=== PATIENT | female | born 1955 | race Caucasian/White ===

== ENCOUNTER 2020-01-27 15:33 | Inpatient (IN) | payer OTHER, SELFPAY ==
[2020-01-27 15:37] VITALS: BP 128/67; PULSE 95; RESP 22; TEMP 37.8; O2SAT 97
--- NOTE | 2020-01-27 15:54 | DI.RAD.S_ITS ---
PROCEDURE: XR FEMUR LT MIN 2V INDICATIONS: fall, femur pain. pain from knee to hip TECHNIQUE: 2 views of the femur were acquired. COMPARISON: [facility], CR, XR KNEE LT 3V, 01/27/2020, 15:49. [facility], CR, XR HIP W PEL IF DONE LT 2V, 01/27/2020, 15:49. FINDINGS: Bones: There is a moderately displaced, impacted, comminuted fracture of the left femoral neck. No distal femur fractures are seen. No hip dislocation is seen. No definite fracture of the pelvic ring can be seen. Age-appropriate bony degenerative changes are seen. Soft tissues: No suspicious soft tissue calcifications or masses. IMPRESSION: Impacted, angulated femoral neck fracture. If it would be helpful for clinical management decision making, please consider a dedicated hip CT for further evaluation. Dictated by: Zeke Johnson M.D. on 01/27/2020 at 15:36 Approved by: Zeke Johnson M.D. on 01/27/2020 at 15:37
--- NOTE | 2020-01-27 15:54 | DI.RAD.S_ITS ---
PROCEDURE: XR HIP W PEL IF DONE LT 2V INDICATIONS: fall, femur pain. pain from knee to hip TECHNIQUE: AP pelvis with lateral view(s) of the left hip(s). COMPARISON: [facility], CR, XR FEMUR LT MIN 2V, 01/27/2020, 15:49. [facility], CR, XR KNEE LT 3V, 01/27/2020, 15:49. FINDINGS: Bones: There is an impacted, moderately angulated, comminuted fracture of the left femoral neck. No hip dislocation can be seen. Evaluation of the bony pelvis reveals no fracture of the pelvic rings. Age-appropriate bony degenerative changes are seen. Soft tissues: The visualized bowel gas pattern is normal. No suspicious soft tissue calcifications. IMPRESSION: Left femoral neck fracture, with moderate angulation, impaction, and comminution. Dictated by: Zeke Johnson M.D. on 01/27/2020 at 15:37 Approved by: Zeke Johnson M.D. on 01/27/2020 at 15:38
--- NOTE | 2020-01-27 15:54 | DI.RAD.S_ITS ---
PROCEDURE: XR KNEE LT 3V INDICATIONS: fall, femur pain. pain from knee to hip TECHNIQUE: 3 views of the knee were acquired. COMPARISON: [facility], CR, XR FEMUR LT MIN 2V, 01/27/2020, 15:49. [facility], CR, XR HIP W PEL IF DONE LT 2V, 01/27/2020, 15:49. FINDINGS: Bones: This study is limited by nonstandard positioning. The patient is unable to straighten her leg for the examination. There is a potential medial tibial plateau fracture. No additional focal bony abnormality is seen. Age-appropriate bony degenerative changes are seen. Age-appropriate osteopenia is seen. Soft tissues: No joint effusion. No suspicious soft tissue calcifications. IMPRESSION: Potential medial tibial plateau fracture, which may simply be artifactual on this limited study. Please correlate with focal tenderness. If clinically appropriate, a dedicated knee CT could be considered for further evaluation. Dictated by: Zeke Johnson M.D. on 01/27/2020 at 15:34 Approved by: Zeke Johnson M.D. on 01/27/2020 at 15:35
--- NOTE | 2020-01-27 16:29 | ED_ITS ---
HPI - Extremity Injury (Lower) General Chief Complaint: Extremity Injury, Lower Stated Complaint: Fell, Hurt Left Leg Time Seen by Provider: 01/27/20 15:55 Source: patient Mode of arrival: Ambulatory Limitations: no limitations History of Present Illness HPI Narrative: Patient is a 64-year-old female who presents with a left femur pain. She fell going up the stairs yesterday she felt like her leg gave out on her and she fell onto it. She has been hobbling around not really being able to weight bear. No other injury. She denies any knee pain. Related Data Allergies Allergy/AdvReac Type Severity Reaction Status Date / Time No Known Drug Allergies Allergy Verified 01/27/20 15:40 Review of Systems Review of Systems Narrative: GENERAL: Denies chills,fever HEENT: Denies throat pain RESPIRATORY: Denies dyspnea, cough, wheezing CARDIOVASCULAR: Denies chest pain, palpitations GASTROINTESTINAL: Denies nausea, vomiting MUSCULOSKELETAL: See HPI SKIN: No rash, no laceration, no pruritus NEUROLOGIC: Denies weakness, dizziness, headache, numbness 8 point review of systems is negative except for those stated above and HPI Patient History Medical History Patient denies medical problems (Acute) Social History Smoking Status: Never smoker Smoking Status: Never smoker Exam Initial Vital Signs Initial Vital Signs: Vital Signs Temperature 100.0 F H 01/27/20 15:37 Pulse Rate 95 H 01/27/20 15:37 Respiratory Rate 22 01/27/20 15:37 Blood Pressure 128/67 01/27/20 15:37 Pulse Oximetry 97 01/27/20 15:37 GENERAL: Well-appearing female appears younger than stated age and in no acute distress. HEENT: Head atraumatic,EOMI, pupils reactive, face symmetric, moist mucous membranes CARDIOVASCULAR: Regular rate and rhythm without murmurs, rubs or gallops. RESPIRATORY: Breath sounds equal bilaterally, no wheezes rales or rhonchi. ABDOMEN: Soft, nontender. Normoactive bowel sounds all 4 quadrants. No guarding or rebound. EXTREMITIES: Normal range of motion, no clubbing or edema. Neurovascularly intact. Tender left hip distal pedal pulse intact. Knee is nontender and stable no swelling. NEUROLOGICAL: Alert and oriented x4.Normal gait and speech. SKIN: Warm, dry, no laceration, no petechiae, no rashes or lesions. Course Orders Ordered: ED Orders 01/27/20 15:54 XR femur LT min 2V Stat XR hip w pel if done LT 2V Stat XR knee LT 3V Stat 01/27/20 17:24 CT LE LT wo con Stat 01/27/20 17:31 Basic Metabolic Panel Stat 01/27/20 17:58 Complete Blood Count AUTO DIFF Stat 01/27/20 18:15 COVID19 -ED/INPAT/OR/L&D Stat Sodium Chloride (Normal Saline 0.9%) 1,000 mls @ 125 mls/hr IV CONT IVETTE Morphine Sulfate (Morphine) 2 mg IV Q4HR PRN PRN Reason: pain Discontinued Medications Lorazepam (Ativan) 0.5 mg IV NOW ONE Stop: 01/27/20 16:43 Last Admin: 01/27/20 17:27 Dose: 0.5 mg Documented by: NOE Morphine Sulfate (Morphine) 4 mg IV NOW ONE Stop: 01/27/20 17:40 Last Admin: 01/27/20 17:48 Dose: 4 mg Documented by: NOE Ondansetron HCl (Zofran) 4 mg IV NOW ONE Stop: 01/27/20 17:40 Last Admin: 01/27/20 17:47 Dose: 4 mg Documented by: NOE Consultations Consultation #1: Dr. Barrera reviewed Xrays, admit to him, get CT of knee. Time: 16:50 Vital Signs Vital signs: Vital Signs - 8 hr 01/27/20 15:37 01/27/20 18:15 Temperature 100.0 F H Pulse Rate 95 H 72 Respiratory Rate 22 16 Blood Pressure 128/67 154/76 H Pulse Oximetry 97 97 MDM - Extremity Injury (Lower) Lab Data Attestation: I reviewed the patient's lab results. Result diagrams: 01/27/20 17:58 01/27/20 17:31 Labs: Lab Results 01/27/20 01/27/20 01/27/20 Range/Units 17:31 17:58 18:15 WBC 7.3 (4.5-11.0) X10^3/uL RBC 4.14 (4.0-5.2) X10^6/uL Hgb 13.5 (12.0-16.0) g/dL Hct 37.8 (36-46) % MCV 91.2 (80-100) fL MCH 32.5 (26-34) PG MCHC 35.7 (30-36) % RDW 12.2 (11.6-14.8) % Plt Count 143 L (150-400) X10^3/uL Neut % (Auto) 80.5 H (50-75) % Lymph % (Auto) 11.7 L (25-40) % [place] % (Auto) 7.3 (3-14) % Eos % (Auto) 0.2 L (2-4) % Baso % (Auto) 0.3 (0-2) % Neut # (Auto) 5800 (8574-2007) /uL Lymph # (Auto) 800 L (8700-1657) /uL [place] # (Auto) 500 (0-900) /uL Eos # (Auto) 0 (0-450) /uL Baso # (Auto) 0 (0-100) /uL Sodium 135 L (137-145) mmol/L Potassium 3.9 (3.4-5.1) mmol/L Chloride 96 L (98-107) mmol/L Carbon Dioxide 30 (22-32) mmol/L BUN 15 (7-17) mg/dL Creatinine 0.58 (0.52-1.04) mg/dL Estimated GFR > 60.0 (>60) mL/min BUN/Creatinine Ratio 25.9 H (6-22) Glucose 89 (80-110) mg/dL Calcium 9.8 (8.4-10.2) mg/dL COVID-19 PCR Negative (Negative) Imaging Data Extremity x-ray #1: Radiologist's Impression: PROCEDURE: XR FEMUR LT MIN 2V INDICATIONS: fall, femur pain. pain from knee to hip TECHNIQUE: 2 views of the femur were acquired. COMPARISON: [facility], CR, XR KNEE LT 3V, 01/27/2020, 15:49. [facility], CR, XR HIP W PEL IF DONE LT 2V, 01/27/2020, 15:49. FINDINGS: Bones: There is a moderately displaced, impacted, comminuted fracture of the left femoral neck. No distal femur fractures are seen. No hip dislocation is seen. No definite fracture of the pelvic ring can be seen. Age-appropriate bony degenerative changes are seen. Soft tissues: No suspicious soft tissue calcifications or masses. IMPRESSION: Impacted, angulated femoral neck fracture. If it would be helpful for clinical management decision making, please consider a dedicated hip CT for further evaluation. Dictated by: Zeke Johnson M.D. on 01/27/2020 at 15:36 Approved by: Zeke Johnson M.D. on 01/27/2020 at 15:37 Extremity x-ray #2: Radiologist's Impression: PROCEDURE: XR HIP W PEL IF DONE LT 2V INDICATIONS: fall, femur pain. pain from knee to hip TECHNIQUE: AP pelvis with lateral view(s) of the left hip(s). COMPARISON: [facility], CR, XR FEMUR LT MIN 2V, 01/27/2020, 15:49. [facility], CR, XR KNEE LT 3V, 01/27/2020, 15:49. FINDINGS: Bones: There is an impacted, moderately angulated, comminuted fracture of the left femoral neck. No hip dislocation can be seen. Evaluation of the bony pelvis reveals no fracture of the pelvic rings. Age-appropriate bony degenerative changes are seen. Soft tissues: The visualized bowel gas pattern is normal. No suspicious soft tissue calcifications. IMPRESSION: Left femoral neck fracture, with moderate angulation, impaction, and comminution. Dictated by: Zeke Johnson M.D. on 01/27/2020 at 15:37 Approved by: Zeke Johnson M.D. on 01/27/2020 at 15:38 Extremity x-ray #3: Radiologist's Impression: PROCEDURE: XR KNEE LT 3V INDICATIONS: fall, femur pain. pain from knee to hip TECHNIQUE: 3 views of the knee were acquired. COMPARISON: [facility], CR, XR FEMUR LT MIN 2V, 01/27/2020, 15:49. [facility], CR, XR HIP W PEL IF DONE LT 2V, 01/27/2020, 15:49. FINDINGS: Bones: This study is limited by nonstandard positioning. The patient is unable to straighten her leg for the examination. There is a potential medial tibial plateau fracture. No additional focal bony abnormality is seen. Age-appropriate bony degenerative changes are seen. Age-appropriate osteopenia is seen. Soft tissues: No joint effusion. No suspicious soft tissue calcifications. IMPRESSION: Potential medial tibial plateau fracture, which may simply be artifactual on this limited study. Please correlate with focal tenderness. If clinically appropriate, a dedicated knee CT could be considered for further evaluation. Dictated by: Zeke Johnson M.D. on 01/27/2020 at 15:34 Approved by: Zeke Johnson M.D. on 01/27/2020 at 15:35 PROCEDURE: CT LE LT W CON INDICATIONS: questionable tibial plateau fracture TECHNIQUE: Noncontrast 1-1.5 mm axial sections acquired from the mid-patella to the proximal tibia, with coronal and sagittal reformats. COMPARISON: [facility], CR, XR KNEE LT 3V, 01/27/2020, 15:49. [facility], CR, XR FEMUR LT MIN 2V, 01/27/2020, 15:49. FINDINGS: Image quality: Excellent. Bones: No fracture found. Soft tissues: No joint effusion seen. IMPRESSION: No trauma identified no effusion present.. Dictated by: Reza Velasquez M.D. on 01/27/2020 at 18:29 MDM Narrative Medical decision making narrative: Patient is found have a femoral neck fracture. She is quite anxious about everything. She is here with support friend who just graduated from pool technician school, all of her questions have been answered to the best of my ability. Patient's pain is controlled and admitted to Dr. Barrera Discharge Plan Departure Patient Disposition: Admitted As Inpatient Clinical Impression: Closed fracture of left hip Qualifiers: Encounter type: initial encounter Qualified Code(s): S72.002A - Fracture of unspecified part of neck of left femur, initial encounter for closed fracture Discharge Date/Time: 01/27/20 18:57 Admit Date/Time: 01/27/20 18:39 Admit Provider: Beny Barrera
--- NOTE | 2020-01-27 17:24 | DI.CT.S_ITS ---
PROCEDURE: CT LE LT W CON INDICATIONS: questionable tibial plateau fracture TECHNIQUE: Noncontrast 1-1.5 mm axial sections acquired from the mid-patella to the proximal tibia, with coronal and sagittal reformats. COMPARISON: [facility], CR, XR KNEE LT 3V, 01/27/2020, 15:49. [facility], CR, XR FEMUR LT MIN 2V, 01/27/2020, 15:49. FINDINGS: Image quality: Excellent. Bones: No fracture found. Soft tissues: No joint effusion seen. IMPRESSION: No trauma identified no effusion present.. Dictated by: Reza Velasquez M.D. on 01/27/2020 at 18:29 Approved by: Reza Velasquez M.D. on 01/27/2020 at 18:31
[2020-01-27] MEDS: LORazepam 2 MG/ML INJ 0.5 MG IV (17:27)
[2020-01-27] MEDS: ONDANSETRON 4 MG/2 ML INJ IV (17:47)
[2020-01-27] MEDS: MORPHINE 4 MG/ML INJ IV (17:48)
[2020-01-27 18:00] LABS: BUN Creatinine Ratio 25.9 (6-22); Blood Urea Nitrogen 15 mg/dL (7-17); Calcium 9.8 mg/dL (8.4-10.2); Carbon Dioxide 30 mmol/L (22-32); Chloride 96 mmol/L (98-107); Estimated Glomerular Filt Rate > 60.0 mL/min (>60); Glucose 89 mg/dL (80-110); HEMOLYSIS < 15 (0-50); Potassium 3.9 mmol/L (3.4-5.1); Sodium 135 mmol/L (137-145)
[2020-01-27 18:08] LABS: Add Manual Diff / Slide Review NO; Basophils Absolute Auto 0 /uL (0-100); Basophils Percent Auto 0.3 % (0-2); Eosinophils Absolute Auto 0 /uL (0-450); Eosinophils Percent Auto 0.2 % (2-4); Hematocrit 37.8 % (36-46); Hemoglobin 13.5 g/dL (12.0-16.0); Lymphocytes Absolute Auto 800 /uL (1100-4500); Lymphocytes Percent Auto 11.7 % (25-40); Mean Corpuscular HGB Conc 35.7 % (30-36); Mean Corpuscular Hemoglobin 32.5 PG (26-34); Mean Corpuscular Volume 91.2 fL (80-100); Monocytes Absolute Auto 500 /uL (0-900); Monocytes Percent Auto 7.3 % (3-14); Neutrophils Absolute Auto 5800 /uL (1500-7000); Neutrophils Percent Auto 80.5 % (50-75); Platelet Count 143 X10^3/uL (150-400); Red Blood Cell Count 4.14 X10^6/uL (4.0-5.2); Red Cell Distribution Width 12.2 % (11.6-14.8); White Blood Cell Count 7.3 X10^3/uL (4.5-11.0)
[2020-01-27 18:15] VITALS: BP 154/76; PULSE 72; RESP 16; O2SAT 97
[2020-01-27 18:38] LABS: COVID19 -Nasal RAPID Negative (Negative)
[2020-01-27 19:10] VITALS: BP 136/78; PULSE 68; RESP 18; TEMP 37.5; O2SAT 100
--- NOTE | 2020-01-27 19:23 | PC.NURSE ---
TRANSFERED TO BED WITH SLIDE BOARD,MIN PAIN WITHOUT MOVEMENT,IV FLUIDS INFUSING . GENERAL DIET ORDERED
[2020-01-27 19:48] VITALS: BMI 17.6
[2020-01-27] MEDS: SODIUM CHLORIDE 0.9% 1,000 ML 125 ML IV (20:09)
[2020-01-27] MEDS: MORPHINE 2 MG/ML INJ IV (20:45)
--- NOTE | 2020-01-27 20:46 | PC.NURSE ---
I offered to help patient to get into a hospital gown when she first got up to her room and again about an hour later. She refused to change into a gown at this time. Wants to remain in her clothes.Told her she would need to change into a gown for surgery.
[2020-01-28] VITALS (22 sets, daily range): BP systolic 93–143; BP diastolic 65–81; PULSE 44–83; RESP 10–18; TEMP 35.8–37; O2SAT 92–100
--- NOTE | 2020-01-28 | PATH_ITS ---
[facility] Accession Number: [id number] . 01 Material submitted: . hip - LEFT FEMORAL HEAD AND NECK . 01 Clinical history: . FELL, HURT LEFT LEG . 01 Diagnosis: Left Femoral Head and Neck, Resection: Focal changes consistent with recent fracture site. Mild degenerative changes and osteopenia. Negative for malignancy. MRV 02/05/2020 1226 Local . 01 Electronically signed: . Haven Galo MD, Pathologist NPI- [id number] . 01 Gross description: . Received in formalin, labeled left femoral head and neck, and consists of a 4.5 x 4.5 x 4.5 cm femoral head with attached neck measuring 2.5 x 2.5 x2.5 cm. The resection margin is irregular and ragged. The articular surface is grey and smooth with a 2.0 x 1.5 cm area of eburnation. Sectioning reveals grey trabeculated cut surfaces. Also received are four additional fragments of grey bone and soft tissue measuring 4.0 x 3.5 x 1.5 cm in aggregate. . CASSETTE SUMMARY: A1: Hand Heel Seat Fitter sections are submitted, following decalcification. A2: Additional bone and soft tissue (following decalcification). decalcification). ([id number]) [id number] . /MRV 02/01/2020 1010 Local . 01 Pathologist provided ICD-10: M84.9 . 01 CPT . 216369, [id number], [id number] Performed at: 01 [facility] [address] [place] [address] [address], [place], [place] [id number] MD Leonel Corcoran MD Phone: [phone]
--- NOTE | 2020-01-28 | DI.RAD.S_ITS ---
PROCEDURE: XR PELVIS 1-2V INDICATIONS: INTER OP TECHNIQUE: Intra-operative view of the pelvis and hip acquired. COMPARISON: None. FINDINGS: Bones: Intraoperative devices prior to placement of arthroplasty prostheses are in expected positions. No fractures or suspicious bony lesions. Soft tissues: Overlying surgical retractors are present, along with other intraoperative changes. IMPRESSION: Intraoperative images shows left total hip arthroplasty in progress with anatomic left hip alignment. Dictated by: Catrachito Matthew M.D. on 01/28/2020 at 15:13 Approved by: Catrachito Matthew M.D. on 01/28/2020 at 15:14
--- NOTE | 2020-01-28 | DI.RAD.S_ITS ---
PROCEDURE: XR HIP W PEL IF DONE LT 2V INDICATIONS: LEFT TOTAL HIP FX REPAIR TECHNIQUE: AP pelvis with lateral view(s) of the left hip(s). COMPARISON: [facility], , XR HIP W PEL IF DONE LT 2V, 01/27/2020, 15:49. FINDINGS: Bones: No fracture. Expected postoperative alignment of left hip arthroplasty. The hardware appears intact. Overlying soft tissue changes. Mild right hip joint degeneration. Lower lumbar spondylitic changes. IMPRESSION: Expected postoperative appearance Dictated by: Syed Owen M.D. on 01/28/2020 at 15:21 Approved by: Syed Owen M.D. on 01/28/2020 at 15:22
[2020-01-28] MEDS: MORPHINE 2 MG/ML INJ IV ×3 (02:07→11:10)
[2020-01-28] MEDS: SODIUM CHLORIDE 0.9% 1,000 ML 125 ML IV (03:52)
--- NOTE | 2020-01-28 06:19 | PC.NURSE ---
Summary- Patient reported 5/10 pain in her left hip at 2:00. Was given IV morphine with mild relief. Patient remained asleep for the rest of the night.
--- NOTE | 2020-01-28 07:46 | PC.NURSE ---
Day shift: Pt having anxiety and emotional about her current situation. Informed Pt that Dr Arnold was coming to talk with her about the procedure. Pt encouraged to ask as many questions as needed. CMS intact. PPP. Denies ay cest pain or nausea. Pt did state I'm a little claustrophobic. Call light in reach and bed alarm is on.
[2020-01-28] MEDS: diazePAM 5 MG TABLET PO (10:04)
--- NOTE | 2020-01-28 10:19 | PC.NURSE ---
Day shift: Called Dr Barrera about Pt's anxiety and took a phone order for 5mg PO Valium Q4 hrs PRN for anxiety. Gave Pt this med and she is currently asleep (1020). Will continue to monitor.
--- NOTE | 2020-01-28 10:29 | PC.NURSE ---
Day shift: After bladder scan of approx 450mls this AM at approx 0600, Pt voided 600mls of urine in bedpan at approx 0830.
--- NOTE | 2020-01-28 10:57 | PM.HP.1 ---
History of Present Illness History of Present Illness Date Patient Seen: 01/28/20 Time Patient Seen: 08:01 Chief complaint: Fell, Hurt Left Leg Narrative: She fell yesterday and noted the acute onset of left hip pain. She was going up the steps at the time. She does a lot of outdoor walking and likes to hike but is not a runner. She notes that she is physically active and does suggest moderate amount of weight-bearing exercises. She does not do a lot of yoga. She has no prior history of fractures injuries or surgeries. She has a son that lives locally and her is on [facility]. She has a lot of steps at home. Patient History Medical History Patient denies medical problems (Acute) Family & Social History Social History: household members spouse Prior Living Arrangements House Safety & Behavioral: Feels Safe in Current Yes Environment Been Physically Hurt or No Threatened By a Person Suicidal Ideation Description None Suicide Plan Description No Plan Tobacco & Substance use: Smoking Status Never smoker alcohol intake current alcohol intake frequency holiday/special occasion Meds Home Medications and Allergies Allergies Allergy/AdvReac Type Severity Reaction Status Date / Time No Known Drug Allergies Allergy Verified 01/27/20 15:40 Review of Systems Review of Systems Narrative: Negative denies lightheadedness chest pain recent abdominal pain or any respiratory symptoms. Exam Vital Signs (past 8 hours): - 01/28/20 04:00 01/28/20 08:08 Temperature 98.2 F 98.6 F Pulse Rate 64 78 Respiratory Rate 18 16 Blood Pressure 136/76 134/79 Pulse Oximetry 99 96 Oxygen Delivery Method Room Air Oxygen Flow Rate 0 Narrative Exam Narrative: She is alert and oriented she is pleasant and conversant HEENT is benign lungs are clear, cor regular rate and rhythm, abdomen soft and benign, pain with any attempted range of motion of the left hip, moderate left hip for shortening, neurologically intact distally, minimal pain with gentle range of motion in the knee Objective Labs Result Diagrams: 01/27/20 17:58 01/27/20 17:31 Labs: Laboratory Results - last 24 hr 01/27/20 01/27/20 01/27/20 17:31 17:58 18:15 WBC 7.3 RBC 4.14 Hgb 13.5 Hct 37.8 MCV 91.2 MCH 32.5 MCHC 35.7 RDW 12.2 Plt Count 143 L Neut % (Auto) 80.5 H Lymph % (Auto) 11.7 L [place] % (Auto) 7.3 Eos % (Auto) 0.2 L Baso % (Auto) 0.3 Neut # (Auto) 5800 Lymph # (Auto) 800 L [place] # (Auto) 500 Eos # (Auto) 0 Baso # (Auto) 0 Sodium 135 L Potassium 3.9 Chloride 96 L Carbon Dioxide 30 BUN 15 Creatinine 0.58 Estimated GFR > 60.0 BUN/Creatinine Ratio 25.9 H Glucose 89 Calcium 9.8 COVID-19 PCR Negative X-rays show a displaced left femoral neck fracture. Assessment & Plan Assessment & Plan narrative: Displaced left femoral neck fracture. We discussed options in great detail today. She is young in her early 60s. It is a significantly displaced fracture I think she is best managed with a left total hip arthroplasty. Procedure alternatives risks benefits and complications were discussed in detail. We discussed the need for postoperative hip precautions and slight increased risk for hip instability after a fracture. She would prefer to heal with 1 operation was not interested in open reduction internal fixation and because of her young age and anticipated longevity think she is better managed with a left total hip hip arthroplasty instead of a hemiarthroplasty. Options risks benefits and complications discussed in detail and she consents to proceed. Quality VTE Deep Vein Thrombosis/Pulmonary Embolism Present on Admission: No
--- NOTE | 2020-01-28 11:07 | PM.OP.1 ---
Operative Date/Time/Diagnoses Date of procedure: 01/28/20 Time of procedure: 16:07 Pre-op diagnosis: Left femoral neck fracture Post-op diagnosis: same Procedure & Clinicians Procedure: Left total hip arthroplasty Same procedure as scheduled: Yes Indications: She fell and sustained a displaced left femoral neck fracture. She is young and was felt to be best managed with a left total hip arthroplasty and the patient has requested total hip replacement. The risks, benefits and alternatives to surgery were discussed with the patient prior to proceeding. Risks discussed included, but were not limited to, failure to relieve pain, leg length discrepancy, dislocation, stiffness, infection, nerve damage, deep venous thrombosis, pulmonary embolism, stroke, coma, heart attack, permanent paralysis and , as well as the potential need for eventual revision of the prosthetic. Surgeon: Deena Arnold Souvenir Assembler: Caleb Wyatt Anesthesia Type: General and Spinal Operative Notes Findings: Displaced left femoral neck fracture, adequate stability and bone, very small femoral head 43 mm, tear of the abductors with some retraction, significant trochanteric bursitis Closure Type: primary Specimen(s): none sent Prosthetic devices, grafts, tissues, transplants, or devices: Arnold [employer]hew R3 46 mm, size 3 standard offset anthology, 28+ 0 Oxinium head, one 15 mm screw Applied: drain(s) Estimated Blood Loss (mL): 250 Blood products transfused: none Procedure in detail: The patient was seen in the pre-operative area, where the patient identified the left hip as the operative site and this was marked with my initials. The patient received pre-operative antibiotics and was taken to the operating room and placed on the operative table in the right lateral decubitus position after satisfactory anesthesia. A part time flexible clerk out was performed. The left leg was prepared from the ankle to the iliac crest with ChloroPrep in the usual fashion and draped through sterile drapes. The hip was approached through an approximately 20 cm incision centered over the greater trochanter and curving gently posteriorly as it went proximally. This was carried sharply to the fascia manoj, which was divided and retracted with a self retaining retractor. The trochanteric bursa was excised with care being taken to avoid the sciatic nerve, which was identified and protected throughout the case. There was obvious significant trochanteric bursitis. And there was a tear in the anterior aspect of the hip abductor insertion. The short external rotators were incised and the capsulomuscular flap was raised and tagged for later repair. The femoral neck was brought up. An osteotomy was performed above the lesser trochanter. The head piece was removed with a corkscrew. The head was sized it was very small it was a 43 mm. Retractors were placed around the femur. The canal was opened with a box cutting osteotome, followed by a T handled reamer and a lateralizing reamer. The chili pepper broach was then used, followed by sequential broaching until there was good stability of the broach in the femur. Retractors were placed to expose the acetabulum. The labrum and central soft tissues were removed. Reaming was performed initially going up in 2 mm increments, then 1 mm increments until good bite was obtained with an odd sized reamer. The cup 1 mm larger than the last reamer was then inserted using the appropriate anteversion guides. It was very small and I was meticulous about dissecting around the cup and ordered adequately seat the acetabulum. It was further fixed with a single screw. A trial neutral liner was placed. The broach was placed in the canal. A trial head and neck were then placed and the hip relocated and checked for leg length and stability. An intraoperative film confirmed the component position and no evidence of fracture. The patient was stable in the position of sleep, of squatting, and could be put through a range of motion with 45 degrees internal rotation without dislocation. At 90 degrees flexion, internal rotation to 70? was possible before dislocation. This was felt to be satisfactory and the appropriate components were opened, and the trials were removed. The acetabular liner was impacted into position. The final stem was then impacted into the prepared femoral canal. A brief Betadine soak was performed while trialing with head options. The hip was meticulously irrigated with normal saline. Finally the femoral head was impacted onto the stem. The acetabulum was cleared of all material and the hip relocated one final time. There was a tear in the abductors. These were carefully mobilized and held with an Allis scan a clamp. It was then fixed to the bone after slightly freshening the bone and repaired with a suture anchor which was woven through the hip abductors which were repaired both to bone and side to side. The capsulomuscular flap was then repaired to the greater trochanter though an awl hole using the tag sutures. The short external rotators were repaired with a nonabsorbable suture. A deep drain was placed and brought out anteriorly. The fascia manoj was closed with Vicryl. The subcutaneous layer was closed with barbed sutures and SteriStrips. An Aquacel Ag dressing was applied and the patient was taken to recovery having tolerated the procedure well. Complications: none Post-operative Condition: stable Disposition: Acute Care Plan for aftercare: The patient will be maintained on a standard total hip replacement protocol with weight bearing as tolerated and posterior hip precautions. She should avoid hip abductor strengthening for at least a month postoperatively. The patient will receive Aspirin and sequential compression devices for DVT prophylaxis. The patient will be discharged home when safe for the home environment.
--- NOTE | 2020-01-28 11:13 | CM.DANOTE ---
Addendum entered by Sujey Lynn R.N. 01/28/20 12:04: October at [facility] stated that she can accept, if patient needs skilled rehab, but will need P.T. notes for insurance authorization. Original Note: DCP: Case received, EMR reviewed and met with patient. Introduced self and role. Was able to obtain some information from patient regarding her baseline activity status prior to hospitalization. DCP assessment completed with information currently available. Patient is a 64 year old female who admitted yesterday afternoon to the care of the hospitalist/orthopedic team. PCP: None Payer: confirmed: [employer]. Patient came to the hospital via private vehicle after sustaining a ground level fall. Patient had been going up the stairs, and tripped and fell. She then was having trouble bearing weight on her left leg. Patient was brought to the hospital and diagnosed with displaced communuted fracture of femoral neck. She is going to be having surgery today. Met briefly with patient this morning. She was sitting up in bed, quiet, flat effect. Confirmed that patient is independent at baseline. She stated that she has no primary care provider. Let her know that list can be provided for her with providers in the area when she gets closer to discharge. She resides here in [place] with her spouse, Tigre. Surgery is planned for today. P: DCP to follow closely. Will see how she does after surgery, and will be working with P.T. when appropriate. Asked Claudia at [facility] to review, since she resides here in [facility] in case she needs snf. October indicated that it can take 1-2 days for [employer] authorization, which has not been a problem in the past. Sujey Lynn RN/Dry Goods Clerk
--- NOTE | 2020-01-28 11:28 | PC.NURSE ---
Day shift: Pt taken to surgery at approx 1135.
--- NOTE | 2020-01-28 11:40 | PC.NURSE ---
Day shift: ELECTROPHYSIOLOGY TECHNICIANCOY Mitchell was told by this typewriter tester that Pt had 5mg PO Valium at approx 1000 today. The anesthesia MD informed by COY Mitchell. Pt off unit at approx 1140 for surgery pre-op.
[2020-01-28] MEDS: LACTATED RINGERS 1,000 ML 42 ML IV ×2 (11:45→14:17)
[2020-01-28] MEDS: CEFAZOLIN 2 GM/100 ML FROZ.PIGGY IV ×2 (12:03→20:45)
--- NOTE | 2020-01-28 12:28 | SUR.OPER ---
Right Lateral on padded OR bed. Gel axillary roll. Arms secured on padded armboard with pillow supporting top arm. Padded hip positioner braces x4 - anterior and posterior chest and pelvis. Additional gel pad used anterior pelvis. Gel pad under bottom leg from knee to foot and secured with tape over sheet.
[2020-01-28] MEDS: VANCOMYCIN 1,000 MG/200 ML PIGGYBACK 200 MG IV (12:56)
[2020-01-28] MEDS: BUPIVACAINE LIPOSOME 266 MG/20 ML VIAL INJ (13:02)
[2020-01-28] MEDS: BUPIVACAINE 0.25% W/ EPI 30 ML VIAL 60 ML INJ (13:02)
[2020-01-28] MEDS: EPINEPHrine 1 MG/ML SUBCUT (13:04)
[2020-01-28] MEDS: TRANEXAMIC ACID 1,000 MG VIAL 2000 MG INJ (13:04)
[2020-01-28] MEDS: SODIUM CHLORIDE IRRIG SOLUTION 250 ML, POVIDONE-IODINE SPONGE STICKS 1 APPLIC IRR (13:06)
--- NOTE | 2020-01-28 13:27 | PC.NURSE ---
Day shift: Pt remains off of AC unit at this time.
--- NOTE | 2020-01-28 14:01 | PC.NURSE ---
Day shift: Pt not on AC unit at this time.
[2020-01-28] MEDS: LACTATED RINGERS 1,000 ML 125 ML IV (16:25)
[2020-01-28] MEDS: ACETAMINOPHEN 325 MG TABLET 650 MG PO ×2 (16:26→21:07)
[2020-01-28] MEDS: ASPIRIN EC 81 MG TABLET PO (21:07)
[2020-01-28] MEDS: DOCUSATE 100 MG CAPSULE PO (21:07)
[2020-01-28] MEDS: OXYCODONE IR 5 MG TABLET PO (21:07)
[2020-01-28] MEDS: IBUPROFEN 400 MG TABLET PO (21:08)
--- NOTE | 2020-01-28 23:45 | PC.NURSE ---
Evening Shift Note- Patient arrived back from PACU via bed. Patient drousy but easly aroused. No complaints of pain at time of arrival. Patient allowed to sleep.
[2020-01-29] MEDS: IBUPROFEN 400 MG TABLET PO ×6 (00:15→21:14)
[2020-01-29] MEDS: OXYCODONE IR 5 MG TABLET PO ×5 (00:20→21:17)
[2020-01-29] MEDS: LACTATED RINGERS 1,000 ML 125 ML IV (00:52)
[2020-01-29] MEDS: CEFAZOLIN 2 GM/100 ML FROZ.PIGGY IV (04:33)
[2020-01-29 05:00] VITALS: BP 103/53; PULSE 51; RESP 16; TEMP 36.7; O2SAT 93
[2020-01-29 05:49] LABS: Hematocrit 32.1 % (36-46); Hemoglobin 11.9 g/dL (12.0-16.0)
--- NOTE | 2020-01-29 08:28 | PM.PN.1 ---
Subjective Subjective Date Patient Seen: 01/29/20 Time Patient Seen: 08:28 Interval history: She notes she is doing well this morning. She has minimal pain. She has not had any nausea. Exam Vital Signs (past 8 hours): - 01/29/20 05:00 Temperature 98.1 F Pulse Rate 51 L Respiratory Rate 16 Blood Pressure 103/53 L Pulse Oximetry 93 Oxygen Delivery Method Room Air Oxygen Flow Rate 0 Narrative Exam Narrative: She is resting comfortably in bed she can do an active straight leg raise on the left her calfs are soft bilaterally, her dressing is dry she is neurologically intact distally. Objective Labs Result Diagrams: 01/29/20 05:11 01/27/20 17:31 Labs: Laboratory Results - last 24 hr 01/29/20 05:11 Hgb 11.9 L Hct 32.1 L Assessment & Plan Assessment & Plan narrative: Doing well status post total hip arthroplasty. Plan mobilize out of bed with physical therapy work and a discontinue her drain told her she can be discharged to home in the afternoon if she clears physical therapy. Quality VTE Deep Vein Thrombosis/Pulmonary Embolism Present on Admission: No
[2020-01-29] MEDS: DOCUSATE 100 MG CAPSULE PO ×2 (08:35→21:13)
[2020-01-29] MEDS: ACETAMINOPHEN 325 MG TABLET 650 MG PO ×3 (08:35→21:06)
[2020-01-29] MEDS: ASPIRIN EC 81 MG TABLET PO ×2 (08:35→21:12)
--- NOTE | 2020-01-29 10:41 | PC.NURSE ---
Addendum entered by Cleo Mendoza R.N. 01/29/20 13:50: Patient just given her ibuprofen and 5mg of oxycodone for complaints of pain 09/28. She is sitting up in her chair and talking to her now. Addendum entered by Cleo Mendoza R.N. 01/29/20 12:00: Patient tolerated her hemovac drain coming out. There was no drainage in vac. She is sitting up in chair now. Addendum entered by Cleo Mendoza R.N. 01/29/20 11:47: Patients blood pressure 86/50s. She is asymptomatic and states that her blood pressure always run low. Denies any feeling of passing out or dizziness. Will continue to monitor mental status. Original Note: Patient given oxycodone this morning by rylie CESPEDES. Mentation is A&Ox3, patient is a bit groggy but did well with physical therapy, just moving slowly. Dressing with aquacel is cdi. Patient has been using the bedpan this morning and voiding. She is up in the chair now.
[2020-01-29 11:40] VITALS: BP 82/50; PULSE 72; RESP 15; TEMP 37; O2SAT 99
--- NOTE | 2020-01-29 12:00 | PT.IIE ---
Current Diagnoses Fracture of unspecified part of neck of left femur, initial encounter for closed fracture (01/27/20) Surgery Performed Operation Date: 01/28/20 17:15 Actual Procedures p Total Hip Arthroplasty with hip abductor repair(Left) - Deena Arnold MD Medical History (Last Reviewed 01/28/20 @ 11:00 by Deena Arnold MD) Patient denies medical problems (Acute) Physical Therapy Inpatient Evaluation/Re-Eval M1 PT/OT-IP Prior Functional Status Start: 01/29/20 08:24 Freq: NEEDED Status: Active Protocol: Document 01/29/20 11:31 HH (Rec: 01/29/20 12:00 [id number]) Medical Review Prior Functional Status Medical History Reviewed Yes Diet/Fluid Consistency Regular Communication no deficits noted. able to make needs known Mobility and Gait very active and independent. walked 15 miles a day and like to do hiking occasionally. Pt is not a runner Activities of Daily Living and IADL's independent without AD. able to drive. Social History Household Members spouse Living Arrangements House Number of Floors (Floors) Two Floors Number of Stairs To Enter/Railing? pt lives on [facility] with family room downstairs. 3 MARIXA with B rails (uses R rail usually) pt has a split driveways so upper drive connects to [facility]. Home Environment Standard Height Toilet,Walk in Shower Home Equipment Four Wheel Walker Employment Status Unknown Additional Social History Comment Pt lives with on [address] in [place]. Son and dtr in law live closeby. Spouse is out currently for business trip. She stated her friend agreed to stay with her for days if needed and son and dtr in law will also assist as needed. M2 PT-IP Current Condition Start: 01/29/20 08:24 Freq: NEEDED Status: Active Protocol: Document 01/29/20 11:31 HH (Rec: 01/29/20 12:00 [id number]) Physical Therapy Current Condition Current Condition Evaluation Date 01/29/20 Treatment Diagnosis L KAMILA ( posterior approach) s/ p GLF, difficulty in walking Onset Date 01/28/20 Precautions Posterior Hip Precautions No Hip Flexion > 90 degrees,No Hip Internal Rotation,No Hip Adduction Weight Bearing Status Weight Bearing Status Weight Bear as Tolerated M3 PT-IP Subjective Start: 01/29/20 08:24 Freq: NEEDED Status: Active Protocol: Document 01/29/20 11:31 (Rec: 01/29/20 12:00 [email or web address]) Subjective Physical Therapy Visit Type Type Initial Evaluation Visit Start Time 09:40 Visit Stop Time 10:40 Total Visit Minutes 60 Notes Per nursing staff, pt has been very drowsy and slow in response and not sure if this is d/t medication. Number of BRANCH SPECIALIST Visits 0 Physical Therapy Visit Comments Patient Comments I am very nervous and anxious about getting up because of my new hip. I am not sure if i could do this. Patient Goals To regain her mobility and strength in order to go home. Therapy Pain Assessment Pain When Pain Assessed During Mobility Pain Present Pain Present Pain Reported Location Left Leg Scale Used did not assess numeric scale Description Aching,Acute Pain Behaviors Facial Grimacing Pain Management Techniques Modification of Treatment,Re- positioning,Timing of Activity with Medications M4 PT-IP Mobility and Gait Start: 01/29/20 08:24 Freq: NEEDED Status: Active Protocol: Document 01/29/20 11:31 (Rec: 01/29/20 12:00 [id number]) PT-Bed Mobility Assessment Supine to Sit Supine to Sit Minimal Assistance Scooting Scooting to Edge of Bed Contact Guard Assistance PT-Transfer Assessment Sit to and From Stand Sit to and from Stand Minimal Assistance,1 Person Assistance,Use of Upper Extremities Equipment Transfer Assistive Device Gait Belt,Front Wheeled Walker Orthotic/Prosthetic Devices or Brace: No Transfers Transfer Destination Bed,Chair Transfer Technique Stand Step Pivot Transfer Ability Level of Assist Minimal Assistance,Use of Upper Extremities Comments Mobility Comments Pt was in bed upon PT arrival. Appears to be drowsy and slow response to questions but able to provide detailed social hx and PLOF. Pt stated she is very nervous about her rehab and mobility since she has never had sugery or any fractures. Reviewed post op precautions with pt and provided encouragement regarding POC, prognosis. Pt agreed to mobilize with PT but requested to have nursing assistance to use bed arenas and dressing change. This PT left and returned after 10 mins. Pt initally completed supine to semi long sit but she needed verbal cues to use RLE to scoot underneath L ankle to pivot herself towards L side of the bed. She completed slowly with minimal pain. She then scooted towards EOB with SBA. BP at 110/76. She was able to stand up by pushing off mostly through BUEs and RLE with stagger stance. She practiced lateral weight shift after and needed constant encouragement for amb. Pt then started ambulating with FWW and min A during stance phase on LLE since she demonstrated slight knee valgus and unsteadiness. Pt mostly WB through UEs and RLE. She started with step to pattern slowly but completed approx 40 ft. She then took small steps for turns and progressed to semi step over gait with reports feeling better She then walked back to her room slowly and slowly transferred herself to chair with use of stagger stance and B armrests. Pt rested comfortably in chair with BP 98/56 but no symptoms noted. Went over DMEs list, role of PT, and post op POC . Call light placed within reach. Gait Assessment Gait Gait Assistance Required: Minimum Assistance Distance (Feet) 80 Able to Maintain Weight Bearing Status Yes During Gait Assistive Devices Assistive Device Front Wheeled Walker Orthotic/Prosthetic Devices or Brace: No Gait Deviations General Gait Pattern Antalgic,Decreased Stride Length,Decreased Feet Clearance,Narrow Based Gait, Step-to Gait Factors Limiting Gait Function Factors Limiting Gait Function Decreased Activity Tolerance, Decreased Strength,Limited Range of Motion,Pain,Poor Balance,Poor Safety Awareness Comments Gait Comments see mobility comments. Stair Climbing Assessment Comments Stair Climbing Comments unable to assess PT-Balance Assessment Sitting Balance and Reactions Static Sitting Balance Ability Normal Dynamic Sitting Balance Ability Normal Standing Balance and Reactions Static Standing Balance Ability Good Dynamic Standing Balance Ability Fair Device Used FWW M5 PT-IP Objective Assessments Start: 01/29/20 08:24 Freq: NEEDED Status: Active Protocol: Document 01/29/20 11:31 (Rec: 01/29/20 12:00 [email or web address]) Orientation Orientation/Cognition Level of Alertness Lethargic Orientation Name,Age,Birthday,Month,Date, Year,Day of Week,Place, Situation Language Function Ability No Deficits Noted Safety Awareness Decreased Safety Awareness Memory Description No Deficits Noted Comments Appears to be drowsy and slow response to questions but able to provide detailed social hx and PLOF. Pt stated she is very nervous about her rehab and mobility since she has never had sugery or any fractures. Gross Range of Motion Upper Extremity ROM Assessment Within Functional Limits Lower Extremity ROM Assessment Left Impaired Strength Upper Extremity Strength Assessment Within Functional Limits Lower Extremity Strength Assessment Left Impaired Hip 3-/5 Knee 4/5 Ankle 5/5 Coordination Assessment Gross Coordination Gross Coordination WNL Sensation Assessment Sensation Gross Sensation WNL M6 PT-IP Treatment Start: 01/29/20 08:24 Freq: NEEDED Status: Active Protocol: Document 01/29/20 11:31 (Rec: 01/29/20 12:00 [email or web address]) Physical Therapy Treatment Exercises Exercises Ankle Pumps,Gluteal Sets Education Education Provided Precautions,Weight Bearing Status,Post-Op Packet,Safety Other Treatments Other Treatment Performed explained role of PT, POC, prognosis, recovery rate, use of DMEs . M7 PT-IP Assessment and Plan Start: 01/29/20 08:24 Freq: NEEDED Status: Active Protocol: Document 01/29/20 11:31 (Rec: 01/29/20 12:00 [email or web address]) PT Summary Assessment and Plan Potential Rehabilitation Potential Good Status of Condition at Evaluation Evolving Summary Impairments Pain,ROM,Strength,Balance, Cognition,Bed Mobility, Transfers,Gait,Activity Tolerance Assessment Summary Pt is a 64 yo female admitted to ER s/p GLF. Pt underwent L KAMILA (post approach) POD1. Pt's PLOF is unremarkable to walks 15 miles a day and very independent and active. Upon assessment, pt was appears to be drowsy and slow response to questions but able to provide detailed social hx and PLOF. Pt stated she is very nervous about her rehab and mobility since she has never had sugery or any fractures. Pt needed constant encouragement during session and she did okay. Pt amb with mostly WB through UEs and RLE and her BP dropped from 110/76 to 98/56. Pt does not have any DMEs except 4WW. Recommended pt to contact son and dtr in law to acquire FWW, raise toilet seat, shower chair/ BSC for home use. Pt will also benefit from outpatient PT to improve her mobiltiy and strength. Goals Bed Mobility Goal Standby Assistance Transfer Goal Standby Assistance,Front Wheeled Walker Gait Goal Standby Assistance,Front Wheel Walker Gait Distance 200 Other Goals 3 MARIXA with R/L rail Days to Meet Goals 3 Frequency of Treatment Frequency Of Treatment Twice a Day Treatment Plan Physical Therapy Treatment Plan Bed Mobility Training,Transfer Training,Gait Training, Therapeutic Exercise,Balance Retraining,Post Op Education, Discharge Planning,Hot or Cold Pack,Neuromuscular Re-ed Other Recommendations and Next Treatment review precautions Focus Pt will need CG training for stair climbing, transfer and precautions. mobility as dave stair climbing if possible Recommendations To Nursing Amount of Assist Needed 1 Person Assist Discharge Recommendations PT Discharge Recommendations Home with Assistance, Outpatient PT Equipment Needed for Home Before FWW, raised toilet seat, Discharge shower chair, BSC Transportation Needs at Discharge Private Vehicle
--- NOTE | 2020-01-29 14:44 | PT.IPTN ---
Current Diagnoses Fracture of unspecified part of neck of left femur, initial encounter for closed fracture (01/27/20) Surgery Performed Operation Date: 01/28/20 17:15 Actual Procedures p Total Hip Arthroplasty with hip abductor repair(Left) - Deena Arnold MD Physical Therapy Treatment Note M2 PT-IP Current Condition Start: 01/29/20 08:24 Freq: NEEDED Status: Active Protocol: Document 01/29/20 11:31 HH (Rec: 01/29/20 12:00 [id number]) Physical Therapy Current Condition Current Condition Evaluation Date 01/29/20 Treatment Diagnosis L KAMILA ( posterior approach) s/ p GLF, difficulty in walking Onset Date 01/28/20 Precautions Posterior Hip Precautions No Hip Flexion > 90 degrees,No Hip Internal Rotation,No Hip Adduction Weight Bearing Status Weight Bearing Status Weight Bear as Tolerated M3 PT-IP Subjective Start: 01/29/20 08:24 Freq: NEEDED Status: Active Protocol: Document 01/29/20 14:34 (Rec: 01/29/20 14:44 [id number]) Subjective Physical Therapy Visit Type Type Treatment Note Visit Start Time 13:43 Visit Stop Time 14:02 Total Visit Minutes 19 Number of SENIOR JAVA ENGINEER Visits 0 Physical Therapy Visit Comments Patient Comments Im still nervous moving around. My friend is going to meet up with [employer] to get DMEs for me later this afternoon. Therapy Pain Assessment Pain When Pain Assessed During Mobility Pain Present Pain Present Pain Reported M4 PT-IP Mobility and Gait Start: 01/29/20 08:24 Freq: NEEDED Status: Active Protocol: Document 01/29/20 14:34 (Rec: 01/29/20 14:44 [id number]) PT-Transfer Assessment Sit to and From Stand Sit to and from Stand Contact Guard Assistance,Use of Upper Extremities Equipment Transfer Assistive Device Gait Belt,Front Wheeled Walker Orthotic/Prosthetic Devices or Brace: No Transfers Transfer Destination Bed,Chair Transfer Technique Stand Step Pivot Transfer Ability Level of Assist Contact Guard Assistance,Use of Upper Extremities Comments Mobility Comments Pt was in chair upon PT arrival. BP at 104/57 with hip soreness noted. Pt was able to stand up slowly with FWW and stagger stance. Pt took approx 30 secs to practice weight shifting and full body extension. She then requested to use bathroom. She walked to bathroom and able to stand step pivot transfer to bathroom with FWW. She elis/ doff shorts witohut support and safely descend with FWW. After she completed pericare, Pt cont to mobilize with this PT to hallway. Pt demonstrated improved step to pattern and more WB through LLE. Pt stated she feels more comfortable now but still very nervous. Pt completed 70ft x 2 with CGA and FWW. She was able to return to room and stand step pivot transfer to chair with safe descend and no cueing. Call light plcaed within reach . BP at 103/60. Gait Assessment Gait Gait Assistance Required: Contact Guard Assist Distance (Feet) 140 Able to Maintain Weight Bearing Status Yes During Gait Assistive Devices Assistive Device Front Wheeled Walker Orthotic/Prosthetic Devices or Brace: No Gait Deviations General Gait Pattern Antalgic,Decreased Stride Length,Decreased Feet Clearance,Narrow Based Gait, Step-to Gait Factors Limiting Gait Function Factors Limiting Gait Function Decreased Activity Tolerance, Decreased Strength,Limited Range of Motion,Pain,Poor Balance,Poor Safety Awareness Comments Gait Comments see mobility comments. Stair Climbing Assessment Comments Stair Climbing Comments unable to assess PT-Balance Assessment Sitting Balance and Reactions Static Sitting Balance Ability Normal Dynamic Sitting Balance Ability Normal Standing Balance and Reactions Static Standing Balance Ability Good Dynamic Standing Balance Ability Fair Device Used FWW M5 PT-IP Objective Assessments Start: 01/29/20 08:24 Freq: NEEDED Status: Active Protocol: Document 01/29/20 11:31 (Rec: 01/29/20 12:00 [email or web address]) Orientation Orientation/Cognition Level of Alertness Lethargic Orientation Name,Age,Birthday,Month,Date, Year,Day of Week,Place, Situation Language Function Ability No Deficits Noted Safety Awareness Decreased Safety Awareness Memory Description No Deficits Noted Comments Appears to be drowsy and slow response to questions but able to provide detailed social hx and PLOF. Pt stated she is very nervous about her rehab and mobility since she has never had sugery or any fractures. Gross Range of Motion Upper Extremity ROM Assessment Within Functional Limits Lower Extremity ROM Assessment Left Impaired Strength Upper Extremity Strength Assessment Within Functional Limits Lower Extremity Strength Assessment Left Impaired Hip 3-/5 Knee 4/5 Ankle 5/5 Coordination Assessment Gross Coordination Gross Coordination WNL Sensation Assessment Sensation Gross Sensation WNL M6 PT-IP Treatment Start: 01/29/20 08:24 Freq: NEEDED Status: Active Protocol: Document 01/29/20 11:31 HH (Rec: 01/29/20 12:00 [email or web address]) Physical Therapy Treatment Exercises Exercises Ankle Pumps,Gluteal Sets Education Education Provided Precautions,Weight Bearing Status,Post-Op Packet,Safety Other Treatments Other Treatment Performed explained role of PT, POC, prognosis, recovery rate, use of DMEs . M7 PT-IP Assessment and Plan Start: 01/29/20 08:24 Freq: NEEDED Status: Active Protocol: Document 01/29/20 14:34 HH (Rec: 01/29/20 14:44 [id number]) PT Summary Assessment and Plan Potential Rehabilitation Potential Good Status of Condition at Evaluation Stable Summary Impairments Pain,ROM,Strength,Balance, Cognition,Bed Mobility, Transfers,Gait,Activity Tolerance Progress Towards Goals Slow Progress due to Pain,Slow Progress due to Activity Tolerance,Slow Progress - Other Assessment Summary Pt performed better this pm with increased ambulation distance and less assistance needed for transfer but unable to complete stair climbing yet. Pt's friend is going to acquire DMEs for her and rec her to have her son and dtr in law for CG training tomorrow morning. Expect pt to complete them and ready for d/c to home with their help and outpatient PT. Goals Bed Mobility Goal Standby Assistance Transfer Goal Standby Assistance,Front Wheeled Walker Gait Goal Standby Assistance,Front Wheel Walker Gait Distance 200 Other Goals 3 MARIXA with R/L rail Days to Meet Goals 3 Frequency of Treatment Frequency Of Treatment Twice a Day Treatment Plan Physical Therapy Treatment Plan Bed Mobility Training,Transfer Training,Gait Training, Therapeutic Exercise,Balance Retraining,Post Op Education, Discharge Planning,Hot or Cold Pack,Neuromuscular Re-ed Other Recommendations and Next Treatment review precautions Focus Pt will need CG training for stair climbing, transfer and precautions. mobility as dave stair climbing if possible Recommendations To Nursing Amount of Assist Needed 1 Person Assist Discharge Recommendations PT Discharge Recommendations Home with Assistance, Outpatient PT Equipment Needed for Home Before FWW, raised toilet seat, Discharge shower chair, BSC Transportation Needs at Discharge Private Vehicle
--- NOTE | 2020-01-29 14:49 | CM.DPC ---
DCP Cont: Per Ortho MD, pt tolerated procedure well and to work more with PT prior to d/c possibly tomorrow if stable. Per PT, pt able to ambulate, although slowly, in the halls and plan is for pt's neighbor to stay with pt at d/c while is out of town and son/DIL to assist as needed as they live nearby. PT recommending safe d/c home with assist and outpt PT. Per pt, neighbor securing DME recommended from [employer] today or tomorrow. PT worked with pt again this afternoon and pt still nervous about ambulating but not needing SNF at d/c. SW met bedside with pt briefly after PT session and pt confirms that her preference is home with family/friend assist. SW updated [facility] that insurance auth not currently needed for SNF at d/c as plan is home with assist. Plan: SW to follow for plan of home with assist and outpt PT and any further identified discharge planning needs. Jil Rodriguez MSW
[2020-01-29 15:33] VITALS: BP 98/48; PULSE 64; RESP 16; TEMP 37.4; O2SAT 99
[2020-01-29 19:31] VITALS: BP 100/61; PULSE 70; RESP 16; TEMP 36.8; O2SAT 98
[2020-01-29] MEDS: diazePAM 5 MG TABLET PO (19:41)
[2020-01-29 23:00] VITALS: BP 91/53; PULSE 53; RESP 16; TEMP 36.3; O2SAT 97
[2020-01-30] MEDS: IBUPROFEN 400 MG TABLET PO ×4 (00:43→13:05)
[2020-01-30] MEDS: OXYCODONE IR 5 MG TABLET PO ×3 (02:22→13:05)
[2020-01-30 06:00] VITALS: BP 108/61; PULSE 62; RESP 16; TEMP 36.3; O2SAT 99
[2020-01-30] MEDS: ASPIRIN EC 81 MG TABLET PO (08:35)
[2020-01-30] MEDS: DOCUSATE 100 MG CAPSULE PO (08:35)
[2020-01-30] MEDS: ACETAMINOPHEN 325 MG TABLET 650 MG PO (08:35)
[2020-01-30] MEDS: SODIUM CHLORIDE 0.9% FLUSH 10 ML IV (08:36)
[2020-01-30 08:45] VITALS: BP 98/52; PULSE 72; RESP 16; TEMP 36.7; O2SAT 99
--- NOTE | 2020-01-30 10:53 | PM.DS.1 ---
History of Present Illness History of Present Illness Chief complaint: Fell, Hurt Left Leg Narrative: She fell yesterday and noted the acute onset of left hip pain. She was going up the steps at the time. She does a lot of outdoor walking and likes to hike but is not a runner. She notes that she is physically active and does suggest moderate amount of weight-bearing exercises. She does not do a lot of yoga. She has no prior history of fractures injuries or surgeries. She has a son that lives locally and her is on [facility]. She has a lot of steps at home. Discharge Providers Provider Date of admission: 01/27/20 18:39 Discharge Date: 01/30/20 Consults: 01/28/20 15:41 Consult to Discharge Planning Routine Comment: Consult to Physical Therapy Evaluate & Treat Comment: no hip abductor strengthening Physician Instructions: post op KAMILA protocol Consult to Respiratory Therapy Evaluate & Treat Comment: Physician Instructions: Evaluate and treat Discharge provider: Deena Arnold MD Summary Hospital Course Discharge Diagnosis: Left femoral neck fracture after ground level fall, probable osteoporosis, left hip abductor tear Hospital Course: Patient is taken the operating room she underwent a left total hip arthroplasty. Intraoperative findings included a left hip abductor repair in her left hip abductors were repaired with suture anchor. She tolerated the procedure without difficulty. She was mobilized with physical therapy and got out of bed with nursing. She did not have any major medical problems and was able to ambulate with a walker at the time of discharge. Status at Discharge Cognitive/behavioral status at discharge: oriented Time Spent with Patient Time spent: Less than 30 minutes Exam Vital Signs (past 8 hours): - 01/30/20 06:00 01/30/20 08:45 Temperature 97.3 F L 98.0 F Pulse Rate 62 72 Respiratory Rate 16 16 Blood Pressure 108/61 98/52 L Pulse Oximetry 99 99 Oxygen Delivery Method Room Air Oxygen Flow Rate 0 Narrative Exam Narrative: She is alert she is oriented she is resting comfortably in bed, she has minimal pain with gentle range of motion in the left hip leg lengths look equal, her dressings dry and intact she is able to fire toe flexors and extensors. Objective Labs Result Diagrams: 01/29/20 05:11 01/27/20 17:31 Discharge Assessment & Plan Assessment and Plan Assessment: Doing well status post left total hip arthroplasty plan is to discharge her to home and have her do outpatient physical therapy. She will follow up with me in 10 days. Discharge Plan Discharge Plan Patient Disposition: Home Discharge comment: Discharge to home when safe and cleared by physical therapy. Discharge orders & Medications Prescriptions: New acetaminophen 325 mg Tablet 650 mg PO TID Qty: 60 RF: 0 aspirin 81 mg Tablet,Delayed Release (Dr/Ec) 81 mg PO BID Qty: 60 RF: 0 ibuprofen 400 mg Tablet 400 mg PO Q4HR Qty: 60 RF: 0 oxycodone 5 mg Tablet 5 mg PO Q3HR PRN (Reason: Pain, Moderate (4-6)) Qty: 30 RF: 0 Follow up/Referrals: Deena Arnold MD [Physician] - Diet/Activity/Treatments Diet: Diet as Tolerated Activity: Ambulate multiple times a day. Avoid falls and high hip flexion. Cold/Heat Therapy: Use ice on her hip multiple times a day. Other treatments: Follow up with me in 10-14 days. Skin/Wound/Dressing Care Report to your healthcare provider any signs of infection, such as:: chills, fever, night sweats, increased pain, unusual drainage and unusual redness Dressing: Keep dressing on okay to shower. Visit Report/Discharge Packet Instructions: DI for Hip Replacement, DI for Prescription Opioid Use Stand Alone Forms: Surgery Discharge Quality VTE Deep Vein Thrombosis/Pulmonary Embolism Present on Admission: No
--- NOTE | 2020-01-30 11:15 | PC.NURSE ---
Patient will be discharging home today. Her dressing to her l.hip is cdi with an aquacel intact. She is getting up with physical therapy and is a 1 person assist with the walker. Given 1 oxycodone earlier this am for pain and helpful. Will work with PT and then discharge to home.
--- NOTE | 2020-01-30 12:13 | CM.DPC ---
Addendum entered by Brianna Cazares LPN 01/30/20 13:04: Met with pt and her son and DIL now in followup: Pt confirms their is no plan for a neighbor today. Her DIL will be staying with her and they are trying make all arrangements before pt leaves today. They wondered about a couple days of HH before pt goes to outpt PT (she plans this at [facility]) an OUTPT PT clinic that pt's has used and pt says she put a call into them yesterday and they will squeeze me in. Explained that Dr. Arnold's noted indicated OUTPT PT would be planned and that she will see pt in clinic in 10-12 days. Pt's son is now calling the office for this appointment. Pt does not have a PCP and her son wondered about this. Pt is clearly ambivalent and tells him I don't need that before I get out of here. She is uncertain that she needs a PCP she says but does know to call the clinics she is interested in and see if they accept her insurance. Pt will leave for home as soon as [facility] Gall[facility] has completed all d/c paperwork. Original Note: DCP: continued: case discussed in Team Rounds and a d/c to home now noted by Dr. Adry Arnold. EMR reviewed. Pt will work with pt again and then d/c to home as per prior plan with neighbor to stay until returns and son and DIL checking in prn. OUTPT is planned as well as followup at [facility] clinic.
--- NOTE | 2020-01-30 12:38 | PT.IPTN ---
Current Diagnoses Fracture of unspecified part of neck of left femur, initial encounter for closed fracture (01/27/20) Surgery Performed Operation Date: 01/28/20 17:15 Actual Procedures p Total Hip Arthroplasty with hip abductor repair(Left) - Deena Arnold MD Physical Therapy Treatment Note M2 PT-IP Current Condition Start: 01/29/20 08:24 Freq: NEEDED Status: Active Protocol: Document 01/29/20 11:31 HH (Rec: 01/29/20 12:00 [id number]) Physical Therapy Current Condition Current Condition Evaluation Date 01/29/20 Treatment Diagnosis L KAMILA ( posterior approach) s/ p GLF, difficulty in walking Onset Date 01/28/20 Precautions Posterior Hip Precautions No Hip Flexion > 90 degrees,No Hip Internal Rotation,No Hip Adduction Weight Bearing Status Weight Bearing Status Weight Bear as Tolerated M3 PT-IP Subjective Start: 01/29/20 08:24 Freq: NEEDED Status: Active Protocol: Document 01/30/20 11:40 KS (Rec: 01/30/20 13:53 KS [id number]) Subjective Physical Therapy Visit Type Type Treatment Note Visit Start Time 11:40 Visit Stop Time 12:38 Total Visit Minutes 58 Number of AS400 OPERATOR Visits 1 Physical Therapy Visit Comments Patient Comments Pt agreeable to work w/ therapy. Pts DIL present for caregiver training. Patient Goals To regain her mobility and strength in order to go home. Therapy Pain Assessment Pain When Pain Assessed During Mobility Pain Present Pain Present Pain Reported Location Left Leg Intensity 4 Scale Used Numeric (0 - 10) Description Aching,Tender Pain Management Techniques Distraction,Re-positioning M4 PT-IP Mobility and Gait Start: 01/29/20 08:24 Freq: NEEDED Status: Active Protocol: Document 01/30/20 11:40 KS (Rec: 01/30/20 13:53 KS [id number]) PT-Bed Mobility Assessment Supine to Sit Supine to Sit Standby Assistance Sit to Supine Sit to Supine Standby Assistance Scooting Scooting to Edge of Bed Standby Assistance PT-Transfer Assessment Sit to and From Stand Sit to and from Stand Contact Guard Assistance,Use of Upper Extremities Equipment Transfer Assistive Device Gait Belt,Front Wheeled Walker Orthotic/Prosthetic Devices or Brace: No Transfers Transfer Destination Bed,Toilet Transfer Technique pt ambulated w/ FWW Transfer Ability Level of Assist Contact Guard Assistance,Use of Upper Extremities Comments Mobility Comments Pt was in bed upon arrival from therapy w/ DIL present for caregiver training. Reviewed precautions and LE exercises and discussed therapy prior to mobilization. Pt SBA for sup<>sit, scooting to EOB. Demonstrated to pts DIL gait belt application. Pt then sit<>stand CGA w/ FWW. Pt ambulated to bathroom and stand<>sit on toilet CGA w/ grab bar for slow descent. Pts DIL reports they have raised toilet seat w/ arm rests at home. Pt sit<>stand form toilet, ambulated to sink for handwashing CGA. Pt then ambulated ~160 ft to stairs w/ FWW and SBA to CGA. Pt required cues for heel toe walking, equal step length, and L quad activation while ambulating. Pt then completed 3 x2 steps w/ R rail and L CALENDER OPERATOR . Pts CADY was able to provide CGA and CALENDER OPERATOR during stairs. Pt was slightly fearful on first set of stairs, but improved on second set w/ min cues for sequencing. Pt and pts DIL state they feel safe to perform steps at home. Pt ambulated back to room w/ FWW and SBA provided by DIL. Pt ambulated slowly w/ antalgic gait, decreased stride and foot clearance. Pts gait improved w/ verbal and visual cues. Pt returned to roomand got into bed SBA. Pt positioned in bed comfortably. Gait Assessment Gait Gait Assistance Required: Standby Assistance,Contact Guard Assist,1 Person Assist Distance (Feet) 320 Able to Maintain Weight Bearing Status Yes During Gait Assistive Devices Assistive Device Front Wheeled Walker Orthotic/Prosthetic Devices or Brace: No Gait Deviations General Gait Pattern Antalgic,Decreased Stride Length,Decreased Feet Clearance,Narrow Based Gait, Step-to Gait Factors Limiting Gait Function Factors Limiting Gait Function Decreased Activity Tolerance, Decreased Strength,Limited Range of Motion,Pain,Poor Balance,Poor Safety Awareness Comments Gait Comments see mobility comments. Stair Climbing Assessment Evaluation Level of Assist On Stairs Contact Guard Assistance,1 Person Assistance Devices Stair Climbing Assistive Devices Right Railing Technique/Endurance Stair Climbing Direction Ascend and Descend Stair Climbing Technique Step to Step Number of Steps Climbed 3 Stair Climbing Set # Repetitions (reps) 2 Comments Stair Climbing Comments Pt ascended/descended 3 steps x2 w/ R rail L CALENDER OPERATOR and CGA and cues for sequencing provided by pts DIL. PT-Balance Assessment Sitting Balance and Reactions Static Sitting Balance Ability Normal Dynamic Sitting Balance Ability Normal Standing Balance and Reactions Static Standing Balance Ability Good Dynamic Standing Balance Ability Fair Device Used FWW M5 PT-IP Objective Assessments Start: 01/29/20 08:24 Freq: NEEDED Status: Active Protocol: Document 01/29/20 11:31 HH (Rec: 01/29/20 12:00 HH [id number]) Orientation Orientation/Cognition Level of Alertness Lethargic Orientation Name,Age,Birthday,Month,Date, Year,Day of Week,Place, Situation Language Function Ability No Deficits Noted Safety Awareness Decreased Safety Awareness Memory Description No Deficits Noted Comments Appears to be drowsy and slow response to questions but able to provide detailed social hx and PLOF. Pt stated she is very nervous about her rehab and mobility since she has never had sugery or any fractures. Gross Range of Motion Upper Extremity ROM Assessment Within Functional Limits Lower Extremity ROM Assessment Left Impaired Strength Upper Extremity Strength Assessment Within Functional Limits Lower Extremity Strength Assessment Left Impaired Hip 3-/5 Knee 4/5 Ankle 5/5 Coordination Assessment Gross Coordination Gross Coordination WNL Sensation Assessment Sensation Gross Sensation WNL M6 PT-IP Treatment Start: 01/29/20 08:24 Freq: NEEDED Status: Active Protocol: Document 01/30/20 11:40 KS (Rec: 01/30/20 13:53 KS [id number]) Physical Therapy Treatment Exercises Exercises Ankle Pumps,Gluteal Sets,Quad Sets,Heel Slides Education Education Provided Precautions,Weight Bearing Status,Post-Op Packet,Safety Other Treatments Other Treatment Performed Reviewed LE exercises, discussed HHPT, outpatient rehab, POC, conducted caregiver training. M7 PT-IP Assessment and Plan Start: 01/29/20 08:24 Freq: NEEDED Status: Active Protocol: Document 01/30/20 11:40 KS (Rec: 01/30/20 13:53 KS [id number]) PT Summary Assessment and Plan Potential Rehabilitation Potential Good Status of Condition at Evaluation Stable Summary Impairments Pain,ROM,Strength,Balance, Cognition,Bed Mobility, Transfers,Gait,Activity Tolerance Assessment Summary Pt tolerated ~320 ft ambulation and 6 total steps today. Pt SBA for bed mobility , SBA to CGA for transfers and ambulation, CGA CALENDER OPERATOR for stairs. Completed caregiver training w/ pts DIL who was able to provide appropriate assist and cues throughout treatment. Pt required frequent encouragement, but overall had good activity tolerance and demonstrated good use of FWW. Pts DIL has appropriate DME at home for pts use and will stay w/ pt overnight as needed. Pt and DIL stated they feel safe to return home. Pt will benefit from HHPT to improve functional mobility, strength and gait. Goals Bed Mobility Goal Standby Assistance Transfer Goal Standby Assistance,Front Wheeled Walker Gait Goal Standby Assistance,Front Wheel Walker Gait Distance 200 Other Goals 3 MARIXA with R/L rail Days to Meet Goals 3 Frequency of Treatment Frequency Of Treatment Twice a Day Treatment Plan Physical Therapy Treatment Plan Bed Mobility Training,Transfer Training,Gait Training, Therapeutic Exercise,Balance Retraining,Post Op Education, Discharge Planning,Hot or Cold Pack,Neuromuscular Re-ed Recommendations To Nursing Amount of Assist Needed 1 Person Assist Discharge Recommendations PT Discharge Recommendations Home with Assistance,Home Health,Outpatient PT Equipment Needed for Home Before FWW, raised toilet seat, Discharge shower chair, BSC Transportation Needs at Discharge Private Vehicle
== END 2020-01-30 13:53 | disposition home or self-care (01) | DRG 470 ==
LOC: ED 18:39 → AC 18:40
PROVIDERS: Admitting Provider Orthopaedic Surgery; Emergency Provider Emergency Medicine; Referring Provider Emergency Medicine; Visit Provider Orthopaedic Surgery
PROC: 0SRB0JZ Replacement of Left Hip Joint with Synthetic Substitute, Open Approach (ICD-10-PCS; CPT 27130; principal; 2020-01-28 17:15)
DX: S72.002A Fracture of unspecified part of neck of left femur, initial encounter for closed fracture (principal); S76.212A Strain of adductor muscle, fascia and tendon of left thigh, initial encounter; W10.9XXA Fall (on) (from) unspecified stairs and steps, initial encounter
CPT/HCPCS: 36415; 72170; 73502; 73552; 73562; 73700; 80048; 85014; 85018; 85025; 87635; 96374; 96375; 97110; 97116; 97161; 97530; 99284; C1776; C9290; J0171; J0690; J1100; J2060; J2250; J2270; J2274; J2405; J2704; J3010

== ENCOUNTER 2020-07-15 15:00 | Observation (INO) | payer OTHER, SELFPAY ==
[2020-07-15] VITALS (29 sets, daily range): BP systolic 131–181; BP diastolic 61–96; PULSE 62–87; RESP 8–22; TEMP 36.4–37.1; O2SAT 94–100; BMI 17.4
--- NOTE | 2020-07-15 | DI.RAD.S_ITS ---
PROCEDURE: XR HIP LT 1V INDICATIONS: closed reduction of left hip TECHNIQUE: 1 intraoperative view of the hip were acquired. COMPARISON: [facility], CR, XR HIP LT 1V, 07/15/2020, 16:23. [facility], CR, XR HIP W PEL IF DONE LT 2V, 07/15/2020, 15:23. FINDINGS: Interval reduction of the left hip total arthroplasty. No acute fracture identified. IMPRESSION: Interval reduction of the left hip total arthroplasty. Dictated by: Asaf Morelos M.D. on 07/15/2020 at 20:37 Approved by: Asaf Morelos M.D. on 07/15/2020 at 20:38
--- NOTE | 2020-07-15 15:06 | DI.RAD.S_ITS ---
PROCEDURE: XR HIP W PEL IF DONE LT 2V INDICATIONS: possible discloated left hip TECHNIQUE: 1 views of the pelvis and left hip were acquired. COMPARISON: [facility], , XR HIP W PEL IF DONE LT 2V, 01/28/2020, 14:33. FINDINGS: Bones: Dislocated total left hip arthroplasty. No fractures identified. No hardware loosening seen. No suspicious bony lesions. The visualized pelvic ring appears intact. Soft tissues: No suspicious soft tissue calcifications or masses. IMPRESSION: Dislocated total left hip arthroplasty Dictated by: Bossman Berg M.D. on 07/15/2020 at 15:39 Approved by: Bossman Berg M.D. on 07/15/2020 at 15:40
[2020-07-15] MEDS: MORPHINE 2 MG/ML INJ IV (15:15)
--- NOTE | 2020-07-15 15:53 | ED_ITS ---
HPI - Extremity Injury (Lower) General Chief Complaint: Extremity Injury, Lower Stated Complaint: Hip Dislocation Time Seen by Provider: 07/15/20 15:11 Source: patient Mode of arrival: EMS Limitations: no limitations History of Present Illness HPI Narrative: Patient is a 65-year-old female who presents with left hip dislocation. She actually femoral neck fracture January 2020 he then was repaired with a total hip arthroplasty. Patient is quite active and put her left foot up on a bench to tie her shoe when she felt her hip pop out. She denies numbness or tingling. She last ate breakfast before noon this morning. complaint: hip injury Related Data Previous Rx's Medication Instructions Recorded acetaminophen 650 mg PO TID #60 tab 01/30/20 aspirin 81 mg PO BID #60 tab 01/30/20 ibuprofen 400 mg PO Q4HR #60 tab 01/30/20 oxycodone-acetaminophen [Percocet] 1 tab PO Q8H PRN #14 tab 07/15/20 Allergies Allergy/AdvReac Type Severity Reaction Status Date / Time No Known Drug Allergies Allergy Verified 07/15/20 15:03 Review of Systems Review of Systems Narrative: GENERAL: Denies chills, fatigue, malaise, fever, sweats, travel HEENT: Denies sinus pain, ear pain, sore throat, difficulty swallowing, neck pain RESPIRATORY: Denies dyspnea, cough, wheezing, hemoptysis, sputum. CARDIOVASCULAR: Denies chest pain, palpitations, orthopnea, edema GASTROINTESTINAL: Denies nausea, vomiting, abdominal pain, diarrhea, constipation, melena. : Denies dysuria, frequency, incontinence, hematuria, urinary retention, flank pain. MUSCULOSKELETAL: See HPI SKIN: No rash, no erythema, no pruritus NEUROLOGIC: Denies weakness, dizziness, headache, numbness, change in speech, confusion PSYCHIATRIC: No concerning psychosocial issues. 12 point review of systems is negative except for those stated above and HPI Patient History Medical History (Updated 07/15/20 @ 18:01 by Agustina Melendez MD) Patient denies medical problems Social History household members: spouse Smoking Status: Never smoker alcohol intake: current Smoking Status: Never smoker alcohol intake frequency: holidays/special occasions only Substance Use Type: does not use Exam Initial Vital Signs Initial Vital Signs: Vital Signs Temperature 98.0 F 02/24/21 14:57 Pulse Rate 80 07/15/20 14:57 Respiratory Rate 14 07/15/20 14:57 Blood Pressure 181/84 H 07/15/20 14:57 Pulse Oximetry 100 07/15/20 14:57 GENERAL: Well-appearing, well-nourished and in no acute distress. CARDIOVASCULAR: peripheral pulses in tact, cap refill <2 sec RESPIRATORY: No respiratory distress, speaks in full sentences without difficulty EXTREMITIES: Normal range of motion, no clubbing or edema. Neurovascularly intact Left hip shortened rotated pedal pulse present NEUROLOGICAL: Cranial nerves II through XII grossly intact. Normal gait and speech. SKIN: Warm, dry, no petechiae, no rashes or lesions. Procedures Orthopedic Joint Reduction Joint #1: Time Out Performed: Yes Side: left Joint Reduction Location: hip Analgesia: procedural sedation Technique used: traction/counter-traction and direct manipulation Post-reduction neuro exam: no change Post-reduction vascular: no change Post Reduction X-Ray Results: not reduced Procedural Sedation Consent signed: Yes Time out performed: Yes Indication: fracture/dislocation reduction ASA Class: I Time of Last PO Intake: 10:00 Preparation: cardiac catheterization technician applied, pulse oximeter, capnometry used and supplemental O2 applied Midazolam: IV Midazolam dose (mg): 2 IV Propofol dose (mg): 90 ED Sedation Level: Moderate (Concious) Patient Tolerated Procedure: Well Complications: none Course Orders Ordered: ED Orders 07/15/20 15:06 XR pelvis 1-2V Stat 07/15/20 16:15 COVID19 Stat 07/15/20 16:24 XR hip LT 1V Stat Discontinued Medications Fentanyl (Fentanyl 100 Mcg/2 Ml Inj) 0 mcg IV Q5M PRN PRN Reason: Pain, Moderate (4-6) Hydromorphone HCl (Hydromorphone 0.5 Mg Inj) 0.5 mg IV NOW ONE Stop: 07/15/20 16:46 Last Admin: 07/15/20 16:49 Dose: 0.5 mg Documented by: HANNAH Lactated Ringer's (Lactated Ringers) 1,000 mls @ 42 mls/hr IV CONT IVETTE Last Infusion: 07/15/20 20:06 Dose: 0 mls/hr Documented by: Admin: 07/15/20 18:30 Dose: 42 mls/hr Documented by: CARINA Metoclopramide HCl (Metoclopramide 10 Mg/2 Ml Inj) 5 mg IV NOW PRN PRN Reason: Nausea And Vomiting Midazolam HCl (Midazolam 2 Mg/2 Ml Vial) 2 mg IV NOW ONE Stop: 07/15/20 16:07 Last Admin: 07/15/20 16:07 Dose: 2 mg Documented by: HANNAH Morphine Sulfate (Morphine 2 Mg/Ml Inj) 2 mg IV NOW ONE Stop: 07/15/20 15:12 Last Admin: 07/15/20 15:15 Dose: 2 mg Documented by: JUJU Ondansetron HCl (Ondansetron 4 Mg/2 Ml Inj) 4 mg IV NOW PRN PRN Reason: Nausea And Vomiting Oxycodone HCl (Oxycodone Ir 5 Mg Tablet) 5 mg PO Q3HR PRN PRN Reason: Pain, Moderate (4-6) Oxycodone/Acetaminophen (Oxycodone/Acetaminophen 5/325 Tablet) 1 tab PO PACUNOW PRN PRN Reason: Mild or Moderate Pain Last Admin: 07/15/20 19:59 Dose: 1 tab Documented by: CARINA Propofol (Propofol 200 Mg/20 Ml Vial) 45 mg 1 mg/kg (45 mg) IV NOW ONE Stop: 07/15/20 15:54 Last Admin: 07/15/20 16:04 Dose: 45 mg Documented by: HANNAH Propofol (Propofol 200 Mg/20 Ml Vial) 45 mg 1 mg/kg (45 mg) IV NOW ONE Stop: 07/15/20 16:11 Last Admin: 07/15/20 16:10 Dose: 45 mg Documented by: HANNAH Vital Signs Vital signs: Vital Signs - 8 hr 07/15/20 14:57 07/15/20 16:04 07/15/20 16:05 Temperature 98.0 F Pulse Rate 80 76 68 Respiratory Rate 14 13 16 Blood Pressure 181/84 H 132/71 Pulse Oximetry 100 100 100 07/15/20 16:10 07/15/20 16:15 07/15/20 16:16 Temperature Pulse Rate 68 62 63 Respiratory Rate 21 13 11 L Blood Pressure 136/71 145/72 H Pulse Oximetry 94 100 100 07/15/20 16:20 07/15/20 16:25 07/15/20 16:30 Temperature Pulse Rate 73 74 72 Respiratory Rate 14 13 14 Blood Pressure 138/76 151/88 H 145/81 H Pulse Oximetry 100 100 100 07/15/20 16:35 07/15/20 16:40 07/15/20 16:45 Temperature Pulse Rate 75 74 72 Respiratory Rate 12 Blood Pressure 147/83 H 146/83 H 145/84 H Pulse Oximetry 98 97 07/15/20 16:50 07/15/20 16:55 07/15/20 17:00 Temperature Pulse Rate 76 74 78 Respiratory Rate 13 22 12 Blood Pressure 154/80 H 147/89 H 145/84 H Pulse Oximetry 99 99 99 07/15/20 17:05 07/15/20 17:15 07/15/20 17:16 Temperature Pulse Rate 81 87 87 Respiratory Rate 14 20 Blood Pressure 147/87 H Pulse Oximetry 99 99 99 07/15/20 17:30 07/15/20 17:34 07/15/20 17:45 Temperature Pulse Rate 70 74 85 Respiratory Rate 12 21 Blood Pressure 137/66 173/72 H Pulse Oximetry 98 97 07/15/20 18:00 Temperature Pulse Rate 82 Respiratory Rate 20 Blood Pressure 147/65 H Pulse Oximetry 98 MDM - Extremity Injury (Lower) Lab Data Labs: Lab Results 07/15/20 Range/Units 16:15 SARS-CoV-2 (PCR) Negative (Negative) MDM Narrative Medical decision making narrative: Initially 45 mg of propofol did not quite sedate patient, 45 mg into a Versed additional were given. Patient was adequately sedated for attempt at hip dislocation. Unfortunately attempt was unsuccessful 0-Duarte notfired of persistent hip dislocation Discharge Plan Departure Patient Disposition: Admitted as Observation Clinical Impression: Dislocation of left hip Admit Date/Time: 07/15/20 18:13 Admit Provider: Agustina Melendez
[2020-07-15] MEDS: propofoL 200 MG/20 ML VIAL 45 MG IV ×2 (16:04→16:10)
[2020-07-15] MEDS: MIDAZOLAM 2 MG/2 ML VIAL IV (16:07)
--- NOTE | 2020-07-15 16:17 | PC.NURSE ---
Unable to reduce L hip. consulting ortho. RT at bedside. Pt breathing well, maintaining VS WNL
--- NOTE | 2020-07-15 16:24 | DI.RAD.S_ITS ---
PROCEDURE: XR HIP LT 1V INDICATIONS: dislocated hip TECHNIQUE: 2 view(s) of the hip acquired. COMPARISON: [facility], CR, XR HIP W PEL IF DONE LT 2V, 07/15/2020, 15:23. FINDINGS: Bones: Patient is status post left hip arthroplasty. There is persistent dislocation of the femoral component. Soft tissues: Overlying postoperative changes are noted. No suspicious soft tissue densities. IMPRESSION: Persistent left hip dislocation. Dictated by: Michelle Parker M.D. on 07/15/2020 at 16:34 Approved by: Michelle Parker M.D. on 07/15/2020 at 16:35
[2020-07-15 16:46] LABS: COVID19 -Nasal RAPID Negative (Negative)
[2020-07-15] MEDS: HYDROMORPHONE 0.5 MG INJ IV (16:49)
--- NOTE | 2020-07-15 17:36 | PC.NURSE ---
Pt's shoes, pants, jacket, shirt, and bra were placed in a belongings bag. Pt's watch placed in her shoe.
--- NOTE | 2020-07-15 17:57 | PM.HP.1 ---
History of Present Illness History of Present Illness Date Patient Seen: 07/15/20 Time Patient Seen: 17:57 Date of Onset of Symptoms: 07/15/20 Chief complaint: Hip Dislocation Narrative: Jaydon is a 65-year-old female that is status post left total hip arthroplasty for left femoral neck fracture on February 09, [address] Arnold. She was in her usual state of health until this afternoon when she bent her leg up to tie her shoe and dislocated her left hip. She was brought to the hospital by EMS. Usually lives at home with her , but he is out of town. She does have a son that is around and lives in [place] and has been a to and from the hospital today. denies any fevers chills nausea or vomiting. She had a unsuccessful reduction attempt in the emergency room by ER staff. Denies numbness or tingling Patient History Medical History (Updated 07/15/20 @ 18:01 by Agustina Melendez MD) Patient denies medical problems Family & Social History Social History: household members spouse Safety & Behavioral: Feels Safe in Current Yes Environment Been Physically Hurt or No Threatened By a Person Tobacco & Substance use: Smoking Status Never smoker alcohol intake current alcohol intake frequency holiday/special occasion Substance Use Type does not use Meds Home Medications and Allergies Home Medications Medication Instructions Recorded Confirmed Type acetaminophen 650 mg PO TID #60 tab 01/30/20 Rx aspirin 81 mg PO BID #60 tab 01/30/20 Rx ibuprofen 400 mg PO Q4HR #60 tab 01/30/20 Rx oxycodone 5 mg PO Q3HR PRN #30 tab 01/30/20 Rx Allergies Allergy/AdvReac Type Severity Reaction Status Date / Time No Known Drug Allergies Allergy Verified 07/15/20 15:03 Review of Systems Review of Systems ROS: Yes All systems reviewed with the patient and are negative except as otherwise documented Exam Vital Signs (past 8 hours): - 07/15/20 14:57 07/15/20 16:04 07/15/20 16:05 Temperature 98.0 F Pulse Rate 80 76 68 Respiratory Rate 14 13 16 Blood Pressure 181/84 H 132/71 Pulse Oximetry 100 100 100 07/15/20 16:10 07/15/20 16:15 07/15/20 16:16 Temperature Pulse Rate 68 62 63 Respiratory Rate 21 13 11 L Blood Pressure 136/71 145/72 H Pulse Oximetry 94 100 100 07/15/20 16:20 07/15/20 16:25 07/15/20 16:30 Temperature Pulse Rate 73 74 72 Respiratory Rate 14 13 14 Blood Pressure 138/76 151/88 H 145/81 H Pulse Oximetry 100 100 100 07/15/20 16:35 07/15/20 16:40 07/15/20 16:45 Temperature Pulse Rate 75 74 72 Respiratory Rate 12 Blood Pressure 147/83 H 146/83 H 145/84 H Pulse Oximetry 98 97 07/15/20 16:50 07/15/20 16:55 07/15/20 17:00 Temperature Pulse Rate 76 74 78 Respiratory Rate 13 22 12 Blood Pressure 154/80 H 147/89 H 145/84 H Pulse Oximetry 99 99 99 07/15/20 17:05 07/15/20 17:15 07/15/20 17:16 Temperature Pulse Rate 81 87 87 Respiratory Rate 14 20 Blood Pressure 147/87 H Pulse Oximetry 99 99 99 07/15/20 17:30 Temperature Pulse Rate 70 Respiratory Rate Blood Pressure Pulse Oximetry Oxygen Delivery Method Room Air Narrative Exam Narrative: alert oriented female no acute distress lying on the stretcher in the emergency room. HEENT exam normocephalic atraumatic respiratory lungs clear to auscultation bilaterally CV regular rate and rhythm bilateral upper extremities moving spontaneously no tenderness to palpation. Full range of motion left lower extremity shows shortened internally rotated extremity. Tenderness around the hip. No erythema no swelling. Demonstrates 5/5 dorsiflexion plantar flexion. Sensation grossly intact to light touch superficial peroneal, deep peroneal, sural, saphenous nerve distributions. Calf is soft. Objective Imaging X-ray AP pelvis and lateral left hip: My impression: AP pelvis and left lateral hip demonstrate posterior dislocation of a total hip prosthesis. No evidence of fracture. Labs Labs: Laboratory Results - last 24 hr 07/15/20 16:15 SARS-CoV-2 (PCR) Negative Assessment & Plan Assessment and plan (1) Dislocation of left hip: Status: Acute (2) Failure of left total hip arthroplasty with dislocation of hip: Status: Acute Assessment & Plan narrative: patient is a 65-year-old female with a first-time posterior dislocation of a left total hip arthroplasty. Arthroplasty date was 02/09/2020 for a left femoral neck fracture. Patient had excessive flexion today when she was trying to tie her shoe and sustained the posterior dislocation. She failed a closed reduction attempt in the ER has been indicated for formal closed reduction under general anesthetic in the operating room. The risks and benefits of the procedure have been discussed with the patient even opportunity to ask questions. The risks of surgery include but are not limited to infection, malunion, nonunion, persistence of pain, damage to nerves and blood vessels, posttraumatic arthritis, DVT, PE, cardiopulmonary complications and . The patient expressed a thorough understanding of the risks and benefits of surgery and has elected to proceed. Consent was signed. COVID-19 COVID-19 status: Negative Result date/Date tested (Pos, Neg/Pending): 07/15/20 Time Spent With Patient Time with patient: less than 15 minutes Quality VTE Deep Vein Thrombosis/Pulmonary Embolism Present on Admission: No
--- NOTE | 2020-07-15 18:12 | PC.NURSE ---
Son updated on pt's surgical status. Giovanni [phone]
[2020-07-15] MEDS: LACTATED RINGERS 1,000 ML 42 ML IV (18:30)
--- NOTE | 2020-07-15 18:48 | SUR.OPER ---
Supine on padded [place] table with bilateral legs secured in padded positioning boots and suspended in positioning spars, operative leg in traction per surgeon. Head on one pillow. Arm on non-operative side secured on padded armboard <90 degrees abduction. Arm on operative side padded and resting across chest then secured with tape over sheet. Padded perineal post in place per surgeon.
--- NOTE | 2020-07-15 19:38 | SUR.OPER ---
Supine on padded OR bed, head on pillow, both arms along the body, left leg under control of surgeon, legs uncrossed, circulating nurse and technology sales specialist holding the patient on opposite sides of the OR bed.
--- NOTE | 2020-07-15 19:58 | PM.OP.1 ---
Operative Date/Time/Diagnoses Date of procedure: 07/15/20 Time of procedure: 19:59 Pre-op diagnosis: Dislocation left total hip prosthesis Post-op diagnosis: same Procedure & Clinicians Procedure: closed reduction total hip prosthesis requiring general anesthetic CPT code 12065 Same procedure as scheduled: Yes Indications: the patient is a 65-year-old female with a posterior dislocation of a left total hip arthroplasty. This happened earlier today when she bent forward to tie her shoe. Her hip arthroplasty was done by Dr. Arnold on February 09, 2020 after a left femoral neck fracture. This is her 1st dislocation. She denies any fall or loss of consciousness. She was evaluated in the emergency room. An attempted closed reduction was performed was unsuccessful. She was indicated for formal closed reduction was general anesthetic in the operating room. COVID test was negative. The risks and benefits of the procedure have been discussed with the patient even opportunity to ask questions. The risks of surgery include but are not limited to Fracture, necessity for additional procedures, persistence of pain, damage to nerves and blood vessels, complications of general anesthesia, cardiopulmonary complications and . The patient expressed a thorough understanding of the risks and benefits of surgery and has elected to proceed. Consent was signed. Surgeon: Agustina Melendez Click Yes if Unassisted: Yes Anesthesia Type: General Operative Notes Findings: closed posterior hip dislocation left total hip arthroplasty Closure Type: not applicable Specimen(s): none sent Estimated Blood Loss (mL): 0 Blood products transfused: none Tourniquet time (min): 0 Procedure in detail: patient was seen in the preoperative area this site of surgery was marked informed consent was confirmed. The patient was brought back to the operating room by the anesthesia team general anesthetic was administered. The patient was positioned from the bed to the [place] table for traction. Padded peroneal post was placed. Padded wraps around the lower extremities were placed. patient was placed in the traction boots. C-arm was brought in. Time-out procedure was performed. paralytic was administered. Using traction internal and external rotation in adduction and flexion reduction attempts were completed. significant traction was required to regain length and this was pulling the patient excessively on the table. a small spot of blood was noted on the peroneal post, peroneal examination was performed and there is very superficial skin and tear was not actively bleeding. therefore the decision was made to move back onto a radiolucent table head traditional Allis maneuver flexion abduction internal external rotation was completed with countertraction on the pelvis was successful after 2nd administration of paralytic. C-arm confirmed concentric reduction of the total hip prosthesis leg alignment and length was symmetric. The leg was placed into a knee immobilizer. Patient was woken from anesthesia and taken to recovery room in good condition. Complications: none Post-operative Condition: stable Disposition: PACU Plan for aftercare: weightbear as tolerated wear knee immobilizer at all times except for hygiene and then when not using the immobilizer exercise posterior hip precautions. Posterior hip precautions. Follow up with her at total hip surgeon 1-2 weeks
[2020-07-15] MEDS: OXYCODONE/ACETAMINOPHEN 5/325 TABLET 1 TAB PO (19:59)
--- NOTE | 2020-07-15 20:32 | SUR.PHASEI ---
Stable PACU stay, medicated with percocet.
--- NOTE | 2020-07-15 20:59 | SUR.PHASEII ---
Giovanni called, pt ready upon arrival to Phase 2 , but had to wait for ride to arrive. Pt with no c/o nausea, pain tolerable. Assisted pt to dress, L Leg brace intact. Pt left unit in stable condition, escorted from unit to private car.
--- NOTE | 2020-07-15 21:02 | SUR.PHASEII ---
addendum: instructed pt to look up posterior hip precautions from previous surgery, pt stated she had them still at home.
--- NOTE | 2021-03-04 08:38 | ED.LOWEXIN ---
HPI - Extremity Injury (Lower) General Chief Complaint: Extremity Injury, Lower Stated Complaint: Hip Dislocation Time Seen by Provider: 07/15/20 15:11 Source: patient Mode of arrival: EMS Limitations: no limitations Related Data Previous Rx's Medication Instructions Recorded acetaminophen 325 mg tablet 650 mg PO TID #60 tab 01/30/20 aspirin 81 mg tablet,delayed 81 mg PO BID #60 tab 01/30/20 release ibuprofen 400 mg tablet 400 mg PO Q4HR #60 tab 01/30/20 oxycodone-acetaminophen 5 mg-325 1 tab PO Q8H PRN #14 tab 07/15/20 mg tablet (Percocet) Allergies Allergy/AdvReac Type Severity Reaction Status Date / Time No Known Drug Allergies Allergy Verified 07/15/20 15:03 Patient History Medical History (Updated 07/15/20 @ 18:01 by Agustina Melendez MD) Patient denies medical problems Social History household members: spouse Smoking Status: Never smoker alcohol intake: current Smoking Status: Never smoker alcohol intake frequency: holidays/special occasions only Substance Use Type: does not use Exam Initial Vital Signs Initial Vital Signs: Vital Signs Temperature 98.0 F 07/15/20 14:57 Pulse Rate 80 07/15/20 14:57 Respiratory Rate 14 07/15/20 14:57 Blood Pressure 181/84 H 07/15/20 14:57 Pulse Oximetry 100 07/15/20 14:57 Course Orders Ordered: Discontinued Medications Fentanyl (Fentanyl 100 Mcg/2 Ml Inj) 0 mcg IV Q5M PRN PRN Reason: Pain, Moderate (4-6) Hydromorphone HCl (Hydromorphone 0.5 Mg Inj) 0.5 mg IV NOW ONE Stop: 07/15/20 16:46 Last Admin: 07/15/20 16:49 Dose: 0.5 mg Documented by: HANNAH Lactated Ringer's (Lactated Ringers) 1,000 mls @ 42 mls/hr IV CONT IVETTE Last Infusion: 07/15/20 20:06 Dose: 0 mls/hr Documented by: ALPHONSOAMANDRES Admin: 07/15/20 18:30 Dose: 42 mls/hr Documented by: CARINA Metoclopramide HCl (Metoclopramide 10 Mg/2 Ml Inj) 5 mg IV NOW PRN PRN Reason: Nausea And Vomiting Midazolam HCl (Midazolam 2 Mg/2 Ml Vial) 2 mg IV NOW ONE Stop: 07/15/20 16:07 Last Admin: 07/15/20 16:07 Dose: 2 mg Documented by: HANNAH Morphine Sulfate (Morphine 2 Mg/Ml Inj) 2 mg IV NOW ONE Stop: 07/15/20 15:12 Last Admin: 07/15/20 15:15 Dose: 2 mg Documented by: JUJU Ondansetron HCl (Ondansetron 4 Mg/2 Ml Inj) 4 mg IV NOW PRN PRN Reason: Nausea And Vomiting Oxycodone HCl (Oxycodone Ir 5 Mg Tablet) 5 mg PO Q3HR PRN PRN Reason: Pain, Moderate (4-6) Oxycodone/Acetaminophen (Oxycodone/Acetaminophen 5/325 Tablet) 1 tab PO PACUNOW PRN PRN Reason: Mild or Moderate Pain Last Admin: 07/15/20 19:59 Dose: 1 tab Documented by: CARINA Propofol (Propofol 200 Mg/20 Ml Vial) 45 mg 1 mg/kg (45 mg) IV NOW ONE Stop: 07/15/20 15:54 Last Admin: 07/15/20 16:04 Dose: 45 mg Documented by: HANNAH Propofol (Propofol 200 Mg/20 Ml Vial) 45 mg 1 mg/kg (45 mg) IV NOW ONE Stop: 07/15/20 16:11 Last Admin: 07/15/20 16:10 Dose: 45 mg Documented by: HANNAH MDM - Extremity Injury (Lower) Lab Data Labs: Lab Results 07/15/20 Range/Units 16:15 SARS-CoV-2 (PCR) Negative (Negative) Discharge Plan Departure Patient Disposition: Admitted as Observation Clinical Impression: Dislocation of left hip Admit Date/Time: 07/15/20 18:13 Admit Provider: Agustina Melendez
== END 2020-07-15 20:40 | disposition home or self-care (01) ==
LOC: ED 17:47 → AC 18:13
PROVIDERS: Admitting Provider Orthopaedic Surgery Foot and Ankle Surgery; Emergency Provider Emergency Medicine; Referring Provider Emergency Medicine; Visit Provider Orthopaedic Surgery Foot and Ankle Surgery
PROC: (CPT 27266; principal; 2020-07-15 17:30)
DX: T84.021A Dislocation of internal left hip prosthesis, initial encounter (principal); Z20.822 Contact with and (suspected) exposure to COVID-19
CPT/HCPCS: 27266; 27265; 72170; 73501; 76000; 87635; 96374; 96375; 99152; 99284; 99291; C9803; G0378; J1170; J2250; J2270; J2704; J3010

== ENCOUNTER 2021-08-01 08:10 | Emergency (ER) | payer OTHER, SELFPAY ==
[2021-08-01] VITALS (28 sets, daily range): BP systolic 100–195; BP diastolic 61–89; PULSE 64–87; RESP 8–57; TEMP 36.3; O2SAT 88–100; BMI 17.4
--- NOTE | 2021-08-01 | DI.RAD.S_ITS ---
PROCEDURE: XR HIP W PEL IF DONE LT 2V INDICATIONS: RE LOCATION TECHNIQUE: AP pelvis with lateral view(s) of the left hip(s). COMPARISON: [facility], CR, XR HIP W PEL IF DONE LT 2V, 07/15/2020, 15:23. [facility], CR, XR HIP W PEL IF DONE LT 2V, 01/28/2020, 14:33. FINDINGS: Bones: Relocation of the left hip arthroplasty. No hardware fracture is identified. No osseous fracture. There is expected alignment. No periprosthetic lucency surrounding the femoral stem on the lateral projection. Pelvic ring appears intact. No suspicious bony lesions. Soft tissues: The visualized bowel gas pattern is normal. No suspicious soft tissue calcifications. IMPRESSION: Relocation of the left hip arthroplasty. No fracture seen. Dictated by: Asaf Morelos M.D. on 08/01/2021 at 9:07 Approved by: Asaf Morelos M.D. on 08/01/2021 at 9:08
--- NOTE | 2021-08-01 08:16 | DI.RAD.S_ITS ---
PROCEDURE: XR PELVIS 1-2V INDICATIONS: left hip dislocation TECHNIQUE: 1 view(s) of the pelvis acquired. COMPARISON: [facility] [place], CR, XR PELVIS WITH LATERAL HIP LEFT, 07/29/2020, 15:59. FINDINGS: Bones: Posterior and superior dislocation of the left hip arthroplasty in relation to the acetabular cup. This appears similar to 07/15/2020. No suspicious bony lesions. Soft tissues: Visualized bowel gas pattern is normal. No suspicious soft tissue calcifications. IMPRESSION: Left hip arthroplasty posterior dislocation. Dictated by: Asaf Morelos M.D. on 08/01/2021 at 7:37 Approved by: Asaf Morelos M.D. on 08/01/2021 at 7:39
[2021-08-01 08:41] LABS: INR 1.4 (0.9-1.3); Prothrombin Time 15.6 SECONDS (10.1-12.7)
[2021-08-01 08:43] LABS: Add Manual Diff / Slide Review NO; Basophils Absolute Auto 0 /uL (0-100); Basophils Percent Auto 0.4 % (0-2); Eosinophils Absolute Auto 200 /uL (0-450); Eosinophils Percent Auto 3.4 % (2-4); Hematocrit 37.4 % (36-46); Hemoglobin 12.3 g/dL (12.0-16.0); Lymphocytes Absolute Auto 1200 /uL (1100-4500); Lymphocytes Percent Auto 27.3 % (25-40); Mean Corpuscular HGB Conc 32.9 % (30-36); Mean Corpuscular Hemoglobin 32.7 PG (26-34); Mean Corpuscular Volume 99.4 fL (80-100); Monocytes Absolute Auto 300 /uL (0-900); Monocytes Percent Auto 5.5 % (3-14); Neutrophils Absolute Auto 2900 /uL (1500-7000); Neutrophils Percent Auto 63.4 % (50-75); Platelet Count 187 X10^3/uL (150-400); Red Blood Cell Count 3.76 X10^6/uL (4.0-5.2); Red Cell Distribution Width 13.4 % (11.6-14.8); White Blood Cell Count 4.6 X10^3/uL (4.5-11.0)
[2021-08-01 08:45] LABS: BUN Creatinine Ratio 12.5 (6-22); Blood Urea Nitrogen 7 mg/dL (7-17); Calcium 8.8 mg/dL (8.4-10.2); Carbon Dioxide 27 mmol/L (22-32); Chloride 101 mmol/L (98-107); Estimated Glomerular Filt Rate > 60.0 mL/min (>60); Glucose 121 mg/dL (80-110); HEMOLYSIS 38 (0-50); Potassium 3.2 mmol/L (3.4-5.1); Sodium 137 mmol/L (137-145)
--- NOTE | 2021-08-01 09:06 | ED_ITS ---
HPI - Extremity Problem General Chief complaint: Extremity Problem,Nontraumatic Stated complaint: hip dislocation Time Seen by Provider: 08/01/21 08:12 Source: EMS Mode of arrival: EMS History of Present Illness HPI Narrative: The patient underwent left KAMILA January [address] Deena Arnold. She suffered a dislocation of June 2020. She required OR intervention to reduce the hip at that time. She arrives today with a dislocation of the hip once again. She was in her shower at 6:30 a.m. this morning, she stepped on the side of the shower to dry herself, her left hip came out. She went to the floor. She has no head, neck, or torso injury. She has no upper extremity discomfort. She has no back pain or right leg pain. She has pain in the left hip. She was administered Fentanyl from EMS prior to arrival here. Her pain was reasonably controlled upon arrival. She has not had breakfast. She has no chronic ENT, or cardiovascular problems. She currently has no cough or dyspnea. Related Data Previous Rx's Medication Instructions Recorded acetaminophen 325 mg tablet 650 mg PO TID #60 tab 01/30/20 aspirin 81 mg tablet,delayed 81 mg PO BID #60 tab 01/30/20 release ibuprofen 400 mg tablet 400 mg PO Q4HR #60 tab 01/30/20 oxycodone-acetaminophen 5 mg-325 1 tab PO Q8H PRN #14 tab 07/15/20 mg tablet (Percocet) tramadol 50 mg tablet 50 mg PO Q6H PRN #14 tab 08/01/21 Allergies Allergy/AdvReac Type Severity Reaction Status Date / Time No Known Drug Allergies Allergy Verified 07/15/20 15:03 Review of Systems Constitutional Constitutional: Denies chills, Denies fever(s), Denies headache(s) and Denies weakness Comments: No recent illness ENT Ears, Nose, Mouth, and Throat: Denies vertigo, Denies dizziness, Denies he adache(s) and Denies sore throat Cardiovascular Cardiovascular: Denies chest pain, Denies rapid heart rate, Denies irregular heart rhythm and Denies dyspnea Respiratory Respiratory: Denies chest congestion, Denies cough and Denies dyspnea Gastrointestinal Gastrointestinal: Denies abdominal pain and Denies nausea Musculoskeletal Musculoskeletal: Reports as per HPI Integumentary/Breasts Skin/Breast: Denies lesions and Denies rash Neurologic Neurologic: Denies confusion, Denies vertigo, Denies dizziness, Denies headache(s) and Denies weakness Psychiatric Psychiatric: Denies confusion Hematologic/Lymphatic On Anticoagulants: No Patient History Medical History (Updated 08/01/21 @ 09:57 by Ramon Rock MD) Closed left hip fracture 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 Patient denies medical problems Social History household members: spouse Smoking Status: Never smoker alcohol intake: current Smoking Status: Never smoker alcohol intake frequency: holidays/special occasions only Substance Use Type: does not use Exam Initial Vital Signs Initial Vital Signs: Vital Signs Temperature 97.4 F L 08/01/21 08:11 Pulse Rate 87 08/01/21 08:11 Respiratory Rate 22 08/01/21 08:11 Blood Pressure 138/84 08/01/21 08:11 Pulse Oximetry 100 08/01/21 08:11 Const General: cooperative, comfortable, well developed and well groomed [facility] Head: normocephalic and atraumatic Mouth: oral mucosae normal Teeth and gingiva: dentition normal Throat: posterior oropharynx normal, tonsils normal and uvula midline Eyes General: appearance normal, both eyes and all related structures Neck Neck: full ROM, trachea midline and supple Resp Auscultation: clear to auscultation bilaterally Cardio Rate: regular rate Rhythm: regular rhythm Heart Sounds: S1 normal, S2 normal, no click, no gallops and no murmurs GI Inspection: normal to inspection Palpation: soft and No tender Back/Spine/Pelvis Back: normal to inspection Skin General: no rashes or lesions noted Neuro General: patient alert, patient awake, patient oriented x3 and no focal motor deficits Extrem Other: palpable posterior dislocation of the left hip. The leg is shortened and externally rotated. The left versus pedis pulses normal. Psych Mental Status: mental status grossly normal Procedures Orthopedic Joint Reduction Joint #1: Time of procedure: 09:25 Time Out Performed: Yes Side: left Joint Reduction Location: hip Analgesia: procedural sedation Technique used: other ( Flexion, external rotation and traction utilized for successful reduction, left hip) Post-reduction neuro exam: intact Post-reduction vascular: intact Post Reduction X-Ray Obtained: Yes Post Reduction X-Ray Results: reduced Splint Applied: Yes ( Left knee immobilizer applied.) Patient Tolerated Procedure: Well Orthopedic Splinting/Casting Injury #1: Side: left Lower Extremity Injury Location: knee Lower Extremity Immobilizer: knee immobilizer ( for care status post hip reduction) Post splinting neuro exam: intact Post splinting vascular exam: intact Placed by: Nursing Procedural Sedation Time of procedure: 09:24 Consent signed: Yes Time out performed: Yes Indication: fracture/dislocation reduction ASA Class: I Mallampati Airway Classification: Class I Preparation: bath design sales consultant applied, pulse oximeter, capnometry used, supplemental O2 applied and IV secured IV Propofol dose (mg): 70 ED Sedation Level: Moderate (Concious) Patient Tolerated Procedure: Well Complications: none Course Course Course Narrative: The patient underwent successful left hip reduction, recovery from sedation was uneventful. Knee immobilizer was applied prior to discharge. She is advised to keep the immobilizer in place while moving about. She should follow up with her orthopedic surgeon in the next few days. She is up and ambulatory with the knee immobilizer in place prior to discharge from the ER. Orders Ordered: Discontinued Medications Sodium Chloride (Normal Saline 0.9%) 1,000 mls @ 250 mls/hr IV CONT IVETTE Last Infusion: 08/01/21 10:30 Dose: 1,000 mls/hr Documented by: Admin: 08/01/21 09:08 Dose: 250 mls/hr Documented by: DANDRE Lorazepam (Lorazepam 2 Mg/Ml Inj) 0.5 mg IV NOW ONE Stop: 08/01/21 08:33 Last Admin: 08/01/21 09:19 Dose: 0.5 mg Documented by: DANDRE Propofol (Propofol 200 Mg/20 Ml Vial) 100 mg IV NOW ONE Stop: 08/01/21 09:08 Last Admin: 08/01/21 09:09 Dose: 70 mg Documented by: DANDRE Vital Signs Vital signs: Vital Signs - 8 hr 08/01/21 10:40 08/01/21 10:45 08/01/21 10:50 Pulse Rate 68 84 81 Respiratory Rate 12 12 14 Blood Pressure 140/77 143/82 H 172/87 H Pulse Oximetry 95 100 100 08/01/21 10:55 08/01/21 11:00 08/01/21 11:05 Pulse Rate 71 68 68 Respiratory Rate 12 14 14 Blood Pressure 148/75 H 136/74 147/84 H Pulse Oximetry 99 99 98 08/01/21 11:10 Pulse Rate 69 Respiratory Rate 12 Blood Pressure 145/86 H Pulse Oximetry 98 MDM - Extremity (Nontraumatic) Lab Data Result diagrams: 08/01/21 08:32 08/01/21 08:32 Labs: Lab Results 08/01/21 08/01/21 08/01/21 Range/Units 08:32 08:32 08:32 WBC 4.6 (4.5-11.0) X10^3/uL RBC 3.76 L (4.0-5.2) X10^6/uL Hgb 12.3 (12.0-16.0) g/dL Hct 37.4 (36-46) % MCV 99.4 (80-100) fL MCH 32.7 (26-34) PG MCHC 32.9 (30-36) % RDW 13.4 (11.6-14.8) % Plt Count 187 (150-400) X10^3/uL Neut % (Auto) 63.4 (50-75) % Lymph % (Auto) 27.3 (25-40) % [place] % (Auto) 5.5 (3-14) % Eos % (Auto) 3.4 (2-4) % Baso % (Auto) 0.4 (0-2) % Neut # (Auto) 2900 (9430-1309) /uL Lymph # (Auto) 1200 (5855-7242) /uL [place] # (Auto) 300 (0-900) /uL Eos # (Auto) 200 (0-450) /uL Baso # (Auto) 0 (0-100) /uL PT 15.6 H (10.1-12.7) SECONDS INR 1.4 H (0.9-1.3) Sodium 137 (137-145) mmol/L Potassium 3.2 L (3.4-5.1) mmol/L Chloride 101 (98-107) mmol/L Carbon Dioxide 27 (22-32) mmol/L BUN 7 (7-17) mg/dL Creatinine 0.56 (0.52-1.04) mg/dL Estimated GFR > 60.0 (>60) mL/min BUN/Creatinine Ratio 12.5 (6-22) Glucose 121 H (80-110) mg/dL Calcium 8.8 (8.4-10.2) mg/dL Imaging Data Left hip/pelvis x-ray:: Radiologist's Impression: Posterior location of the left hip Post reduction left hip x-ray:: Radiologist's Impression: Left hip reduction was confirmed. No fracture seen. Discharge Plan Departure Patient Disposition: Home Clinical Impression: Dislocation of left hip Instructions: DI for Hip Dislocation -- Adult Activity Restrictions/Additional Instructions: Advil every 6 hours as needed for pain. Tramadol every 6 hours as needed for added pain control. Keep the knee immobilizer in place when up and about. Arrange follow-up with Dr. Arnold/ortho over the next several days. Return here as necessary. Prescriptions: New tramadol 50 mg tablet 50 mg PO Q6H PRN (Reason: pain) Qty: 14 0RF No Action acetaminophen 325 mg Tablet 650 mg PO TID Qty: 60 0RF aspirin 81 mg Tablet,Delayed Release (Dr/Ec) 81 mg PO BID Qty: 60 0RF ibuprofen 400 mg Tablet 400 mg PO Q4HR Qty: 60 0RF oxycodone-acetaminophen [Percocet] 5-325 mg tablet 1 tab PO Q8H PRN (Reason: pain) Qty: 14 0RF Referrals: Deena Arnold MD [Physician] -
[2021-08-01] MEDS: SODIUM CHLORIDE 0.9% 1,000 ML 250 ML IV (09:08)
[2021-08-01] MEDS: propofoL 200 MG/20 ML VIAL 100 MG IV (09:09)
[2021-08-01] MEDS: LORazepam 2 MG/ML INJ 0.5 MG IV (09:19)
== END 2021-08-01 11:32 | disposition home or self-care (01) ==
PROVIDERS: Emergency Provider Emergency Medicine
DX: M24.452 Recurrent dislocation, left hip (principal); Z96.642 Presence of left artificial hip joint
CPT/HCPCS: 27265; 72170; 73502; 80048; 85025; 85610; 93041; 96361; 96374; 99152; 99284; 99285; J2060; J2704

== ENCOUNTER 2024-02-14 12:49 | Emergency (ER) | payer MEDICARE, OTHER, SELFPAY ==
[2024-02-14 13:15] VITALS: BP 153/86; PULSE 78; RESP 12; TEMP 36.4; O2SAT 97; BMI 18.6
--- NOTE | 2024-02-14 13:24 | ED.LOWEXIN ---
HPI - Extremity Injury (Lower) <Beth Quezada PA-C - Last Filed: 02/14/24 19:26> General Chief Complaint: Extremity Injury, Lower Stated Complaint: fall, leg px, no blood thinners Time Seen by Provider: 02/14/24 13:24 Mode of arrival: Wheelchair History of Present Illness HPI Narrative: 68-year-old female presents this afternoon for right hip pain. She states on Monday at home she was getting out of bed to walk to her bathroom when she bumped into the edge of her bed where a bag was hanging she lost her balance and fell forward ?landing on my stomach?. She was able to get up on her own, she has been walking since then, she is denying any disruption during sleep, her pain is localized in the groin region and right hip and buttock. She states also there is ?a wound pointing to her right groin. She is denying any fever, nausea, vomiting, she did not strike her head, she denied any precipitating events leading up to the fall. Her history is significant for a left ORIF hip last treated for a dislocation in July,. No treatment tried, she is denying any numbness, tingling, loss of sensation, weakness, low back pain or any other complaints. She states she was very active prior to her left hip repair walking [facility] regularly, now she just uses the treadmill at home. She denies prolonged sitting, she can not recall when her last tetanus was, stating, it has been many years.She denies any alcohol usage or regular medication, no [id number] medications currently. Last oral intake was yesterday afternoon in the form of a protein shake. All other systems reviewed and are negative. Related Data Previous Rx's Medication Instructions Recorded amoxicillin 875 mg-potassium 1 tab PO BID 5 days #10 tabs 02/14/24 clavulanate 125 mg tablet oxycodone-acetaminophen 2.5 mg-325 1 tab PO Q8H PRN pain #10 tabs 02/14/24 mg tablet (Percocet) Allergies Allergy/AdvReac Type Severity Reaction Status Date / Time No Known Drug Allergies Allergy Verified 02/15/24 09:50 Review of Systems <Beth Quezada PA-C - Last Filed: 02/14/24 19:26> Review of Systems Narrative: All other systems reviewed and are negative. 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 Patient denies medical problems Social History marital status: household members: spouse lives independently: Yes occupational status: employed Smoking Status: Never smoker alcohol intake: former substance use type: does not use Smoking Status: Never smoker alcohol intake frequency: holidays/special occasions only Substance Use Type: does not use Exam <Beth Quezada PA-C - Last Filed: 02/14/24 19:26> Initial Vital Signs Initial Vital Signs: Vital Signs Temperature 97.6 F 02/14/24 13:15 Pulse Rate 78 02/14/24 13:15 Respiratory Rate 12 02/14/24 13:15 Blood Pressure 153/86 H 02/14/24 13:15 Pulse Oximetry 97 02/14/24 13:15 Oxygen Delivery Method Room Air 02/14/24 13:15 Vital signs reviewed and are normal except for elevated systolic reading today. Const General: cooperative, comfortable, well groomed, No acute distress, No diaphoretic, No ill appearing, No intoxicated appearing and No lethargic Nutritional Appearance: thin and underweight Other: Ambulatory, full weightbear, no distress, smiling and pleasantly conversing, nontoxic appearance. Eyes Sclera: sclerae normal Pupils: PERRL Neck Lymphatic: No lymphadenopathy Resp Auscultation: clear to auscultation bilaterally, no rales, no rhonchi and no wheezes Cardio Rate: regular rate Heart Sounds: S1 normal, S2 normal and no murmurs GI Inspection: normal to inspection, no abdominal wall ecchymosis, no edema, non-distended and other (Small contusion right lower mid abdomen at the waist line) Back/Spine/Pelvis Cervical Spine: normal cervical lordosis Thoracic/Lumbar Spine: thoracic and lumbar spine normal to inspection Sacrum: no ecchymosis, erythema (4-5 cm in diameter warm not hot), no swelling, tenderness and other (Decubitus 3 x 4 cm superficial, dry, tender) Coccyx: no swelling Skin Wounds: wounds noted Other: Right inguinal superior thigh large deep foul smelling purulent wound measuring approximately 7 cm x 2 cm with a depth of 1-2 cm, no active bleeding. No surrounding redness. Sacrum reveals superficial decubitus measuring 1 x 2 cm dry central wound no visible depth, surrounding redness measures about 3-4 cm. Warm not hot to the touch. Neuro Other: Lower extremities, distal neurovascular is grossly intact. Extremities are warm, not hot, not cool, normal capillary refill. Extrem Other: No shortening or external rotation of the right leg, there is a round raised soft spongy lesion on the lateral superior thigh measuring 3 x 4 cm raised approximately 1.5 cm, nontender, she states this is a chronic cyst, all my life, there is faint purple discoloration noted. Lesion is nontender. She is tender in the trochanteric region lateral hip. No guarding or swelling or other discoloration. No other breaks in the skin. <Neela Ambrose MD - Last Filed: 02/19/24 07:11> Initial Vital Signs Initial Vital Signs: Vital Signs Temperature 97.6 F 02/14/24 13:15 Pulse Rate 78 02/14/24 13:15 Respiratory Rate 12 02/14/24 13:15 Blood Pressure 153/86 H 02/14/24 13:15 Pulse Oximetry 97 02/14/24 13:15 Oxygen Delivery Method Room Air 02/14/24 13:15 Procedures <Beth Quezada PA-C - Last Filed: 02/14/24 19:26> [facility] [place] Procedure Name of Procedure: Wound debridement: Full thickness large wound debridement in the right inguinal region involving subcutaneous fat. Patient was premedicated with Dilaudid IV 0.5 mg in divided doses. She was monitored throughout with pulse oximetry and awake overnight monitor. She was copiously irrigated using a mixture of Betadine, hydrogen peroxide and normal saline. Some of the nonviable subcutaneous tissue was removed with iris scissors, wound edges are much sharper now and clean. There still is some devitalized tissue that I opted to not cut in case of underlying vasculature not well visualized. Approximately 500 mL of this mixture were utilized. There was no bleeding during the procedure and it was well tolerated. Wound depth is approximately 2 cm at its greatest, measuring again 7 cm at its longest diameter and 2-3 cm wide. It was packed with 4 x 4 pledget soaked in Betadine. Additional 4x4s padding utilized and then covered with an ABD pad 5 x 9 and paper tape. Patient tolerated the procedure well. She was subsequently log rolled to evaluate her sacral wound that was covered with Allevyn Gentle Border. It remains dry and intact. Course <Beth Quezada PA-C - Last Filed: 02/14/24 19:26> Course Course Narrative: Resting comfortably following radiographs, she has been given 1 L of normal saline. Reports pain is moderate pointing to her right lateral thigh trochanteric region. Her tetanus was updated with Adacel intramuscularly. Awaiting urine sample. Consulted Dr. Ambrose, ED Attending who evaluated this patient at the bedside. CT Abd/Pelvis with contrast & carry-down to right thigh wound. General surgery consultation following this study. Vancomycin IV per Pharmacy protocol, Ceftriaxone IV 1gm. Following consultation with General surgery, Dr. Mosley, wound debridement was performed using a mixture of Betadine, hydrogen peroxide and saline. Please refer to the procedure note below. Orders Ordered: Discontinued Medications Amoxicillin/Clavulanate Potassium (Amoxicillin/Clav 875/125 Mg) 1 tab PO NOW ONE Stop: 02/14/24 17:45 Last Admin: 02/14/24 18:17 Dose: 1 tab Documented By: AARON Diphtheria/Tetanus/Acell Pertussis (Tet,Diph,Pertuss(Acell),Vac/Pf 0.5 Ml Syringe) 0.5 ml IM .ONCE ONE Stop: 02/14/24 14:38 Last Admin: 02/14/24 14:50 Dose: 0.5 ml Documented By: AARON Hydromorphone HCl (Hydromorphone 0.5 Mg Inj) 0.5 mg IV NOW ONE Stop: 02/14/24 17:52 Last Admin: 02/14/24 18:17 Dose: 0.5 mg Documented By: AARON Sodium Chloride (Normal Saline 0.9%) 1,000 mls @ 1,000 mls/hr IV BOLUS ONE Stop: 02/14/24 15:41 Last Infusion: 02/14/24 16:26 Dose: Infused Documented By: Admin: 02/14/24 14:50 Dose: 1,000 mls/hr Documented By: AARON Ceftriaxone Sodium 1,000 mg/ (Sodium Chloride) 100 mls @ 200 mls/hr IV NOW ONE Stop: 02/14/24 15:18 Last Infusion: 02/14/24 17:22 Dose: Infused Documented By: Admin: 02/14/24 16:42 Dose: 200 mls/hr Documented By: AARON Vancomycin HCl (Vancomycin) 750 mg in 150 mls @ 150 mls/hr IV NOW ONE Stop: 02/14/24 16:29 Last Infusion: 02/14/24 16:41 Dose: Infused Documented By: Admin: 02/14/24 15:37 Dose: 150 mls/hr Documented By: AARON Oxycodone/Acetaminophen (Oxycodone/Apap 5/325 Prepack) 1 bottle MISC DIRECTED ONE Stop: 02/14/24 19:08 Last Admin: 02/14/24 19:30 Dose: 1 bottle Documented By: AARON Vancomycin HCl (Vancomycin Per Pharmacy) 1 request MISC NOW PRN PRN Reason: Deep, chronic wound, inguinal Vital Signs Vital signs: Vital Signs - 8 hr 02/14/24 13:15 Temperature 97.6 F Pulse Rate 78 Respiratory Rate 12 Blood Pressure 153/86 H Pulse Oximetry 97 Oxygen Delivery Method Room Air <Neela Ambrose MD - Last Filed: 02/19/24 07:11> Orders Ordered: Discontinued Medications Amoxicillin/Clavulanate Potassium (Amoxicillin/Clav 875/125 Mg) 1 tab PO NOW ONE Stop: 02/14/24 17:45 Last Admin: 02/14/24 18:17 Dose: 1 tab Documented By: AARON Diphtheria/Tetanus/Acell Pertussis (Tet,Diph,Pertuss(Acell),Vac/Pf 0.5 Ml Syringe) 0.5 ml IM .ONCE ONE Stop: 02/14/24 14:38 Last Admin: 02/14/24 14:50 Dose: 0.5 ml Documented By: AARON Hydromorphone HCl (Hydromorphone 0.5 Mg Inj) 0.5 mg IV NOW ONE Stop: 02/14/24 17:52 Last Admin: 02/14/24 18:17 Dose: 0.5 mg Documented By: AARON Sodium Chloride (Normal Saline 0.9%) 1,000 mls @ 1,000 mls/hr IV BOLUS ONE Stop: 02/14/24 15:41 Last Infusion: 02/14/24 16:26 Dose: Infused Documented By: Admin: 02/14/24 14:50 Dose: 1,000 mls/hr Documented By: AARON Ceftriaxone Sodium 1,000 mg/ (Sodium Chloride) 100 mls @ 200 mls/hr IV NOW ONE Stop: 02/14/24 15:18 Last Infusion: 02/14/24 17:22 Dose: Infused Documented By: Admin: 02/14/24 16:42 Dose: 200 mls/hr Documented By: AARON Vancomycin HCl (Vancomycin) 750 mg in 150 mls @ 150 mls/hr IV NOW ONE Stop: 02/14/24 16:29 Last Infusion: 02/14/24 16:41 Dose: Infused Documented By: Admin: 02/14/24 15:37 Dose: 150 mls/hr Documented By: AARON Oxycodone/Acetaminophen (Oxycodone/Apap 5/325 Prepack) 1 bottle MISC DIRECTED ONE Stop: 02/14/24 19:08 Last Admin: 02/14/24 19:30 Dose: 1 bottle Documented By: AARON Vancomycin HCl (Vancomycin Per Pharmacy) 1 request MISC NOW PRN PRN Reason: Deep, chronic wound, inguinal Vital Signs Vital signs: Vital Signs - 8 hr 02/14/24 13:15 Temperature 97.6 F Pulse Rate 78 Respiratory Rate 12 Blood Pressure 153/86 H Pulse Oximetry 97 Oxygen Delivery Method Room Air MDM - Extremity Injury (Lower) <Beth Quezada PA-C - Last Filed: 02/14/24 19:26> Medical Records Medical records narrative: No recent medical records, last visit was July of 2021, history significant for left ORIF with a subsequent dislocation location. Lab Data Lab results narrative: CBC white blood cell count 38539 with a left shift pattern, normal platelets no anemia. Chemistry shows normal renal function, sodium low at 130, glucose 106, AST 40 ALT 20 alk phos 138. Lactate is normal at 1.5 and procalcitonin is normal at 0.045, wound cultures/gram stains are pending of the sacrum and right thigh/inguinal-region. Magnesium and phosphorus are both normal. Urinalysis showed 1+ blood, ketones and mucus culture was not indicated. 02/14/24 14:04 02/14/24 14:04 Labs: Lab Results 02/14/24 02/14/24 02/14/24 Range/Units 14:04 14:29 17:50 WBC 14.0 H (4.5-11.0) X10^3/uL RBC 4.37 (4.0-5.2) X10^6/uL Hgb 13.5 (12.0-16.0) g/dL Hct 39.3 (36-46) % MCV 89.9 (80-100) fL MCH 30.9 (26-34) PG MCHC 34.4 (30-36) % RDW 13.6 (11.6-14.8) % Plt Count 448 H (150-400) X10^3/uL Neut % (Auto) 83.5 H (50-75) % Lymph % (Auto) 9.7 L (25-40) % [place] % (Auto) 6.0 (3-14) % Eos % (Auto) 0.1 L (2-4) % Baso % (Auto) 0.7 (0-2) % Neut # (Auto) 54141 H (0673-5313) /uL Lymph # (Auto) 1300 (0840-8607) /uL [place] # (Auto) 800 (0-900) /uL Eos # (Auto) 0 (0-450) /uL Baso # (Auto) 100 (0-100) /uL Sodium 130 L (137-145) mmol/L Potassium 3.6 (3.4-5.1) mmol/L Chloride 91 L (98-107) mmol/L Carbon Dioxide 27 (22-32) mmol/L BUN 13 (7-17) mg/dL Creatinine 0.43 L (0.52-1.04) mg/dL Estimated GFR > 60 (>60) mL/min BUN/Creatinine Ratio 30.2 H (6-22) Glucose 106 (80-110) mg/dL Lactate 1.5 (0.7-2.1) mmol/L Calcium 9.1 (8.4-10.2) mg/dL Phosphorus 2.9 (2.8-4.1) mg/dL Magnesium 1.9 (1.6-2.3) mg/dL Total Bilirubin 1.0 (0.2-1.3) mg/dL AST 40 H (14-36) IU/L ALT 20 (<35) IU/L Alkaline Phosphatase 138 H (38-126) U/L Total Protein 7.5 (6.3-8.2) g/dL Albumin 4.0 (3.5-5.0) g/dL Globulin 3.5 (1.7-4.1) g/dL Albumin/Globulin Ratio 1.1 (1.0-2.8) Procalcitonin 0.045 (<0.5) ng/mL Urine Color Yellow Urine Appearance Clear Urine pH 5.0 (4.5-8.0) Ur Specific [place] 1.010 (1.000-1.035) Urine Protein Negative (Negative) Urine Glucose (UA) Negative (Negative) g/dL Urine Ketones 3+ H (NEGATIVE) Urine Occult Blood 1+ H (Negative) Urine Nitrate Negative (Negative) Urine Bilirubin Negative (NEGATIVE) Urine Urobilinogen 0.2 (0.2) E.U./dL Ur Leukocyte Esterase Negative (NEGATIVE) Urine RBC 0-1/hpf (0-5/HPF) Urine WBC None seen (0-5/HPF) Ur Squamous Epith Cells 0-1 /hpf (0-5/HPF) Urine Bacteria Occasional (0-1) (None) Urine Mucus 1+ H (Negative) Ur Culture Indicated? Cult not indicated Vol Urine Centrifuged 10ml (spun) U Opiates 300ng/mL cut Negative (Negative) Ur Oxycodone Screen Positive H (Negative) Urine Methadone Screen Negative (Negative) Ur Barbiturates Screen Negative (Negative) U Tricyclic Antidepress Negative (Negative) Ur Phencyclidine Scrn Negative (Negative) Ur Amphetamines Screen Negative (Negative) U Methamphetamines Scrn Negative (Negative) Ur MDMA Scrn (Ecstasy) Negative (Negative) U Benzodiazepines Scrn Negative (Negative) Urine Cocaine Screen Negative (Negative) U Marijuana (THC) Screen Negative (Negative) Urine Specific [place] (Normal) Ur Creatinine (Normal) 02/14/24 Range/Units 17:50 WBC (4.5-11.0) X10^3/uL RBC (4.0-5.2) X10^6/uL Hgb (12.0-16.0) g/dL Hct (36-46) % MCV (80-100) fL MCH (26-34) PG MCHC (30-36) % RDW (11.6-14.8) % Plt Count (150-400) X10^3/uL Neut % (Auto) (50-75) % Lymph % (Auto) (25-40) % [place] % (Auto) (3-14) % Eos % (Auto) (2-4) % Baso % (Auto) (0-2) % Neut # (Auto) (7982-2184) /uL Lymph # (Auto) (4798-4837) /uL [place] # (Auto) (0-900) /uL Eos # (Auto) (0-450) /uL Baso # (Auto) (0-100) /uL Sodium (137-145) mmol/L Potassium (3.4-5.1) mmol/L Chloride (98-107) mmol/L Carbon Dioxide (22-32) mmol/L BUN (7-17) mg/dL Creatinine (0.52-1.04) mg/dL Estimated GFR (>60) mL/min BUN/Creatinine Ratio (6-22) Glucose (80-110) mg/dL Lactate (0.7-2.1) mmol/L Calcium (8.4-10.2) mg/dL Phosphorus (2.8-4.1) mg/dL Magnesium (1.6-2.3) mg/dL Total Bilirubin (0.2-1.3) mg/dL AST (14-36) IU/L ALT (<35) IU/L Alkaline Phosphatase (38-126) U/L Total Protein (6.3-8.2) g/dL Albumin (3.5-5.0) g/dL Globulin (1.7-4.1) g/dL Albumin/Globulin Ratio (1.0-2.8) Procalcitonin (<0.5) ng/mL Urine Color Urine Appearance Urine pH Normal (4.5-8.0) Ur Specific [place] (1.000-1.035) Urine Protein (Negative) Urine Glucose (UA) (Negative) g/dL Urine Ketones (NEGATIVE) Urine Occult Blood (Negative) Urine Nitrate (Negative) Urine Bilirubin (NEGATIVE) Urine Urobilinogen (0.2) E.U./dL Ur Leukocyte Esterase (NEGATIVE) Urine RBC (0-5/HPF) Urine WBC (0-5/HPF) Ur Squamous Epith Cells (0-5/HPF) Urine Bacteria (None) Urine Mucus (Negative) Ur Culture Indicated? Vol Urine Centrifuged U Opiates 300ng/mL cut (Negative) Ur Oxycodone Screen (Negative) Urine Methadone Screen (Negative) Ur Barbiturates Screen (Negative) U Tricyclic Antidepress (Negative) Ur Phencyclidine Scrn (Negative) Ur Amphetamines Screen (Negative) U Methamphetamines Scrn (Negative) Ur MDMA Scrn (Ecstasy) (Negative) U Benzodiazepines Scrn (Negative) Urine Cocaine Screen (Negative) U Marijuana (THC) Screen (Negative) Urine Specific [place] Normal (Normal) Ur Creatinine Normal (Normal) Imaging Data Extremity x-ray #1: My Impression: Right hip and pelvis: Deferred to radiologist results below. Radiologist's Impression: PROCEDURE: XR HIP W PEL IF DONE RT 2V INDICATIONS: Fall 5 days ago, gaping R inguinal wound, sacrum decubitus TECHNIQUE: AP pelvis with lateral view(s) of the right hip(s). COMPARISON: [facility], CR, XR PELVIS WITH LATERAL HIP LEFT, 08/26/2021, 15:08. [facility], CR, XR HIP W PEL IF DONE LT 2V, 08/01/2021, 9:24. [facility], CR, XR HIP W PEL IF DONE LT 2V, 07/15/2020, 15:23. FINDINGS: Bones: No fractures or dislocations. Left hip arthroplasty in place. No evidence of hardware complication. Mild right hip joint degeneration. Pelvic ring appears intact. No suspicious bony lesions. Soft tissues: The visualized bowel gas pattern is normal. No suspicious soft tissue calcifications. IMPRESSION: No acute osseous abnormalities. Left hip arthroplasty without evidence of complication. Dictated by: Yunier Medley M.D. on 02/14/2024 at 15:00 Approved by: Yunier Medley M.D. on 02/14/2024 at 15:01 Sacrum/coccyx x-ray: My Impression: Deferred to radiologist results below. Radiologist's Impression: PROCEDURE: XR SACRUM COCCYX MIN 2V INDICATIONS: Fall 5 days ago, gaping R inguinal wound, sacrum decubitus TECHNIQUE: 3 views of the sacrum and coccyx acquired. COMPARISON: None. FINDINGS: Bones: No fractures or dislocations. No suspicious bony lesions. Partially visualized left hip arthroplasty. Soft tissues: Visualized bowel gas pattern is normal. No suspicious soft tissue densities. IMPRESSION: No acute osseous abnormalities. Dictated by: Yunier Medley M.D. on 02/14/2024 at 15:01 Approved by: Yunier Medley M.D. on 02/14/2024 at 15:02 CT scan - abdomen/pelvis: My Impression: CT scan abdomen and pelvis with contrast and carried down to the right thigh wound. Deferred to radiologist's interpretation. Radiologist's Impression: PROCEDURE: CT ABDOMEN PELVIS W CON INDICATIONS: right inguinal/thigh deep wound TECHNIQUE: After the administration of intravenous contrast, axial sections acquired from the lung bases to the pubic symphysis. Coronal and sagittal reformats were performed. For radiation dose reduction, the following was used: automated exposure control, adjustment of mA and/or kV according to patient size. COMPARISON: None. FINDINGS: Image quality: Diagnostic. Lower Chest: No significant findings. ABDOMEN: Liver: No solid mass. Abnormal low density within the anterior left hepatic lobe, unclear if this represents focal dilated bile ducts. Lesion is not excluded. Gallbladder: Distended. No calcified stones. Biliary ducts: Common bile duct is dilated measuring up to 9 millimeters. Pancreas: No ductal dilation. Spleen: Size is within normal limits. Punctate splenic calcifications are noted. Adrenal Glands: No adrenal nodules. Kidneys and Ureters: No hydronephrosis. No solid mass. No complex renal cystic lesion which requires follow up. Stomach and Bowel: Normal colonic caliber, without significant wall thickening. Moderate stool burden. Peritoneum: No abnormal intraperitoneal fluid. No free air. Ventral Wall: No significant ventral hernia. Abdominal Nodes: No retroperitoneal or mesenteric adenopathy by size criteria. Vessels: Aorta and inferior vena cava are normal in size. Atherosclerotic vascular calcifications. PELVIS: Pelvic Organs: Unremarkable. Bladder: No bladder wall thickening, accounting for underdistention. Pelvic Nodes: No enlarged lymph nodes. Miscellaneous: Wound in the right groin with skin defect measuring approximately 2.3 centimeters in transverse dimension. There is stranding in irregular heterogeneous fluid and gas collection within the subcutaneous fat which is difficult to measure given irregular appearance, approximately 3.1 x 1.9 centimeters. No inguinal hernias are seen. Cystic structure within the right flank measuring up to 4.3 centimeter Bones: No aggressive osseous abnormality. Left hip arthroplasty. Diffusely decreased osseous mineralization. Degenerative changes of the spine. IMPRESSION: 1. Skin defect within the right groin with associated irregular fluid/gas collection within the subcutaneous fat. Exact measurements are difficult given irregular appearance, approximately 3.1 x 1.9 centimeters. This does not appear to extend to the bone. No findings concerning for osteomyelitis. 2. Irregular hypodensity within the anterior left hepatic lobe, may represent focal dilated bile ducts. Lesion is not excluded. Recommend attention on follow-up or consider MRI liver protocol for further evaluation. 3. Gallbladder is distended. No calcified gallstones. Common bile duct is dilated to 1 centimeter. Dictated by: Yunier Medley M.D. on 02/14/2024 at 16:34 Approved by: Yunier Medley M.D. on 02/14/2024 at 16:44 [facility] Narrative Medical decision making narrative: CT scan showed a wound involved within the subcutaneous fat with some stranding fluid and gas, no bony involvement or suspicious findings for osteomyelitis no mention of any muscle involvement. I contacted Dr. Mosley in general surgery who agrees to see her as an outpatient tomorrow morning at the general surgery clinic. Advised to start Augmentin p.o., and debride the wound here with a mixture of Betadine and hydrogen peroxide, irrigation and pack with Betadine impregnated gauze or packing and padded dressing. Patient tolerated the procedure well. She is discharged in improved stable condition. Red flag warning signs reviewed in detail with she and her if she develops a fever, worsening pain, weakness, the dressing becomes saturated or she has any other worrisome symptoms to please return to the emergency department or call 911. <Neela Ambrose MD - Last Filed: 02/19/24 07:11> Lab Data Labs: Lab Results 02/14/24 02/14/24 02/14/24 Range/Units 14:04 14:29 17:50 WBC 14.0 H (4.5-11.0) X10^3/uL RBC 4.37 (4.0-5.2) X10^6/uL Hgb 13.5 (12.0-16.0) g/dL Hct 39.3 (36-46) % MCV 89.9 (80-100) fL MCH 30.9 (26-34) PG MCHC 34.4 (30-36) % RDW 13.6 (11.6-14.8) % Plt Count 448 H (150-400) X10^3/uL Neut % (Auto) 83.5 H (50-75) % Lymph % (Auto) 9.7 L (25-40) % [place] % (Auto) 6.0 (3-14) % Eos % (Auto) 0.1 L (2-4) % Baso % (Auto) 0.7 (0-2) % Neut # (Auto) 42079 H (8804-3248) /uL Lymph # (Auto) 1300 (7701-5729) /uL [place] # (Auto) 800 (0-900) /uL Eos # (Auto) 0 (0-450) /uL Baso # (Auto) 100 (0-100) /uL Sodium 130 L (137-145) mmol/L Potassium 3.6 (3.4-5.1) mmol/L Chloride 91 L (98-107) mmol/L Carbon Dioxide 27 (22-32) mmol/L BUN 13 (7-17) mg/dL Creatinine 0.43 L (0.52-1.04) mg/dL Estimated GFR > 60 (>60) mL/min BUN/Creatinine Ratio 30.2 H (6-22) Glucose 106 (80-110) mg/dL Lactate 1.5 (0.7-2.1) mmol/L Calcium 9.1 (8.4-10.2) mg/dL Phosphorus 2.9 (2.8-4.1) mg/dL Magnesium 1.9 (1.6-2.3) mg/dL Total Bilirubin 1.0 (0.2-1.3) mg/dL AST 40 H (14-36) IU/L ALT 20 (<35) IU/L Alkaline Phosphatase 138 H (38-126) U/L Total Protein 7.5 (6.3-8.2) g/dL Albumin 4.0 (3.5-5.0) g/dL Globulin 3.5 (1.7-4.1) g/dL Albumin/Globulin Ratio 1.1 (1.0-2.8) Procalcitonin 0.045 (<0.5) ng/mL Urine Color Yellow Urine Appearance Clear Urine pH 5.0 (4.5-8.0) Ur Specific [place] 1.010 (1.000-1.035) Urine Protein Negative (Negative) Urine Glucose (UA) Negative (Negative) g/dL Urine Ketones 3+ H (NEGATIVE) Urine Occult Blood 1+ H (Negative) Urine Nitrate Negative (Negative) Urine Bilirubin Negative (NEGATIVE) Urine Urobilinogen 0.2 (0.2) E.U./dL Ur Leukocyte Esterase Negative (NEGATIVE) Urine RBC 0-1/hpf (0-5/HPF) Urine WBC None seen (0-5/HPF) Ur Squamous Epith Cells 0-1 /hpf (0-5/HPF) Urine Bacteria Occasional (0-1) (None) Urine Mucus 1+ H (Negative) Ur Culture Indicated? Cult not indicated Vol Urine Centrifuged 10ml (spun) U Opiates 300ng/mL cut Negative (Negative) Ur Oxycodone Screen Positive H (Negative) Urine Methadone Screen Negative (Negative) Ur Barbiturates Screen Negative (Negative) U Tricyclic Antidepress Negative (Negative) Ur Phencyclidine Scrn Negative (Negative) Ur Amphetamines Screen Negative (Negative) U Methamphetamines Scrn Negative (Negative) Ur MDMA Scrn (Ecstasy) Negative (Negative) U Benzodiazepines Scrn Negative (Negative) Urine Cocaine Screen Negative (Negative) U Marijuana (THC) Screen Negative (Negative) Urine Specific [place] (Normal) Ur Creatinine (Normal) 02/14/24 Range/Units 17:50 WBC (4.5-11.0) X10^3/uL RBC (4.0-5.2) X10^6/uL Hgb (12.0-16.0) g/dL Hct (36-46) % MCV (80-100) fL MCH (26-34) PG MCHC (30-36) % RDW (11.6-14.8) % Plt Count (150-400) X10^3/uL Neut % (Auto) (50-75) % Lymph % (Auto) (25-40) % [place] % (Auto) (3-14) % Eos % (Auto) (2-4) % Baso % (Auto) (0-2) % Neut # (Auto) (4583-6291) /uL Lymph # (Auto) (2067-8450) /uL [place] # (Auto) (0-900) /uL Eos # (Auto) (0-450) /uL Baso # (Auto) (0-100) /uL Sodium (137-145) mmol/L Potassium (3.4-5.1) mmol/L Chloride (98-107) mmol/L Carbon Dioxide (22-32) mmol/L BUN (7-17) mg/dL Creatinine (0.52-1.04) mg/dL Estimated GFR (>60) mL/min BUN/Creatinine Ratio (6-22) Glucose (80-110) mg/dL Lactate (0.7-2.1) mmol/L Calcium (8.4-10.2) mg/dL Phosphorus (2.8-4.1) mg/dL Magnesium (1.6-2.3) mg/dL Total Bilirubin (0.2-1.3) mg/dL AST (14-36) IU/L ALT (<35) IU/L Alkaline Phosphatase (38-126) U/L Total Protein (6.3-8.2) g/dL Albumin (3.5-5.0) g/dL Globulin (1.7-4.1) g/dL Albumin/Globulin Ratio (1.0-2.8) Procalcitonin (<0.5) ng/mL Urine Color Urine Appearance Urine pH Normal (4.5-8.0) Ur Specific [place] (1.000-1.035) Urine Protein (Negative) Urine Glucose (UA) (Negative) g/dL Urine Ketones (NEGATIVE) Urine Occult Blood (Negative) Urine Nitrate (Negative) Urine Bilirubin (NEGATIVE) Urine Urobilinogen (0.2) E.U./dL Ur Leukocyte Esterase (NEGATIVE) Urine RBC (0-5/HPF) Urine WBC (0-5/HPF) Ur Squamous Epith Cells (0-5/HPF) Urine Bacteria (None) Urine Mucus (Negative) Ur Culture Indicated? Vol Urine Centrifuged U Opiates 300ng/mL cut (Negative) Ur Oxycodone Screen (Negative) Urine Methadone Screen (Negative) Ur Barbiturates Screen (Negative) U Tricyclic Antidepress (Negative) Ur Phencyclidine Scrn (Negative) Ur Amphetamines Screen (Negative) U Methamphetamines Scrn (Negative) Ur MDMA Scrn (Ecstasy) (Negative) U Benzodiazepines Scrn (Negative) Urine Cocaine Screen (Negative) U Marijuana (THC) Screen (Negative) Urine Specific [place] Normal (Normal) Ur Creatinine Normal (Normal) Discharge Plan Departure Patient Disposition: Home Clinical Impression: Hyponatremia, Decubitus ulcer of back, stage 2 Open wound of inguinal region Qualifiers: Encounter type: initial encounter Qualified Code(s): S31.109A - Unspecified open wound of abdominal wall, unspecified quadrant without penetration into peritoneal cavity, initial encounter Fall Qualifiers: Encounter type: initial encounter Qualified Code(s): W19.XXXA - Unspecified fall, initial encounter Instructions: DI for Wound Infection Activity Restrictions/Additional Instructions: Please report to the general surgery clinic tomorrow morning at 8:30 a.m. at opening. They are located at [address] [place] [address], [id number] Melany titus who advised they will see you in general surgery clinic. If you have any events or issues overnight please return to the emergency department this would include a fever, increased pain, lightheadedness, generally feeling unwell, again do not hesitate to return. I have prescribed an oral medication called Augmentin, your 1st dose was given tacho, you can get this prescription tomorrow as it may change based on what the general surgeon advises. Prescriptions: New amoxicillin-pot clavulanate 875-125 mg tablet 1 tab PO BID 5 Days Qty: 10 0RF oxycodone-acetaminophen [Percocet] 2.5-325 mg tablet 1 tab PO Q8H PRN (Reason: pain) Qty: 10 0RF Referrals: Miscellaneous,Doctor, [Primary Care Provider] - Stand Alone Forms: Patient Portal/API ED Sign-out <Neela Ambrose MD - Last Filed: 02/19/24 07:11> [facility] I was immediately available in the department for consultation throughout this patient's visit. Neela Ambrose MD
--- NOTE | 2024-02-14 13:47 | DI.RAD.S_ITS ---
PROCEDURE: XR HIP W PEL IF DONE RT 2V INDICATIONS: Fall 5 days ago, gaping R inguinal wound, sacrum decubitus TECHNIQUE: AP pelvis with lateral view(s) of the right hip(s). COMPARISON: [facility], CR, XR PELVIS WITH LATERAL HIP LEFT, 08/26/2021, 15:08. [facility], CR, XR HIP W PEL IF DONE LT 2V, 08/01/2021, 9:24. [facility], CR, XR HIP W PEL IF DONE LT 2V, 07/15/2020, 15:23. FINDINGS: Bones: No fractures or dislocations. Left hip arthroplasty in place. No evidence of hardware complication. Mild right hip joint degeneration. Pelvic ring appears intact. No suspicious bony lesions. Soft tissues: The visualized bowel gas pattern is normal. No suspicious soft tissue calcifications. IMPRESSION: No acute osseous abnormalities. Left hip arthroplasty without evidence of complication. Dictated by: Yunier Medley M.D. on 02/14/2024 at 15:00 Approved by: Yunier Medley M.D. on 02/14/2024 at 15:01
--- NOTE | 2024-02-14 13:48 | DI.RAD.S_ITS ---
PROCEDURE: XR SACRUM COCCYX MIN 2V INDICATIONS: Fall 5 days ago, gaping R inguinal wound, sacrum decubitus TECHNIQUE: 3 views of the sacrum and coccyx acquired. COMPARISON: None. FINDINGS: Bones: No fractures or dislocations. No suspicious bony lesions. Partially visualized left hip arthroplasty. Soft tissues: Visualized bowel gas pattern is normal. No suspicious soft tissue densities. IMPRESSION: No acute osseous abnormalities. Dictated by: Yunier Medley M.D. on 02/14/2024 at 15:01 Approved by: Yunier Medley M.D. on 02/14/2024 at 15:02
[2024-02-14 14:16] LABS: Add Manual Diff / Slide Review NO; Basophils Absolute Auto 100 /uL (0-100); Basophils Percent Auto 0.7 % (0-2); Eosinophils Absolute Auto 0 /uL (0-450); Eosinophils Percent Auto 0.1 % (2-4); Hematocrit 39.3 % (36-46); Hemoglobin 13.5 g/dL (12.0-16.0); Lymphocytes Absolute Auto 1300 /uL (1100-4500); Lymphocytes Percent Auto 9.7 % (25-40); Mean Corpuscular HGB Conc 34.4 % (30-36); Mean Corpuscular Hemoglobin 30.9 PG (26-34); Mean Corpuscular Volume 89.9 fL (80-100); Monocytes Absolute Auto 800 /uL (0-900); Neutrophils Absolute Auto 11700 /uL (1500-7000); Neutrophils Percent Auto 83.5 % (50-75); Platelet Count 448 X10^3/uL (150-400); Red Blood Cell Count 4.37 X10^6/uL (4.0-5.2); Red Cell Distribution Width 13.6 % (11.6-14.8)
[2024-02-14 14:28] LABS: Alanine Aminotransferase 20 IU/L (<35); Albumin Globulin Ratio 1.1 (1.0-2.8); Alkaline Phosphatase 138 U/L (38-126); Aspartate Aminotransferase 40 IU/L (14-36); BUN Creatinine Ratio 30.2 (6-22); Blood Urea Nitrogen 13 mg/dL (7-17); Calcium 9.1 mg/dL (8.4-10.2); Carbon Dioxide 27 mmol/L (22-32); Chloride 91 mmol/L (98-107); Estimated Glomerular Filt Rate > 60 mL/min (>60); Globulin 3.5 g/dL (1.7-4.1); Glucose 106 mg/dL (80-110); HEMOLYSIS 20 (0-50); Potassium 3.6 mmol/L (3.4-5.1); Sodium 130 mmol/L (137-145); Total Protein 7.5 g/dL (6.3-8.2)
[2024-02-14 14:45] LABS: Procalcitonin 0.045 ng/mL (<0.5)
[2024-02-14 14:48] LABS: Lactate (Lactic Acid) 1.5 mmol/L (0.7-2.1)
[2024-02-14] MEDS: TET,DIPH,PERTUSS(ACELL),VAC/PF 0.5 ML SYRINGE IM (14:50)
[2024-02-14] MEDS: SODIUM CHLORIDE 0.9% 1,000 ML 1000 ML IV (14:50)
--- NOTE | 2024-02-14 15:17 | DI.CT.S_ITS ---
PROCEDURE: CT ABDOMEN PELVIS W CON INDICATIONS: right inguinal/thigh deep wound TECHNIQUE: After the administration of intravenous contrast, axial sections acquired from the lung bases to the pubic symphysis. Coronal and sagittal reformats were performed. For radiation dose reduction, the following was used: automated exposure control, adjustment of mA and/or kV according to patient size. COMPARISON: None. FINDINGS: Image quality: Diagnostic. Lower Chest: No significant findings. ABDOMEN: Liver: No solid mass. Abnormal low density within the anterior left hepatic lobe, unclear if this represents focal dilated bile ducts. Lesion is not excluded. Gallbladder: Distended. No calcified stones. Biliary ducts: Common bile duct is dilated measuring up to 9 millimeters. Pancreas: No ductal dilation. Spleen: Size is within normal limits. Punctate splenic calcifications are noted. Adrenal Glands: No adrenal nodules. Kidneys and Ureters: No hydronephrosis. No solid mass. No complex renal cystic lesion which requires follow up. Stomach and Bowel: Normal colonic caliber, without significant wall thickening. Moderate stool burden. Peritoneum: No abnormal intraperitoneal fluid. No free air. Ventral Wall: No significant ventral hernia. Abdominal Nodes: No retroperitoneal or mesenteric adenopathy by size criteria. Vessels: Aorta and inferior vena cava are normal in size. Atherosclerotic vascular calcifications. PELVIS: Pelvic Organs: Unremarkable. Bladder: No bladder wall thickening, accounting for underdistention. Pelvic Nodes: No enlarged lymph nodes. Miscellaneous: Wound in the right groin with skin defect measuring approximately 2.3 centimeters in transverse dimension. There is stranding in irregular heterogeneous fluid and gas collection within the subcutaneous fat which is difficult to measure given irregular appearance, approximately 3.1 x 1.9 centimeters. No inguinal hernias are seen. Cystic structure within the right flank measuring up to 4.3 centimeter Bones: No aggressive osseous abnormality. Left hip arthroplasty. Diffusely decreased osseous mineralization. Degenerative changes of the spine. IMPRESSION: 1. Skin defect within the right groin with associated irregular fluid/gas collection within the subcutaneous fat. Exact measurements are difficult given irregular appearance, approximately 3.1 x 1.9 centimeters. This does not appear to extend to the bone. No findings concerning for osteomyelitis. 2. Irregular hypodensity within the anterior left hepatic lobe, may represent focal dilated bile ducts. Lesion is not excluded. Recommend attention on follow-up or consider MRI liver protocol for further evaluation. 3. Gallbladder is distended. No calcified gallstones. Common bile duct is dilated to 1 centimeter. Dictated by: Yunier Medley M.D. on 02/14/2024 at 16:34 Approved by: Yunier Medley M.D. on 02/14/2024 at 16:44
[2024-02-14 15:33] LABS: Magnesium 1.9 mg/dL (1.6-2.3); Phosphorous 2.9 mg/dL (2.8-4.1)
[2024-02-14] MEDS: VANCOMYCIN 750 MG/150 ML PIGGYBACK 150 MG IV (15:37)
[2024-02-14 15:46] VITALS: BP 170/63; PULSE 84; RESP 14; O2SAT 100
[2024-02-14] MEDS: cefTRIAXone 1,000 MG in SODIUM CHLORIDE 0.9% 100 ML 200 MG IV (16:42)
[2024-02-14 18:07] LABS: Appearance Urine UA CLEAR; Bilirubin Urine UA NEGATIVE (NEGATIVE); Color Urine UA YELLOW; Glucose Urine UA NEGATIVE (Negative); Ketones Urine UA 3+ (NEGATIVE); Leukocyte Esterase Urine UA NEGATIVE (NEGATIVE); Nitrite Urine UA NEGATIVE (Negative); Occult Blood Urine UA 1+ (Negative); Protein Urine UA NEGATIVE (Negative); Urobilinogen Urine UA 0.2 E.U./dL (0.2)
[2024-02-14 18:11] LABS: Ur Creatinine Normal (Normal)
[2024-02-14 18:13] LABS: Ur Specific Gravity Normal (Normal); Urine Amphetamines Negative (Negative); Urine Barbiturates Negative (Negative); Urine Benzodiazepines Negative (Negative); Urine Cocaine Negative (Negative); Urine MDMA Negative (Negative); Urine Methadone Negative (Negative); Urine Methamphetamines Negative (Negative); Urine Opiates Negative (Negative); Urine Oxycodone Positive (Negative); Urine Phencyclidine Negative (Negative); Urine THC Negative (Negative); Urine Tricyclic Antidepressant Negative (Negative); Urine pH Normal (Normal)
[2024-02-14 18:16] LABS: Bacteria Urine Occasional (0-1); Culture Indicated Urine Cult Not Indicated; RBC Urine 0-1/HPF (0-5/HPF); Squamous Epithelial Cell Urine 0-1 /HPF (0-5/HPF); Urine Volume 10mL (spun); WBC Urine None Seen (0-5/HPF)
[2024-02-14] MEDS: AMOXICILLIN/CLAV 875/125 MG 1 TAB PO (18:17)
[2024-02-14] MEDS: HYDROMORPHONE 0.5 MG INJ IV (18:17)
[2024-02-14 18:23] VITALS: BP 132/76; PULSE 71; RESP 16; O2SAT 97
[2024-02-14 19:09] LABS: Mucus Urine 1+ (Negative)
[2024-02-14] MEDS: OXYCODONE/APAP 5/325 PREPACK 1 BOTTLE MISC (19:30)
--- NOTE | 2024-02-14 19:37 | PC.NURSE ---
wound care and packing done by MALA, MALA Diego
== END 2024-02-14 19:40 | disposition home or self-care (01) ==
PROVIDERS: Emergency Provider Physician Assistant Medical
DX: S31.103A Unspecified open wound of abdominal wall, right lower quadrant without penetration into peritoneal cavity, initial encounter (principal); E87.1 Hypo-osmolality and hyponatremia; L89.152 Pressure ulcer of sacral region, stage 2; W18.30XA Fall on same level, unspecified, initial encounter
CPT/HCPCS: 36415; 72220; 73502; 74177; 80053; 80305; 81003; 81015; 83605; 83735; 84100; 84145; 85025; 87040; 87070; 87075; 87077; 87147; 87205; 99284; 90715; J0696; J1170

== ENCOUNTER 2024-02-15 09:37 | Inpatient (IN) | payer OTHER, MEDICARE, SELFPAY ==
[2024-02-15] VITALS (22 sets, daily range): BP systolic 109–145; BP diastolic 62–88; PULSE 51–82; RESP 10–19; TEMP 36.1–36.9; O2SAT 96–100; BMI 18.8
--- NOTE | 2024-02-15 | PATH_ITS ---
[facility] Accession Number: [id number] No. of containers..01 Tissue . 01 Material submitted: . colon - RIGHT COLON . 01 Diagnosis: RIGHT COLON, RIGHT HEMICOLECTOMY: Segment of colon with transmural ulcer/perforation, consistent with operative impression of incarcerated hernia. Appendix with benign mesothelial inclusion. Segment of terminal ileum with no diagnostic abnormality. Nine benign pericolonic lymph nodes. Negative for granulomas, dysplasia or malignancy. MRV 02/21/2024 1559 Local . 01 Electronically signed: . Rafy Elkins MD, PhD, Pathologist NPI- [id number] . 01 Gross description: . Received in formalin with two patient identifiers and right colon, is an ileocecectomy (ileum: 3.2 cm in length by 2.6 cm in diameter; cecum: 5.2 cm in length by 4.1 cm in diameter; appendix: 5.6 cm in length by 0.4 cm in diameter) with grey to hemorrhagic serosa. A full thickness defect with visible mucosa is identified in the distal portion of the cecum (1.9 x 0.8 cm). The adjacent serosa is roughened and hemorrhagic. A small amount of adipose is attached, and no additional lesions are identified. . The ileal margin is inked blue, the cecal margin is inked black, the mesenteric margin is inked green, and the full thickness defect is inked orange. The mucosa is grey and velvety with normal appearing folds and no distinct lesions identified. The orell[place] average 0.3 cm thick with no diverticula identified. . The appendix has a small firm, well-circumcised nodule on the serosa of the distal tip, 0.3 x 0.1 x 0.1 cm. It is inked green. The remaining serosa is unremarkable. The lumen is pinpoint and patent, and the orellana average 0.3 cm thick with no perforations or lesions identified. The serosal nodule has a cystic duct surface filled with clear serous fluid. . Palpation reveals 10 grey lymph node candidates ranging from 0.1 to 0.5 cm in greatest dimension. Cardiovascular Tech sections are submitted as follows: . A1: Rep margins en face. A2: Area of defect. A3: Ileocecal valve. A4: Normal sections. A5: Appendix to include entire bisected distal tip with serosal nodule and cross sections. A6: Five intact lymph node candidates. A7: Five intact lymph node candidates. ([id number]) /MRV 02/18/2024 1704 Local . 01 Pathologist provided ICD-10: K40.30, K63.3 . 01 CPT . [id number] Performed at: [address] [facility] [address], [place], [place] [id number] MD Leonel Corcoran MD Phone: [phone]
--- NOTE | 2024-02-15 09:46 | ED_ITS ---
HPI - Skin/Abscess/Foreign Bdy General Chief complaint: Wound/Laceration Stated complaint: Infection sent over from Dr. Hodges Time Seen by Provider: 02/15/24 09:40 History of Present Illness HPI narrative: Patient 68-year-old female presenting today with ongoing right groin wound. She was seen and evaluated here yesterday she had blood work and a CT surgery was consulted and then followed up in surgery office today. Dr. Hodges called and spoke with me concern for fistula and sent her back to the ED. She reports that 6 days ago she tripped and fell landing on her stomach. She has pain in her groin and buttock. She does have significant open draining wound in the right groin. Foul smelling. She had wound cultures and blood work done yesterday. She was given Rocephin vancomycin sent home on Augmentin. She reports she is still in quite a bit of pain but mostly in her leg. She is ambulatory and weight-bearing. She has not had fevers. 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 Patient denies medical problems Social History marital status: household members: spouse lives independently: Yes occupational status: employed Smoking Status: Never smoker alcohol intake: former substance use type: does not use Smoking Status: Never smoker alcohol intake frequency: holidays/special occasions only Substance Use Type: does not use Exam Initial Vital Signs Initial Vital Signs: Vital Signs Temperature 98.2 F 02/15/24 09:40 Pulse Rate 82 02/15/24 09:40 Respiratory Rate 14 02/15/24 09:40 Blood Pressure 130/75 02/15/24 09:40 Pulse Oximetry 97 02/15/24 09:40 Oxygen Delivery Method Room Air 02/15/24 09:40 GENERAL: Alert thin 68-year-old female and in no acute distress. HEENT: Head atraumatic,EOMI, pupils reactive, face symmetric, moist mucous membranes CARDIOVASCULAR: Regular rate and rhythm without murmurs, rubs or gallops. RESPIRATORY: Breath sounds equal bilaterally, no wheezes rales or rhonchi. ABDOMEN: Soft, nontender. Normoactive bowel sounds all 4 quadrants. No guarding or rebound. EXTREMITIES: Normal range of motion, no clubbing or edema. Neurovascularly intact NEUROLOGICAL: Alert and oriented x4.Normal gait and speech. SKIN: Right groin 4 cm x 2 cm draining foul smelling yellow brown material. No surrounding erythema, left buttock skin breakdown as well Course Orders Ordered: ED Orders 02/15/24 09:57 CT abdomen pelvis w con Stat 02/15/24 10:07 CBC Auto Diff [Complete Blood Count AUTO DIFF] Stat CMP [Comprehensive Metabolic Panel] Stat CRP [C-Reactive Protein Quant] Stat Lactate (Lactic Acid) Stat Procalcitonin Stat Troponin & CK Cardiac Panel Stat 02/15/24 10:54 Blood Culture Stat Acetaminophen (Acetaminophen 325 Mg Tablet) 650 mg PO Q6H PRN PRN Reason: Fever/Mild Pain (1-3) Celecoxib (Celecoxib 200 Mg Capsule) 200 mg PO BID IVETTE Hydroxyzine HCl (Hydroxyzine 50 Mg/Ml Inj) 25 mg IM NOW PRN PRN Reason: Pain, Mild (1-3) Dextrose/Sodium Chloride (Dextrose 5%-0.9% Ns) 1,000 mls @ 100 mls/hr IV CONT IVETTE Piperacillin Sod/Tazobactam (Sod 3.375 gm/ Sodium Chloride) 100 mls @ 25 mls/hr IV Q8H IVETTE Naloxone HCl (Naloxone 0.4 Mg/Ml Vial) 0.2 mg IV Q2MIN PRN PRN Reason: Opiate Reversal Naloxone HCl (Naloxone 0.4 Mg/Ml Vial) 0.2 mg IV Q2MIN PRN PRN Reason: Opiate Reversal Oxycodone HCl (Oxycodone Ir 5 Mg Tablet) 5 mg PO PACUNOW PRN PRN Reason: Mild or moderate pain Oxycodone HCl (Oxycodone Ir 5 Mg Tablet) 5 mg PO Q4HR PRN PRN Reason: Pain, Moderate (4-6) Discontinued Medications Bupivacaine HCl (Bupivacaine 0.25% (Pf) Vial) 30 ml INJ NOW ONE Stop: 02/15/24 15:28 Last Admin: 02/15/24 15:27 Dose: 30 ml Documented By: NICOL Bupivacaine Liposome (Bupivacaine Liposome 266 Mg/20 Ml Vial) 266 mg INJ NOW ONE Stop: 02/15/24 15:28 Last Admin: 02/15/24 15:28 Dose: 266 mg Documented By: NICOL Hydromorphone HCl (Hydromorphone 1 Mg Inj) 0 mg IV Q5MIN PRN PRN Reason: Pain, Mild (1-3) Hydromorphone HCl (Hydromorphone 1 Mg Inj) 0 mg IV Q5MIN PRN PRN Reason: Pain, Moderate (4-6) Piperacillin Sod/Tazobactam (Sod 4.5 gm/ Sodium Chloride) 100 mls @ 200 mls/hr IV NOW ONE Stop: 02/15/24 09:58 Last Infusion: 02/15/24 11:16 Dose: Infused Documented By: Admin: 02/15/24 10:36 Dose: 200 mls/hr Documented By: MANDI Metronidazole (Flagyl) 500 mg in 100 mls @ 100 mls/hr IV NOW ONE Stop: 02/15/24 10:56 Last Infusion: 02/15/24 12:54 Dose: Infused Documented By: Admin: 02/15/24 11:51 Dose: 100 mls/hr Documented By: MANDI Sodium Chloride (Normal Saline 0.9%) 1,000 mls @ 1,000 mls/hr IV BOLUS ONE Stop: 02/15/24 11:42 Last Infusion: 02/15/24 13:17 Dose: Infused Documented By: Admin: 02/15/24 11:00 Dose: 1,000 mls/hr Documented By: MANDI Lactated Ringer's (Lactated Ringers) 1,000 mls @ 42 mls/hr IV CONT IVETTE Last Admin: 02/15/24 16:08 Dose: 42 mls/hr Documented By: Infusion: 02/15/24 16:08 Dose: Infused Documented By: Admin: 02/15/24 13:38 Dose: 42 mls/hr Documented By: INDIA Acetaminophen (Ofirmev) 1,000 mg in 100 mls @ 400 mls/hr IV NOW ONE Stop: 02/15/24 15:40 Last Admin: 02/15/24 15:21 Dose: 400 mls/hr Documented By: TIFFANIE Meperidine HCl (Meperidine 50 Mg/Ml Inj) 12.5 mg IV PACUNOW PRN PRN Reason: Mild pain or shivering Metoclopramide HCl (Metoclopramide 10 Mg/2 Ml Inj) 10 mg IV NOW PRN PRN Reason: Nausea And Vomiting Morphine Sulfate (Morphine 2 Mg/Ml Inj) 2 mg IV NOW ONE Stop: 02/15/24 09:58 Last Admin: 02/15/24 10:32 Dose: 2 mg Documented By: MANDI Morphine Sulfate (Morphine 2 Mg/Ml Inj) 2 mg IV NOW ONE Stop: 02/15/24 11:35 Last Admin: 02/15/24 11:38 Dose: 2 mg Documented By: MANDI Ondansetron HCl (Ondansetron 4 Mg/2 Ml Inj) 4 mg IV NOW PRN PRN Reason: Nausea And Vomiting Vital Signs Vital signs: Vital Signs - 8 hr 02/15/24 11:40 02/15/24 12:19 02/15/24 12:30 Pulse Rate 75 68 Respiratory Rate 19 Blood Pressure 134/62 Pulse Oximetry 98 98 MDM - Skin/Abscess/Foreign Bdy Lab Data 02/15/24 10:07 02/15/24 10:07 Labs: Lab Results 02/15/24 Range/Units 10:07 WBC 10.3 (4.5-11.0) X10^3/uL RBC 4.45 (4.0-5.2) X10^6/uL Hgb 13.7 (12.0-16.0) g/dL Hct 40.1 (36-46) % MCV 90.2 (80-100) fL MCH 30.8 (26-34) PG MCHC 34.1 (30-36) % RDW 13.6 (11.6-14.8) % Plt Count 380 (150-400) X10^3/uL Neut % (Auto) 80.9 H (50-75) % Lymph % (Auto) 10.4 L (25-40) % [place] % (Auto) 7.8 (3-14) % Eos % (Auto) 0.5 L (2-4) % Baso % (Auto) 0.4 (0-2) % Neut # (Auto) 8400 H (2807-5161) /uL Lymph # (Auto) 1100 (0024-4720) /uL [place] # (Auto) 800 (0-900) /uL Eos # (Auto) 0 (0-450) /uL Baso # (Auto) 0 (0-100) /uL Sodium 133 L (137-145) mmol/L Potassium 3.7 (3.4-5.1) mmol/L Chloride 94 L (98-107) mmol/L Carbon Dioxide 24 (22-32) mmol/L BUN 10 (7-17) mg/dL Creatinine 0.38 L (0.52-1.04) mg/dL Estimated GFR > 60 (>60) mL/min BUN/Creatinine Ratio 26.3 H (6-22) Glucose 97 (80-110) mg/dL Lactate 1.2 (0.7-2.1) mmol/L Calcium 9.0 (8.4-10.2) mg/dL Total Bilirubin 1.0 (0.2-1.3) mg/dL AST 43 H (14-36) IU/L ALT 19 (<35) IU/L Alkaline Phosphatase 134 H (38-126) U/L Total Creatine Kinase 64 (30-135) U/L Troponin I < 0.012 (0.01-0.034) ng/mL C-Reactive Protein 2.3 H (<1.0) mg/dL Total Protein 7.4 (6.3-8.2) g/dL Albumin 4.2 (3.5-5.0) g/dL Globulin 3.2 (1.7-4.1) g/dL Albumin/Globulin Ratio 1.3 (1.0-2.8) Procalcitonin 0.049 (<0.5) ng/mL Imaging Data CT scan - abdomen/pelvis: Radiologist's Impression: PROCEDURE: CT ABDOMEN PELVIS W CON INDICATIONS: possible fistula rlq TECHNIQUE: After the administration of intravenous contrast, axial sections acquired from the lung bases to the pubic symphysis. Coronal and sagittal reformats were performed. For radiation dose reduction, the following was used: automated exposure control, adjustment of mA and/or kV according to patient size. COMPARISON: [facility], CT, CT ABDOMEN PELVIS W CON, 02/14/2024, 15:30. FINDINGS: Image quality: Diagnostic. Lower Chest: No significant findings. ABDOMEN: Liver: No solid mass. Prominent focal fatty infiltration adjacent to the anterior border of the fissure for the falciform ligament. This was previously present. Gallbladder: No radiopaque gallstones or wall thickening. Gallbladder caliber is prominent, without inflammation. This was previously present. Biliary ducts: No biliary dilation. Pancreas: No ductal dilation. Spleen: Size is within normal limits. Adrenal Glands: No adrenal nodules. Kidneys and Ureters: No hydronephrosis. No solid mass. No complex renal cystic lesion which requires follow up. Stomach and Bowel: Normal colonic caliber, without significant wall thickening. Oral contrast has transit through the entirety of the small bowel but not through the colon. Peritoneum: No abnormal intraperitoneal fluid. No free air. Ventral Wall: No significant ventral hernia. Abdominal Nodes: No retroperitoneal or mesenteric adenopathy by size criteria. Vessels: Aorta and inferior vena cava are normal in size. PELVIS: Pelvic Organs: Unremarkable. Bladder: No bladder wall thickening, accounting for underdistention. Pelvic Nodes: No enlarged lymph nodes. Miscellaneous: No inguinal hernias are seen. A right lateral buttock region ovoid subcutaneous presumed fluid collection is present, measuring up to 3.4 cm AP and 2.4 cm transverse, seen on series 2, image 50. Note is again made of prominent inflammatory change and fluid and gas within the soft tissues of the right groin, where a probable inguinal hernia containing: Appears to have perforated and yielded a fistulous communication to the skin surface. Bones: No aggressive osseous abnormality. IMPRESSION: 1. Prominent inflammatory change again noted at the right groin area somewhat better visualized than by prior CT scanning 1 day ago. This appears to contain colonic bowel, and an associated fistulous communication to the skin surface. This process is is centered in close proximity to the right common femoral artery bifurcation and both the proximal superficial and deep femoral arteries appear free of aneurysm or thrombosis. As noted above oral contrast has transit through the entirety of the small bowel but only has begun to enter the colon. Additional delayed CT scanning may be warranted in approximately 1 hour which may provide additional anatomic detail of fistulous communication. 2. Likely unrelated ovoid sharply demarcated uninflamed subcutaneous fluid collection at the lateral right gluteus musculature discussed above. Uncertain etiology and clinical significance, which should be evaluated clinically and possibly by ultrasound. Dictated by: Reza Velasquez M.D. on 02/15/2024 at 12:13 Approved by: Reza Velasquez M.D. on 02/15/2024 at 12:22 [facility] Narrative Medical decision making narrative: BRADLEY CC: Sent by surgery office for right groin wound Complicating co-morbidities: Under weight Medical records reviewed: Surgery note yesterday ED visits Differential considered: Fistula sepsis Exam documented above, pertinent findings include: Gross foul-smelling wound in right groin appears to be draining stool, she also has skin breakdown on her left buttock Lab Test results independently reviewed as above. Pertinent findings: WBC does show improvement today was previously 14 today is 10.3, continues to have left shift 3 CMP shows stable electrolytes and renal function Lactate 1.2, elevated CRP 2.3 Imaging studies independently reviewed: Concern for colonic fistula Consultations: Dr. Hodges updated on patient's symptoms CT results state that patient will need to go to the operating room Dr. Rhodes updated on need for admission with surgery consultation and he agrees Treatments: Zosyn Flagyl Dilaudid Re-evaluations: Pain is better Discussion: Patient presenting today with ongoing right groin wound. She says she fell about a week ago and wound has gotten progressively worse since then. She has foul smelling drainage concerning for colon Fistula. CT confirms fistula Blood work does actually show improvement from yesterday. She has been given antibiotics blood cultures have been drawn Patient went from ER to operating room Discharge Plan Departure Patient Disposition: Admitted As Inpatient Clinical Impression: Colonic fistula Admit Date/Time: 02/15/24 12:51 Admit Provider: Jayy Rhodes
--- NOTE | 2024-02-15 09:57 | DI.CT.S_ITS ---
PROCEDURE: CT ABDOMEN PELVIS W CON INDICATIONS: possible fistula rlq TECHNIQUE: After the administration of intravenous contrast, axial sections acquired from the lung bases to the pubic symphysis. Coronal and sagittal reformats were performed. For radiation dose reduction, the following was used: automated exposure control, adjustment of mA and/or kV according to patient size. COMPARISON: [facility], CT, CT ABDOMEN PELVIS W CON, 02/14/2024, 15:30. FINDINGS: Image quality: Diagnostic. Lower Chest: No significant findings. ABDOMEN: Liver: No solid mass. Prominent focal fatty infiltration adjacent to the anterior border of the fissure for the falciform ligament. This was previously present. Gallbladder: No radiopaque gallstones or wall thickening. Gallbladder caliber is prominent, without inflammation. This was previously present. Biliary ducts: No biliary dilation. Pancreas: No ductal dilation. Spleen: Size is within normal limits. Adrenal Glands: No adrenal nodules. Kidneys and Ureters: No hydronephrosis. No solid mass. No complex renal cystic lesion which requires follow up. Stomach and Bowel: Normal colonic caliber, without significant wall thickening. Oral contrast has transit through the entirety of the small bowel but not through the colon. Peritoneum: No abnormal intraperitoneal fluid. No free air. Ventral Wall: No significant ventral hernia. Abdominal Nodes: No retroperitoneal or mesenteric adenopathy by size criteria. Vessels: Aorta and inferior vena cava are normal in size. PELVIS: Pelvic Organs: Unremarkable. Bladder: No bladder wall thickening, accounting for underdistention. Pelvic Nodes: No enlarged lymph nodes. Miscellaneous: No inguinal hernias are seen. A right lateral buttock region ovoid subcutaneous presumed fluid collection is present, measuring up to 3.4 cm AP and 2.4 cm transverse, seen on series 2, image 50. Note is again made of prominent inflammatory change and fluid and gas within the soft tissues of the right groin, where a probable inguinal hernia containing: Appears to have perforated and yielded a fistulous communication to the skin surface. Bones: No aggressive osseous abnormality. IMPRESSION: 1. Prominent inflammatory change again noted at the right groin area somewhat better visualized than by prior CT scanning 1 day ago. This appears to contain colonic bowel, and an associated fistulous communication to the skin surface. This process is is centered in close proximity to the right common femoral artery bifurcation and both the proximal superficial and deep femoral arteries appear free of aneurysm or thrombosis. As noted above oral contrast has transit through the entirety of the small bowel but only has begun to enter the colon. Additional delayed CT scanning may be warranted in approximately 1 hour which may provide additional anatomic detail of fistulous communication. 2. Likely unrelated ovoid sharply demarcated uninflamed subcutaneous fluid collection at the lateral right gluteus musculature discussed above. Uncertain etiology and clinical significance, which should be evaluated clinically and possibly by ultrasound. Dictated by: Reza Velasquez M.D. on 02/15/2024 at 12:13 Approved by: Reza Velasquez M.D. on 02/15/2024 at 12:22
[2024-02-15 10:17] LABS: Add Manual Diff / Slide Review NO; Basophils Absolute Auto 0 /uL (0-100); Basophils Percent Auto 0.4 % (0-2); Eosinophils Absolute Auto 0 /uL (0-450); Eosinophils Percent Auto 0.5 % (2-4); Hematocrit 40.1 % (36-46); Hemoglobin 13.7 g/dL (12.0-16.0); Lymphocytes Absolute Auto 1100 /uL (1100-4500); Lymphocytes Percent Auto 10.4 % (25-40); Mean Corpuscular HGB Conc 34.1 % (30-36); Mean Corpuscular Hemoglobin 30.8 PG (26-34); Mean Corpuscular Volume 90.2 fL (80-100); Monocytes Absolute Auto 800 /uL (0-900); Monocytes Percent Auto 7.8 % (3-14); Neutrophils Absolute Auto 8400 /uL (1500-7000); Neutrophils Percent Auto 80.9 % (50-75); Platelet Count 380 X10^3/uL (150-400); Red Blood Cell Count 4.45 X10^6/uL (4.0-5.2); Red Cell Distribution Width 13.6 % (11.6-14.8); White Blood Cell Count 10.3 X10^3/uL (4.5-11.0)
[2024-02-15 10:32] LABS: Lactate (Lactic Acid) 1.2 mmol/L (0.7-2.1)
[2024-02-15] MEDS: MORPHINE 2 MG/ML INJ IV ×2 (10:32→11:38)
[2024-02-15] MEDS: PIPERACILLIN/TAZO 4.5 GM in SODIUM CHLORIDE 0.9% 100 ML IV (10:36)
[2024-02-15 10:37] LABS: Alanine Aminotransferase 19 IU/L (<35); Albumin 4.2 g/dL (3.5-5.0); Albumin Globulin Ratio 1.3 (1.0-2.8); Alkaline Phosphatase 134 U/L (38-126); Aspartate Aminotransferase 43 IU/L (14-36); BUN Creatinine Ratio 26.3 (6-22); Blood Urea Nitrogen 10 mg/dL (7-17); C-Reactive Protein Quant 2.3 mg/dL (<1.0); Carbon Dioxide 24 mmol/L (22-32); Chloride 94 mmol/L (98-107); Creatine Kinase 64 U/L (30-135); Estimated Glomerular Filt Rate > 60 mL/min (>60); Globulin 3.2 g/dL (1.7-4.1); Glucose 97 mg/dL (80-110); HEMOLYSIS 43 (0-50); Potassium 3.7 mmol/L (3.4-5.1); Sodium 133 mmol/L (137-145); Total Protein 7.4 g/dL (6.3-8.2)
[2024-02-15 10:45] LABS: Troponin I < 0.012 ng/mL (0.01-0.034)
[2024-02-15 10:50] LABS: Procalcitonin 0.049 ng/mL (<0.5)
[2024-02-15] MEDS: SODIUM CHLORIDE 0.9% 1,000 ML 1000 ML IV (11:00)
[2024-02-15] MEDS: metroNIDAZOLE 500 MG/100 ML PIGGYBACK 100 MG IV (11:51)
--- NOTE | 2024-02-15 13:04 | PM.HP.1 ---
History of Present Illness History of Present Illness Date Patient Seen: 02/15/24 Chief complaint: Infection sent over from Dr. Hodges Narrative: From ED provider: Patient 68-year-old female presenting today with ongoing right groin wound. She was seen and evaluated here yesterday she had blood work and a CT surgery was consulted and then followed up in surgery office today. Dr. Hodges called and spoke with me concern for fistula and sent her back to the ED. She reports that 6 days ago she tripped and fell landing on her stomach. She has pain in her groin and buttock. She does have significant open draining wound in the right groin. Foul smelling. She had wound cultures and blood work done yesterday. She was given Rocephin vancomycin sent home on Augmentin. She reports she is still in quite a bit of pain but mostly in her leg. She is ambulatory and weight-bearing. She has not had fevers. Additional information: The patient is groggy postop. She underwent surgery where a incarcerated cecum was discovered and she underwent an ileocecectomy and repair of a right inguinal hernia for a strangulated right groin hernia. She can provide no history as she was still somewhat sedated. 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 He notes that on the phone she would mentioned feeling ill for about 3 days. A sacral decubitus also discovered which is stage II. He does not know anything about this. She was extremely underweight, he notes that this has been the case for her chronically. 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 Patient denies medical problems Social History marital status: household members: spouse lives independently: Yes occupational status: employed Smoking Status: Never smoker alcohol intake: former substance use type: does not use Meds Home Medications and Allergies Home Medications Medication Instructions Recorded Confirmed Type amoxicillin 875 mg-potassium 1 tab PO BID 5 days #10 tabs 02/14/24 02/15/24 Rx clavulanate 125 mg tablet oxycodone-acetaminophen 2.5 mg-325 1 tab PO Q8H PRN pain #10 tabs 02/14/24 02/15/24 Rx mg tablet (Percocet) Allergies Allergy/AdvReac Type Severity Reaction Status Date / Time No Known Drug Allergies Allergy Verified 02/15/24 09:50 Review of Systems Review of Systems Narrative: She was still sedated, review of systems other the otherwise unobtainable. Exam Vital Signs (past 8 hours): - 02/15/24 09:40 02/15/24 11:40 Temperature 98.2 F Pulse Rate 82 Respiratory Rate 14 19 Blood Pressure 130/75 134/62 Pulse Oximetry 97 Oxygen Delivery Method Room Air Oxygen Delivery Method Room Air Narrative Exam Narrative: Somnolent, NAD, looking around occasionally but not able to participate in questions. Extremely cachectic. Normocephalic skull, EOMI, anicteric sclera, symmetric pupils. Oropharynx unremarkable, no droop. Neck supple, midline trachea, no adenopathy. Lungs clear, normal rate and effort. Heart regular, no murmur gallop or rub. Abdomen is soft, non distended and non tender. Dressing in place. Extremities are free of edema. Skin is free of rash or lesions. Joints are not swollen or deformed. Objective Imaging CT scan - abdomen: Radiologist's impression: 1. Prominent inflammatory change again noted at the right groin area somewhat better visualized than by prior CT scanning 1 day ago. This appears to contain colonic bowel, and an associated fistulous communication to the skin surface. This process is is centered in close proximity to the right common femoral artery bifurcation and both the proximal superficial and deep femoral arteries appear free of aneurysm or thrombosis. As noted above oral contrast has transit through the entirety of the small bowel but only has begun to enter the colon. Additional delayed CT scanning may be warranted in approximately 1 hour which may provide additional anatomic detail of fistulous communication. 2. Likely unrelated ovoid sharply demarcated uninflamed subcutaneous fluid collection at the lateral right gluteus musculature discussed above. Uncertain etiology and clinical significance, which should be evaluated clinically and possibly by ultrasound. Labs 02/15/24 10:07 02/15/24 10:07 Labs: Laboratory Results - last 24 hr 02/15/24 10:07 WBC 10.3 RBC 4.45 Hgb 13.7 Hct 40.1 MCV 90.2 MCH 30.8 MCHC 34.1 RDW 13.6 Plt Count 380 Neut % (Auto) 80.9 H Lymph % (Auto) 10.4 L [place] % (Auto) 7.8 Eos % (Auto) 0.5 L Baso % (Auto) 0.4 Neut # (Auto) 8400 H Lymph # (Auto) 1100 [place] # (Auto) 800 Eos # (Auto) 0 Baso # (Auto) 0 Sodium 133 L Potassium 3.7 Chloride 94 L Carbon Dioxide 24 BUN 10 Creatinine 0.38 L Estimated GFR > 60 BUN/Creatinine Ratio 26.3 H Glucose 97 Lactate 1.2 Calcium 9.0 Total Bilirubin 1.0 AST 43 H ALT 19 Alkaline Phosphatase 134 H Total Creatine Kinase 64 Troponin I < 0.012 C-Reactive Protein 2.3 H Total Protein 7.4 Albumin 4.2 Globulin 3.2 Albumin/Globulin Ratio 1.3 Procalcitonin 0.049 Assessment & Plan Assessment & Plan narrative: 1. Enterocutaneous fistula, present on admission and active. 2. Underweight with BMI of 18.9, present on admission and active. PLAN: -broad-spectrum antibiotics and blood cultures. -general surgery consult for surgery today. -wound care consult in AM -Dw surgery in AM FORD: 02/17 The patient is inpatient status, anticipate 2 midnights of hospital care will be necessary. is proxy decision maker. Time-Based Coding :: 35 min spent with patient and on the chart (including review of chart, obtaining history, exam, reviewing outside data, placing orders, documenting exam and treatment plan, and counseling patient) on 02/14. Quality MIPS - Admit I confirm the patient?s Advance Care Plan is present, Code status is documented, Surrogate decision maker is in patient?s record [If Yes, STOP here]: Yes MIPS - Meds 'Current medications' to include all prescriptions, [id number] products, herbals, cannabis/cannabidiol products, and vitamin/mineral/dietary (nutritional) supplements. I have utilized all available resources to obtain, update, or review the patient?s current medications. [If Yes, STOP here]: Yes
--- NOTE | 2024-02-15 13:13 | PC.NURSE ---
Open wound to right groin with abd pad covering. Fecal like matter coming from wound. Foul smell noted. Pt remains afebrile. Pt endorses pain to area. Pt states she has not had a BM in several days. Pt states this is abnormal for her. Pt able to ambulate. Respirations regular and unlabored. Pt denies any recent abd surgeries. Pt states she tries to remain healthy. Pt and family upset that they are back in ER today; pt states surgeon told her she needs to come back today. Pt states imaging, labwork, and consultation were performed yesterday.
[2024-02-15] MEDS: LACTATED RINGERS 1,000 ML 42 ML IV ×2 (13:38→16:08)
--- NOTE | 2024-02-15 15:18 | SUR.OPER ---
Supine on padded OR bed, head on pillow, arms secured on padded arm boards at <90 degrees abduction, gel pads under arms, legs uncrossed, safety belt at thigh, tape over blanket over lower legs.
[2024-02-15] MEDS: ACETAMINOPHEN IV 1,000 MG/100 ML VIAL 400 MG IV (15:21)
[2024-02-15] MEDS: BUPIVACAINE 0.25% (PF) VIAL 30 ML INJ (15:27)
[2024-02-15] MEDS: BUPIVACAINE LIPOSOME 266 MG/20 ML VIAL INJ (15:28)
--- NOTE | 2024-02-15 16:04 | SUR.OPER ---
Placed large Allexyn over stage two pressure injury to sacrum.
--- NOTE | 2024-02-15 16:48 | PM.OP.1 ---
Operative Date/Time/Diagnoses Date of procedure: 02/15/24 Time of procedure: 16:49 Pre-op diagnosis: Colocutaneous fistula Post-op diagnosis: other (Strangulated right groin hernia) Procedure & Clinicians Procedure: Exploratory laparotomy Ileocecectomy Repair right inguinal hernia Incision and drainage of right groin wound Same procedure as scheduled: Yes Indications: 68-year-old woman who presents with a right groin wound draining stool. CT suggestive of colocutaneous fistula. Surgeon: Wilmer oHdges Customer Business Manager: Dionte Vizcarra Anesthesia Type: General Operative Notes Findings: Necrotic perforated cecum within the right inguinal canal. Minimal intra-abdominal contamination Specimen(s): other (Right colon) Estimated Blood Loss (mL): 50 Procedure in detail: Patient was brought to the operating room placed supine on the table. Bilateral lower extremity compression devices were applied. General anesthesia was induced and she was intubated with an endotracheal tube. She was then prepped and draped in sterile fashion after a Wadsworth catheter was sterilely placed. Time-out was performed. We began with a midline laparotomy. The abdomen was entered. There was minimal intra-abdominal contamination. We identified the cecum strangulated within a right groin hernia. The cecum was manually reduced which revealed a necrotic perforated cecum draining through of the right inguinal canal. We performed a ileocecectomy. A window within the mesentery of the terminal ileum in the right colon was made. The bowel was divided with the ERICKSON 75 mm blue load. Mesentery was divided using the LigaSure. We formed a [id number] functional and end anastomosis. A crotch stitch with silk was placed an enterotomy and a colotomy were made in the limbs of bowel were joined with a 3rd staple load of the ERICKSON stapler. We inspected the anastomosis and found it to be hemostatic and widely patent. The common opening was then closed with PDS suture in a running fashion. The suture line was then imbricated with silk suture. The mesenteric defect was closed with Vicryl. We then returned the bowel to the abdomen which was copiously lavaged until clear. Hemostasis was checked. We closed the right groin hernia using PDS suture from within the abdomen. The fascia was then closed in running manner using PDS suture followed by gabriel. A total of 20 mL of Exparel and 30 mL of 0.25% bupivacaine were used for local anesthetic. We then performed a incision and drainage on the right groin wound. The wound was opened and we debrided the necrotic tissue down the level of the muscle. The dimensions of the wound measured 5 by 5 by 2 cm in depth. We used the pulse lavage with 3 L of saline until it returned clear. The wound was then packed with Kerlix. The sponge and instrument count at the end of the operation was correct. Patient was extubated and transferred to recovery in stable condition. Complications: none Post-operative Condition: stable Disposition: Acute Care
[2024-02-15] MEDS: OXYCODONE IR 5 MG TABLET PO ×2 (19:19→21:39)
--- NOTE | 2024-02-15 19:37 | PC.NURSE ---
Patients ml incision cdi with aquacel, she has a wound from an incarcerated hernia to r.groin. Area is packed with kurlex, abd atop and mesh panties. 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 Oxycodone given to patient and she is resting. Patient will be on a clear liquid diet, and does have iv pain medication if needed.
[2024-02-15] MEDS: PIPERACILLIN/TAZO 3.375 GM in SODIUM CHLORIDE 0.9% 100 ML IV (19:42)
[2024-02-15] MEDS: DEXTROSE 5%-0.9% NS 1,000 ML 100 ML IV (19:43)
[2024-02-15] MEDS: ACETAMINOPHEN 325 MG TABLET 650 MG PO (21:38)
[2024-02-15] MEDS: CELECOXIB 200 MG CAPSULE PO (21:39)
[2024-02-16] MEDS: OXYCODONE IR 5 MG TABLET PO ×4 (01:42→16:03)
[2024-02-16] MEDS: PIPERACILLIN/TAZO 3.375 GM in SODIUM CHLORIDE 0.9% 100 ML IV ×3 (02:56→18:16)
[2024-02-16] MEDS: HYDROMORPHONE 0.5 MG INJ IV ×3 (03:01→14:12)
[2024-02-16] MEDS: DEXTROSE 5%-0.9% NS 1,000 ML 100 ML IV (05:14)
[2024-02-16 06:13] LABS: Add Manual Diff / Slide Review NO; Basophils Absolute Auto 0 /uL (0-100); Basophils Percent Auto 0.1 % (0-2); Eosinophils Absolute Auto 0 /uL (0-450); Hematocrit 36.1 % (36-46); Hemoglobin 12.4 g/dL (12.0-16.0); Lymphocytes Absolute Auto 1100 /uL (1100-4500); Lymphocytes Percent Auto 5.4 % (25-40); Mean Corpuscular HGB Conc 34.3 % (30-36); Mean Corpuscular Hemoglobin 30.7 PG (26-34); Mean Corpuscular Volume 89.7 fL (80-100); Monocytes Absolute Auto 800 /uL (0-900); Neutrophils Absolute Auto 19000 /uL (1500-7000); Neutrophils Percent Auto 90.5 % (50-75); Platelet Count 359 X10^3/uL (150-400); Red Blood Cell Count 4.02 X10^6/uL (4.0-5.2); Red Cell Distribution Width 13.8 % (11.6-14.8)
[2024-02-16 06:14] LABS: BUN Creatinine Ratio 15.2 (6-22); Blood Urea Nitrogen 5 mg/dL (7-17); Calcium 7.8 mg/dL (8.4-10.2); Carbon Dioxide 25 mmol/L (22-32); Chloride 97 mmol/L (98-107); Estimated Glomerular Filt Rate > 60 mL/min (>60); Glucose 227 mg/dL (80-110); HEMOLYSIS < 15 (0-50); Potassium 3.1 mmol/L (3.4-5.1); Sodium 129 mmol/L (137-145)
[2024-02-16 07:00] VITALS: BP 98/58; PULSE 66; RESP 10; TEMP 36.7; O2SAT 97
--- NOTE | 2024-02-16 07:38 | P.PN_ITS ---
Subjective Subjective Date Patient Seen: 02/16/24 Interval history: Patient 68-year-old female presenting today with ongoing right groin wound. She was seen and evaluated here yesterday she had blood work and a CT surgery was consulted and then followed up in surgery office today. Dr. Hodges called and spoke with me concern for fistula and sent her back to the ED. She reports that 6 days ago she tripped and fell landing on her stomach. She has pain in her groin and buttock. She does have significant open draining wound in the right groin. Foul smelling. She had wound cultures and blood work done yesterday. She was given Rocephin vancomycin sent home on Augmentin. She reports she is still in quite a bit of pain but mostly in her leg. She is ambulatory and weight-bearing. She has not had fevers. The patient is groggy postop. She underwent surgery where a incarcerated cecum was discovered and she underwent an ileocecectomy and repair of a right inguinal hernia for a strangulated right groin hernia. She can provide no history as she was still somewhat sedated. Her is with her, he just returned from a 30 day [employer] work drip. He notes that on the phone she would mentioned feeling ill for about 3 days. A sacral decubitus also discovered which is stage II. He does not know anything about this. She was extremely underweight, he notes that this has been the case for her chronically. Interval history: The patient is seen postoperative day 1. She is alert and appropriate. She has no complaints, denying shortness of breath or chest pain. Exam Vital Signs (past 8 hours): Oxygen Delivery Method Room Air Oxygen Flow Rate 0 Narrative Exam Narrative: Alert, appropriate. Extremely cachectic. Normocephalic skull, EOMI, anicteric sclera, symmetric pupils. Oropharynx unremarkable, no droop. Neck supple, midline trachea, no adenopathy. Lungs clear, normal rate and effort. Heart regular, no murmur gallop or rub. Abdomen is soft, non distended and non tender. Dressing in place. Extremities are free of edema. Skin is free of rash or lesions. Joints are not swollen or deformed. Objective Labs 02/16/24 04:50 02/16/24 04:50 Labs: Laboratory Results - last 24 hr 02/15/24 02/16/24 10:07 04:50 WBC 10.3 21.0 H D RBC 4.45 4.02 Hgb 13.7 12.4 Hct 40.1 36.1 MCV 90.2 89.7 MCH 30.8 30.7 MCHC 34.1 34.3 RDW 13.6 13.8 Plt Count 380 359 Neut % (Auto) 80.9 H 90.5 H Lymph % (Auto) 10.4 L 5.4 L [place] % (Auto) 7.8 4.0 Eos % (Auto) 0.5 L 0.0 L Baso % (Auto) 0.4 0.1 Neut # (Auto) 8400 H 66974 H Lymph # (Auto) 1100 1100 [place] # (Auto) 800 800 Eos # (Auto) 0 0 Baso # (Auto) 0 0 Sodium 133 L 129 L Potassium 3.7 3.1 L Chloride 94 L 97 L Carbon Dioxide 24 25 BUN 10 5 L Creatinine 0.38 L 0.33 L Estimated GFR > 60 > 60 BUN/Creatinine Ratio 26.3 H 15.2 Glucose 97 227 H D Lactate 1.2 Calcium 9.0 7.8 L Total Bilirubin 1.0 AST 43 H ALT 19 Alkaline Phosphatase 134 H Total Creatine Kinase 64 Troponin I < 0.012 C-Reactive Protein 2.3 H Total Protein 7.4 Albumin 4.2 Globulin 3.2 Albumin/Globulin Ratio 1.3 Procalcitonin 0.049 [facility] Medical History Closed left hip fracture 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 Enterocutaneous fistula, present on admission and active, status post exploratory laparotomy, ileocecectomy, right inguinal hernia repair and incision and drainage of right groin wound 02/15/2024. 2. Underweight with BMI of 18.9, present on admission and active. PLAN: -broad-spectrum antibiotics and blood cultures. -general surgery to follow -wound care consult FORD: 02/17 The patient is inpatient status, anticipate 2 midnights of hospital care will be necessary. is proxy decision maker. Time-Based Coding :: [TOTAL MINUTES] spent with patient and on the chart (including review of chart, obtaining history, exam, reviewing outside data, placing orders, documenting exam and treatment plan, and counseling patient) on [DATE]. Quality VTE Deep Vein Thrombosis/Pulmonary Embolism Present on Admission: No IH PROFEE Charge codes Subsequent inpatient/observation care: 95403
[2024-02-16] MEDS: CELECOXIB 200 MG CAPSULE PO ×2 (08:25→20:32)
--- NOTE | 2024-02-16 09:11 | P.PN_ITS ---
Subjective Subjective Date Patient Seen: 02/16/24 Time Patient Seen: 09:11 Interval history: Incisional pain fairly well controlled Tolerant of clear liquid diet positive flatus Exam Vital Signs (past 8 hours): Oxygen Delivery Method Room Air Oxygen Flow Rate 0 Narrative Exam Narrative: General adult woman alert oriented no acute distress Abdomen soft appropriately tender to palpation. Objective Labs 02/16/24 04:50 02/16/24 04:50 Labs: Laboratory Results - last 24 hr 02/15/24 02/16/24 10:07 04:50 WBC 10.3 21.0 H D RBC 4.45 4.02 Hgb 13.7 12.4 Hct 40.1 36.1 MCV 90.2 89.7 MCH 30.8 30.7 MCHC 34.1 34.3 RDW 13.6 13.8 Plt Count 380 359 Neut % (Auto) 80.9 H 90.5 H Lymph % (Auto) 10.4 L 5.4 L [place] % (Auto) 7.8 4.0 Eos % (Auto) 0.5 L 0.0 L Baso % (Auto) 0.4 0.1 Neut # (Auto) 8400 H 27133 H Lymph # (Auto) 1100 1100 [place] # (Auto) 800 800 Eos # (Auto) 0 0 Baso # (Auto) 0 0 Sodium 133 L 129 L Potassium 3.7 3.1 L Chloride 94 L 97 L Carbon Dioxide 24 25 BUN 10 5 L Creatinine 0.38 L 0.33 L Estimated GFR > 60 > 60 BUN/Creatinine Ratio 26.3 H 15.2 Glucose 97 227 H D Lactate 1.2 Calcium 9.0 7.8 L Total Bilirubin 1.0 AST 43 H ALT 19 Alkaline Phosphatase 134 H Total Creatine Kinase 64 Troponin I < 0.012 C-Reactive Protein 2.3 H Total Protein 7.4 Albumin 4.2 Globulin 3.2 Albumin/Globulin Ratio 1.3 Procalcitonin 0.049 PFSH Medical History Closed left hip fracture 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 Patient denies medical problems Social History marital status: household members: spouse lives independently: Yes occupational status: employed Smoking Status: Never smoker alcohol intake: former substance use type: does not use Assessment & Plan Post-op Postoperative Procedures: Procedures Operation Date: 02/15/24 14:00 Actual Procedure Side Surgeon p Ileocecectomy with repair of right inguinal hernia Wilmer Hodges MD s Incision and Drainage Groin wound Right Wilmer Hodges MD Postoperative status narrative: 68-year-old woman postoperative day 1 status post ileocecectomy for a strangulated and perforated cecum within a right inguinal hernia draining feculent material through the right thigh. -advance diet to full liquid -DC IV fluid -remove Wadsworth catheter -nutrition consult for severe protein calorie malnutrition -continue Zosyn -wound care wet-to-dry dressing daily to right thigh. Wound care consult for management of chronic wound, anticipate transition to wound VAC with outpatient follow up -SCDs and Lovenox Quality VTE Deep Vein Thrombosis/Pulmonary Embolism Present on Admission: No
[2024-02-16 09:19] LABS: Magnesium 1.5 mg/dL (1.6-2.3)
[2024-02-16] MEDS: POTASSIUM CHLORIDE IN WATER 10 MEQ/100 ML PIGGYBACK 100 MEQ IV ×4 (10:44→14:08)
--- NOTE | 2024-02-16 10:58 | DIET.CONS ---
Dietary Consultation Note Admission Date: 02/15/2024 12:51 Assessment: 68 y F post-op day 1 of ileocecectomy with repair of right inguinal hernia and incision and drainage of groin wound. Nutrition screened for low BMI and per surgery note stating pt has severe protein calorie malnutrition. Attempted to meet with pt at bedside this morning. Pt would like me to come back another time. EMR reviewed. No recent weight hx. BMI underweight for age. Per H&P, notes she has been chronically underweight. Noted stage II sacral decubitus. Ht: 154.94 cm Wt: 45.359 kg BMI: 18.8 UBW: from 2020-43.091 kg Last BM: 02/13/24 (02/15/24 12:56) MNA: 11 Jet Score: 16 Diet: 02/16/24 Lunch Full Liquid Diet Diet Modifications: protien supplement with each meal Nutrition Percent Meal Consumed 0% 02/16/24 09:52 Labs: RBC 4.02 X10^6/uL (4.0-5.2) 02/16/24 04:50 Hgb 12.4 g/dL (12.0-16.0) 02/16/24 04:50 Hct 36.1 % (36-46) 02/16/24 04:50 Creatinine 0.33 mg/dL (0.52-1.04) L 02/16/24 04:50 Lactate 1.2 mmol/L (0.7-2.1) 02/15/24 10:07 Nutrition Diagnosis: Increased nutrient needs (protein-energy) r/t healing aeb stage II wound, post-op day 1, BMI underweight Interventions: 1. Coordinated protein supplementation TID EER: [id number] (35-40 kcals/kg per BMI) 60-70 g protein (1.25-1.5 g/kg per wound) Monitoring/Evaluations: f/u for full assessment, ONS tolerance Electronically Signed by: Mila Hills 02/16/24 10:58 Clinical Dietitian [address] [id number]
[2024-02-16] MEDS: MAGNESIUM SULFATE 2 GM/50 ML PIGGYBACK IV (11:50)
--- NOTE | 2024-02-16 13:23 | P.PN_ITS ---
Subjective Subjective Date Patient Seen: 02/16/24 Time Patient Seen: 08:33 Exam Vital Signs (past 8 hours): - 02/16/24 07:00 Temperature 98.0 F Pulse Rate 66 Respiratory Rate 10 L Blood Pressure 98/58 L Pulse Oximetry 97 Oxygen Flow Rate 0 Oxygen Delivery Method Room Air Oxygen Flow Rate 0 Objective Labs 02/16/24 04:50 02/16/24 04:50 Labs: Laboratory Results - last 24 hr 02/16/24 04:50 WBC 21.0 H D RBC 4.02 Hgb 12.4 Hct 36.1 MCV 89.7 MCH 30.7 MCHC 34.3 RDW 13.8 Plt Count 359 Neut % (Auto) 90.5 H Lymph % (Auto) 5.4 L [place] % (Auto) 4.0 Eos % (Auto) 0.0 L Baso % (Auto) 0.1 Neut # (Auto) 80804 H Lymph # (Auto) 1100 [place] # (Auto) 800 Eos # (Auto) 0 Baso # (Auto) 0 Sodium 129 L Potassium 3.1 L Chloride 97 L Carbon Dioxide 25 BUN 5 L Creatinine 0.33 L Estimated GFR > 60 BUN/Creatinine Ratio 15.2 Glucose 227 H D Calcium 7.8 L Magnesium 1.5 L PFSH Medical History Closed left hip fracture 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 Quality VTE Deep Vein Thrombosis/Pulmonary Embolism Present on Admission: No
--- NOTE | 2024-02-16 14:28 | PC.NURSE ---
Performed wet to dry wound care on pt's R groin. One long plain packing strip applied inside of wound with 2x2 gauze at entrance of wound and ABD pad on top of wound for reinforcementPt dave wound care well as well as turning in bed to perform bed bath, hygiene care and change of linens. Coccyx wound was examined and changed, as well as photos of both wounds sent to litigation services manager. Allyvon dressing applied
--- NOTE | 2024-02-16 14:40 | PC.WOUNDPHOT ---
Right Groin post I&D Coccyx
--- NOTE | 2024-02-16 14:46 | CM.DANOTE ---
DCP Assessment Note Patient is a 68 y/o f admitted with right groin wound, post op day 1. Per H + P, patient also underweight with a stage II sacral decub. Attempted to see patient at bedside, receiving wound care and requested CM return. Reviewed chart, discussed in rounds. Patient resides at home with her spouse, who just returned from a month long work trip. Patient has hx of falls, one most recently that precipitated this event. Given hx of falls and sacral wounds, pt/ot eval would be appropriate to determine snf vs. home with hhc. Patient will also need wound care after d/c. Plan: D/C home with HHC/Out Pt Wound Care and wound vac vs SNF pending eval and progress. Will need f/u on plan after these assessments completed. JEOVANNY Ramírez Discharge Planning/Care Management CM Discharge Assessment Start: 02/16/24 14:44 Freq: Status: Active Protocol: Document 02/16/24 14:44 KG (Rec: 02/16/24 14:46 KG [id number]) Discharge Planning Assessment Assigned Package Car Driver Alyse Maya DPOA/Assigned Designee Name Samara Interiano Advance Directives? No History Provided By Patient,Medical Record Prior Living Arrangements House Household Members spouse Willing to Return to Facility? No Independent with ADL's Yes Is patient alert and oriented? Yes Caregiver for Another No Patient/Family Preference Home with Home Health Comment Wound care consult for possible wound vac, might need hhc to help manage wound vac at home vs. snf, given recent decline Barriers to Discharge No Comment Depending on how she does after surgery, she may need more assist, custodial may be needed. Discharge Plan Home Community Services Home Health Nurse,Wound Care Transportation Arrangement If patient goes to custodial, facility. If home, then spouse. Referrals Initiated [facility] Additional Comment Having Claudia at [facility] review in case she needs skilled. Patient resides in [place]. If patient plan is SNF: Has PASSR been No completed?
[2024-02-16] MEDS: OXYCODONE IR 10 MG TABLET PO ×2 (17:21→20:52)
[2024-02-16] MEDS: ENOXAPARIN 40 MG/0.4 ML SYRINGE SUBCUT (17:22)
[2024-02-16 19:00] VITALS: BP 123/72; PULSE 65; RESP 17; TEMP 36.7; O2SAT 97
[2024-02-17] MEDS: OXYCODONE IR 10 MG TABLET PO ×6 (00:37→23:03)
[2024-02-17] MEDS: PIPERACILLIN/TAZO 3.375 GM in SODIUM CHLORIDE 0.9% 100 ML IV ×3 (02:59→18:50)
[2024-02-17 06:25] LABS: Add Manual Diff / Slide Review NO; Basophils Absolute Auto 100 /uL (0-100); Basophils Percent Auto 0.4 % (0-2); Eosinophils Absolute Auto 0 /uL (0-450); Eosinophils Percent Auto 0.2 % (2-4); Hemoglobin 9.8 g/dL (12.0-16.0); Lymphocytes Absolute Auto 1100 /uL (1100-4500); Lymphocytes Percent Auto 5.3 % (25-40); Mean Corpuscular HGB Conc 35.1 % (30-36); Mean Corpuscular Hemoglobin 31.2 PG (26-34); Mean Corpuscular Volume 88.9 fL (80-100); Monocytes Absolute Auto 800 /uL (0-900); Monocytes Percent Auto 3.9 % (3-14); Neutrophils Absolute Auto 18100 /uL (1500-7000); Neutrophils Percent Auto 90.2 % (50-75); Platelet Count 326 X10^3/uL (150-400); Red Blood Cell Count 3.15 X10^6/uL (4.0-5.2); Red Cell Distribution Width 13.7 % (11.6-14.8)
[2024-02-17 06:37] LABS: BUN Creatinine Ratio 25.9 (6-22); Blood Urea Nitrogen 7 mg/dL (7-17); Calcium 7.8 mg/dL (8.4-10.2); Carbon Dioxide 26 mmol/L (22-32); Chloride 102 mmol/L (98-107); Estimated Glomerular Filt Rate > 60 mL/min (>60); Glucose 122 mg/dL (80-110); HEMOLYSIS < 15 (0-50); Potassium 3.3 mmol/L (3.4-5.1); Sodium 131 mmol/L (137-145)
[2024-02-17 07:00] VITALS: BP 128/78; PULSE 68; RESP 14; TEMP 36.9; O2SAT 100
[2024-02-17] MEDS: ACETAMINOPHEN 325 MG TABLET 650 MG PO ×3 (07:50→23:03)
[2024-02-17] MEDS: ENOXAPARIN 40 MG/0.4 ML SYRINGE SUBCUT (08:33)
[2024-02-17] MEDS: POTASSIUM CHLORIDE 20 MEQ TAB 40 MEQ PO (08:33)
[2024-02-17] MEDS: CELECOXIB 200 MG CAPSULE PO ×2 (08:33→20:18)
--- NOTE | 2024-02-17 08:39 | P.PN_ITS ---
Subjective Subjective Date Patient Seen: 02/17/24 Time Patient Seen: 08:04 Interval history: Patient 68-year-old female presenting today with ongoing right groin wound. She was seen and evaluated here yesterday she had blood work and a CT surgery was consulted and then followed up in surgery office today. Dr. Hodges called and spoke with me concern for fistula and sent her back to the ED. She reports that 6 days ago she tripped and fell landing on her stomach. She has pain in her groin and buttock. She does have significant open draining wound in the right groin. Foul smelling. She had wound cultures and blood work done yesterday. She was given Rocephin vancomycin sent home on Augmentin. She reports she is still in quite a bit of pain but mostly in her leg. She is ambulatory and weight-bearing. She has not had fevers. The patient is groggy postop. She underwent surgery where a incarcerated cecum was discovered and she underwent an ileocecectomy and repair of a right inguinal hernia for a strangulated right groin hernia. She can provide no history as she was still somewhat sedated. Her is with her, he just returned from a 30 day [employer] work drip. He notes that on the phone she would mentioned feeling ill for about 3 days. A sacral decubitus also discovered which is stage II. He does not know anything about this. She was extremely underweight, he notes that this has been the case for her chronically. Interval history: The patient is seen postoperative day 2. She is alert and appropriate. She has no complaints, denying shortness of breath or chest pain. she has a flat affect but denies depression. She had 2 small bowel movements over night. No nausea or vomiting. Exam Vital Signs (past 8 hours): - 02/17/24 07:00 Temperature 98.5 F Pulse Rate 68 Respiratory Rate 14 Blood Pressure 128/78 Pulse Oximetry 100 Oxygen Delivery Method Room Air Oxygen Flow Rate 0 Narrative Exam Narrative: Alert, appropriate. Extremely cachectic. Normocephalic skull, EOMI, anicteric sclera, symmetric pupils. Oropharynx unremarkable, no droop. Neck supple, midline trachea, no adenopathy. Lungs clear, normal rate and effort. Heart regular, no murmur gallop or rub. Abdomen is soft, non distended and non tender. Dressing in place. Extremities are free of edema. Skin is free of rash or lesions. Joints are not swollen or deformed. Objective Labs 02/17/24 06:05 02/17/24 06:05 Labs: Laboratory Results - last 24 hr 02/16/24 02/17/24 04:50 06:05 WBC 20.0 H RBC 3.15 L Hgb 9.8 L Hct 28.0 L MCV 88.9 MCH 31.2 MCHC 35.1 RDW 13.7 Plt Count 326 Neut % (Auto) 90.2 H Lymph % (Auto) 5.3 L [place] % (Auto) 3.9 Eos % (Auto) 0.2 L Baso % (Auto) 0.4 Neut # (Auto) 03592 H Lymph # (Auto) 1100 [place] # (Auto) 800 Eos # (Auto) 0 Baso # (Auto) 100 Sodium 131 L Potassium 3.3 L Chloride 102 Carbon Dioxide 26 BUN 7 Creatinine 0.27 L Estimated GFR > 60 BUN/Creatinine Ratio 25.9 H Glucose 122 H D Calcium 7.8 L Magnesium 1.5 L 2.0 PFSH Medical History Closed left hip fracture 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 Enterocutaneous fistula, present on admission and active, status post exploratory laparotomy, ileocecectomy, right inguinal hernia repair and incision and drainage of right groin wound 02/15/2024. 2. Persistent leukocytosis, likely due to intraperitoneal fecal contamination. Continue IV antibiotics. 3. Sacral decubitus ulcer. Ongoing nursing care. 4. Moderate protein calorie malnutrition BMI of 18.9, present on admission and active. PLAN: -broad-spectrum antibiotics and blood cultures. -general surgery to follow -wound care consult -dietary consult FORD: 02/17 The patient is inpatient status, anticipate 2 midnights of hospital care will be necessary. is proxy decision maker. Time-Based Coding :: [TOTAL MINUTES] spent with patient and on the chart (including review of chart, obtaining history, exam, reviewing outside data, placing orders, documenting exam and treatment plan, and counseling patient) on [DATE]. Quality VTE Deep Vein Thrombosis/Pulmonary Embolism Present on Admission: No IH PROFEE Charge codes Subsequent inpatient/observation care: 16783
--- NOTE | 2024-02-17 11:40 | PM.PN.1 ---
Subjective Subjective Date Patient Seen: 02/17/24 Time Patient Seen: 11:40 Interval history: Tolerating some full liquids but appetite remains low. No flatus yet. Right groin wound dressing was changed yesterday evening. Exam Vital Signs (past 8 hours): - 02/17/24 07:00 Temperature 98.5 F Pulse Rate 68 Respiratory Rate 14 Blood Pressure 128/78 Pulse Oximetry 100 Oxygen Delivery Method Room Air Oxygen Flow Rate 0 Narrative Exam Narrative: Abdomen is soft There is a midline dressing and a right groin wound dressing Objective Labs 02/17/24 06:05 02/17/24 06:05 Labs: Laboratory Results - last 24 hr 02/17/24 06:05 WBC 20.0 H RBC 3.15 L Hgb 9.8 L Hct 28.0 L MCV 88.9 MCH 31.2 MCHC 35.1 RDW 13.7 Plt Count 326 Neut % (Auto) 90.2 H Lymph % (Auto) 5.3 L [place] % (Auto) 3.9 Eos % (Auto) 0.2 L Baso % (Auto) 0.4 Neut # (Auto) 49824 H Lymph # (Auto) 1100 [place] # (Auto) 800 Eos # (Auto) 0 Baso # (Auto) 100 Sodium 131 L Potassium 3.3 L Chloride 102 Carbon Dioxide 26 BUN 7 Creatinine 0.27 L Estimated GFR > 60 BUN/Creatinine Ratio 25.9 H Glucose 122 H D Calcium 7.8 L Magnesium 2.0 PFSH Medical History Closed left hip fracture 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 Quality VTE Deep Vein Thrombosis/Pulmonary Embolism Present on Admission: No
[2024-02-17 19:00] VITALS: BP 135/69; PULSE 68; RESP 17; TEMP 36.7; O2SAT 99
[2024-02-17] MEDS: POTASSIUM CHLORIDE IN WATER 10 MEQ/100 ML PIGGYBACK 100 MEQ IV ×2 (20:19→21:33)
[2024-02-17] MEDS: HYDROMORPHONE 0.5 MG INJ IV (20:22)
[2024-02-18] MEDS: HYDROMORPHONE 0.5 MG INJ IV ×2 (01:08→19:53)
[2024-02-18] MEDS: PIPERACILLIN/TAZO 3.375 GM in SODIUM CHLORIDE 0.9% 100 ML IV ×3 (03:13→19:53)
[2024-02-18] MEDS: OXYCODONE IR 10 MG TABLET PO ×5 (03:23→22:43)
[2024-02-18 05:59] LABS: Add Manual Diff / Slide Review NO; Basophils Absolute Auto 0 /uL (0-100); Basophils Percent Auto 0.1 % (0-2); Eosinophils Absolute Auto 100 /uL (0-450); Eosinophils Percent Auto 0.5 % (2-4); Hematocrit 27.8 % (36-46); Hemoglobin 9.7 g/dL (12.0-16.0); Lymphocytes Absolute Auto 1600 /uL (1100-4500); Lymphocytes Percent Auto 6.5 % (25-40); Mean Corpuscular Hemoglobin 31.4 PG (26-34); Mean Corpuscular Volume 89.7 fL (80-100); Monocytes Absolute Auto 700 /uL (0-900); Monocytes Percent Auto 3.1 % (3-14); Neutrophils Absolute Auto 21700 /uL (1500-7000); Neutrophils Percent Auto 89.8 % (50-75); Platelet Count 313 X10^3/uL (150-400); Red Cell Distribution Width 13.9 % (11.6-14.8); White Blood Cell Count 24.1 X10^3/uL (4.5-11.0)
[2024-02-18 06:07] LABS: BUN Creatinine Ratio 38.9 (6-22); Blood Urea Nitrogen 14 mg/dL (7-17); Calcium 8.1 mg/dL (8.4-10.2); Carbon Dioxide 27 mmol/L (22-32); Chloride 99 mmol/L (98-107); Estimated Glomerular Filt Rate > 60 mL/min (>60); Glucose 102 mg/dL (80-110); HEMOLYSIS 16 (0-50); Potassium 4.4 mmol/L (3.4-5.1); Sodium 130 mmol/L (137-145)
[2024-02-18 07:00] VITALS: BP 117/67; PULSE 65; RESP 16; TEMP 36.9; O2SAT 99
--- NOTE | 2024-02-18 07:37 | PC.NURSE ---
Patient A & O x 4, anxious at times, pain controlled with Oxycodone and Tylenol plus Dilaudid IV x 2 for breakthrough pain. Tolerating full liquid diet, no nausea.
[2024-02-18] MEDS: ACETAMINOPHEN 325 MG TABLET 650 MG PO (08:04)
[2024-02-18] MEDS: CELECOXIB 200 MG CAPSULE PO ×2 (08:04→20:00)
[2024-02-18] MEDS: ENOXAPARIN 40 MG/0.4 ML SYRINGE SUBCUT (08:04)
--- NOTE | 2024-02-18 10:48 | P.PN_ITS ---
Subjective Subjective Date Patient Seen: 02/18/24 Time Patient Seen: 10:40 Interval history: Patient 68-year-old female presenting today with ongoing right groin wound. She was seen and evaluated here yesterday she had blood work and a CT surgery was consulted and then followed up in surgery office today. Dr. Hodges called and spoke with me concern for fistula and sent her back to the ED. She reports that 6 days ago she tripped and fell landing on her stomach. She has pain in her groin and buttock. She does have significant open draining wound in the right groin. Foul smelling. She had wound cultures and blood work done yesterday. She was given Rocephin vancomycin sent home on Augmentin. She reports she is still in quite a bit of pain but mostly in her leg. She is ambulatory and weight-bearing. She has not had fevers. The patient is groggy postop. She underwent surgery where a incarcerated cecum was discovered and she underwent an ileocecectomy and repair of a right inguinal hernia for a strangulated right groin hernia. She can provide no history as she was still somewhat sedated. Her is with her, he just returned from a 30 day [employer] work drip. He notes that on the phone she would mentioned feeling ill for about 3 days. A sacral decubitus also discovered which is stage II. He does not know anything about this. She was extremely underweight, he notes that this has been the case for her chronically. Interval history: The patient is seen postoperative day 3. She has poor appetite. She remains afebrile but with a rising white blood count. She is alert and appropriate. She has no complaints, denying shortness of breath or chest pain. she has a flat affect but denies depression. She had a small loose liquid bowel movement x2 with dark-red blood overnight. No nausea or vomiting. Exam Vital Signs (past 8 hours): - 02/18/24 07:00 Temperature 98.4 F Pulse Rate 65 Respiratory Rate 16 Blood Pressure 117/67 Pulse Oximetry 99 Oxygen Delivery Method Room Air Oxygen Flow Rate 0 Narrative Exam Narrative: Alert, appropriate. Extremely cachectic. Normocephalic skull, EOMI, anicteric sclera, symmetric pupils. Oropharynx unremarkable, no droop. Neck supple, midline trachea, no adenopathy. Lungs clear, normal rate and effort. Heart regular, no murmur gallop or rub. Abdomen is soft, non distended and non tender. Dressing in place. Extremities are free of edema. Skin is free of rash or lesions. 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 Enterocutaneous fistula, present on admission and active, status post exploratory laparotomy, ileocecectomy, right inguinal hernia repair and incision and drainage of right groin wound 02/15/2024. 2. Persistent but increasing leukocytosis, likely due to intraperitoneal fecal contamination. Continue IV antibiotics. 3. Sacral decubitus ulcer. Ongoing nursing care. Wound care consulted. 4. Moderate protein calorie malnutrition BMI of 18.9, present on admission and active. PLAN: -broad-spectrum antibiotics and blood cultures. -general surgery to manage at this point. case reviewed with Dr. Salomon. -wound care consult -dietary consult FORD: 02/17 The patient is inpatient status, anticipate 2 midnights of hospital care will be necessary. is proxy decision maker. Case reviewed with Dr. Salomon. At this point hospitalist service will sign off. Thank you very much for asking us to be involved with this delightful patient. Time-Based Coding :: [TOTAL MINUTES] spent with patient and on the chart (including review of chart, obtaining history, exam, reviewing outside data, placing orders, documenting exam and treatment plan, and counseling patient) on [DATE]. Quality VTE Deep Vein Thrombosis/Pulmonary Embolism Present on Admission: No IH PROFEE Charge codes Subsequent inpatient/observation care: 33154
--- NOTE | 2024-02-18 10:51 | P.PN_ITS ---
Subjective Subjective Date Patient Seen: 02/18/24 Time Patient Seen: 10:51 Interval history: Feeling better today. Passed some flatus. Minimal appetite. She has had trouble sleeping at night. She does not usually use a sleep aid. Exam Vital Signs (past 8 hours): - 02/18/24 07:00 Temperature 98.4 F Pulse Rate 65 Respiratory Rate 16 Blood Pressure 117/67 Pulse Oximetry 99 Oxygen Delivery Method Room Air Oxygen Flow Rate 0 Const General: No acute distress Nutritional Appearance: cachectic Objective Labs 02/18/24 05:30 02/18/24 05:30 Labs: Laboratory Results - last 24 hr 02/18/24 05:30 WBC 24.1 H RBC 3.10 L Hgb 9.7 L Hct 27.8 L MCV 89.7 MCH 31.4 MCHC 35.0 RDW 13.9 Plt Count 313 Neut % (Auto) 89.8 H Lymph % (Auto) 6.5 L [place] % (Auto) 3.1 Eos % (Auto) 0.5 L Baso % (Auto) 0.1 Neut # (Auto) 59235 H Lymph # (Auto) 1600 [place] # (Auto) 700 Eos # (Auto) 100 Baso # (Auto) 0 Sodium 130 L Potassium 4.4 Chloride 99 Carbon Dioxide 27 BUN 14 Creatinine 0.36 L Estimated GFR > 60 BUN/Creatinine Ratio 38.9 H Glucose 102 Calcium 8.1 L PFSH Medical History Closed left hip fracture 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 Discontinue [place] catheter Time-Based Coding :: [TOTAL MINUTES] spent with patient and on the chart (including review of chart, obtaining history, exam, reviewing outside data, placing orders, documenting exam and treatment plan, and counseling patient) on [DATE]. Quality VTE Deep Vein Thrombosis/Pulmonary Embolism Present on Admission: No
--- NOTE | 2024-02-18 13:40 | CM.DPNOTE ---
DCP Note ADON reviewed EMR. Per chart, pt remains on full liquid diet. Pt could likely benefit from PT/OT when appropriate if attempting for SNF or HH for wound vac management. Per chart, no wound care until Monday. Currently has a dressing but likely will need would vac. If wound vac needed, need to start [employer] auth Monday. Plan: D/C home with HHC/Out Pt Wound Care and wound vac vs SNF pending eval and progress. will follow closely for wound doc recommendation. Juliette Greene, ADON
[2024-02-18 20:28] VITALS: BP 145/81; PULSE 74; RESP 15; TEMP 35.9; O2SAT 99
[2024-02-18] MEDS: diphenhydrAMINE 25 MG TABLET PO (22:43)
[2024-02-19] MEDS: OXYCODONE IR 5 MG TABLET PO ×5 (03:06→21:34)
[2024-02-19] MEDS: PIPERACILLIN/TAZO 3.375 GM in SODIUM CHLORIDE 0.9% 100 ML IV ×3 (03:07→19:02)
[2024-02-19 07:00] VITALS: BP 126/70; PULSE 81; RESP 12; TEMP 37.2; O2SAT 99
[2024-02-19] MEDS: ACETAMINOPHEN 325 MG TABLET 650 MG PO ×2 (08:00→15:22)
[2024-02-19] MEDS: CELECOXIB 200 MG CAPSULE PO ×2 (08:00→21:33)
[2024-02-19] MEDS: ENOXAPARIN 40 MG/0.4 ML SYRINGE SUBCUT (08:01)
--- NOTE | 2024-02-19 08:31 | PC.NURSE ---
Addendum entered by Cleo Mendoza R.N. 02/19/24 11:31: Patients H&H 8.2, 23.2. called and he is aware. He will be here to see patient soon. Addendum entered by Cleo Mendoza R.N. 02/19/24 10:51: Patient incontinent of stool in bed, and she also had formed stool with maroon colored blood in it. She was cleaned up and patients stage 2 coccyx dressed with an allevyn foam dressing. The area is small with a darker center, more towards the left inner coccyx/buttocks. Waffle cushion placed under her buttocks and knees under her pillows. Addendum entered by Cleo Mendoza R.N. 02/19/24 08:40: Patient encouraged to try and drink her ensure but she states that she will have her bring something. Explained to her that she is on a full liquid diet and she is agreeable to this. Fixed patients blankets and she is resting. She has taken all of her morning meds. Original Note: Patient is frail, she does not eat much. She states that nothing sounds good to her, she does have an ensure on her tray. Will encourage her to try and drink this. Dressing to ML is cdi with aquacel, old drainage noted. R.groin wound dressed and will be changed this shift. Patient with flat affect, she is sitting up in the chair and resting. Charles RN gave patient an oxycodone 5mg and her morning medication. She is resting at this time. She complained of 6/7 pain.
--- NOTE | 2024-02-19 10:42 | CM.DPC ---
DCP Cont: Per MD and Surgeon, pt continues to receive IV-Abx and not much of an appetite and to slowly advance diet as tolerated. SW called [facility] and alerted them to the Wound Consult orders placed towards determining recommendations and possible wound vac for healing. Per RN, pt currently with daily dressing changes and packing at this time. Treasury Analyst strongly encouraged increased protein and oral intake for wound healing as pt chronically malnourished. PT ordered and pending. SW met bedside with pt and spouse and explained role and pt able to participate in discussion but pt quite drowsy and appears weak. Spouse and pt confirm that pt was able to ambulate without DME at baseline although the past couple days before admission pt was so weak she was using a walker for mobility. SW discussed Wound Consult for recommendations towards determining daily dressing changes vs possible wound vac and then likely outpt Wound Clinic after discharge as pt and spouse both adamant that they do not want SNF at d/c. Spouse states he is back from his long [employer] trip and will be home to provide assist as needed and he would be agreeable to wound care teaching. They confirm that pt's sister is a MACHINE BINDER STRIPPER at [facility] and would be able to provide some care at home as well at d/c. SW discussed HH RN and maybe PT if needed for assist with wound care and monitoring and they would both be agreeable to HH. SW provided HH Choice list and no preference. ROBIN made [facility] referral based on pt's [employer] insurance and [facility] A only and awaiting confirmation if they can accept pt's [employer]. F2F completed but not sent yet. Plan: ROBIN to follow for [facility] review to confirm they can accept pt's insurance for HH RN for wound care, maybe PT. ROBIN to follow for Wound Consult to determine if wound vac needed and then will need to initiate review with [facility] for home wound vac. Jil Rodriguez, JEOVANNY
--- NOTE | 2024-02-19 11:13 | DIET.PN1 ---
Dietary Progress Note Assessment: Met w/ pt at bedside. came in near end of visit. Still minimal appetite. brought lactose free eritrean yogurt in from home. Stored in fridge w/ room number. Pt denies ONS options, smoothies, Rubin, other customized drinks made with protein powders available at this time. Discussed importance of adequate protein and kcals for healing as appetite returns and as tolerated. Pt discussed with a protein drink from a store she may be interested in. open to bringing those drinks in. Reports 7 days before admission had minimal appetite and only ate 2 yogurts or cottage cheese (5 oz) and a few bites of fruit during those 7 days. Nutrition focused physical exam performed and results discussed with pt Severe loss temples, clavicle region Severe loss buccal and orbital fat pads Ht: 154.94 cm Wt: 45.359 kg BMI: 18.8 UBW: 45.45 lb for past few years Last BM: 02/19/24 (02/19/24 03:00) MNA: 11 Jet Score: 20 Diet: 02/16/24 Lunch Full Liquid Diet Diet Modifications: protien supplement with each meal Nutrition Percent Meal Consumed 0% 02/18/24 18:00 Percent Meal Consumed 0% 02/17/24 18:00 Labs: RBC 3.10 X10^6/uL (4.0-5.2) L 02/18/24 05:30 Hgb 9.7 g/dL (12.0-16.0) L 02/18/24 05:30 Hct 27.8 % (36-46) L 02/18/24 05:30 Creatinine 0.36 mg/dL (0.52-1.04) L 02/18/24 05:30 Lactate 1.2 mmol/L (0.7-2.1) 02/15/24 10:07 Nutrition Diagnosis: Severe acute protein calorie malnutrition r/t increased nutrient needs (protein) for healing and decreased energy-protein intake as evidenced by <50% of estimated energy needs for 10 days per diet recall and recorded PO intakes (severe), stage 2 sacral decubitus, post-op from ileocecectomy w/ repair of inguinal hernia, severe muscle loss (temporalis, deltoid), severe subcutaneous fat loss (buccal and orbital fat loss), BMI underweight for age (18.8) Interventions: 1. Pt denied protein supplementation, ONS, customized drinks offered in house. Open to bringing in protein drink from store BID - will f/u to see if this is tolerated EER: [id number] (35-40 kcals/kg per BMI) 70 g protein (1.5 g/kg per wound) Monitoring/Evaluations: diet tolerance, po intakes Electronically Signed by: Mila Hills 02/19/24 11:13 Clinical Dietitian [address] [id number]
[2024-02-19 11:21] LABS: Add Manual Diff / Slide Review NO; Basophils Absolute Auto 0 /uL (0-100); Basophils Percent Auto 0.2 % (0-2); Eosinophils Absolute Auto 100 /uL (0-450); Eosinophils Percent Auto 0.7 % (2-4); Hematocrit 23.2 % (36-46); Hemoglobin 8.2 g/dL (12.0-16.0); Lymphocytes Absolute Auto 1200 /uL (1100-4500); Lymphocytes Percent Auto 7.1 % (25-40); Mean Corpuscular HGB Conc 35.3 % (30-36); Mean Corpuscular Hemoglobin 31.3 PG (26-34); Mean Corpuscular Volume 88.7 fL (80-100); Monocytes Absolute Auto 800 /uL (0-900); Monocytes Percent Auto 4.4 % (3-14); Neutrophils Absolute Auto 15300 /uL (1500-7000); Neutrophils Percent Auto 87.6 % (50-75); Platelet Count 344 X10^3/uL (150-400); Red Blood Cell Count 2.61 X10^6/uL (4.0-5.2); Red Cell Distribution Width 13.6 % (11.6-14.8); White Blood Cell Count 17.4 X10^3/uL (4.5-11.0)
--- NOTE | 2024-02-19 12:42 | PT.IIE ---
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 Pt is very cachetic and states she is picky and does not wish to eat any of the liquid diet on her tray. She states she will eat better and do better when she is back at home. Mobility and Gait Pt reports I and that she has a RW that she does not typically use. Activities of Daily Living and IADL's Pt reports she is active and drives, that she sat out on her deck to read books over the summer and that is how she got grey. Prior Functional Level (Other details) works on [employer] and was just away for 30 days and he states he has about 30 days he can stay with pt at home. Social History Household Members spouse Living Arrangements House Number of Floors (Floors) Two Floors Number of Stairs To Enter/Railing? Does not have to go to basement inside home. Pt states there are 4 steps with two rails to enter home and she can reach one rail at a time. Home Environment High Toilet,Walk in Shower Home Equipment Front Wheel Walker,Shower Seat with Backrest Additional Social History Comment Not working M2 PT-IP Current Condition Start: 02/19/24 12:27 Freq: NEEDED Status: Active Protocol: Document 02/19/24 11:52 MB (Rec: 02/19/24 12:41 MB [id number]) Physical Therapy Current Condition Current Condition Evaluation Date 02/19/24 Treatment Diagnosis Right groin infection, recent surgery, sacral wound M3 PT-IP Subjective Start: 02/19/24 12:27 Freq: NEEDED Status: Active Protocol: Document 02/19/24 11:52 MB (Rec: 02/19/24 12:41 MB [id number]) Subjective Physical Therapy Visit Type Type Initial Evaluation Visit Start Time 11:52 Visit Stop Time 12:15 Number of HOUSEKEEPER MANAGER Visits 0 Physical Therapy Visit Comments Patient Comments Pt states that she just got comfortable and that she will do better once she gets home. Therapy Pain Assessment Pain When Pain Assessed At Rest Pain Present Pain Present Denied Pain M4 PT-IP Mobility and Gait Start: 02/19/24 12:27 Freq: NEEDED Status: Active Protocol: Document 02/19/24 11:52 MB (Rec: 02/19/24 12:41 MB [id number]) PT-Bed Mobility Assessment Rolling Type of Rolling Log Rolling,Bilateral Level of Assist Minimal Assistance Supine to Sit Supine to Sit Minimal Assistance,1 Person Assistance,Bedrails Sit to Supine Sit to Supine Maximum Assistance,1 Person Assistance,Bedrails Scooting Scooting to Edge of Bed Contact Guard Assistance Scooting Up and Down in Bed Contact Guard Assistance PT-Transfer Assessment Sit to and From Stand Sit to and from Stand Minimal Assistance,1 Person Assistance,Use of Upper Extremities Equipment Transfer Assistive Device Gait Belt,Front Wheeled Walker Orthotic/Prosthetic Devices or Brace: No Transfers Transfer Destination Bed Transfer Technique Left side stepping Transfer Ability Level of Assist Minimal Assistance Gait Assessment Gait Gait Assistance Required: Minimum Assistance Distance (Feet) 3 Able to Maintain Weight Bearing Status Yes During Gait Assistive Devices Assistive Device Gait Belt,Front Wheeled Walker Orthotic/Prosthetic Devices or Brace: No Gait Deviations General Gait Pattern Decreased Stride Length, Decreased Feet Clearance, Flexed Trunk,Wide Based Gait Factors Limiting Gait Function Factors Limiting Gait Function Decreased Activity Tolerance, Difficulty Following Directions,Pain,Poor Balance PT-Balance Assessment Sitting Balance and Reactions Static Sitting Balance Ability Good Dynamic Sitting Balance Ability Fair Standing Balance and Reactions Static Standing Balance Ability Fair Dynamic Standing Balance Ability Fair Device Used RW M5 PT-IP Objective Assessments Start: 02/19/24 12:27 Freq: NEEDED Status: Active Protocol: Document 02/19/24 11:52 MB (Rec: 02/19/24 12:41 MB [id number]) Orientation Orientation/Cognition Level of Alertness Alert Orientation Name,Age,Birthday,Month,Date, Year,Day of Week,Place, Situation Language Function Ability No Deficits Noted Safety Awareness Decreased Safety Awareness Memory Description No Deficits Noted Gross Range of Motion Upper Extremity ROM Assessment Within Functional Limits Lower Extremity ROM Assessment Right Impaired Impairments Right hip not tested d/t wound Strength Upper Extremity Strength Assessment Within Functional Limits Lower Extremity Strength Assessment Right Impaired Comments Strength Comments Right hip not tested d/t wound Sensation Assessment Sensation Gross Sensation WNL Muscle Tone Muscle Tone WNL Yes M6 PT-IP Treatment Start: 02/19/24 12:27 Freq: NEEDED Status: Active Protocol: Document 02/19/24 11:52 MB (Rec: 02/19/24 12:41 MB [id number]) Physical Therapy Treatment Education Education Provided Safety Other Treatments Other Treatment Performed Ed pt in log rolling to protect groin and abdomen and she is not very compliant with training and assistance today with this M7 PT-IP Assessment and Plan Start: 02/19/24 12:27 Freq: NEEDED Status: Active Protocol: Document 02/19/24 11:52 MB (Rec: 02/19/24 12:41 MB [id number]) PT Summary Assessment and Plan Potential Rehabilitation Potential Fair Status of Condition at Evaluation Evolving Summary Impairments Pain,ROM,Strength,Balance,Bed Mobility,Transfers,Gait, Activity Tolerance Progress Towards Goals Slow Progress due to Activity Tolerance Assessment Summary Pt is a 68 y/o female adm with right groin wound, recent abdominal surgery and sacral wound. Pt is cachetic in appearance and she is reluctant to participate with PT. She does not want to eat any food on tray and states she is picky. She reports she will eat and move better at home. is present during PT treatment and he is initially resistant to moving out of recliner so that PT can move recliner and set up room for pt to move. He occ answers questions for pt. PT ed pt in log rolling and she does not follow cues well. She requires assistance to left legs back into bed. Overall, she is min to max A for supine <>sit today and min A for STS and side stepping. PT is concerned about pt's presentation d/t she reports she is an I and active 68 y/o female. A sacral wound would not be anticipated in that demographic. Recommend SNF to home with assistance and HH. Pt mentions frequently about going home. Goals Bed Mobility Goal Independent Transfer Goal Independent,Front Wheeled Walker Gait Goal Independent,Front Wheel Walker Gait Distance 100 Other Goals Pt will ascend 4 steps with rail and no more than superv assistance to allow safe home entry. Progress to LRAD or no AD Days to Meet Goals 5 Frequency of Treatment Frequency Of Treatment Once a Day Treatment Plan Physical Therapy Treatment Plan Bed Mobility Training,Transfer Training,Gait Training, Therapeutic Exercise,Balance Retraining,Post Op Education, Discharge Planning,Hot or Cold Pack Precautions Other Precautions Attempted log roll training for recent surgery Weight Bearing Status Allowed Weight Bearing Amount (enter % No limitations or #) (%) Recommendations To Nursing Amount of Assist Needed 1 Person Assist Discharge Recommendations PT Discharge Recommendations Home vs SNF Other Discharge Recommendations If home, HH nsg and PT consults with hopes to assess home situation as well given presentation Transportation Needs at Discharge Private Vehicle
--- NOTE | 2024-02-19 13:11 | PM.PN.1 ---
Subjective Subjective Date Patient Seen: 02/19/24 Time Patient Seen: 13:11 Interval history: Mojgan had a bowel movement this morning with some dark blood mixed with stool. She still has minimal appetite. Exam Vital Signs (past 8 hours): - 02/19/24 07:00 Temperature 98.9 F Pulse Rate 81 Respiratory Rate 12 Blood Pressure 126/70 Pulse Oximetry 99 Oxygen Flow Rate 0 Oxygen Delivery Method Room Air Oxygen Flow Rate 0 Const General: No acute distress Objective Labs 02/19/24 11:10 02/18/24 05:30 Labs: Laboratory Results - last 24 hr 02/19/24 11:10 WBC 17.4 H RBC 2.61 L Hgb 8.2 L Hct 23.2 L MCV 88.7 MCH 31.3 MCHC 35.3 RDW 13.6 Plt Count 344 Neut % (Auto) 87.6 H Lymph % (Auto) 7.1 L Alfalfa % (Auto) 4.4 Eos % (Auto) 0.7 L Baso % (Auto) 0.2 Neut # (Auto) 65766 H Lymph # (Auto) 1200 Alfalfa # (Auto) 800 Eos # (Auto) 100 Baso # (Auto) 0 PFSH Medical History Closed left hip fracture 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 Quality VTE Deep Vein Thrombosis/Pulmonary Embolism Present on Admission: No
--- NOTE | 2024-02-19 16:24 | PM.CN ---
History of Present Illness Consult details Date Patient Seen: 02/19/24 Time Patient Seen: 16:00 Chief complaint: Infection sent over from Dr. Hodges Narrative: The patient is a 68-year-old female who was admitted 11/09/2023 with a strangulated right inguinal hernia with a colocutaneous fistula. She underwent surgical exploration and was found to have incaceration of the cecum. She then had resection of the terminal ilium and cecum as well as repair of the hernia. Upon admission the patient was also noted to have a stage II sacral pressure ulcer. Her postoperative course has been unremarkable and she recently regained bowel activity. The patient remains on IV antibiotics and her leukocytosis has been improving. Prior to developing the incarcerated hernia the patient reports that she was in good health and had a good appetite. She is active and ambulates without difficulty. Meds Home Medications and Allergies Home Medications Medication Instructions Recorded Confirmed Type amoxicillin 875 mg-potassium 1 tab PO BID 5 days #10 tabs 02/14/24 02/16/24 Rx clavulanate 125 mg tablet oxycodone-acetaminophen 2.5 mg-325 1 tab PO Q8H PRN pain #10 tabs 02/14/24 02/16/24 Rx mg tablet (Percocet) Allergies Allergy/AdvReac Type Severity Reaction Status Date / Time No Known Drug Allergies Allergy Verified 02/15/24 09:50 Review of Systems Cardiovascular Comments: No chest pain Respiratory Comments: No shortness of breath Exam Vital Signs (past 8 hours): Oxygen Delivery Method Room Air Oxygen Flow Rate 0 Const Other: Thin female who is alert and oriented, complaining of incisional pain, no apparent distress Resp Other: Unlabored respirations Skin Other: Surgical wound right groin with good granulation tissue, no evidence for active infection. Stage II pressure ulcer of sacrum, no evidence for active infection. 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 Patient denies medical problems Social History marital status: household members: spouse lives independently: Yes occupational status: employed Tobacco & Substance Use Smoking Status: Never smoker alcohol intake: former substance use type: does not use Assessment & Plan Assessment and plan (1) Decubitus ulcer of back, stage 2: Status: Acute (2) Open wound of inguinal region: Qualifiers: Encounter type: initial encounter Qualified Code(s): S31.109A - Unspecified open wound of abdominal wall, unspecified quadrant without penetration into peritoneal cavity, initial encounter Status: Acute Assessment & Plan narrative: Surgical wound right groin with good granulation tissue, recommend continuing saline wet to dry dressing changes. Stage II sacral decubitus ulcer, recommend continuing dressing changes with Allevyn, frequent turning and pressure offloading. Also recommend starting aggressive protein supplementation when she is able to tolerate liquids. Follow up at wound center after discharge for further treatment. Time-Based Coding :: [45 MINUTES] spent with patient and on the chart (including review of chart, obtaining history, exam, reviewing outside data, placing orders, documenting exam and treatment plan, and counseling patient) on [02/19/24].
--- NOTE | 2024-02-19 16:50 | PM.EVENT ---
Event Note Event Note (Rapid Response, Code, or fall): Hospital medicine signed off 02/17
[2024-02-19 19:00] VITALS: BP 133/74; PULSE 65; RESP 18; TEMP 36.3; O2SAT 100
[2024-02-20] MEDS: OXYCODONE IR 5 MG TABLET PO ×4 (01:28→15:30)
[2024-02-20] MEDS: PIPERACILLIN/TAZO 3.375 GM in SODIUM CHLORIDE 0.9% 100 ML IV ×2 (03:11→11:49)
[2024-02-20 08:00] VITALS: BP 144/77; PULSE 72; RESP 16; TEMP 36.7; O2SAT 97
[2024-02-20 08:42] LABS: Add Manual Diff / Slide Review NO; Basophils Absolute Auto 100 /uL (0-100); Basophils Percent Auto 0.4 % (0-2); Eosinophils Absolute Auto 200 /uL (0-450); Eosinophils Percent Auto 1.2 % (2-4); Hematocrit 25.9 % (36-46); Hemoglobin 9.2 g/dL (12.0-16.0); Lymphocytes Absolute Auto 1100 /uL (1100-4500); Lymphocytes Percent Auto 8.4 % (25-40); Mean Corpuscular HGB Conc 35.5 % (30-36); Mean Corpuscular Hemoglobin 31.1 PG (26-34); Mean Corpuscular Volume 87.7 fL (80-100); Monocytes Absolute Auto 800 /uL (0-900); Monocytes Percent Auto 6.3 % (3-14); Neutrophils Absolute Auto 10800 /uL (1500-7000); Neutrophils Percent Auto 83.7 % (50-75); Platelet Count 322 X10^3/uL (150-400); Red Blood Cell Count 2.95 X10^6/uL (4.0-5.2); White Blood Cell Count 12.9 X10^3/uL (4.5-11.0)
[2024-02-20] MEDS: ENOXAPARIN 40 MG/0.4 ML SYRINGE SUBCUT (10:06)
[2024-02-20] MEDS: CELECOXIB 200 MG CAPSULE PO ×2 (10:06→21:13)
--- NOTE | 2024-02-20 10:39 | CM.DPC ---
DCP Cont. Reviewed EMR and team rounds for status updates. Per Dr. Saleem, pt will not need a wound vac at time of d/c, however does recommend that they continue wet to dry dressings, cleaning with saline, and OP wound care clinic f/u post-d/c. [facility] referral made. Pt is recommended to have aggressive protein replacement once she can tolerate liquids. Continuing to monitor for further needs and readiness for d/c.
--- NOTE | 2024-02-20 11:45 | PT.IPTN ---
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) Pressure ulcer of unspecified part of back, stage 2 (02/15/24) Unspecified open wound of abdominal wall, unspecified quadrant without penetration into peritoneal cavity, initial encounter (02/15/24) Surgery Performed Operation Date: 02/15/24 14:00 Actual Procedures p Ileocecectomy with repair of right inguinal hernia - Wilmer Hodges MD s Incision and Drainage Groin wound(Right) - Wilmer Hodges MD Physical Therapy Treatment Note M2 PT-IP Current Condition Start: 02/19/24 12:27 Freq: NEEDED Status: Active Protocol: Document 02/19/24 11:52 MB (Rec: 02/19/24 12:41 MB [id number]) Physical Therapy Current Condition Current Condition Evaluation Date 02/19/24 Treatment Diagnosis Right groin infection, recent surgery, sacral wound M3 PT-IP Subjective Start: 02/19/24 12:27 Freq: NEEDED Status: Active Protocol: Document 02/20/24 12:10 TS (Rec: 02/20/24 12:30 TS [id number]) Subjective Physical Therapy Visit Type Type Treatment Note Visit Start Time 11:45 Visit Stop Time 12:08 Number of RETAIL ROUTE SUPERVISOR Visits 1 Physical Therapy Visit Comments Patient Comments Pt found resting in the chair, reports fatigue and not eating much. She is agreeable to PT. Therapy Pain Assessment Pain When Pain Assessed At Rest Pain Present Pain Present Pain Reported M4 PT-IP Mobility and Gait Start: 02/19/24 12:27 Freq: NEEDED Status: Active Protocol: Document 02/20/24 12:10 TS (Rec: 02/20/24 12:30 TS [id number]) PT-Transfer Assessment Sit to and From Stand Sit to and from Stand Contact Guard Assistance,1 Person Assistance,Use of Upper Extremities Equipment Transfer Assistive Device Gait Belt,Front Wheeled Walker Orthotic/Prosthetic Devices or Brace: No Comments Mobility Comments STS with FWW CGA, pt has slow movements. She ambulated ~30' in the room SBA/CGA with use of FWW. She performs steps x4 on step stool in the room CGA with B handrail support, pt was uncomfortable going out into hallway. Pt was left in the chair, all needs met. Gait Assessment Gait Gait Assistance Required: Standby Assistance,Contact Guard Assist Distance (Feet) 20 Assistive Devices Assistive Device Gait Belt,Front Wheeled Walker Orthotic/Prosthetic Devices or Brace: No Gait Deviations General Gait Pattern Decreased Stride Length, Decreased Feet Clearance, Flexed Trunk,Wide Based Gait Factors Limiting Gait Function Factors Limiting Gait Function Decreased Activity Tolerance, Difficulty Following Directions,Pain,Poor Balance PT-Balance Assessment Sitting Balance and Reactions Static Sitting Balance Ability Good Dynamic Sitting Balance Ability Fair Standing Balance and Reactions Static Standing Balance Ability Fair Dynamic Standing Balance Ability Fair Device Used FWW M5 PT-IP Objective Assessments Start: 02/19/24 12:27 Freq: NEEDED Status: Active Protocol: Document 02/19/24 11:52 MB (Rec: 02/19/24 12:41 MB [id number]) Orientation Orientation/Cognition Level of Alertness Alert Orientation Name,Age,Birthday,Month,Date, Year,Day of Week,Place, Situation Language Function Ability No Deficits Noted Safety Awareness Decreased Safety Awareness Memory Description No Deficits Noted Gross Range of Motion Upper Extremity ROM Assessment Within Functional Limits Lower Extremity ROM Assessment Right Impaired Impairments Right hip not tested d/t wound Strength Upper Extremity Strength Assessment Within Functional Limits Lower Extremity Strength Assessment Right Impaired Comments Strength Comments Right hip not tested d/t wound Sensation Assessment Sensation Gross Sensation WNL Muscle Tone Muscle Tone WNL Yes M6 PT-IP Treatment Start: 02/19/24 12:27 Freq: NEEDED Status: Active Protocol: Document 02/20/24 12:10 TS (Rec: 02/20/24 12:30 TS [id number]) Physical Therapy Treatment Education Education Provided Safety M7 PT-IP Assessment and Plan Start: 02/19/24 12:27 Freq: NEEDED Status: Active Protocol: Document 02/20/24 12:10 TS (Rec: 02/20/24 12:30 TS [id number]) PT Summary Assessment and Plan Potential Rehabilitation Potential Fair Summary Impairments Pain,ROM,Strength,Balance,Bed Mobility,Transfers,Gait, Activity Tolerance Progress Towards Goals Progressing Toward Goals Assessment Summary Mildred is making some progress with her mobility. She is CGA for STS with use of FWW. She progressed her gait to ~30' SBA/CGA. She performs stairs CGA with counter and INTERNATIONAL COORDINATOR support. Her movements are slow and she fatigues quickly. PT is recommending home with assist. Goals Bed Mobility Goal Independent Transfer Goal Independent,Front Wheeled Walker Gait Goal Independent,Front Wheel Walker Gait Distance 100 Other Goals Pt will ascend 4 steps with rail and no more than superv assistance to allow safe home entry. Progress to LRAD or no AD Days to Meet Goals 5 Frequency of Treatment Frequency Of Treatment Once a Day Treatment Plan Physical Therapy Treatment Plan Bed Mobility Training,Transfer Training,Gait Training, Therapeutic Exercise,Balance Retraining,Post Op Education, Discharge Planning,Hot or Cold Pack Weight Bearing Status Allowed Weight Bearing Amount (enter % No limitations or #) (%) Recommendations To Nursing Amount of Assist Needed 1 Person Assist Discharge Recommendations PT Discharge Recommendations Home with Assistance,Home Health Transportation Needs at Discharge Private Vehicle
--- NOTE | 2024-02-20 11:59 | DIET.PN1 ---
Dietary Progress Note Assessment: Met w/ pt this morning. Was drinking trial of goldstein smoothie from breakfast (had consumed around 25% so far). Enjoyed it. Open to having another one for dinner. Just ordered pureed chicken noodle soup for lunch. Went through other lunch options. Denied wanting anything else. Encouraged adding her yogurt that she brought from home as tolerated with lunch to meet her increased kcal/protein needs. Will continue with protein smoothies BID and continue to follow. Ht: 154.94 cm Wt: 45.359 kg BMI: 18.8 Last BM: 02/20/24 (02/20/24 08:00) MNA: 11 Jet Score: 20 Diet: 02/19/24 Dinner Regular [General (Regular) Diet] Diet Modifications: Food Texture: Level 7 - Regular Liquid Consistency: Level 0 - Thin Nutrition Percent Meal Consumed 5% 02/19/24 19:00 Percent Meal Consumed 0% 02/19/24 10:00 Percent Meal Consumed 0% 02/18/24 18:00 Labs: RBC 2.95 X10^6/uL (4.0-5.2) L 02/20/24 08:35 Hgb 9.2 g/dL (12.0-16.0) L 02/20/24 08:35 Hct 25.9 % (36-46) L 02/20/24 08:35 Creatinine 0.36 mg/dL (0.52-1.04) L 02/18/24 05:30 Lactate 1.2 mmol/L (0.7-2.1) 02/15/24 10:07 Electronically Signed by: Mila Hills 02/20/24 11:59 Clinical Dietitian [address] [address]
--- NOTE | 2024-02-20 13:08 | P.PN_ITS ---
Subjective Subjective Date Patient Seen: 02/20/24 Time Patient Seen: 15:18 Interval history: No acute events. Wound care is recommending wet-to-dry dressing changes no VAC. Tolerating a diet with return of bowel function. Exam Vital Signs (past 8 hours): - 02/20/24 08:00 Temperature 98.1 F Pulse Rate 72 Respiratory Rate 16 Blood Pressure 144/77 H Pulse Oximetry 97 Oxygen Delivery Method Room Air Oxygen Flow Rate 0 Narrative Exam Narrative: General adult woman alert oriented no acute distress Abdomen soft appropriately tender to palpation. 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 Patient denies medical problems Social History marital status: household members: spouse lives independently: Yes occupational status: employed Smoking Status: Never smoker alcohol intake: former substance use type: does not use Assessment & Plan Post-op Postoperative Procedures: Procedures Operation Date: 02/15/24 14:00 Actual Procedure Side Surgeon p Ileocecectomy with repair of right inguinal hernia Wilmer Hodges MD s Incision and Drainage Groin wound Right Wilmer Hodges MD Postoperative status narrative: Doing well postoperative day 5 status post ileocecectomy for strangulated right inguinal hernia. -no need for further antibiotic therapy -wound care teaching and establish wound care follow up appointment Anticipate discharge home tomorrow Quality VTE Deep Vein Thrombosis/Pulmonary Embolism Present on Admission: No
--- NOTE | 2024-02-20 13:26 | PC.NURSE ---
Patient is doing better today, she worked with physical therapy and ambulated. She is going to go home tomorrow and will have someone be helping her with her dressing changes. Given oxycodone and helpful with pain.
[2024-02-20 20:00] VITALS: BP 123/69; PULSE 67; RESP 12; TEMP 36.2; O2SAT 100
[2024-02-20] MEDS: OXYCODONE IR 10 MG TABLET PO (21:13)
[2024-02-21] MEDS: OXYCODONE IR 10 MG TABLET PO (01:43)
[2024-02-21 08:00] VITALS: BP 130/64; PULSE 75; RESP 15; TEMP 36.7; O2SAT 97
[2024-02-21] MEDS: OXYCODONE IR 5 MG TABLET PO ×3 (08:24→16:26)
[2024-02-21] MEDS: CELECOXIB 200 MG CAPSULE PO (08:24)
[2024-02-21] MEDS: ACETAMINOPHEN 325 MG TABLET 650 MG PO ×2 (08:25→16:25)
--- NOTE | 2024-02-21 11:30 | PT.IPTN ---
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) Pressure ulcer of unspecified part of back, stage 2 (02/15/24) Unspecified open wound of abdominal wall, unspecified quadrant without penetration into peritoneal cavity, initial encounter (02/15/24) Surgery Performed Operation Date: 02/15/24 14:00 Actual Procedures p Ileocecectomy with repair of right inguinal hernia - Wilmer Hodges MD s Incision and Drainage Groin wound(Right) - Wilmer Hodegs MD Physical Therapy Treatment Note M2 PT-IP Current Condition Start: 02/19/24 12:27 Freq: NEEDED Status: Active Protocol: Document 02/19/24 11:52 MB (Rec: 02/19/24 12:41 MB [id number]) Physical Therapy Current Condition Current Condition Evaluation Date 02/19/24 Treatment Diagnosis Right groin infection, recent surgery, sacral wound M3 PT-IP Subjective Start: 02/19/24 12:27 Freq: NEEDED Status: Active Protocol: Document 02/21/24 10:48 [facility] (Rec: 02/21/24 12:30 [facility] [id number]) Subjective Physical Therapy Visit Type Type Treatment Note Visit Start Time 11:00 Visit Stop Time 11:24 Number of HYDRAULIC MINER BLASTING Visits 0 Physical Therapy Visit Comments Patient Comments pt reports tired but agrees to participate M4 PT-IP Mobility and Gait Start: 02/19/24 12:27 Freq: NEEDED Status: Active Protocol: Document 02/21/24 10:48 [facility] (Rec: 02/21/24 12:30 [facility] [id number]) PT-Bed Mobility Assessment Rolling Type of Rolling Log Rolling,Roll to Left Level of Assist Standby Assistance Supine to Sit Supine to Sit Minimal Assistance Sit to Supine Sit to Supine Minimal Assistance PT-Transfer Assessment Sit to and From Stand Sit to and from Stand Independent,Use of Upper Extremities Equipment Transfer Assistive Device Gait Belt Orthotic/Prosthetic Devices or Brace: No Gait Assessment Gait Gait Assistance Required: Standby Assistance Distance (Feet) 60 Assistive Devices Assistive Device Gait Belt,Front Wheeled Walker Orthotic/Prosthetic Devices or Brace: No Stair Climbing Assessment Comments Stair Climbing Comments 4x step up then back step down w/FWW SBA M5 PT-IP Objective Assessments Start: 02/19/24 12:27 Freq: NEEDED Status: Active Protocol: Document 02/19/24 11:52 MB (Rec: 02/19/24 12:41 MB [id number]) Orientation Orientation/Cognition Level of Alertness Alert Orientation Name,Age,Birthday,Month,Date, Year,Day of Week,Place, Situation Language Function Ability No Deficits Noted Safety Awareness Decreased Safety Awareness Memory Description No Deficits Noted Gross Range of Motion Upper Extremity ROM Assessment Within Functional Limits Lower Extremity ROM Assessment Right Impaired Impairments Right hip not tested d/t wound Strength Upper Extremity Strength Assessment Within Functional Limits Lower Extremity Strength Assessment Right Impaired Comments Strength Comments Right hip not tested d/t wound Sensation Assessment Sensation Gross Sensation WNL Muscle Tone Muscle Tone WNL Yes M6 PT-IP Treatment Start: 02/19/24 12:27 Freq: NEEDED Status: Active Protocol: Document 02/21/24 10:48 [facility] (Rec: 02/21/24 12:30 [facility] [id number]) Physical Therapy Treatment Education Education Provided Precautions,Safety Other Treatments Other Treatment Performed 9 min: edu re: log roll for in /out of bed and how can help. Edu re: importance of walkinga nd starting w/walk up/down aldrich and progressing to driveway then small outdoor walks. Edu to pt re: 4WW renting vs FWW for carpets at home as she isn't leaning into walker much. Edu how to measure for correct size M7 PT-IP Assessment and Plan Start: 02/19/24 12:27 Freq: NEEDED Status: Active Protocol: Document 02/21/24 10:48 [facility] (Rec: 02/21/24 12:30 [facility] [id number]) PT Summary Assessment and Plan Summary Assessment Summary Pt SBA w/all mobility and requires min cueing. present for 2nd half of visit and understood how to help pt. verbalizes understanding for log roll and how to assist. DC at this time. Goals Bed Mobility Goal Independent Transfer Goal Independent,Front Wheeled Walker Gait Goal Independent,Front Wheel Walker Gait Distance 100 Other Goals Pt will ascend 4 steps with rail and no more than superv assistance to allow safe home entry. Progress to LRAD or no AD Days to Meet Goals 5 Frequency of Treatment Frequency Of Treatment Discharge Weight Bearing Status Weight Bearing Status Full Weight Bearing Recommendations To Nursing Amount of Assist Needed Standby Assistance Discharge Recommendations PT Discharge Recommendations Home with Assistance Transportation Needs at Discharge Private Vehicle
--- NOTE | 2024-02-21 12:28 | PM.DS.1 ---
History of Present Illness History of Present Illness Date Patient Seen: 02/21/24 Time Patient Seen: 15:25 Chief complaint: Infection sent over from Dr. Hodges Narrative: Six 8-year-old woman who presented to the emergency room with complaints of a right groin wound. She was seen in General surgery Clinic February 14 and was found to have stool draining from the right groin. She was admitted to the hospital for its management. Discharge Providers Provider Date of admission: 02/15/24 12:51 Discharge Date: 02/21/24 Primary care physician: Doctor Lesly MD Consults: 02/15/24 16:44 Consult to Wound Care Routine Comment: Consulting Provider: Jose Rafael- Wound Care 02/15/24 17:56 Consult to Inpatient Wound Care Nurse Routine Comment: Reason for consultation: sacral decub 02/16/24 19:46 Consult to Dietitian, Adult Routine Comment: Reason For Exam: malnutrition 02/19/24 10:42 Consult to Physical Therapy Evaluate & Treat Comment: Physician Instructions: Evaluate and Treat 02/20/24 10:44 Consult to Home Health Routine Comment: RN Reason For Exam: Home Health Services Discharge provider: Wilmer Hodges MD Summary Hospital Course Discharge Diagnosis: Colocutaneous fistula Colonic perforation SEVERE PROTEIN CALORIE MALNUTRITION Hospital Course: She underwent a open ileocecectomy, repair of right inguinal hernia and incision and drainage of right groin wound February 15, 2024. She was found to have a strangulated cecum within a right groin hernia. The cecum had perforated and was draining stool out of the thigh, a colocutaneous fistula. Postoperatively she did well. She had return of bowel function and she was maintained on Zosyn for at least 5 days. She has undergone daily wet-to-dry dressing changes to the right groin and the wound is clean. At this point she is suitable for discharge home no further antibiotics necessary.. Exam Vital Signs (past 8 hours): - 02/21/24 08:00 Temperature 98.1 F Pulse Rate 75 Respiratory Rate 15 Blood Pressure 130/64 Pulse Oximetry 97 Oxygen Delivery Method Room Air Oxygen Flow Rate 0 Narrative Exam Narrative: General adult woman alert oriented no acute distress Abdomen right groin incision clean without surrounding cellulitis, packed with gauze. Midline incision clean dry intact. 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 Patient denies medical problems Social History marital status: household members: spouse lives independently: Yes occupational status: employed Smoking Status: Never smoker alcohol intake: former substance use type: does not use Discharge Plan Discharge Plan Patient Disposition: Home Provider Discharge Comment: Dressing change with moist gauze every 1-2 days Follow up with wound care center No lifting >10 lbs x 4 weeks Ok to shower but avoid submerging the wound Nursing Discharge Comment: [facility] apptS: Thursday 02/22 @ 9:45 AM Sunday 02/25 @ 3:15 PM Tuesday 02/27 @ 1:45 PM Discharge orders & Medications Prescriptions: New celecoxib [Celebrex] 200 mg capsule 200 mg PO BID Qty: 40 0RF docusate sodium [Colace] 100 mg capsule 100 mg PO BID Qty: 30 0RF oxycodone 5 mg tablet 5 mg PO Q6H PRN (Reason: pain) Qty: 20 0RF acetaminophen [Tylenol] 325 mg capsule 650 mg PO QID PRN (Reason: pain) Qty: 60 0RF Discontinued amoxicillin-pot clavulanate 875-125 mg tablet 1 tab PO BID 5 Days Qty: 10 0RF oxycodone-acetaminophen [Percocet] 2.5-325 mg tablet 1 tab PO Q8H PRN (Reason: pain) Qty: 10 0RF Follow up/Referrals: Wilmer Hodges MD [Physician] - 02/29/24 3:30 pm (appt:02/28 @ 3:[address] Hodges ) Diet/Activity/Treatments Diet: Diet as Tolerated Skin/Wound/Dressing Care Report to your healthcare provider any signs of infection, such as:: chills, fever, increased pain, unusual drainage and unusual redness Visit Report/Discharge Packet Instructions: DI for Pressure Injuries, DI for Prescription Opioid Use, [facility]: Wound Care Stand Alone Forms: Patient Portal/API, Stroke Signs & Symptoms Discharge Data Primary Care Provider: Miscellaneous,Doctor Quality VTE Deep Vein Thrombosis/Pulmonary Embolism Present on Admission: No
--- NOTE | 2024-02-21 14:02 | CM.DPC ---
Addendum entered and electronically signed by JEOVANNY Ngero 02/21/24 14:19: update-[facility] declined. Sent new HH referral to [facility] for review. Original Note: DCP Cont. Reviewed EMR and team rounds for status updates. Pt has been medically cleared for home d/c, and has an intake appt. with the [facility] this coming Monday, 02/22, at 9:45am. Spouse is aware, and will be transporting pt back home later this afternoon. No further d/c needs identified at this time.
== END 2024-02-21 16:55 | disposition home health service (06) | DRG 329 ==
LOC: ED 12:43 → AC 12:52
PROVIDERS: Internal Medicine; Surgery; Admitting Provider Hospitalist; Emergency Provider Emergency Medicine; Referring Provider Emergency Medicine; Visit Provider Hospitalist
PROC: 0DBH0ZZ Excision of Cecum, Open Approach (ICD-10-PCS; CPT 49000; principal; 2024-02-15 14:00)
PROC: 0DBH0ZZ Excision of Cecum, Open Approach (ICD-10-PCS; 2024-02-15 14:00)
DX: K63.2 Fistula of intestine (principal); E43 Unspecified severe protein-calorie malnutrition; K40.40 Unilateral inguinal hernia, with gangrene, not specified as recurrent; E87.1 Hypo-osmolality and hyponatremia; Z68.1 Body mass index [BMI] 19.9 or less, adult; S31.103A Unspecified open wound of abdominal wall, right lower quadrant without penetration into peritoneal cavity, initial encounter; L89.152 Pressure ulcer of sacral region, stage 2; W01.0XXA Fall on same level from slipping, tripping and stumbling without subsequent striking against object, initial encounter
CPT/HCPCS: 11042; 11045; 36415; 72220; 73502; 74177; 80048; 80053; 80305; 81003; 81015; 82550; 83605; 83735; 84100; 84145; 84484; 85025; 86140; 87040; 87070; 87077; 87147; 87186; 87205; 90471; 96361; 96365; 96367; 96375; 96376; 97116; 97161; 97530; 97535; 99214; 99283; 99284; 99285; 90715; C9290; J0136; J0330; J0696; J1100; J1170; J1650; J2250; J2270; J2405; J2543; J2704; J3010; J3475; J3490; Q9967

== ENCOUNTER → 2024-02-23 10:03 | Outpatient (CLI) | payer OTHER, SELFPAY ==
[2024-02-15 12:56] VITALS: BMI 18.8
== END ==
PROVIDERS: Referring Provider Surgery; Visit Provider Physician Assistant
DX: L89.153 Pressure ulcer of sacral region, stage 3 (principal); S31.502A Unspecified open wound of unspecified external genital organs, female, initial encounter; T81.89XA Other complications of procedures, not elsewhere classified, initial encounter; R23.3 Spontaneous ecchymoses; L53.9 Erythematous condition, unspecified
CPT/HCPCS: 11042; 11045; 99203; 99213

== ENCOUNTER → 2024-02-26 15:15 | Outpatient (CLI) | payer OTHER, MEDICARE, SELFPAY ==
[2024-02-15 12:56] VITALS: BMI 18.8
== END ==
LOC: WC 15:16
PROVIDERS: Referring Provider Surgery; Visit Provider Surgery
DX: T81.89XA Other complications of procedures, not elsewhere classified, initial encounter (principal); S31.502A Unspecified open wound of unspecified external genital organs, female, initial encounter; L98.8 Other specified disorders of the skin and subcutaneous tissue; L89.153 Pressure ulcer of sacral region, stage 3; L53.9 Erythematous condition, unspecified
CPT/HCPCS: 99213

== ENCOUNTER → 2024-03-01 13:47 | Outpatient (CLI) | payer OTHER, MEDICARE, SELFPAY ==
[2024-02-15 12:56] VITALS: BMI 18.8
== END ==
PROVIDERS: Referring Provider Surgery; Visit Provider Physician Assistant
DX: L89.153 Pressure ulcer of sacral region, stage 3 (principal); T81.89XA Other complications of procedures, not elsewhere classified, initial encounter; S31.502A Unspecified open wound of unspecified external genital organs, female, initial encounter; L53.9 Erythematous condition, unspecified; B96.5 Pseudomonas (aeruginosa) (mallei) (pseudomallei) as the cause of diseases classified elsewhere; Z79.2 Long term (current) use of antibiotics
CPT/HCPCS: 11042; 87070; 87077; 87147; 87186; 87205; 99213

== ENCOUNTER → 2024-03-08 11:17 | Outpatient (CLI) | payer OTHER, MEDICARE, SELFPAY ==
[2024-02-15 12:56] VITALS: BMI 18.8
== END ==
PROVIDERS: Referring Provider Surgery; Visit Provider Physician Assistant
DX: L89.153 Pressure ulcer of sacral region, stage 3 (principal); L98.8 Other specified disorders of the skin and subcutaneous tissue; T81.89XA Other complications of procedures, not elsewhere classified, initial encounter; S31.109A Unspecified open wound of abdominal wall, unspecified quadrant without penetration into peritoneal cavity, initial encounter; L53.9 Erythematous condition, unspecified
CPT/HCPCS: 11042; 87070; 87075; 87077; 87147; 87186; 87205; 97605; 99214

== ENCOUNTER → 2024-03-08 12:41 | Outpatient (CLI) | payer OTHER, SELFPAY ==
[2024-02-15 12:56] VITALS: BMI 18.8
--- NOTE | 2024-03-08 12:43 | DI.RAD.S_ITS ---
PROCEDURE: XR SACRUM COCCYX 3V INDICATIONS: Check for osteomyelitis sacrum/coccyx. TECHNIQUE: 3 views of the sacrum and coccyx acquired. COMPARISON: Merged With [facility], CR, XR SACRUM COCCYX MIN 2V, 02/14/2024, 13:49. FINDINGS: On the lateral image there is new or increased heterogeneous attenuation of the soft tissues posterior to the distal sacrum/coccyx suspicious for sacral coccygeal decubitus ulcer which extends nearly to the posterior cortex raising the suspicion for osteomyelitis. MRI sacrum/coccyx may be useful for further evaluation. No gross radiographic evidence of osseous erosion. Moderate degenerate changes lower lumbar spine sacroiliac joints unchanged. Mild degenerative changes right hip. Left hip arthroplasty partially imaged unchanged. IMPRESSION: Suspicion of sacrococcygeal decubitus ulcer with possible osteomyelitis as discussed above. MRI may be useful for further evaluation. Dictated by: Harlan Dougherty M.D. on 03/11/2024 at 11:08 Approved by: Harlan Dougherty M.D. on 03/11/2024 at 11:12
== END ==
PROVIDERS: Referring Provider Physician Assistant; Visit Provider Physician Assistant
DX: L89.159 Pressure ulcer of sacral region, unspecified stage (principal); L89.153 Pressure ulcer of sacral region, stage 3; L98.8 Other specified disorders of the skin and subcutaneous tissue; T81.89XA Other complications of procedures, not elsewhere classified, initial encounter; S31.109A Unspecified open wound of abdominal wall, unspecified quadrant without penetration into peritoneal cavity, initial encounter; L53.9 Erythematous condition, unspecified
CPT/HCPCS: 11042; 72220; 87070; 87075; 87077; 87147; 87186; 87205; 97605

== ENCOUNTER → 2024-03-11 15:17 | Outpatient (CLI) | payer OTHER, SELFPAY ==
[2024-02-15 12:56] VITALS: BMI 18.8
== END ==
LOC: WC 15:18
PROVIDERS: Referring Provider Surgery; Visit Provider Surgery
DX: T81.89XA Other complications of procedures, not elsewhere classified, initial encounter (principal); L98.8 Other specified disorders of the skin and subcutaneous tissue; S31.502A Unspecified open wound of unspecified external genital organs, female, initial encounter; L89.153 Pressure ulcer of sacral region, stage 3; L08.89 Other specified local infections of the skin and subcutaneous tissue; T81.31XA Disruption of external operation (surgical) wound, not elsewhere classified, initial encounter; L53.9 Erythematous condition, unspecified
CPT/HCPCS: 97605

== ENCOUNTER → 2024-03-15 11:23 | Outpatient (CLI) | payer OTHER, SELFPAY ==
[2024-02-15 12:56] VITALS: BMI 18.8
== END ==
PROVIDERS: Referring Provider Surgery; Visit Provider Physician Assistant
DX: L89.153 Pressure ulcer of sacral region, stage 3 (principal); L08.89 Other specified local infections of the skin and subcutaneous tissue; T81.89XA Other complications of procedures, not elsewhere classified, initial encounter; S31.502A Unspecified open wound of unspecified external genital organs, female, initial encounter; S31.109A Unspecified open wound of abdominal wall, unspecified quadrant without penetration into peritoneal cavity, initial encounter; L98.8 Other specified disorders of the skin and subcutaneous tissue; L53.9 Erythematous condition, unspecified; Z79.2 Long term (current) use of antibiotics
CPT/HCPCS: 11042; 97607; 99213; 99214

== ENCOUNTER → 2024-03-15 13:20 | Outpatient (CLI) | payer OTHER, SELFPAY ==
[2024-02-15 12:56] VITALS: BMI 18.8
--- NOTE | 2024-03-15 13:30 | DI.MRI.S_ITS ---
PROCEDURE: MR PELVIS WO/W CON INDICATIONS: Check for osteo. PU of coccyx/sacrum TECHNIQUE: Noncontrast coronal T1 spin echo and STIR, sagittal T1 spin echo with fat saturation and STIR, axial T1 spin echo and T2 fast spin echo with fat saturation. After the administration of contrast, axial/sagittal/coronal T1 spin echo with fat saturation through the pelvis.. COMPARISON: [facility] [place], CT, CT ABDOMEN PELVIS W CON, 02/15/2024, 11:43. [facility], CT, CT ABDOMEN PELVIS W CON, 02/14/2024, 15:30. [facility], CR, XR HIP W PEL IF DONE RT 2V, 02/14/2024, 13:49. FINDINGS: Image quality: Fair; susceptibility artifact from a left hip arthroplasty and motion artifact limits evaluation to some extent Enhancement: There is a 4.0 x 1.3 cm T1 hypointense, T2 hyperintense, nonenhancing ovoid lesion in the right gluteal subcutaneous tissues (4/12). There is no other abnormal masslike or nodular enhancement. Bone: Evaluation of the sacrum is somewhat limited due to the non-alignment of a ventral coccygeal curve with the plane of T1 imaging. Within this limitation, there is marrow replacement edema within the Cx3 and Cx4 coccygeal vertebrae (5/28; 3/6). There is corresponding enhancement within these vertebral bodies along with dorsal subcutaneous enhancement (10/28). Joint: There is no significant hip joint effusion. Muscle: Severe muscle atrophy is present. Nerve: The visualized sciatic nerves are normal in signal and caliber. Lymph node: There is no inguinal or lower retroperitoneal lymphadenopathy. Other: Small volume pelvic ascites is present (4/14). Mild presacral edema is present (5/28). Mild diffuse anasarca is present. Please note that the right inguinal abnormality identified on the 02/15/2024 CT abdomen pelvis examination is not well evaluated on the current examination. IMPRESSION: 1. 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 No drainable abscess. 2. Small volume pelvic ascites. 3. Suboptimal evaluation of the right inguinal pathology identified on recent examinations. 4. Right gluteal subcutaneous 4.0 cm sebaceous cyst. Dictated by: Daryl Corrigan M.D. on 03/15/2024 at 15:58 Approved by: Daryl Corrigan M.D. on 03/15/2024 at 16:20
== END ==
PROVIDERS: Referring Provider Physician Assistant; Visit Provider Physician Assistant
DX: L89.159 Pressure ulcer of sacral region, unspecified stage (principal); M46.22 Osteomyelitis of vertebra, cervical region; R18.8 Other ascites; L03.221 Cellulitis of neck; L72.3 Sebaceous cyst; L89.153 Pressure ulcer of sacral region, stage 3; L08.89 Other specified local infections of the skin and subcutaneous tissue; T81.89XA Other complications of procedures, not elsewhere classified, initial encounter; S31.502A Unspecified open wound of unspecified external genital organs, female, initial encounter; S31.109A Unspecified open wound of abdominal wall, unspecified quadrant without penetration into peritoneal cavity, initial encounter; L98.8 Other specified disorders of the skin and subcutaneous tissue; L53.9 Erythematous condition, unspecified; Z79.2 Long term (current) use of antibiotics
CPT/HCPCS: 11042; 72197; 97607; 99213; A9579

== ENCOUNTER → 2024-03-18 08:40 | Outpatient (CLI) | payer OTHER, SELFPAY ==
[2024-02-15 12:56] VITALS: BMI 18.8
== END ==
PROVIDERS: Referring Provider Physician Assistant; Visit Provider Physician Assistant
DX: L89.153 Pressure ulcer of sacral region, stage 3 (principal)
CPT/HCPCS: 36415; 84134

== ENCOUNTER → 2024-03-22 10:39 | Outpatient (CLI) | payer OTHER, SELFPAY ==
[2024-02-15 12:56] VITALS: BMI 18.8
== END ==
PROVIDERS: Referring Provider Surgery; Visit Provider Physician Assistant
DX: L89.153 Pressure ulcer of sacral region, stage 3 (principal); M46.28 Osteomyelitis of vertebra, sacral and sacrococcygeal region; T81.89XA Other complications of procedures, not elsewhere classified, initial encounter; L98.8 Other specified disorders of the skin and subcutaneous tissue; S31.109A Unspecified open wound of abdominal wall, unspecified quadrant without penetration into peritoneal cavity, initial encounter; S31.502A Unspecified open wound of unspecified external genital organs, female, initial encounter; L53.9 Erythematous condition, unspecified; E46 Unspecified protein-calorie malnutrition
CPT/HCPCS: 11042; 97597; 99213; 99214

== ENCOUNTER → 2024-03-29 13:37 | Outpatient (CLI) | payer OTHER, SELFPAY ==
[2024-02-15 12:56] VITALS: BMI 18.8
== END ==
PROVIDERS: Referring Provider Surgery; Visit Provider Surgery
DX: T81.89XA Other complications of procedures, not elsewhere classified, initial encounter (principal); S31.502A Unspecified open wound of unspecified external genital organs, female, initial encounter; L89.153 Pressure ulcer of sacral region, stage 3; S31.109A Unspecified open wound of abdominal wall, unspecified quadrant without penetration into peritoneal cavity, initial encounter; M46.28 Osteomyelitis of vertebra, sacral and sacrococcygeal region; L53.8 Other specified erythematous conditions
CPT/HCPCS: 11042; 97597; 99214

== ENCOUNTER → 2024-04-05 11:08 | Outpatient (CLI) | payer OTHER, SELFPAY ==
[2024-02-15 12:56] VITALS: BMI 18.8
== END ==
PROVIDERS: Referring Provider Surgery; Visit Provider Physician Assistant
DX: L89.154 Pressure ulcer of sacral region, stage 4 (principal); M46.28 Osteomyelitis of vertebra, sacral and sacrococcygeal region; T81.89XA Other complications of procedures, not elsewhere classified, initial encounter; L98.8 Other specified disorders of the skin and subcutaneous tissue; S31.502A Unspecified open wound of unspecified external genital organs, female, initial encounter; S31.109A Unspecified open wound of abdominal wall, unspecified quadrant without penetration into peritoneal cavity, initial encounter; E46 Unspecified protein-calorie malnutrition
CPT/HCPCS: 11042; 97607; 99214

== ENCOUNTER → 2024-04-12 10:57 | Outpatient (CLI) | payer OTHER, SELFPAY ==
[2024-02-15 12:56] VITALS: BMI 18.8
== END ==
LOC: WC 10:57
PROVIDERS: Referring Provider Surgery; Visit Provider Physician Assistant
DX: L89.154 Pressure ulcer of sacral region, stage 4 (principal); L53.9 Erythematous condition, unspecified; T81.89XA Other complications of procedures, not elsewhere classified, initial encounter; L98.8 Other specified disorders of the skin and subcutaneous tissue; S31.109A Unspecified open wound of abdominal wall, unspecified quadrant without penetration into peritoneal cavity, initial encounter
CPT/HCPCS: 11042; 97607; 99213

== ENCOUNTER → 2024-04-17 11:28 | Outpatient (CLI) | payer OTHER, SELFPAY ==
[2024-02-15 12:56] VITALS: BMI 18.8
== END ==
PROVIDERS: Referring Provider Surgery; Visit Provider Physician Assistant
DX: L89.154 Pressure ulcer of sacral region, stage 4 (principal); L53.9 Erythematous condition, unspecified; M46.28 Osteomyelitis of vertebra, sacral and sacrococcygeal region; T81.89XA Other complications of procedures, not elsewhere classified, initial encounter; L98.8 Other specified disorders of the skin and subcutaneous tissue; S31.109A Unspecified open wound of abdominal wall, unspecified quadrant without penetration into peritoneal cavity, initial encounter
CPT/HCPCS: 11042; 97607

== ENCOUNTER → 2024-04-26 11:12 | Outpatient (CLI) | payer OTHER, SELFPAY ==
[2024-02-15 12:56] VITALS: BMI 18.8
== END ==
PROVIDERS: Referring Provider Surgery; Visit Provider Physician Assistant
DX: L89.154 Pressure ulcer of sacral region, stage 4 (principal); L53.9 Erythematous condition, unspecified; T81.89XA Other complications of procedures, not elsewhere classified, initial encounter; L98.8 Other specified disorders of the skin and subcutaneous tissue; S31.109A Unspecified open wound of abdominal wall, unspecified quadrant without penetration into peritoneal cavity, initial encounter
CPT/HCPCS: 11042; 97607; 99214

== ENCOUNTER 2024-05-01 08:21 | Observation (INO) | payer OTHER, SELFPAY ==
[2024-02-15 12:56] VITALS: BMI 18.8
[2024-05-01] VITALS (91 sets, daily range): BP systolic 131–184; BP diastolic 69–97; PULSE 71–118; RESP 9–30; TEMP 36.3–37.1; O2SAT 92–100; BMI 18.8
--- NOTE | 2024-05-01 | DI.RAD.S_ITS ---
PROCEDURE: XR HIP LT 1V INDICATIONS: LEFT HIP REDUCTION TECHNIQUE: Single intraoperative fluoroscopic views of the hip were acquired. COMPARISON: [facility], CR, XR HIP W PEL IF DONE LT 2V, 05/01/2024, 8:21. FINDINGS: Intraoperative fluoroscopic image of left hip shows reduction of earlier noted dislocation at left hip prosthesis. Left hip alignment is anatomic. IMPRESSION: Fluoro guidance was provided intraoperatively for reduction of earlier noted left hip prosthesis dislocation. Dictated by: Catrachito Matthew M.D. on 05/01/2024 at 18:13 Approved by: Catrachito Matthew M.D. on 05/01/2024 at 18:14
--- NOTE | 2024-05-01 08:21 | DI.RAD.S_ITS ---
PROCEDURE: XR HIP W PEL IF DONE LT 2V INDICATIONS: dislocation TECHNIQUE: AP pelvis and lateral view of the hip acquired. COMPARISON: [facility], CR, XR HIP W PEL IF DONE RT 2V, 02/14/2024, 13:49. FINDINGS: Dislocated left total hip arthroplasty. The left femoral head component is position posterior and cephalad and lateral in relation to the acetabular cup. Moderate degenerative changes of the lower lumbar spine, sacroiliac joints and right hip unchanged. Pattern of constipation incidentally noted. No radiographic evidence of fracture or high attenuation soft tissue foreign body. Artifacts from overlying cardiac leads, lines and other extrinsic artifacts partially limit radiographic detail. IMPRESSION: Dislocated left hip arthroplasty. Follow-up is needed. Dictated by: Harlan Dougherty M.D. on 05/01/2024 at 8:58 Approved by: Harlan Dougherty M.D. on 05/01/2024 at 9:00
--- NOTE | 2024-05-01 08:24 | ED.GENADULT ---
HPI - General Adult General Chief complaint: Extremity Injury, Lower Stated complaint: dislocated L hip Time Seen by Provider: 05/01/24 08:21 Source: patient and EMS Mode of arrival: EMS Limitations: no limitations History of Present Illness HPI narrative: Patient is a 69-year-old female. Approximately 4 years ago underwent a left total hip arthroplasty. Since that time she has dislocated multiple times. She stated that this morning she did not fall. She was bending over to put on her shoes/socks when she felt the left hip dislocated once again. EMS was called. She was given fentanyl and ketamine prior to arrival. Describes pain in her left hip. No other injuries from the event. She has required surgical intervention for reduction and also has been successfully reduced in the emergency department in the past. Related Data Previous Rx's Medication Instructions Recorded acetaminophen 325 mg capsule 650 mg (2 x 325 mg) PO QID PRN 02/21/24 (Tylenol) pain #60 caps celecoxib 200 mg capsule (Celebrex) 200 mg PO BID #40 caps 02/21/24 docusate sodium 100 mg capsule 100 mg PO BID #30 caps 02/21/24 (Colace) oxycodone 5 mg tablet 5 mg PO Q6H PRN pain #10 tabs 03/14/24 hydrocodone 5 mg-acetaminophen 325 1 tab PO Q6H PRN pain #14 tabs 05/01/24 mg tablet Allergies Allergy/AdvReac Type Severity Reaction Status Date / Time No Known Drug Allergies Allergy Verified 04/11/24 10:03 Review of Systems Review of Systems Narrative: See HPI Patient History Medical History Closed left hip fracture 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 Patient denies medical problems Social History marital status: household members: spouse lives independently: Yes occupational status: employed Smoking Status: Never smoker alcohol intake: former substance use type: does not use Smoking Status: Never smoker alcohol intake frequency: holidays/special occasions only Exam Initial Vital Signs Initial Vital Signs: Vital Signs Temperature 98.7 F 05/01/24 08:23 Pulse Rate 106 H 05/01/24 08:23 Respiratory Rate 20 05/01/24 08:23 Blood Pressure 159/92 H 05/01/24 08:23 Pulse Oximetry 100 05/01/24 08:23 Oxygen Delivery Method Room Air 05/01/24 08:23 Const General: cooperative and No ill appearing Cardio Pulses: dorsalis pedis present on the left GI Other: Wound VAC in place central abdomen from an unrelated event from today. Skin General: no rashes or lesions noted Neuro Sensory Exam: no sensory deficits noted Extrem Other: Left lower extremity shortened and internally rotated. Discomfort around palpation of the left hemipelvis Procedures Orthopedic Joint Reduction Joint #1: Side: left Joint Reduction Location: hip Analgesia: procedural sedation Technique used: direct manipulation Post-reduction neuro exam: intact Post-reduction vascular: intact Patient Tolerated Procedure: Well Additional Comments: Unsuccessful reduction Procedural Sedation Consent signed: Yes Time out performed: Yes Indication: fracture/dislocation reduction ASA Class: II Mallampati Airway Classification: Class II Preparation: conveyor monitor applied, pulse oximeter, capnometry used, supplemental O2 applied, suction/airway equipment at bedside and IV secured IV Propofol dose (mg): 70 Intraservice time/total sedation time (min): 15 ED Sedation Level: Moderate (Concious) Patient Tolerated Procedure: Well Complications: none Course Orders Ordered: ED Orders 05/01/24 08:21 XR hip w pel if done LT 2V Stat 05/01/24 09:32 Consult to Orthopedic Surgery Stat 05/01/24 10:15 Basic Metabolic Panel Stat Complete Blood Count AUTO DIFF Stat Hydrocodone Bitart/Acetaminophen (Hydrocodone/Acet 5/325 Tablet) 1 tab PO Q4HR PRN PRN Reason: Pain, Moderate (4-6) Lactated Ringer's (Lactated Ringers) 1,000 mls @ 42 mls/hr IV NOW ONE Stop: 05/02/24 15:41 Last Admin: 05/01/24 15:53 Dose: 42 mls/hr Documented By: NOE Discontinued Medications Hydromorphone HCl (Hydromorphone 0.5 Mg Inj) 0.5 mg IV NOW ONE Stop: 05/01/24 08:25 Last Admin: 05/01/24 08:28 Dose: 0.5 mg Documented By: RACHEL Ketamine HCl (Ketamine 500 Mg/5 Ml Inj) 25 mg IV NOW ONE Stop: 05/01/24 10:41 Last Admin: 05/01/24 10:59 Dose: 25 mg Documented By: RB Ketamine HCl (Ketamine 500 Mg/5 Ml Inj) 25 mg IV NOW ONE Stop: 05/01/24 11:41 Last Admin: 05/01/24 11:48 Dose: Not Given Documented By: RB Morphine Sulfate (Morphine 4 Mg/Ml Inj) 4 mg IV NOW ONE Stop: 05/01/24 09:05 Last Admin: 05/01/24 09:13 Dose: 4 mg Documented By: RB Morphine Sulfate (Morphine 4 Mg/Ml Inj) 4 mg IV NOW ONE Stop: 05/01/24 09:38 Last Admin: 05/01/24 09:54 Dose: 4 mg Documented By: RB Morphine Sulfate (Morphine 4 Mg/Ml Inj) 4 mg IV NOW ONE Stop: 05/01/24 11:49 Last Admin: 05/01/24 12:03 Dose: 4 mg Documented By: RB Morphine Sulfate (Morphine 4 Mg/Ml Inj) 4 mg IV NOW ONE Stop: 05/01/24 13:15 Last Admin: 05/01/24 13:18 Dose: 4 mg Documented By: RB Morphine Sulfate (Morphine 4 Mg/Ml Inj) 4 mg IV NOW ONE Stop: 05/01/24 14:22 Last Admin: 05/01/24 14:37 Dose: 4 mg Documented By: RB Propofol (Propofol 200 Mg/20 Ml Vial) 100 mg IV NOW ONE Stop: 05/01/24 08:27 Last Admin: 05/01/24 08:53 Dose: 70 mg Documented By: RB Vital Signs Vital signs: Vital Signs - 8 hr 05/01/24 08:23 05/01/24 08:29 05/01/24 08:30 Temperature 98.7 F Pulse Rate 106 H 101 H 102 H Pulse Rate [Left Dorsalis Pedis] Respiratory Rate 20 27 H 14 Blood Pressure 159/92 H Pulse Oximetry 100 100 100 Oxygen Delivery Method Room Air 05/01/24 08:30 05/01/24 08:35 05/01/24 08:40 Temperature Pulse Rate 100 H 96 H Pulse Rate [Left Dorsalis Pedis] Respiratory Rate 16 16 Blood Pressure 150/90 H Pulse Oximetry 100 96 Oxygen Delivery Method 05/01/24 08:45 05/01/24 08:50 05/01/24 08:51 Temperature Pulse Rate 101 H 101 H Pulse Rate [Left Dorsalis Pedis] Respiratory Rate 17 29 H Blood Pressure 145/93 H Pulse Oximetry 97 99 Oxygen Delivery Method 05/01/24 08:51 05/01/24 08:55 05/01/24 08:55 Temperature Pulse Rate 99 H 92 H Pulse Rate [Left Dorsalis Pedis] Respiratory Rate 22 16 Blood Pressure 135/77 Pulse Oximetry 100 Oxygen Delivery Method 05/01/24 09:00 05/01/24 09:00 05/01/24 09:05 Temperature Pulse Rate 73 83 Pulse Rate [Left Dorsalis Pedis] Respiratory Rate Blood Pressure 142/85 H Pulse Oximetry 97 99 Oxygen Delivery Method 05/01/24 09:05 05/01/24 09:10 05/01/24 09:10 Temperature Pulse Rate 75 Pulse Rate [Left Dorsalis Pedis] Respiratory Rate 18 Blood Pressure 134/82 143/78 H Pulse Oximetry Oxygen Delivery Method 05/01/24 09:10 05/01/24 09:15 05/01/24 09:15 Temperature Pulse Rate 88 80 Pulse Rate [Left Dorsalis Pedis] Respiratory Rate 12 12 Blood Pressure 144/82 H Pulse Oximetry 99 99 Oxygen Delivery Method 05/01/24 09:20 05/01/24 09:20 05/01/24 09:25 Temperature Pulse Rate 81 Pulse Rate [Left Dorsalis Pedis] Respiratory Rate 16 Blood Pressure 144/85 H 145/83 H Pulse Oximetry 99 Oxygen Delivery Method 05/01/24 09:25 05/01/24 09:30 05/01/24 09:30 Temperature Pulse Rate 80 80 Pulse Rate [Left Dorsalis Pedis] Respiratory Rate 12 15 Blood Pressure 146/81 H Pulse Oximetry 100 99 Oxygen Delivery Method 05/01/24 09:35 05/01/24 09:40 05/01/24 09:45 Temperature Pulse Rate 79 81 Pulse Rate [Left Dorsalis Pedis] Respiratory Rate 17 23 Blood Pressure 149/93 H Pulse Oximetry 100 99 Oxygen Delivery Method 05/01/24 09:45 05/01/24 09:50 05/01/24 09:55 Temperature Pulse Rate 83 80 80 Pulse Rate [Left Dorsalis Pedis] Respiratory Rate 24 14 13 Blood Pressure Pulse Oximetry 99 98 100 Oxygen Delivery Method 05/01/24 10:00 05/01/24 10:00 05/01/24 10:05 Temperature Pulse Rate 85 84 Pulse Rate [Left Dorsalis Pedis] Respiratory Rate 11 L 18 Blood Pressure 157/85 H Pulse Oximetry 100 99 Oxygen Delivery Method 05/01/24 10:10 05/01/24 10:15 05/01/24 10:15 Temperature Pulse Rate 80 83 Pulse Rate [Left Dorsalis Pedis] Respiratory Rate 11 L 12 Blood Pressure 142/84 H Pulse Oximetry 98 99 Oxygen Delivery Method 05/01/24 10:20 05/01/24 10:25 05/01/24 10:30 Temperature Pulse Rate 82 81 Pulse Rate [Left Dorsalis Pedis] Respiratory Rate 12 13 Blood Pressure 142/85 H Pulse Oximetry 98 100 Oxygen Delivery Method 05/01/24 10:30 05/01/24 10:35 05/01/24 10:40 Temperature Pulse Rate 82 85 87 Pulse Rate [Left Dorsalis Pedis] Respiratory Rate 10 L 11 L 19 Blood Pressure Pulse Oximetry 99 100 100 Oxygen Delivery Method 05/01/24 10:45 05/01/24 10:45 05/01/24 10:50 Temperature Pulse Rate 85 84 Pulse Rate [Left Dorsalis Pedis] Respiratory Rate 16 15 Blood Pressure 155/84 H Pulse Oximetry 100 100 Oxygen Delivery Method 05/01/24 10:55 05/01/24 11:00 05/01/24 11:00 Temperature Pulse Rate 86 84 Pulse Rate [Left Dorsalis Pedis] Respiratory Rate 17 13 Blood Pressure 152/84 H Pulse Oximetry 100 99 Oxygen Delivery Method 05/01/24 11:05 05/01/24 11:08 05/01/24 11:08 Temperature Pulse Rate 104 H 118 H Pulse Rate [Left Dorsalis Pedis] Respiratory Rate 11 L 12 Blood Pressure 184/88 H Pulse Oximetry 96 98 Oxygen Delivery Method 05/01/24 11:10 05/01/24 11:15 05/01/24 11:15 Temperature Pulse Rate 112 H 99 H Pulse Rate [Left Dorsalis Pedis] Respiratory Rate 12 10 L Blood Pressure 159/86 H Pulse Oximetry 98 98 Oxygen Delivery Method 05/01/24 11:20 05/01/24 11:25 05/01/24 11:30 Temperature Pulse Rate 94 H 92 H Pulse Rate [Left Dorsalis Pedis] Respiratory Rate 16 19 Blood Pressure 156/82 H Pulse Oximetry 98 98 Oxygen Delivery Method 05/01/24 11:30 05/01/24 11:35 05/01/24 11:40 Temperature Pulse Rate 89 89 83 Pulse Rate [Left Dorsalis Pedis] Respiratory Rate 15 18 11 L Blood Pressure Pulse Oximetry 97 98 96 Oxygen Delivery Method 05/01/24 11:45 05/01/24 11:45 05/01/24 11:50 Temperature Pulse Rate 83 85 Pulse Rate [Left Dorsalis Pedis] Respiratory Rate 15 17 Blood Pressure 145/81 H Pulse Oximetry 97 97 Oxygen Delivery Method 05/01/24 11:55 05/01/24 12:00 05/01/24 12:00 Temperature Pulse Rate 81 81 Pulse Rate [Left Dorsalis Pedis] Respiratory Rate 22 12 Blood Pressure 155/86 H Pulse Oximetry 97 98 Oxygen Delivery Method 05/01/24 12:05 05/01/24 12:10 05/01/24 12:15 Temperature Pulse Rate 87 81 Pulse Rate [Left Dorsalis Pedis] Respiratory Rate 19 15 Blood Pressure 147/80 H Pulse Oximetry 99 99 Oxygen Delivery Method 05/01/24 12:15 05/01/24 12:20 05/01/24 12:25 Temperature Pulse Rate 74 77 78 Pulse Rate [Left Dorsalis Pedis] Respiratory Rate 12 22 21 Blood Pressure Pulse Oximetry 98 99 98 Oxygen Delivery Method 05/01/24 12:30 05/01/24 12:30 05/01/24 12:35 Temperature Pulse Rate 79 77 Pulse Rate [Left Dorsalis Pedis] Respiratory Rate 26 H 16 Blood Pressure 164/89 H Pulse Oximetry 99 99 Oxygen Delivery Method 05/01/24 12:40 05/01/24 12:45 05/01/24 12:45 Temperature Pulse Rate 74 73 Pulse Rate [Left Dorsalis Pedis] Respiratory Rate 9 L 10 L Blood Pressure 142/70 H Pulse Oximetry 92 97 Oxygen Delivery Method 05/01/24 12:50 05/01/24 12:55 05/01/24 13:00 Temperature Pulse Rate 73 73 74 Pulse Rate [Left Dorsalis Pedis] Respiratory Rate 11 L 15 13 Blood Pressure Pulse Oximetry 99 99 99 Oxygen Delivery Method 05/01/24 13:00 05/01/24 13:05 05/01/24 13:10 Temperature Pulse Rate 73 72 Pulse Rate [Left Dorsalis Pedis] Respiratory Rate 14 17 Blood Pressure 157/79 H Pulse Oximetry 99 100 Oxygen Delivery Method 05/01/24 13:15 05/01/24 13:15 05/01/24 13:20 Temperature Pulse Rate 71 74 Pulse Rate [Left Dorsalis Pedis] Respiratory Rate 11 L 14 Blood Pressure 150/79 H Pulse Oximetry 98 99 Oxygen Delivery Method 05/01/24 13:25 05/01/24 13:28 05/01/24 13:30 Temperature Pulse Rate 74 Pulse Rate [Left Dorsalis Pedis] 83 Respiratory Rate 13 Blood Pressure 161/87 H Pulse Oximetry 100 Oxygen Delivery Method 05/01/24 13:30 05/01/24 13:35 05/01/24 13:40 Temperature Pulse Rate 81 79 75 Pulse Rate [Left Dorsalis Pedis] Respiratory Rate 19 9 L 16 Blood Pressure Pulse Oximetry 99 99 100 Oxygen Delivery Method 05/01/24 13:45 05/01/24 13:45 05/01/24 13:50 Temperature Pulse Rate 71 77 Pulse Rate [Left Dorsalis Pedis] Respiratory Rate 15 10 L Blood Pressure 153/83 H Pulse Oximetry 98 99 Oxygen Delivery Method 05/01/24 13:55 05/01/24 14:00 05/01/24 14:00 Temperature Pulse Rate 77 72 Pulse Rate [Left Dorsalis Pedis] Respiratory Rate 17 10 L Blood Pressure 140/83 Pulse Oximetry 99 99 Oxygen Delivery Method 05/01/24 14:05 05/01/24 14:10 05/01/24 14:15 Temperature Pulse Rate 76 79 82 Pulse Rate [Left Dorsalis Pedis] Respiratory Rate 17 16 24 Blood Pressure Pulse Oximetry 100 99 100 Oxygen Delivery Method 05/01/24 14:15 05/01/24 14:20 05/01/24 14:25 Temperature Pulse Rate 83 88 Pulse Rate [Left Dorsalis Pedis] Respiratory Rate 15 23 Blood Pressure 144/89 H Pulse Oximetry 100 99 Oxygen Delivery Method 05/01/24 14:35 05/01/24 14:40 05/01/24 14:45 Temperature Pulse Rate 94 H 93 H Pulse Rate [Left Dorsalis Pedis] Respiratory Rate 28 H 30 H Blood Pressure 173/94 H Pulse Oximetry 100 99 Oxygen Delivery Method 05/01/24 14:45 05/01/24 14:50 05/01/24 14:55 Temperature Pulse Rate 87 82 75 Pulse Rate [Left Dorsalis Pedis] Respiratory Rate 19 20 17 Blood Pressure Pulse Oximetry 98 98 99 Oxygen Delivery Method 05/01/24 15:00 05/01/24 15:00 05/01/24 15:05 Temperature Pulse Rate 74 76 Pulse Rate [Left Dorsalis Pedis] Respiratory Rate 18 16 Blood Pressure 131/79 Pulse Oximetry 99 100 Oxygen Delivery Method 05/01/24 15:15 05/01/24 15:15 Temperature Pulse Rate 76 Pulse Rate [Left Dorsalis Pedis] Respiratory Rate 19 Blood Pressure 134/79 Pulse Oximetry 98 Oxygen Delivery Method Medical Decision Making Lab Data Lab results reviewed: Yes I reviewed the patient's lab results. 05/01/24 10:15 05/01/24 10:15 Labs: Lab Results 05/01/24 Range/Units 10:15 WBC 7.7 (4.5-11.0) X10^3/uL RBC 3.71 L (4.0-5.2) X10^6/uL Hgb 9.3 L (12.0-16.0) g/dL Hct 28.1 L (36-46) % MCV 75.6 L (80-100) fL MCH 25.1 L (26-34) PG MCHC 33.2 (30-36) % RDW 17.0 H (11.6-14.8) % Plt Count 198 (150-400) X10^3/uL Neut % (Auto) 86.7 H (50-75) % Lymph % (Auto) 7.4 L (25-40) % [place] % (Auto) 4.8 (3-14) % Eos % (Auto) 0.9 L (2-4) % Baso % (Auto) 0.2 (0-2) % Neut # (Auto) 6700 (5824-6401) /uL Lymph # (Auto) 600 L (4463-4549) /uL [place] # (Auto) 400 (0-900) /uL Eos # (Auto) 100 (0-450) /uL Baso # (Auto) 0 (0-100) /uL Sodium 134 L (137-145) mmol/L Potassium 3.7 (3.4-5.1) mmol/L Chloride 101 (98-107) mmol/L Carbon Dioxide 25 (22-32) mmol/L BUN 19 H (7-17) mg/dL Creatinine 0.68 (0.52-1.04) mg/dL Estimated GFR > 60 (>60) mL/min BUN/Creatinine Ratio 27.9 H (6-22) Glucose 111 H (80-110) mg/dL Calcium 8.7 (8.4-10.2) mg/dL Imaging Data Extremity x-ray #1: Radiologist's Impression: PROCEDURE: XR HIP W PEL IF DONE LT 2V INDICATIONS: dislocation TECHNIQUE: AP pelvis and lateral view of the hip acquired. COMPARISON: [facility], , XR HIP W PEL IF DONE RT 2V, 02/14/2024, 13:49. FINDINGS: Dislocated left total hip arthroplasty. The left femoral head component is position posterior and cephalad and lateral in relation to the acetabular cup. Moderate degenerative changes of the lower lumbar spine, sacroiliac joints and right hip unchanged. Pattern of constipation incidentally noted. No radiographic evidence of fracture or high attenuation soft tissue foreign body. Artifacts from overlying cardiac leads, lines and other extrinsic artifacts partially limit radiographic detail. IMPRESSION: Dislocated left hip arthroplasty. Follow-up is needed. MDM Narrative Medical decision making narrative: Attempted to relocate the hip in the emergency department however we were unsuccessful. Patient tolerated the procedural sedation well. I discussed the case with Dr. Arnold on-call for Orthopedic surgery. She stated that she was going to contact 1 of her other partners to see if they would be able to take the patient to the operating room for reduction under general anesthesia. Patient has received multiple doses of pain medication. Will admit to Orthopedic surgery for closed reduction. Discharge Plan Departure Patient Disposition: Admitted to Surgery Clinical Impression: Dislocation of hip, left, closed Admit Date/Time: 05/01/24 15:26 Admit Provider: Agustina Melendez
[2024-05-01] MEDS: HYDROMORPHONE 0.5 MG INJ IV (08:28)
[2024-05-01] MEDS: propofoL 200 MG/20 ML VIAL 100 MG IV (08:53)
[2024-05-01] MEDS: MORPHINE 4 MG/ML INJ IV ×5 (09:13→14:37)
[2024-05-01 10:23] LABS: Add Manual Diff / Slide Review NO; Basophils Absolute Auto 0 /uL (0-100); Basophils Percent Auto 0.2 % (0-2); Eosinophils Absolute Auto 100 /uL (0-450); Eosinophils Percent Auto 0.9 % (2-4); Hematocrit 28.1 % (36-46); Hemoglobin 9.3 g/dL (12.0-16.0); Lymphocytes Absolute Auto 600 /uL (1100-4500); Lymphocytes Percent Auto 7.4 % (25-40); Mean Corpuscular HGB Conc 33.2 % (30-36); Mean Corpuscular Hemoglobin 25.1 PG (26-34); Mean Corpuscular Volume 75.6 fL (80-100); Monocytes Absolute Auto 400 /uL (0-900); Monocytes Percent Auto 4.8 % (3-14); Neutrophils Absolute Auto 6700 /uL (1500-7000); Neutrophils Percent Auto 86.7 % (50-75); Platelet Count 198 X10^3/uL (150-400); Red Blood Cell Count 3.71 X10^6/uL (4.0-5.2); White Blood Cell Count 7.7 X10^3/uL (4.5-11.0)
[2024-05-01 10:35] LABS: BUN Creatinine Ratio 27.9 (6-22); Blood Urea Nitrogen 19 mg/dL (7-17); Calcium 8.7 mg/dL (8.4-10.2); Carbon Dioxide 25 mmol/L (22-32); Chloride 101 mmol/L (98-107); Estimated Glomerular Filt Rate > 60 mL/min (>60); Glucose 111 mg/dL (80-110); HEMOLYSIS < 15 (0-50); Potassium 3.7 mmol/L (3.4-5.1); Sodium 134 mmol/L (137-145)
[2024-05-01] MEDS: KETAMINE 500 MG/5 ML INJ 25 MG IV (10:59)
--- NOTE | 2024-05-01 11:40 | PM.CN ---
History of Present Illness Consult details Date Patient Seen: 05/01/24 Time Patient Seen: 11:40 Chief complaint: dislocated L hip Reason for consult: Dislocated left total hip Requesting provider: Deena Arnold Narrative: The patient is a 69-year-old female with a left total hip replacement. She presents with a posterior dislocated left total hip. Her hip replacement was done approximately [address] Arnold for femoral neck fracture. She has had a few dislocations since then. She sustained another dislocation today. Had an attempted reduction in the emergency room that failed and was indicated for closed reduction under general anesthetic in the operating room. She has a current wounds on her abdomen managed by General surgery with a wound VAC. No obvious fractures. Meds Home Medications and Allergies Home Medications Medication Instructions Recorded Confirmed Type acetaminophen 325 mg capsule 650 mg (2 x 325 mg) PO QID PRN 02/21/24 04/11/24 Rx (Tylenol) pain #60 caps celecoxib 200 mg capsule (Celebrex) 200 mg PO BID #40 caps 02/21/24 04/11/24 Rx docusate sodium 100 mg capsule 100 mg PO BID #30 caps 02/21/24 04/11/24 Rx (Colace) oxycodone 5 mg tablet 5 mg PO Q6H PRN pain #10 tabs 03/14/24 04/11/24 Rx Allergies Allergy/AdvReac Type Severity Reaction Status Date / Time No Known Drug Allergies Allergy Verified 04/11/24 10:03 Review of Systems Review of Systems Narrative: Wound VAC abdomen general surgery managing. Chronic ROS: Yes All systems reviewed with the patient and are negative except as otherwise documented Exam Vital Signs (past 8 hours): - 05/01/24 08:23 05/01/24 08:29 05/01/24 08:30 Temperature 98.7 F Pulse Rate 106 H 101 H 102 H Respiratory Rate 20 27 H 14 Blood Pressure 159/92 H Pulse Oximetry 100 100 100 Oxygen Delivery Method Room Air 05/01/24 08:30 05/01/24 08:35 05/01/24 08:40 Temperature Pulse Rate 100 H 96 H Respiratory Rate 16 16 Blood Pressure 150/90 H Pulse Oximetry 100 96 Oxygen Delivery Method 05/01/24 08:45 05/01/24 08:50 05/01/24 08:51 Temperature Pulse Rate 101 H 101 H Respiratory Rate 17 29 H Blood Pressure 145/93 H Pulse Oximetry 97 99 Oxygen Delivery Method 05/01/24 08:51 05/01/24 08:55 05/01/24 08:55 Temperature Pulse Rate 99 H 92 H Respiratory Rate 22 16 Blood Pressure 135/77 Pulse Oximetry 100 Oxygen Delivery Method 05/01/24 09:00 05/01/24 09:00 05/01/24 09:05 Temperature Pulse Rate 73 83 Respiratory Rate Blood Pressure 142/85 H Pulse Oximetry 97 99 Oxygen Delivery Method 05/01/24 09:05 05/01/24 09:10 05/01/24 09:10 Temperature Pulse Rate 75 Respiratory Rate 18 Blood Pressure 134/82 143/78 H Pulse Oximetry Oxygen Delivery Method 05/01/24 09:10 05/01/24 09:15 05/01/24 09:15 Temperature Pulse Rate 88 80 Respiratory Rate 12 12 Blood Pressure 144/82 H Pulse Oximetry 99 99 Oxygen Delivery Method 05/01/24 09:20 05/01/24 09:20 05/01/24 09:25 Temperature Pulse Rate 81 Respiratory Rate 16 Blood Pressure 144/85 H 145/83 H Pulse Oximetry 99 Oxygen Delivery Method 05/01/24 09:25 05/01/24 09:30 05/01/24 09:30 Temperature Pulse Rate 80 80 Respiratory Rate 12 15 Blood Pressure 146/81 H Pulse Oximetry 100 99 Oxygen Delivery Method 05/01/24 09:35 05/01/24 09:40 05/01/24 09:45 Temperature Pulse Rate 79 81 Respiratory Rate 17 23 Blood Pressure 149/93 H Pulse Oximetry 100 99 Oxygen Delivery Method 05/01/24 09:45 05/01/24 09:50 05/01/24 09:55 Temperature Pulse Rate 83 80 80 Respiratory Rate 24 14 13 Blood Pressure Pulse Oximetry 99 98 100 Oxygen Delivery Method 05/01/24 10:00 05/01/24 10:00 05/01/24 10:05 Temperature Pulse Rate 85 84 Respiratory Rate 11 L 18 Blood Pressure 157/85 H Pulse Oximetry 100 99 Oxygen Delivery Method 05/01/24 10:10 05/01/24 10:15 05/01/24 10:15 Temperature Pulse Rate 80 83 Respiratory Rate 11 L 12 Blood Pressure 142/84 H Pulse Oximetry 98 99 Oxygen Delivery Method 05/01/24 10:20 05/01/24 10:25 05/01/24 10:30 Temperature Pulse Rate 82 81 Respiratory Rate 12 13 Blood Pressure 142/85 H Pulse Oximetry 98 100 Oxygen Delivery Method 05/01/24 10:30 05/01/24 10:35 05/01/24 10:40 Temperature Pulse Rate 82 85 87 Respiratory Rate 10 L 11 L 19 Blood Pressure Pulse Oximetry 99 100 100 Oxygen Delivery Method 05/01/24 10:45 05/01/24 10:45 05/01/24 10:50 Temperature Pulse Rate 85 84 Respiratory Rate 16 15 Blood Pressure 155/84 H Pulse Oximetry 100 100 Oxygen Delivery Method 05/01/24 10:55 05/01/24 11:00 05/01/24 11:00 Temperature Pulse Rate 86 84 Respiratory Rate 17 13 Blood Pressure 152/84 H Pulse Oximetry 100 99 Oxygen Delivery Method 05/01/24 11:05 05/01/24 11:08 05/01/24 11:08 Temperature Pulse Rate 104 H 118 H Respiratory Rate 11 L 12 Blood Pressure 184/88 H Pulse Oximetry 96 98 Oxygen Delivery Method 05/01/24 11:10 Temperature Pulse Rate 112 H Respiratory Rate 12 Blood Pressure Pulse Oximetry 98 Oxygen Delivery Method Oxygen Delivery Method Room Air Narrative Exam Narrative: General exam HEENT exam normocephalic atraumatic Heart regular sinus tachycardia Breathing unlabored on room air Left lower extremity shortened internally rotated consistent posterior hip dislocation Dorsiflexion plantar flexion 5/5 Objective Imaging AP pelvis and left lateral hip x-ray: My impression: Posterior dislocation left total hip arthroplasty no obvious fractures Radiologist's impression: Hip dislocation total hip arthroplasty Labs 05/01/24 10:15 05/01/24 10:15 Labs: Laboratory Results - last 24 hr 05/01/24 10:15 WBC 7.7 RBC 3.71 L Hgb 9.3 L Hct 28.1 L MCV 75.6 L MCH 25.1 L MCHC 33.2 RDW 17.0 H Plt Count 198 Neut % (Auto) 86.7 H Lymph % (Auto) 7.4 L [place] % (Auto) 4.8 Eos % (Auto) 0.9 L Baso % (Auto) 0.2 Neut # (Auto) 6700 Lymph # (Auto) 600 L [place] # (Auto) 400 Eos # (Auto) 100 Baso # (Auto) 0 Sodium 134 L Potassium 3.7 Chloride 101 Carbon Dioxide 25 BUN 19 H Creatinine 0.68 Estimated GFR > 60 BUN/Creatinine Ratio 27.9 H Glucose 111 H Calcium 8.7 PFSH Medical History Closed left hip fracture 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 Patient was failed closed reduction attempt in the emergency room is indicated for closed reduction under general anesthetic in the operative room. Risks and benefits of the procedure were discussed. There is a risk of persistent instability and repeat dislocation and need for additional procedures. There is a risk for fracture. A risk for skin tears. The risk for complications of general anesthetic. The patient was indicated for closed reduction in the operative room under general anesthesia. Case was discussed with the patient's operating surgeon Dr. Arnold who was not available for the reduction and asked me to help out. Plan after closed reduction would be discharged home. The patient will be able to follow up with Dr. Arnold if she has a additional difficulty or instability for possible revision procedures however would need to heal her abdominal wound before considering additional hip surgery. Time-Based Coding :: [TOTAL MINUTES] spent with patient and on the chart (including review of chart, obtaining history, exam, reviewing outside data, placing orders, documenting exam and treatment plan, and counseling patient) on [DATE].
--- NOTE | 2024-05-01 11:48 | PC.NURSE ---
Patient complained of pain. This RN received an order for 25mg Ketamine. Patient refused medication stating that it caused her a bad trip. Provider informed and no new order given.
[2024-05-01] MEDS: LACTATED RINGERS 1,000 ML 42 ML IV (15:53)
--- NOTE | 2024-05-01 16:22 | SUR.OPER ---
Supine on padded OR bed, head on pillow, arms secured on padded across chest , legs uncrossed, safety belt abdomen
--- NOTE | 2024-05-01 16:50 | PM.OP.1 ---
Operative Date/Time/Diagnoses Date of procedure: 05/01/24 Time of procedure: 16:50 Pre-op diagnosis: Dislocated left total hip Post-op diagnosis: same Procedure & Clinicians Procedure: Closed reduction total hip replacement, left requiring general anesthetic CPT code 93298 Same procedure as scheduled: Yes Indications: The patient was a 69-year-old female that underwent a left total hip arthroplasty for fracture 4 years ago. She presents today with a posterior hip dislocation of her left total hip prosthesis. She had an unsuccessful reduction attempt in the ER. She was indicated for closed reduction under general anesthetic in the OR. The risks and benefits of the procedure have been discussed with the patient and given the opportunity to ask questions. The risks of surgery include but are not limited to instability recurrence, need for additional procedures, skin tear, fracture, complications of general anesthesia. Consent was signed. During the operation, the services of a physician surgical dental assistant were medically indicated and necessary to provide the exposure of the operative site for the surgical procedure and to maintain the limb in a proper position to carry out the operation safely and efficiently. Without a qualified certified ophthalmic surgical assistant being present this would extended the operative procedure and made the procedure technically more difficult to perform. Surgeon: Agustina Melendez Curriculum Specialist: Saray Khoury Click Yes if Unassisted: Yes Anesthesia Type: General Operative Notes Findings: Posterior hip dislocation left total hip prosthesis. After successful reduction was concentric and stable and normal range of motion. With restored normal femoral rotation. Closure Type: primary Specimen(s): none sent Estimated Blood Loss (mL): 0 Blood products transfused: none Tourniquet time (min): 0 Procedure in detail: Patient was seen in the preoperative area the site of surgery was marked informed consent confirmed this with the left lower extremity. The patient was brought back to the operating room by the anesthesia team general anesthesia was administered and the patient was positioned supine on the bed. A formal time-out procedure was performed confirming the patient's side and site of surgery no antibiotics were indicated for this closed procedure. Attention was turned to the left hip. Succinylcholine was administered for a paralytic. Once this took effect the certified ophthalmic surgical assistant applied counter pressure to the pelvis and I flexed the hip and pulled longitudinal traction with alternating internal and external rotation force. Additional certified ophthalmic surgical assistant placed medial pressure greater trochanter and there was a satisfactory auditory and palpable reduction. Once this was completed length and rotation of the leg was symmetric to the contralateral side. C-arm was brought in confirming concentric reduction of the hip prosthesis. Taken through range of motion and was grossly stable within normal ranges. The patient was then awoken from anesthesia and taken to the recovery room in good condition there were no immediate complications from this procedure. Complications: none Post-operative Condition: stable Disposition: PACU Plan for aftercare: Posterior hip precautions x6 weeks. If has continued problems can follow up with her surgeon Dr. Arnold for additional options. Weightbear as tolerated.
[2024-05-01] MEDS: HYDROCODONE/ACET 5/325 TABLET 1 TAB PO (17:23)
== END 2024-05-01 17:48 | disposition home or self-care (01) ==
LOC: ED 11:40 → AC 15:26
PROVIDERS: Admitting Provider Orthopaedic Surgery Foot and Ankle Surgery; Emergency Provider Emergency Medicine; Referring Provider Emergency Medicine; Visit Provider Orthopaedic Surgery Foot and Ankle Surgery
PROC: (CPT 27266; principal; 2024-05-01 15:45)
DX: T84.021A Dislocation of internal left hip prosthesis, initial encounter (principal)
CPT/HCPCS: 27266; 27265; 36415; 73501; 73502; 80048; 85025; 96374; 96375; 96376; 99152; 99285; G0378; J0330; J1171; J2270; J2704; J3010

== ENCOUNTER → 2024-05-03 11:00 | Outpatient (CLI) | payer OTHER, SELFPAY ==
[2024-02-15 12:56] VITALS: BMI 18.8
== END ==
LOC: WC 11:00
PROVIDERS: Referring Provider Surgery; Visit Provider Physician Assistant
DX: L89.154 Pressure ulcer of sacral region, stage 4 (principal); T81.89XA Other complications of procedures, not elsewhere classified, initial encounter; L98.8 Other specified disorders of the skin and subcutaneous tissue; S31.109A Unspecified open wound of abdominal wall, unspecified quadrant without penetration into peritoneal cavity, initial encounter; L53.9 Erythematous condition, unspecified; M46.28 Osteomyelitis of vertebra, sacral and sacrococcygeal region; E46 Unspecified protein-calorie malnutrition
CPT/HCPCS: 11042; 87070; 87075; 87077; 87147; 87186; 87205; 99214

== ENCOUNTER → 2024-05-10 11:47 | Outpatient (CLI) | payer OTHER, SELFPAY ==
[2024-02-15 12:56] VITALS: BMI 18.8
== END ==
PROVIDERS: Referring Provider Surgery; Visit Provider Physician Assistant
DX: L89.154 Pressure ulcer of sacral region, stage 4 (principal); L53.9 Erythematous condition, unspecified; R21 Rash and other nonspecific skin eruption
CPT/HCPCS: 11042; 99214

== ENCOUNTER → 2024-05-10 14:50 | Outpatient (CLI) | payer OTHER, SELFPAY ==
[2024-02-15 12:56] VITALS: BMI 18.8
[2024-05-10 16:49] LABS: Add Manual Diff / Slide Review NO; Basophils Absolute Auto 0 /uL (0-100); Basophils Percent Auto 0.5 % (0-2); Eosinophils Absolute Auto 200 /uL (0-450); Eosinophils Percent Auto 2.3 % (2-4); Hemoglobin 9.7 g/dL (12.0-16.0); Lymphocytes Absolute Auto 2100 /uL (1100-4500); Lymphocytes Percent Auto 26.5 % (25-40); Mean Corpuscular HGB Conc 32.2 % (30-36); Mean Corpuscular Volume 74.5 fL (80-100); Monocytes Absolute Auto 400 /uL (0-900); Monocytes Percent Auto 5.1 % (3-14); Neutrophils Absolute Auto 5100 /uL (1500-7000); Neutrophils Percent Auto 65.6 % (50-75); Platelet Count 256 X10^3/uL (150-400); Red Blood Cell Count 4.03 X10^6/uL (4.0-5.2); Red Cell Distribution Width 17.2 % (11.6-14.8); White Blood Cell Count 7.8 X10^3/uL (4.5-11.0)
[2024-05-10 17:37] LABS: Alanine Aminotransferase 23 IU/L (<35); Albumin 4.1 g/dL (3.5-5.0); Albumin Globulin Ratio 1.3 (1.0-2.8); Alkaline Phosphatase 73 U/L (38-126); Aspartate Aminotransferase 37 IU/L (14-36); BUN Creatinine Ratio 33.3 (6-22); Bilirubin Total 0.3 mg/dL (0.2-1.3); Blood Urea Nitrogen 23 mg/dL (7-17); Carbon Dioxide 29 mmol/L (22-32); Chloride 103 mmol/L (98-107); Estimated Glomerular Filt Rate > 60 mL/min (>60); Globulin 3.2 g/dL (1.7-4.1); Glucose 98 mg/dL (80-110); HEMOLYSIS < 15 (0-50); Potassium 4.1 mmol/L (3.4-5.1); Sodium 136 mmol/L (137-145); Total Protein 7.3 g/dL (6.3-8.2)
== END ==
LOC: LAB 14:51
PROVIDERS: Referring Provider Physician Assistant; Visit Provider Physician Assistant
DX: Z51.81 Encounter for therapeutic drug level monitoring (principal); A09 Infectious gastroenteritis and colitis, unspecified
CPT/HCPCS: 80053; 85025

== ENCOUNTER → 2024-05-17 11:06 | Outpatient (CLI) | payer OTHER, SELFPAY ==
[2024-02-15 12:56] VITALS: BMI 18.8
== END ==
PROVIDERS: Referring Provider Surgery; Visit Provider Physician Assistant
DX: L89.154 Pressure ulcer of sacral region, stage 4 (principal); L53.9 Erythematous condition, unspecified; R21 Rash and other nonspecific skin eruption
CPT/HCPCS: 11042; 99214

== ENCOUNTER → 2024-05-24 11:04 | Outpatient (CLI) | payer OTHER, SELFPAY ==
[2024-02-15 12:56] VITALS: BMI 18.8
== END ==
PROVIDERS: Referring Provider Surgery; Visit Provider Physician Assistant
DX: L89.154 Pressure ulcer of sacral region, stage 4 (principal); L53.9 Erythematous condition, unspecified; R21 Rash and other nonspecific skin eruption; M46.28 Osteomyelitis of vertebra, sacral and sacrococcygeal region; D64.9 Anemia, unspecified
CPT/HCPCS: 97597

== ENCOUNTER 2024-05-28 10:22 | Day surgery (SDC) | payer OTHER, SELFPAY ==
[2024-02-15 12:56] VITALS: BMI 18.8
[2024-05-24 11:01] VITALS: BMI 18.1
[2024-05-28] VITALS (8 sets, daily range): BP systolic 126–172; BP diastolic 75–106; PULSE 66–77; RESP 12–16; TEMP 36.7–36.8; O2SAT 94–100; BMI 18.1
--- NOTE | 2024-05-28 | PATH_ITS ---
[facility] Accession Number: [id number] No. of containers..02 Tissue . 01 Material submitted: . PART A: body - SACRAL DECUBITS ULCER PART B: sacrum - SACRUM . 01 Diagnosis: A. SACRAL DECUBITUS ULCER: Portions of skin with underlying scar and focal granulation tissue. Negative for ulceration and abscess. . B. SACRUM, EXCISION: Fragments of unremarkable bone and associated dense connective tissue. Negative for osteomyelitis. MRV 05/30/2024 1644 Local . 01 Electronically signed: . Yulia Oscar DO, Pathologist NPI- [id number] . 01 Gross description: . A. Received in formalin with two patient identifiers and sacral decubitus ulcer, are two fragments of skin with attached yellow-grey soft tissue aggregating to 8.4 x 7.9 x 3.4 cm. Sectioning reveals yellow to grey soft tissue and grey unremarkable skin. Stepdown Nurse sections are submitted in A1-A2. B. Received in formalin with two patient identifiers and sacrum, are three irregular grey fragments of bone aggregating to 1.2 x 0.6 x 0.3 cm. Filtered and submitted entirely in B1 following decalcification. ([id number]) /MRV 05/29/2024 1511 Local . 01 Pathologist provided ICD-10: L89.102 . 01 CPT . 868402, 207605, 263680 Specimen Comment: A courtesy copy of this report has been sent to [phone] Performed at: [address] [address], [place], [place] [id number] MD Leonel Corcoran MD Phone: [phone]
--- NOTE | 2024-05-28 10:45 | PM.PREOP ---
Pre-operative Note COVID-19 COVID-19 status: Not tested Interval Note History & Physical reviewed/Exam performed by Physician: Yes Changes to H&P: No ASA Class (for procedural sedation): III
--- NOTE | 2024-05-28 12:29 | SUR.OPER ---
Prone on padded OR bed, head in foam head support, gel chest rolls, gel pad under knees, pillow under lower legs, toes free of pressure, arms secured on padded arm boards at <90 degrees abduction. Safety belt at thigh.
[2024-05-28] MEDS: BUPIVACAINE 0.5% W/ EPI (PF) 10 ML VIAL 30 ML INJ (12:43)
--- NOTE | 2024-05-28 13:35 | P.OP_ITS ---
Operative Date/Time/Diagnoses Date of procedure: 05/28/24 Time of procedure: 13:35 Pre-op diagnosis: Stage IV sacral decubitus ulcer Post-op diagnosis: same Procedure & Clinicians Procedure: Debridement of sacral decubitus ulcer Same procedure as scheduled: Yes Surgeon: Donald Salomon Basket Turner: Dionte Vizcarra Anesthesia Type: General Operative Notes Procedure in detail: The patient is a 69-year-old woman with a chronic sacral decubitus ulcer. She was consented for debridement in the operating room. The patient was brought to the operating room and general endotracheal anesthesia was induced. She was then placed prone on the operating room table. The sacrum was prepped and draped in the usual fashion. A time-out was performed. We started to excise the skin over the wound cavity. We removed as much skin as needed to ensure that there was no tunneling or undermining remaining. The new wound measured 11 cm x 8 cm x 1 cm in depth it extended down to the periosteum of the sacrum. We did remove some sacrum for path and micro. Hemostasis was achieved with cautery. We then applied a snap wound VAC. EBL: 10 mL Specimen: Sacral wound and sacrum Post-operative Condition: stable Disposition: PACU
[2024-05-28] MEDS: OXYCODONE IR 5 MG TABLET PO (13:58)
[2024-05-28] MEDS: KETOROLAC 30 MG/ML VIAL 15 MG IV (14:45)
[2024-05-28] MEDS: LACTATED RINGERS 1,000 ML 42 ML IV (14:58)
== END 2024-05-28 14:53 | disposition home or self-care (01) ==
PROVIDERS: Referring Provider Surgery; Visit Provider Surgery
PROC: (CPT 11044; principal; 2024-05-28 13:30)
DX: L89.154 Pressure ulcer of sacral region, stage 4 (principal); E46 Unspecified protein-calorie malnutrition
CPT/HCPCS: 11044; 11047; 87070; 87075; 87205; J1100; J1171; J1885; J2405; J2704; J3010; J3490

== ENCOUNTER → 2024-05-29 15:15 | Outpatient (CLI) | payer OTHER, SELFPAY ==
[2024-02-15 12:56] VITALS: BMI 18.8
== END ==
PROVIDERS: Referring Provider Surgery; Visit Provider Surgery
DX: L89.154 Pressure ulcer of sacral region, stage 4 (principal); L92.9 Granulomatous disorder of the skin and subcutaneous tissue, unspecified; L53.9 Erythematous condition, unspecified; M46.28 Osteomyelitis of vertebra, sacral and sacrococcygeal region; E46 Unspecified protein-calorie malnutrition
CPT/HCPCS: 17250; 99213

== ENCOUNTER → 2024-05-31 15:46 | Outpatient (CLI) | payer OTHER, SELFPAY ==
[2024-02-15 12:56] VITALS: BMI 18.8
== END ==
LOC: WC 06-03 15:46
PROVIDERS: Referring Provider Surgery; Visit Provider Physician Assistant
DX: L89.154 Pressure ulcer of sacral region, stage 4 (principal); L53.9 Erythematous condition, unspecified; M46.28 Osteomyelitis of vertebra, sacral and sacrococcygeal region; E46 Unspecified protein-calorie malnutrition; D64.9 Anemia, unspecified; M54.50 Low back pain, unspecified
CPT/HCPCS: 97597; 97598; 99215

== ENCOUNTER → 2024-06-03 13:13 | Outpatient (CLI) | payer OTHER, SELFPAY ==
[2024-02-15 12:56] VITALS: BMI 18.8
[2024-06-03 13:31] LABS: Add Manual Diff / Slide Review NO; Basophils Absolute Auto 0 /uL (0-100); Basophils Percent Auto 0.3 % (0-2); Eosinophils Absolute Auto 300 /uL (0-450); Eosinophils Percent Auto 2.9 % (2-4); Hematocrit 28.1 % (36-46); Hemoglobin 9.2 g/dL (12.0-16.0); Lymphocytes Absolute Auto 2000 /uL (1100-4500); Lymphocytes Percent Auto 19.2 % (25-40); Mean Corpuscular HGB Conc 32.8 % (30-36); Mean Corpuscular Hemoglobin 24.2 PG (26-34); Mean Corpuscular Volume 73.8 fL (80-100); Monocytes Absolute Auto 700 /uL (0-900); Monocytes Percent Auto 6.5 % (3-14); Neutrophils Absolute Auto 7300 /uL (1500-7000); Neutrophils Percent Auto 71.1 % (50-75); Platelet Count 295 X10^3/uL (150-400); White Blood Cell Count 10.3 X10^3/uL (4.5-11.0)
[2024-06-03 15:48] LABS: Anisocytosis 2+; Schistocytes 1+
[2024-06-03 15:49] LABS: Poikilocytosis 1+
== END ==
PROVIDERS: Visit Provider Surgery
DX: L89.154 Pressure ulcer of sacral region, stage 4 (principal); L53.9 Erythematous condition, unspecified; M54.50 Low back pain, unspecified
CPT/HCPCS: 85025; 97606

== ENCOUNTER → 2024-06-03 15:40 | Outpatient (CLI) | payer OTHER, SELFPAY ==
[2024-02-15 12:56] VITALS: BMI 18.8
== END ==
PROVIDERS: Referring Provider Surgery; Visit Provider Surgery
DX: L89.154 Pressure ulcer of sacral region, stage 4 (principal); L53.9 Erythematous condition, unspecified; M54.50 Low back pain, unspecified
CPT/HCPCS: 97606

== ENCOUNTER → 2024-06-05 14:55 | Outpatient (CLI) | payer OTHER, SELFPAY ==
[2024-02-15 12:56] VITALS: BMI 18.8
== END ==
LOC: WC 14:59
PROVIDERS: Referring Provider Surgery; Visit Provider Surgery
DX: L89.154 Pressure ulcer of sacral region, stage 4 (principal); R21 Rash and other nonspecific skin eruption
CPT/HCPCS: 97606

== ENCOUNTER → 2024-06-07 10:59 | Outpatient (CLI) | payer OTHER, SELFPAY ==
[2024-02-15 12:56] VITALS: BMI 18.8
== END ==
PROVIDERS: Referring Provider Surgery; Visit Provider Physician Assistant
DX: L89.154 Pressure ulcer of sacral region, stage 4 (principal); M46.28 Osteomyelitis of vertebra, sacral and sacrococcygeal region; E46 Unspecified protein-calorie malnutrition; D64.9 Anemia, unspecified
CPT/HCPCS: 11042; 11045; 97606; 99214

== ENCOUNTER → 2024-06-10 10:25 | Outpatient (CLI) | payer OTHER, SELFPAY ==
[2024-02-15 12:56] VITALS: BMI 18.8
== END ==
PROVIDERS: Referring Provider Surgery; Visit Provider Surgery
DX: L89.154 Pressure ulcer of sacral region, stage 4 (principal); R21 Rash and other nonspecific skin eruption
CPT/HCPCS: 97606

== ENCOUNTER → 2024-06-12 11:01 | Outpatient (CLI) | payer OTHER, SELFPAY ==
[2024-02-15 12:56] VITALS: BMI 18.8
== END ==
PROVIDERS: Referring Provider Surgery; Visit Provider Surgery
DX: L89.154 Pressure ulcer of sacral region, stage 4 (principal); R21 Rash and other nonspecific skin eruption
CPT/HCPCS: 97606

== ENCOUNTER → 2024-06-14 10:38 | Outpatient (CLI) | payer OTHER, SELFPAY ==
[2024-02-15 12:56] VITALS: BMI 18.8
== END ==
PROVIDERS: Referring Provider Surgery; Visit Provider Surgery
DX: L89.154 Pressure ulcer of sacral region, stage 4 (principal); R23.4 Changes in skin texture; R21 Rash and other nonspecific skin eruption; E46 Unspecified protein-calorie malnutrition; D64.9 Anemia, unspecified
CPT/HCPCS: 11042; 11045; 97605; 99214

== ENCOUNTER → 2024-06-17 11:34 | Outpatient (CLI) | payer OTHER, SELFPAY ==
[2024-02-15 12:56] VITALS: BMI 18.8
== END ==
LOC: WC 11:35
PROVIDERS: Referring Provider Surgery; Visit Provider Surgery
DX: L89.154 Pressure ulcer of sacral region, stage 4 (principal); R21 Rash and other nonspecific skin eruption
CPT/HCPCS: 97605

== ENCOUNTER → 2024-06-19 11:04 | Outpatient (CLI) | payer OTHER, SELFPAY ==
[2024-02-15 12:56] VITALS: BMI 18.8
== END ==
LOC: WC 11:05
PROVIDERS: PCP Surgery; Referring Provider Surgery; Visit Provider Surgery
DX: L89.154 Pressure ulcer of sacral region, stage 4 (principal); L53.8 Other specified erythematous conditions; R21 Rash and other nonspecific skin eruption
CPT/HCPCS: 97605

== ENCOUNTER → 2024-06-21 09:30 | Outpatient (CLI) | payer OTHER, SELFPAY ==
[2024-02-15 12:56] VITALS: BMI 18.8
== END ==
LOC: WC 09:31
PROVIDERS: PCP Surgery; Referring Provider Surgery; Visit Provider Physician Assistant
DX: L89.154 Pressure ulcer of sacral region, stage 4 (principal); M46.28 Osteomyelitis of vertebra, sacral and sacrococcygeal region; E46 Unspecified protein-calorie malnutrition; D64.9 Anemia, unspecified; R21 Rash and other nonspecific skin eruption
CPT/HCPCS: 11042; 11045; 97605; 99213

== ENCOUNTER → 2024-06-24 14:59 | Outpatient (CLI) | payer OTHER, SELFPAY ==
[2024-02-15 12:56] VITALS: BMI 18.8
== END ==
PROVIDERS: PCP Surgery; Referring Provider Surgery; Visit Provider Surgery
DX: L89.154 Pressure ulcer of sacral region, stage 4 (principal); R21 Rash and other nonspecific skin eruption
CPT/HCPCS: 97605

== ENCOUNTER → 2024-06-26 10:14 | Outpatient (CLI) | payer OTHER, SELFPAY ==
[2024-02-15 12:56] VITALS: BMI 18.8
== END ==
PROVIDERS: PCP Surgery; Referring Provider Surgery; Visit Provider Surgery
DX: L89.154 Pressure ulcer of sacral region, stage 4 (principal); R21 Rash and other nonspecific skin eruption
CPT/HCPCS: 97605

== ENCOUNTER → 2024-06-28 10:21 | Outpatient (CLI) | payer OTHER, SELFPAY ==
[2024-02-15 12:56] VITALS: BMI 18.8
== END ==
PROVIDERS: PCP Surgery; Referring Provider Surgery; Visit Provider Physician Assistant
DX: L89.154 Pressure ulcer of sacral region, stage 4 (principal); M46.28 Osteomyelitis of vertebra, sacral and sacrococcygeal region; E46 Unspecified protein-calorie malnutrition; D64.9 Anemia, unspecified
CPT/HCPCS: 11042; 11045; 97605; 99213

== ENCOUNTER → 2024-07-01 10:21 | Outpatient (CLI) | payer OTHER, SELFPAY ==
[2024-02-15 12:56] VITALS: BMI 18.8
== END ==
LOC: WC 10:22
PROVIDERS: PCP Surgery; Referring Provider Surgery; Visit Provider Surgery
DX: L89.154 Pressure ulcer of sacral region, stage 4 (principal)
CPT/HCPCS: 97605

== ENCOUNTER → 2024-07-03 10:44 | Outpatient (CLI) | payer OTHER, SELFPAY ==
[2024-02-15 12:56] VITALS: BMI 18.8
== END ==
LOC: WC 10:45
PROVIDERS: PCP Surgery; Referring Provider Surgery; Visit Provider Surgery
DX: L89.154 Pressure ulcer of sacral region, stage 4 (principal)
CPT/HCPCS: 97605

== ENCOUNTER → 2024-07-05 09:14 | Outpatient (CLI) | payer OTHER, SELFPAY ==
[2024-02-15 12:56] VITALS: BMI 18.8
== END ==
LOC: WC 09:14
PROVIDERS: PCP Surgery; Referring Provider Surgery; Visit Provider Physician Assistant
DX: L89.154 Pressure ulcer of sacral region, stage 4 (principal); E46 Unspecified protein-calorie malnutrition; D64.9 Anemia, unspecified
CPT/HCPCS: 11042; 11045; 97605; 99213

== ENCOUNTER → 2024-07-08 10:38 | Outpatient (CLI) | payer OTHER, SELFPAY ==
[2024-02-15 12:56] VITALS: BMI 18.8
== END ==
LOC: WC 10:41
PROVIDERS: PCP Surgery; Referring Provider Surgery; Visit Provider Surgery
DX: L89.154 Pressure ulcer of sacral region, stage 4 (principal); R21 Rash and other nonspecific skin eruption
CPT/HCPCS: 97605

== ENCOUNTER → 2024-07-10 10:30 | Outpatient (CLI) | payer OTHER, SELFPAY ==
[2024-02-15 12:56] VITALS: BMI 18.8
== END ==
LOC: WC 10:32
PROVIDERS: PCP Surgery; Referring Provider Surgery; Visit Provider Surgery
DX: L89.154 Pressure ulcer of sacral region, stage 4 (principal); R21 Rash and other nonspecific skin eruption
CPT/HCPCS: 97605

== ENCOUNTER → 2024-07-12 10:45 | Outpatient (CLI) | payer OTHER, SELFPAY ==
[2024-02-15 12:56] VITALS: BMI 18.8
== END ==
PROVIDERS: PCP Surgery; Referring Provider Surgery; Visit Provider Surgery
DX: L89.154 Pressure ulcer of sacral region, stage 4 (principal); D64.9 Anemia, unspecified; R21 Rash and other nonspecific skin eruption
CPT/HCPCS: 11042; 11045; 97605; 99213

== ENCOUNTER → 2024-07-15 10:34 | Outpatient (CLI) | payer OTHER, SELFPAY ==
[2024-02-15 12:56] VITALS: BMI 18.8
== END ==
LOC: WC 10:34
PROVIDERS: PCP Surgery; Referring Provider Surgery; Visit Provider Surgery
DX: L89.154 Pressure ulcer of sacral region, stage 4 (principal)
CPT/HCPCS: 97605

== ENCOUNTER → 2024-07-17 09:51 | Outpatient (CLI) | payer OTHER, SELFPAY ==
[2024-02-15 12:56] VITALS: BMI 18.8
== END ==
LOC: WC 09:52
PROVIDERS: PCP Surgery; Referring Provider Surgery; Visit Provider Surgery
DX: L89.154 Pressure ulcer of sacral region, stage 4 (principal)
CPT/HCPCS: 97605

== ENCOUNTER → 2024-07-19 09:46 | Outpatient (CLI) | payer OTHER, SELFPAY ==
[2024-02-15 12:56] VITALS: BMI 18.8
--- NOTE | 2024-07-19 | OV.WND_ITS ---
PROGRESS NOTE DETAILS PATIENT NAME: CHERRY KENT DATE: PATIENT NUMBER: [id number] CLINICIAN: PARISH CHRISTIANSON R.N. PATIENT DATE OF : 1955 PHYSICIAN / CLIENT SERVICES ADMINISTRATOR: CINTHIA COLLINS PA-C PATIENT SUBJECTIVE CHIEF COMPLAINT THIS INFORMATION WAS OBTAINED FROM THE PATIENT. WOUND. GENERAL NOTES PRESSURE ULCER ON COCCYX, VAC IN PLACE. ALLERGIES NO KNOWN ALLERGIES HPI THIS INFORMATION WAS OBTAINED FROM THE PATIENT. 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 THE PATIENT UNDERWENT SURGICAL DEBRIDEMENT AND BONE BIOPSY ON MAY 28, [address] WILLIAMSON. PATHOLOGY REPORT WAS NEGATIVE FOR OSTEOMYELITIS. PREVIOUS CULTURES GREW PSEUDOMONAS AND MRSA. THE PATIENT HAS BEEN TREATED WITH LEVOFLOXACIN AND LINEZOLID IN HIS NOT CURRENTLY ON ANY ANTIBIOTIC THERAPY. SHE IS CURRENTLY RECEIVING NEGATIVE PRESSURE WOUND THERAPY WITH COLLAGEN. ON TODAY'S VISIT THE PATIENT REPORTS SHE HAS A HEAD COLD. SHE HAS NOT HAD ANY FEVER OR CHILLS. HER WEIGHT HAS DECREASED AND SHE REPORTS SHE HAS BEEN EATING LESS DUE TO HER COLD. THE PATIENT IS ALSO ON IRON THERAPY FOR ANEMIA BUT CONTINUES TO DECLINE TO ESTABLISH CARE WITH A PRIMARY CARE PHYSICIAN TO FOLLOW UP ON THIS. ON EXAM TODAY THE ULCER IS CONTINUING TO IMPROVE AND HAS GOOD GRANULATION TISSUE. LABS 05/28/23: PATHOLOGY NEGATIVE OSTEO, ULCERATION AND ABSCESS 05/10/24: WBC 7.8, HEMOGLOBIN 9.7, HCT 30.0, P LT 256, ELECTROLYTES UNREMARKABLE, GFR GREATER THAN 60, LFTS NORMAL 05/03/24: CULTURE MRSA, RX LINEZOLID WITH ID 03/18/24: PREALBUMIN 14.0 03/15/24: PELVIS MRI WITH OSTEOMYELITIS INVOLVING THE CX3-4 VERTEBRAE WITH OVERLYING CELLULITIS. NO DRAINABLE ABSCESS. 2. SMALL VOLUME PELVIC ASCITES. 3. SUBOPTIMAL EVALUATION OF THE RIGHT INGUINAL PATHOLOGY IDENTIFIED ON RECENT EXAMINATIONS. 4. RIGHT GLUTEAL SUBCUTANEOUS 4.0 CM SEBACEOUS CYST. 03/08/24: SACRAL XRAY SUSPICION FOR SACROCOCCYGEAL DECUBITUS ULCER WITH POSSIBLE OSTEO. MRI PENDING. 03/08/24: CULTURE POSITIVE FOR PSEUDOMONAS, STAPH, YEAST 02/20/24: WBC 12.9, HGB 9.2, HCT 25.9, 02/18/24: NA 130, CR 0.36, GFR >60, CA 8.1 MEDICAL HISTORY THIS INFORMATION WAS OBTAINED FROM THE PATIENT. ADDITIONAL INFORMATION DOES PATIENT HAVE A HISTORY OF CANCER? YES? COMPLETE ALL QUESTIONS.: NO CHERRY KENT [id number] 1955 SURGICAL HISTORY THIS INFORMATION WAS OBTAINED FROM THE PATIENT. PATIENT HAS A SURGICAL HISTORY OF: CLOSED LEFT HIP FRACTURE- (2019) FAILURE OF LEFT TOTAL HIP ARTHROPLASTY- (2019) INGUINAL HERNIA REPAIR- 02/15/2024 IANDD OF LEFT GROIN FISTULA- 02/15/2024 IANDD OF SACRAL ULCER- 05/28/2024 OBJECTIVE VITALS HEIGHT/LENGTH: 61 IN (154.94 CM), WEIGHT: 96.6 LBS (43.91 KGS), BMI: 18.3, TEMPERATURE: 98.6 ?F (37 ?C), PULSE: 78 BPM, RESPIRATORY RATE: 16 BREATHS/MIN, BLOOD PRESSURE: 168/93 MMHG, PULSE OXIMETRY: 97 %. PHYSICAL EXAM CONSTITUTIONAL: GENERALIZED WEAKNESS. IN NO APPARENT DISTRESS. GOOD ATTENTION TO HYGIENE AND BODY HABITS. ALERT AND ORIENTED X 3. WELL NOURISHED. VITAL SIGNS REVIEWED AND NOTED. BLOOD PRESSURE NORMAL. PULSE RATE AND RHYTHM REGULAR. AFEBRILE. MALNOURISHED. WELL DEVELOPED, WELL NOURISHED, AND IN NO ACUTE DISTRESS. ALERT AND ORIENTED X3. AMBULATES AND IS ABLE TO CHANGE POSITION WITHOUT ASSISTANCE. ALERT AND ORIENTED X 3. RESPIRATORY: EVEN RESPIRATIONS WITHOUT USE OF ACCESSORY MUSCLES. NO INTERCOASTAL RETRACTIONS NOTED. EVEN AND NON LABORED RESPIRATION. CARDIOVASCULAR: SEE LOWER EXTREMITY ASSESSMENT WHEN APPLICABLE. THERE IS NO PERIPHERAL EDEMA, CYANOSIS OR PALLOR. EXTREMITIES ARE WARM AND WELL PERFUSED. CAPILLARY REFILL IS LESS THAN 2 SECONDS. INTEGUMENTARY (HAIR, SKIN): SEE WOUND DESCRIPTION. NEUROLOGICAL: SENSATION: SYMMETRIC FUNCTION BY INFORMAL OBSERVATION. PSYCHIATRIC: ORIENTATION TO TIME, PLACE AND PERSON: NORMAL AFFECT WITH NORMAL THOUGHT PATTERN. MOOD AND AFFECT: NORMAL AFFECT WITH NORMAL THOUGHT PATTERN. WOUND ASSESSMENT(S) WOUND #2 COCCYX IS A CHRONIC STAGE 4 PRESSURE INJURY PRESSURE ULCER ACQUIRED ON 02/15/2024 AND HAS RECEIVED A STATUS OF NOT HEALED. INITIAL WOUND ENCOUNTER MEASUREMENTS ARE 4.1CM LENGTH X 3.8CM WIDTH X 0.2 CM DEPTH, WITH AN AREA OF 15.58 SQ CM AND A VOLUME OF 3.116 CUBIC CM.INITIAL WOUND ENCOUNTER PREVIOUS MEASUREMENTS FROM 07/17/2024 ARE 4.8CM LENGTH X 5CM WIDTH X 0.2CM DEPTH, WITH AN AREA OF 24 SQ CM AND A VOLUME OF 4.8 CUBIC CM. ADIPOSE IS EXPOSED. HYPERGRANULATION WAS NOTED. NO TUNNELING HAS BEEN NOTED. NO SINUS TRACT HAS BEEN NOTED. NO UNDERMINING HAS BEEN NOTED. THERE IS A MODERATE AMOUNT OF SEROSANGUINEOUS DRAINAGE NOTED WHICH HAS NO ODOR. THE PATIENT REPORTS A WOUND PAIN OF LEVEL 1/10. THE WOUND MARGIN IS ATTACHED WOUND BED HAS YES, BRIGHT RED, PINK, FIRM, GRANULATION, YES SLOUGH, NO ESCHAR, YES EPITHELIALIZATION. THE PERIWOUND SKIN DID NOT EXHIBIT BRAWNY INDURATION, EDEMA, EXCORIATION, INDURATION, CALLUS, CREPITUS, FLUCTUANCE, RASH, MACERATION, ATROPHIE CARLA, CYANOSIS, ECCHYMOSIS, ERYTHEMA, HEMOSIDEROSIS, PALLOR AND RUBOR. THE PERIWOUND SKIN WAS NOT FRIABLE, DRY/SCALY AND MOIST. THE TEMPERATURE OF THE PERIWOUND SKIN IS WNL. PERIWOUND SKIN DOES NOT EXHIBIT SIGNS OR SYMPTOMS OF INFECTION. LOCAL PULSE IS N/A. ADDITIONAL INFORMATION OTHER DEVITALIZED TISSUE PRESENT: CHERRY RUSSELL [id number] 1955 ASSESSMENT ACTIVE PROBLEMS ICD-10 (ENCOUNTER DIAGNOSIS) L89.154 - PRESSURE ULCER OF SACRAL REGION, STAGE 4 (ENCOUNTER DIAGNOSIS) E46 - UNSPECIFIED PROTEIN-CALORIE MALNUTRITION (ENCOUNTER DIAGNOSIS) D64.9 - ANEMIA, UNSPECIFIED PROCEDURES WOUND #2 WOUND #2 (PRESSURE ULCER) IS LOCATED ON THE COCCYX. A SKIN/SUBCUTANEOUS TISSUE LEVEL SURGICAL DEBRIDEMENT WITH A TOTAL AREA DEBRIDED OF 15.58 SQ CM. WAS PERFORMED BY CINTHIA COLLINS PA-C. SUBCUTANEOUS WAS REMOVED ALONG WITH DEVITALIZED TISSUE: BIOFILM, EXUDATE AND SLOUGH. THE FOLLOWING INSTRUMENT(S) WERE USED: CURETTE. PAIN CONTROL WAS ACHIEVED USING EMLA LIDOCAINE/PRILOCAINE 2.5%/2.5%. A TIME OUT WAS CONDUCTED PRIOR TO THE START OF THE PROCEDURE. A MINIMAL AMOUNT OF BLEEDING WAS CONTROLLED WITH PRESSURE. THE PROCEDURE WAS TOLERATED WELL WITH A PAIN LEVEL OF 0 THROUGHOUT AND A PAIN LEVEL OF 0 FOLLOWING THE PROCEDURE. POST DEBRIDEMENT MEASUREMENTS: 4.1CM LENGTH X 3.8CM WIDTH X 0.3CM DEPTH; WITH AN AREA OF 15.58 SQ CM AND A VOLUME OF 4.674 CUBIC CM. ADDITIONAL INFORMATION MUSCLE FASCIA OR BONE REMOVED AND SENT TO PATHOLOGY?: NO NEGATIVE PRESSURE WOUND THERAPY MAINTENANCE PERFORMED FOR: WOUND #2 COCCYX PERFORMED BY: PARISH CHRISTIANSON RN TYPE: NANCY ? ACTIV.A.C. COVERAGE SIZE (SQ CM): 15.58 PRESSURE TYPE: CONSTANT PRESSURE SETTIN MMHG SPONGE TYPE: BLACK SPONGE SIZE: MEDIUM TOTAL NUMBER OF SPONGES REMOVED PRIOR TO THE APPLICATION: 1 TOTAL NUMBER OF SPONGES USED FOR THIS APPLICATION: 1 DATE INITIATED: 05/29/2024 DAILY HOURS OF THERAPY: 24 DRESSING CHANGE: YES CANISTER CHANGE: YES CANISTER EXUDATE VOLUME (CC): 40 DAYS ON NPWT: 52 GENERAL NOTES CRUSTING TECHNIQUE TO PERIWOUND USING NYSTATIN POWDER, SKIN PREP. DUODERM TO COVER CRUSTING. DERMATAC USED OVER WOUND SITE, THEN BRIDGED UP TO LEFT HIP AVOIDING PUSTULES. PLAN WOUND ORDERS: CHERRY KENT [id number] 1955 WOUND #2 COCCYX HAND HYGIENE HAND HYGIENE - WASH HANDS BEFORE AND AFTER WOUND CARE. CALL THE WOUND CENTER AT [phone] IF YOU HAVE SIGNS OR SYMPTOMS OF INFECTION, FEVER CHILLS OR SHAKES, INCREASED DRAINAGE, INCREASED ODOR OR UNUSUAL REDNESS. AFTER WOUND CENTER HOURS PLEASE NOTIFY YOUR PCP OR GO TO THE EMERGENCY ROOM. CLEANSER APPLY HYPOCHLOROUS ACID (VASHE OR SIMILAR) SOAKED 4X4 GAUZE TO WOUND BED FOR 5- 10 MINUTES AFTER PROVIDER HAS COMPLETED WOUND EXAM. REMOVE GAUZE AND DRESS WOUND ACCORDING TO DRESSING ORDERS. MAY SHOWER, LEAVE WOUND DRESSING INTACT. COVER WOUND DRESSING WITH A WATERPROOF BARRIER. KEEP DRESSING DRY. NO BATHS PLEASE. PROCEDURE / ANESTHETIC 4% TOPICAL LIDOCAINE TO WOUND BED PRIOR TO PROCEDURE, IN CLINIC ONLY. DRESSING ORDERS APPLY DRESSING(S) AND SECURE WITH: - COLLAGEN MOISTENED WITH NORMAL SALINE OR DISTILLED WATER, APPLIED TO BASE OF WOUND. OTHER ORDER: - NYSTATIN/SKIN PREP CRUSTING TECHNIQUE TO IKE-WOUND RASH. DUODERM TO IKE-WOUND. OTHER WOUND DRESSING ORDERS NPWT MAINTENANCE. - [employer] ACTIVAC RUNNING AT 125 MMHG CONTINUOUS PRESSURE. BLACK FOAM TO BASE, BRIDGED UP TO LEFT HIP. DERMATAC DRAPE USED OVER WOUND. DRESSING CHANGE FREQUENCY LEAVE DRESSING INTACT UNTIL YOUR NEXT WOUND CENTER APPOINTMENT. KEEP DRY. IF DRESSING BECOMES SOILED OR WET CONTACT THE WOUND CENTER AT [phone]. OFF-LOADING / PRESSURE RELIEF SEAT LIFTS OR SHIFT POSITION IN CHAIR EVERY 15 MINUTES. TURN EVERY 2 HOURS. AVOID POSITION DIRECTING PRESSURE TO WOUND SITE. LIMIT SIDE LYING TO 30 DEGREE TILT. LIMIT HOB ELEVATION TO 30 DEGREES IN BED. OTHER ORDER: - ROHO CUSHION ON ALL SEATING SURFACES. AVOID PRESSURE OVER WOUND. ADDITIONAL ORDERS: DIETARY INCREASE THE PROTEIN IN YOUR DIET. - AIDS IN WOUND HEALING. OTHER NUTRITIONAL SUPPLEMENT: - IZAIAH OR ENSURE MAX. AIM FOR 30 GRAMS ADDITIONAL PROTEIN BETWEEN MEALS. FOLLOW-UP APPOINTMENTS RETURN APPOINTMENT 1 WEEK - [place]. RETURN FOR NURSE VISIT ON DATE NOTED BELOW FOR WOUND VAC CHANGE WITH MECHANICAL DEBRIDEMENT NECESSARY ORDERED DURING TODAY'S VISIT. COMPLETE FOR DIAGNOSIS OF: - PRESSURE ULCER. NURSE VISITS ON MONDAYS AND WEDNESDAYS. SCRIBING ATTESTATION I ATTEST, THE NURSE, THAT I SCRIBED THESE ORDERS FOR THE WOUND CARE PROVIDER. PROVIDER REVIEW AND ATTESTATION: REVIEWED AND EVALUATED LABS. REVIEWED HOSPITAL RECORDS. DISCUSSED THE PLAN OF CARE @ BEDSIDE WITH - PATIENT AND I AGREE AND ATTEST TO THE ABOVE INFORMATION PROVIDED FROM OTHER LICENSED PROFESSIONALS. ANCILLARY SERVICES: LABORATORY: OTHER LABS - PLEASE HAVE LABS COMPLETED TODAY, ORDERS ARE ALREADY PLACED FOR YOU. PLAN OF CARE: 01. ENSURE/ESTABLISH OPTIMAL BLOOD FLOW : - REVIEWED, NOT APPLICABLE 02. ASSESS FOR/TREAT INFECTION : - EVALUATE FOR SIGNS AND SYMPTOMS OF INFECTION AND DOCUMENT FINDINGS. STATUS: CONTINUED DATE: 07/12/2024 03. DEBRIDE WEEKLY OR MORE OFTEN PRN : - EVALUATE PATIENT IN CENTER WEEKLY TO ASSESS WOUND BED AND MARGINS FOR NEED FOR DEBRIDEMENT. CHERRY KENT [id number] 1955 STATUS: CONTINUED DATE: 07/12/2024 - DEBRIDEMENT BY ANY METHOD TO REMOVE DEVITALIZED/NECROTIC TISSUE TO PROMOTE HEALING AND PREVENT FURTHER COMPLICATIONS. GOAL IS TO STIMULATE AND/OR MAINTAIN ACUTE PHASE OF WOUND HEALING BY REDUCING BACTERIAL BURDEN AND DEVITALIZED/NON-VIABLE TISSUE. STATUS: CONTINUED DATE: 07/12/2024 04. OPTIMIZE GLUCOSE CONTROL AND NUTRITION : - ORDER/REVIEW PERTINENT LABS TO EVALUATE RENAL FUNCTION, GLUCOSE CONTROL, AND NUTRITIONAL STATUS. STATUS: CONTINUED DATE: 07/12/2024 05. OFFLOADING PLAN : - REVIEWED, NOT APPLICABLE 06. OPTIMIZE HOST FACTORS: - ASSESS AND REVIEW PATIENT HISTORY FOR WOUND ETIOLOGY, CO-MORBID CONDITIONS, MEDICATION REGIME, AND SMOKING HISTORY. STATUS: CONTINUED DATE: 07/12/2024 - ASSESS LIFESTYLE FACTORS SUCH SMOKING, ALCOHOL/DRUG ABUSE, EATING HABITS/MALNUTRITION AND ACTIVITY LEVEL. STATUS: CONTINUED DATE: 07/12/2024 07. DRESSING SELECTION : - EVALUATE FOR DRESSING-RELATED FACTORS, SUCH AVAILABILITY, WEAR TIME, ADAPTABILITY AND USE TO BETTER OPTIMIZE WOUND HEALING AND PATIENT COMPLIANCE. STATUS: CONTINUED DATE: 07/12/2024 - EDUCATE THE PATIENT/FAMILY/CAREGIVER TO MONITOR DRESSING DAILY. CHANGE DRESSING ONLY NEEDED BUT NEVER LESS FREQUENTLY THAN WEEKLY SO THAT WOUND BED CAN BE REASSESSED. STATUS: CONTINUED DATE: 07/12/2024 08. ADVANCED MODALITIES : - RE-EVALUATE PLAN OF CARE IF NO EVIDENCE OF HEALING (40% IN 4 WEEKS). STATUS: CONTINUED DATE: 07/12/2024 09. FALL PREVENTION : - COMPLETE FALL ASSESSMENT. STATUS: COMPLETED DATE: 02/23/2024 10. PAIN MANAGEMENT : - COMPLETE PAIN ASSESSMENT STATUS: CONTINUED DATE: 07/12/2024 - INSTRUCT THE PATIENT TO CALL ?TIME-OUT? IF PAIN IS TOO INTENSE DURING PROCEDURE. STATUS: CONTINUED DATE: 07/12/2024 11. MEASURABLE GOALS FOR WOUND HEALING AND/OR HYPERBARIC OXYGEN THERAPY : - DECREASE WOUND DIMENSIONS STATUS: CONTINUED DATE: 07/12/2024 - WOUND CLOSURE STATUS: CONTINUED DATE: 07/12/2024 12. DURATION/FREQUENCY OF WOUND CARE VISITS : - 1X WEEKLY FOR 30 DAYS STATUS: CONTINUED DATE: 07/12/2024 WOUND IS IMPROVING - CONTINUE WOUND VAC WITH COLLAGEN NYSTATIN SKIN PREP TO PERIWOUND LABS TO F/U ON ANEMIA, MONITOR CHERRY KENT [id number] 1955 ELECTRONIC SIGNATURE(S) SIGNED BY: DATE: CINTHIA COLLINS PA-C 07/19/2024 16:13:09 (PT) ENTERED BY: CINTHIA COLLINS PA-C ON 07/19/2024 16:12:55 (PT) CHERRY KENT [id number] 1955
== END ==
PROVIDERS: PCP Surgery; Referring Provider Surgery; Visit Provider Surgery
DX: L89.154 Pressure ulcer of sacral region, stage 4 (principal); E46 Unspecified protein-calorie malnutrition; D64.9 Anemia, unspecified
CPT/HCPCS: 11042; 97605; 99214

== ENCOUNTER → 2024-07-22 09:01 | Outpatient (CLI) | payer OTHER, SELFPAY ==
[2024-02-15 12:56] VITALS: BMI 18.8
== END ==
PROVIDERS: PCP Surgery; Referring Provider Surgery; Visit Provider Surgery
DX: L89.154 Pressure ulcer of sacral region, stage 4 (principal); R21 Rash and other nonspecific skin eruption
CPT/HCPCS: 97605

== ENCOUNTER → 2024-07-24 09:45 | Outpatient (CLI) | payer OTHER, MEDICARE, SELFPAY ==
[2024-02-15 12:56] VITALS: BMI 18.8
== END ==
PROVIDERS: PCP Surgery; Referring Provider Surgery; Visit Provider Surgery
DX: L89.154 Pressure ulcer of sacral region, stage 4 (principal); R21 Rash and other nonspecific skin eruption
CPT/HCPCS: 97605

== ENCOUNTER → 2024-07-26 09:26 | Outpatient (CLI) | payer OTHER, MEDICARE, SELFPAY ==
[2024-02-15 12:56] VITALS: BMI 18.8
--- NOTE | 2024-07-26 | OV.WND_ITS ---
PROGRESS NOTE DETAILS PATIENT NAME: CHERRY KENT DATE: PATIENT NUMBER: [id number] CLINICIAN: PARISH CHRISTIANSON R.N. PATIENT DATE OF : 1955 PHYSICIAN / [employer] STORE MANAGER: CINTHIA COLLINS PA-C PATIENT SUBJECTIVE CHIEF COMPLAINT THIS INFORMATION WAS OBTAINED FROM THE PATIENT. NO CONCERNS. GENERAL NOTES PRESSURE ULCER ON COCCYX, VAC IN PLACE. ALLERGIES NO KNOWN ALLERGIES HPI THIS INFORMATION WAS OBTAINED FROM THE PATIENT. 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 THE PATIENT UNDERWENT SURGICAL DEBRIDEMENT AND BONE BIOPSY ON MAY 28, [address] WILLIAMSON. PATHOLOGY REPORT WAS NEGATIVE FOR OSTEOMYELITIS. PREVIOUS CULTURES GREW PSEUDOMONAS AND MRSA. THE PATIENT HAS BEEN TREATED WITH LEVOFLOXACIN AND LINEZOLID IN HIS NOT CURRENTLY ON ANY ANTIBIOTIC THERAPY. SHE IS CURRENTLY RECEIVING NEGATIVE PRESSURE WOUND THERAPY WITH COLLAGEN. ON TODAY'S VISIT THE WOUND CONTINUES TO SHOW IMPROVEMENT. THERE IS SOME IRRITATION IN THE PERIWOUND BUT NO SIGN OF INFECTION. SHE HAS NOT HAD ANY FEVER OR CHILLS. THE PATIENT IS ALSO ON IRON THERAPY FOR ANEMIA BUT CONTINUES TO DECLINE TO ESTABLISH CARE WITH A PRIMARY CARE PHYSICIAN TO FOLLOW UP ON THIS. LABS 05/28/23: PATHOLOGY NEGATIVE OSTEO, ULCERATION AND ABSCESS 05/10/24: WBC 7.8, HEMOGLOBIN 9.7, HCT 30.0, P LT 256, ELECTROLYTES UNREMARKABLE, GFR GREATER THAN 60, LFTS NORMAL 05/03/24: CULTURE MRSA, RX LINEZOLID WITH ID 03/18/24: PREALBUMIN 14.0 03/15/24: PELVIS MRI WITH OSTEOMYELITIS INVOLVING THE CX3-4 VERTEBRAE WITH OVERLYING CELLULITIS. NO DRAINABLE ABSCESS. 2. SMALL VOLUME PELVIC ASCITES. 3. SUBOPTIMAL EVALUATION OF THE RIGHT INGUINAL PATHOLOGY IDENTIFIED ON RECENT EXAMINATIONS. 4. RIGHT GLUTEAL SUBCUTANEOUS 4.0 CM SEBACEOUS CYST. 03/08/24: SACRAL XRAY SUSPICION FOR SACROCOCCYGEAL DECUBITUS ULCER WITH POSSIBLE OSTEO. MRI PENDING. 03/08/24: CULTURE POSITIVE FOR PSEUDOMONAS, STAPH, YEAST 02/20/24: WBC 12.9, HGB 9.2, HCT 25.9, 02/18/24: NA 130, CR 0.36, GFR >60, CA 8.1 MEDICAL HISTORY THIS INFORMATION WAS OBTAINED FROM THE PATIENT. ADDITIONAL INFORMATION DOES PATIENT HAVE A HISTORY OF CANCER? YES? COMPLETE ALL QUESTIONS.: NO CHERRY KENT [id number] 1955 SURGICAL HISTORY THIS INFORMATION WAS OBTAINED FROM THE PATIENT. PATIENT HAS A SURGICAL HISTORY OF: CLOSED LEFT HIP FRACTURE- (2019) FAILURE OF LEFT TOTAL HIP ARTHROPLASTY- (2019) INGUINAL HERNIA REPAIR- 02/15/2024 IANDD OF LEFT GROIN FISTULA- 02/15/2024 IANDD OF SACRAL ULCER- 05/28/2024 OBJECTIVE VITALS HEIGHT/LENGTH: 61 IN (154.94 CM), WEIGHT: 98 LBS (44.55 KGS), BMI: 18.5, TEMPERATURE: 98.8 ?F (37.11 ?C), PULSE: 75 BPM, RESPIRATORY RATE: 16 BREATHS/MIN, BLOOD PRESSURE: 161/91 MMHG, PULSE OXIMETRY: 96 %. PHYSICAL EXAM CONSTITUTIONAL: GENERALIZED WEAKNESS. IN NO APPARENT DISTRESS. GOOD ATTENTION TO HYGIENE AND BODY HABITS. ALERT AND ORIENTED X 3. WELL NOURISHED. VITAL SIGNS REVIEWED AND NOTED. HYPERTENSIVE. PULSE RATE AND RHYTHM REGULAR. AFEBRILE. MALNOURISHED. WELL DEVELOPED, WELL NOURISHED, AND IN NO ACUTE DISTRESS. ALERT AND ORIENTED X3. AMBULATES AND IS ABLE TO CHANGE POSITION WITHOUT ASSISTANCE. ALERT AND ORIENTED X 3. RESPIRATORY: EVEN RESPIRATIONS WITHOUT USE OF ACCESSORY MUSCLES. NO INTERCOASTAL RETRACTIONS NOTED. EVEN AND NON LABORED RESPIRATION. CARDIOVASCULAR: SEE LOWER EXTREMITY ASSESSMENT WHEN APPLICABLE. THERE IS NO PERIPHERAL EDEMA, CYANOSIS OR PALLOR. EXTREMITIES ARE WARM AND WELL PERFUSED. CAPILLARY REFILL IS LESS THAN 2 SECONDS. INTEGUMENTARY (HAIR, SKIN): SEE WOUND DESCRIPTION. NEUROLOGICAL: SENSATION: SYMMETRIC FUNCTION BY INFORMAL OBSERVATION. PSYCHIATRIC: ORIENTATION TO TIME, PLACE AND PERSON: NORMAL AFFECT WITH NORMAL THOUGHT PATTERN. MOOD AND AFFECT: NORMAL AFFECT WITH NORMAL THOUGHT PATTERN. WOUND ASSESSMENT(S) WOUND #2 COCCYX IS A CHRONIC STAGE 4 PRESSURE INJURY PRESSURE ULCER ACQUIRED ON 02/15/2024 AND HAS RECEIVED A STATUS OF NOT HEALED. INITIAL WOUND ENCOUNTER MEASUREMENTS ARE 3.7CM LENGTH X 3.5CM WIDTH X 0.3 CM DEPTH, WITH AN AREA OF 12.95 SQ CM AND A VOLUME OF 3.885 CUBIC CM.INITIAL WOUND ENCOUNTER PREVIOUS MEASUREMENTS FROM 07/24/2024 ARE 4.1CM LENGTH X 3.8CM WIDTH X 0.2CM DEPTH, WITH AN AREA OF 15.58 SQ CM AND A VOLUME OF 3.116 CUBIC CM. ADIPOSE IS EXPOSED. HYPERGRANULATION WAS NOTED. NO TUNNELING HAS BEEN NOTED. NO SINUS TRACT HAS BEEN NOTED. NO UNDERMINING HAS BEEN NOTED. THERE IS A MODERATE AMOUNT OF SEROSANGUINEOUS DRAINAGE NOTED WHICH HAS NO ODOR. THE PATIENT REPORTS A WOUND PAIN OF LEVEL 1/10. THE WOUND MARGIN IS ATTACHED WOUND BED HAS YES, BRIGHT RED, PINK, FIRM, GRANULATION, YES SLOUGH, NO ESCHAR, YES EPITHELIALIZATION. THE PERIWOUND SKIN EXHIBITED RASH. THE PERIWOUND SKIN DID NOT EXHIBIT BRAWNY INDURATION, EDEMA, EXCORIATION, INDURATION, CALLUS, CREPITUS, FLUCTUANCE, MACERATION, ATROPHIE CARLA, CYANOSIS, ECCHYMOSIS, ERYTHEMA, HEMOSIDEROSIS, PALLOR AND RUBOR. THE PERIWOUND SKIN WAS FRIABLE. THE PERIWOUND SKIN WAS NOT DRY/SCALY AND MOIST. THE TEMPERATURE OF THE PERIWOUND SKIN IS WNL. PERIWOUND SKIN DOES NOT EXHIBIT SIGNS OR SYMPTOMS OF INFECTION. LOCAL PULSE IS N/A. ADDITIONAL INFORMATION CHERRY KENT [id number] 1955 OTHER DEVITALIZED TISSUE PRESENT: BIOFILM ASSESSMENT ACTIVE PROBLEMS ICD-10 (ENCOUNTER DIAGNOSIS) L89.154 - PRESSURE ULCER OF SACRAL REGION, STAGE 4 (ENCOUNTER DIAGNOSIS) E46 - UNSPECIFIED PROTEIN-CALORIE MALNUTRITION (ENCOUNTER DIAGNOSIS) D64.9 - ANEMIA, UNSPECIFIED PROCEDURES WOUND #2 WOUND #2 (PRESSURE ULCER) IS LOCATED ON THE COCCYX. A SKIN/SUBCUTANEOUS TISSUE LEVEL SURGICAL DEBRIDEMENT WITH A TOTAL AREA DEBRIDED OF 12.95 SQ CM. WAS PERFORMED BY CINTHIA COLLINS PA-C. SUBCUTANEOUS WAS REMOVED ALONG WITH DEVITALIZED TISSUE: BIOFILM, EXUDATE AND SLOUGH. THE FOLLOWING INSTRUMENT(S) WERE USED: CURETTE. PAIN CONTROL WAS ACHIEVED USING EMLA LIDOCAINE/PRILOCAINE 2.5%/2.5%. A TIME OUT WAS CONDUCTED PRIOR TO THE START OF THE PROCEDURE. A MODERATE AMOUNT OF BLEEDING WAS CONTROLLED WITH SILVER NITRATE. THE PROCEDURE WAS TOLERATED WELL WITH A PAIN LEVEL OF 0 THROUGHOUT AND A PAIN LEVEL OF 0 FOLLOWING THE PROCEDURE. POST DEBRIDEMENT MEASUREMENTS: 3.7CM LENGTH X 3.5CM WIDTH X 0.4CM DEPTH; WITH AN AREA OF 12.95 SQ CM AND A VOLUME OF 5.18 CUBIC CM. ADDITIONAL INFORMATION MUSCLE FASCIA OR BONE REMOVED AND SENT TO PATHOLOGY?: NO NEGATIVE PRESSURE WOUND THERAPY MAINTENANCE PERFORMED FOR: WOUND #2 COCCYX PERFORMED BY: PARISH CHRISTIANSON RN TYPE: NANCY ? ACTIV.A.C. PRESSURE TYPE: CONSTANT PRESSURE SETTIN MMHG SPONGE TYPE: BLACK SPONGE SIZE: MEDIUM TOTAL NUMBER OF SPONGES REMOVED PRIOR TO THE APPLICATION: 2 TOTAL NUMBER OF SPONGES USED FOR THIS APPLICATION: 0 DATE INITIATED: 05/29/2024 DAILY HOURS OF THERAPY: 24 DATE SUSPENDED: 07/26/2024 CANISTER EXUDATE VOLUME (CC): 10 DAYS ON NPWT: 59 GENERAL NOTES WOUND VAC HELD OVER THE WEEKEND DUE TO SKIN IRRITATION. CRUSTING TECHNIQUE TO PERIWOUND USING NYSTATIN POWDER, SKIN PREP. DUODERM TO COVER CRUSTING. DERMATAC USED OVER WOUND SITE, THEN BRIDGED UP TO LEFT HIP AVOIDING PUSTULES. PLAN WOUND ORDERS: CHERRY KENT [id number] 1955 WOUND #2 COCCYX HAND HYGIENE HAND HYGIENE - WASH HANDS BEFORE AND AFTER WOUND CARE. CALL THE WOUND CENTER AT [phone] IF YOU HAVE SIGNS OR SYMPTOMS OF INFECTION, FEVER CHILLS OR SHAKES, INCREASED DRAINAGE, INCREASED ODOR OR UNUSUAL REDNESS. AFTER WOUND CENTER HOURS PLEASE NOTIFY YOUR PCP OR GO TO THE EMERGENCY ROOM. CLEANSER APPLY HYPOCHLOROUS ACID (VASHE OR SIMILAR) SOAKED 4X4 GAUZE TO WOUND BED FOR 5- 10 MINUTES AFTER PROVIDER HAS COMPLETED WOUND EXAM. REMOVE GAUZE AND DRESS WOUND ACCORDING TO DRESSING ORDERS. MAY SHOWER, LEAVE WOUND DRESSING INTACT. COVER WOUND DRESSING WITH A WATERPROOF BARRIER. KEEP DRESSING DRY. NO BATHS PLEASE. PROCEDURE / ANESTHETIC 4% TOPICAL LIDOCAINE TO WOUND BED PRIOR TO PROCEDURE, IN CLINIC ONLY. TOPICAL TREATMENTS OTHER ORDER: - LOTRISONE CREAM APPLIED TO IKE-WOUND, APPLY TWICE DAILY. DRESSING ORDERS APPLY DRESSING(S) AND SECURE WITH: - COLLAGEN MOISTENED WITH NORMAL SALINE OR DISTILLED WATER, APPLIED TO BASE OF WOUND. THEN COVER WITH HYDROFERA BLUE FOAM AND BORDERED SILICONE FOAM. OTHER ORDER: - MAY LEAVE DRESSING ON LEFT HIP IN PLACE UNTIL NEXT VISIT. OTHER WOUND DRESSING ORDERS NPWT MAINTENANCE. - [employer] ACTIVAC HELD OVER THE WEEKEND, MAY RESUME AT NURSE VISIT ON 07/29/24 IF IKE- WOUND SKIN IMPROVED. DRESSING CHANGE FREQUENCY CHANGE DRESSING IF IT BECOMES SOILED OR WET. OTHER ORDER: - PEEL BACK BORDERED FOAM TWICE DAILY TO APPLY LOTRISONE CREAM TO RASH. CHANGE HYDROFERA BLUE FOAM AND BORDERED FOAM ON MONDAY. OFF-LOADING / PRESSURE RELIEF SEAT LIFTS OR SHIFT POSITION IN CHAIR EVERY 15 MINUTES. TURN EVERY 2 HOURS. AVOID POSITION DIRECTING PRESSURE TO WOUND SITE. LIMIT SIDE LYING TO 30 DEGREE TILT. LIMIT HOB ELEVATION TO 30 DEGREES IN BED. OTHER ORDER: - ROHO CUSHION ON ALL SEATING SURFACES. AVOID PRESSURE OVER WOUND. ADDITIONAL ORDERS: DIETARY INCREASE THE PROTEIN IN YOUR DIET. - AIDS IN WOUND HEALING. OTHER NUTRITIONAL SUPPLEMENT: - IZAIAH OR ENSURE MAX. AIM FOR 30 GRAMS ADDITIONAL PROTEIN BETWEEN MEALS. FOLLOW-UP APPOINTMENTS RETURN APPOINTMENT 1 WEEK - [facility]. RETURN FOR NURSE VISIT ON DATE NOTED BELOW FOR WOUND VAC CHANGE WITH MECHANICAL DEBRIDEMENT NECESSARY ORDERED DURING TODAY'S VISIT. COMPLETE FOR DIAGNOSIS OF: - PRESSURE ULCER. NURSE VISITS ON MONDAYS AND WEDNESDAYS. SCRIBING ATTESTATION I ATTEST, THE NURSE, THAT I SCRIBED THESE ORDERS FOR THE WOUND CARE PROVIDER. PROVIDER REVIEW AND ATTESTATION: REVIEWED AND EVALUATED LABS. REVIEWED HOSPITAL RECORDS. DISCUSSED THE PLAN OF CARE @ BEDSIDE WITH - PATIENT AND I AGREE AND ATTEST TO THE ABOVE INFORMATION PROVIDED FROM OTHER LICENSED PROFESSIONALS. MEDICATIONS PRESCRIBED: CLOTRIMAZOLE-BETAMETHASONE - TOPICAL 1 %-0.05 % CREAM TWICE DAILY STARTING 07/26/2024 PLAN OF CARE: 01. ENSURE/ESTABLISH OPTIMAL BLOOD FLOW : - REVIEWED, NOT APPLICABLE 02. ASSESS FOR/TREAT INFECTION : - EVALUATE FOR SIGNS AND SYMPTOMS OF INFECTION AND DOCUMENT FINDINGS. STATUS: CONTINUED DATE: 07/12/2024 03. DEBRIDE WEEKLY OR MORE OFTEN PRN : CHERRY KENT [id number] 1955 - EVALUATE PATIENT IN CENTER WEEKLY TO ASSESS WOUND BED AND MARGINS FOR NEED FOR DEBRIDEMENT. STATUS: CONTINUED DATE: 07/12/2024 - DEBRIDEMENT BY ANY METHOD TO REMOVE DEVITALIZED/NECROTIC TISSUE TO PROMOTE HEALING AND PREVENT FURTHER COMPLICATIONS. GOAL IS TO STIMULATE AND/OR MAINTAIN ACUTE PHASE OF WOUND HEALING BY REDUCING BACTERIAL BURDEN AND DEVITALIZED/NON-VIABLE TISSUE. STATUS: CONTINUED DATE: 07/12/2024 04. OPTIMIZE GLUCOSE CONTROL AND NUTRITION : - ORDER/REVIEW PERTINENT LABS TO EVALUATE RENAL FUNCTION, GLUCOSE CONTROL, AND NUTRITIONAL STATUS. STATUS: CONTINUED DATE: 07/12/2024 05. OFFLOADING PLAN : - REVIEWED, NOT APPLICABLE 06. OPTIMIZE HOST FACTORS: - ASSESS AND REVIEW PATIENT HISTORY FOR WOUND ETIOLOGY, CO-MORBID CONDITIONS, MEDICATION REGIME, AND SMOKING HISTORY. STATUS: CONTINUED DATE: 07/12/2024 - ASSESS LIFESTYLE FACTORS SUCH SMOKING, ALCOHOL/DRUG ABUSE, EATING HABITS/MALNUTRITION AND ACTIVITY LEVEL. STATUS: CONTINUED DATE: 07/12/2024 07. DRESSING SELECTION : - EVALUATE FOR DRESSING-RELATED FACTORS, SUCH AVAILABILITY, WEAR TIME, ADAPTABILITY AND USE TO BETTER OPTIMIZE WOUND HEALING AND PATIENT COMPLIANCE. STATUS: CONTINUED DATE: 07/12/2024 - EDUCATE THE PATIENT/FAMILY/CAREGIVER TO MONITOR DRESSING DAILY. CHANGE DRESSING ONLY NEEDED BUT NEVER LESS FREQUENTLY THAN WEEKLY SO THAT WOUND BED CAN BE REASSESSED. STATUS: CONTINUED DATE: 07/12/2024 08. ADVANCED MODALITIES : - RE-EVALUATE PLAN OF CARE IF NO EVIDENCE OF HEALING (40% IN 4 WEEKS). STATUS: CONTINUED DATE: 07/12/2024 09. FALL PREVENTION : - COMPLETE FALL ASSESSMENT. STATUS: COMPLETED DATE: 02/23/2024 10. PAIN MANAGEMENT : - COMPLETE PAIN ASSESSMENT STATUS: CONTINUED DATE: 07/12/2024 - INSTRUCT THE PATIENT TO CALL ?TIME-OUT? IF PAIN IS TOO INTENSE DURING PROCEDURE. STATUS: CONTINUED DATE: 07/12/2024 11. MEASURABLE GOALS FOR WOUND HEALING AND/OR HYPERBARIC OXYGEN THERAPY : - DECREASE WOUND DIMENSIONS STATUS: CONTINUED DATE: 07/12/2024 - WOUND CLOSURE STATUS: CONTINUED DATE: 07/12/2024 12. DURATION/FREQUENCY OF WOUND CARE VISITS : - 1X WEEKLY FOR 30 DAYS STATUS: CONTINUED DATE: 07/12/2024 DEBRIDEMENT WITH SILVER NITRATE TO HYPERGRANULATION TODAY HOLD VACC LOTRISONE BID TO PERIWOUND UNTIL RECHECK WITH NURSING, HYDROFERA BLUE TO WOUND BASE ONCE IRRITATION IS IMPROVED, SWITCH BACK TO VACC WITH NYSTATIN CRUSTING TECHNIQUE CHERRY KENT [id number] 1955 NEW WOUND TO LEFT HIP- COVER WITH HYDROFERA BLUE AND WE WILL ASSESS RESPONSE NEXT WEEK ELECTRONIC SIGNATURE(S) SIGNED BY: DATE: CINTHIA COLLINS PA-C 07/26/2024 12:33:52 (PT) ENTERED BY: CINTHIA COLLINS PA-C ON 07/26/2024 12:33:37 (PT) CHERRY KENT [id number] 1955
== END ==
PROVIDERS: PCP Surgery; Referring Provider Surgery; Visit Provider Physician Assistant
DX: L89.154 Pressure ulcer of sacral region, stage 4 (principal); E46 Unspecified protein-calorie malnutrition; D64.9 Anemia, unspecified; R21 Rash and other nonspecific skin eruption
CPT/HCPCS: 11042; 99213

== ENCOUNTER → 2024-07-29 09:34 | Outpatient (CLI) | payer OTHER, MEDICARE, SELFPAY ==
[2024-02-15 12:56] VITALS: BMI 18.8
== END ==
PROVIDERS: PCP Surgery; Referring Provider Surgery; Visit Provider Surgery
DX: L89.154 Pressure ulcer of sacral region, stage 4 (principal)
CPT/HCPCS: 97605

== ENCOUNTER → 2024-07-31 09:49 | Outpatient (CLI) | payer OTHER, MEDICARE, SELFPAY ==
[2024-02-15 12:56] VITALS: BMI 18.8
== END ==
PROVIDERS: PCP Surgery; Referring Provider Surgery; Visit Provider Surgery
DX: L89.154 Pressure ulcer of sacral region, stage 4 (principal)
CPT/HCPCS: 97605

== ENCOUNTER → 2024-08-02 09:24 | Outpatient (CLI) | payer OTHER, MEDICARE, SELFPAY ==
[2024-02-15 12:56] VITALS: BMI 18.8
== END ==
PROVIDERS: Visit Provider Physician Assistant
DX: L89.154 Pressure ulcer of sacral region, stage 4 (principal); E46 Unspecified protein-calorie malnutrition; D64.9 Anemia, unspecified
CPT/HCPCS: 11042; 99212; 99214

== ENCOUNTER → 2024-08-05 10:50 | Outpatient (CLI) | payer OTHER, MEDICARE, SELFPAY ==
[2024-02-15 12:56] VITALS: BMI 18.8
== END ==
PROVIDERS: Referring Provider Surgery; Visit Provider Surgery
DX: L89.154 Pressure ulcer of sacral region, stage 4 (principal)
CPT/HCPCS: 99213

== ENCOUNTER → 2024-08-07 09:29 | Outpatient (CLI) | payer OTHER, MEDICARE, SELFPAY ==
[2024-02-15 12:56] VITALS: BMI 18.8
== END ==
PROVIDERS: Referring Provider Surgery; Visit Provider Surgery
DX: L89.154 Pressure ulcer of sacral region, stage 4 (principal)
CPT/HCPCS: 99213

== ENCOUNTER → 2024-08-09 10:04 | Outpatient (CLI) | payer OTHER, MEDICARE, SELFPAY ==
[2024-02-15 12:56] VITALS: BMI 18.8
--- NOTE | 2024-08-09 | OV.WND_ITS ---
PROGRESS NOTE DETAILS PATIENT NAME: CHERRY KENT PATIENT NUMBER: [id number] CLINICIAN: ISAMAR PORTILLO RN PATIENT DATE OF : 1955 PHYSICIAN / POUNDMASTER: CINTHIA COLLINS PA-C PATIENT SUBJECTIVE CHIEF COMPLAINT THIS INFORMATION WAS OBTAINED FROM THE PATIENT. NO PAIN (IN WOUND AREA.) GENERAL NOTES PRESSURE ULCER OF COCCYX ALLERGIES NO KNOWN ALLERGIES HPI THIS INFORMATION WAS OBTAINED FROM THE PATIENT. 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 THE PATIENT UNDERWENT SURGICAL DEBRIDEMENT AND BONE BIOPSY ON MAY 28, [address] WILLIAMSON. PATHOLOGY REPORT WAS NEGATIVE FOR OSTEOMYELITIS. PREVIOUS CULTURES GREW PSEUDOMONAS AND MRSA. THE PATIENT HAS BEEN TREATED WITH LEVOFLOXACIN AND LINEZOLID IN HIS NOT CURRENTLY ON ANY ANTIBIOTIC THERAPY. SHE HAD BEEN USING A WOUND VAC THAT WAS RECENTLY DISCHARGED DUE TO IRRITATION OF PERIWOUND. SHE IS CURRENTLY RECEIVING DRESSING CHANGES WITH PROMOGRAN WITH HYDROFERA BLUE. ON TODAY'S VISIT THE WOUND CONTINUES TO SHOW IMPROVEMENT. THERE IS SOME IRRITATION IN THE PERIWOUND BUT NO SIGN OF INFECTION. SHE HAS NOT HAD ANY FEVER OR CHILLS. THE PATIENT IS ALSO ON IRON THERAPY FOR ANEMIA BUT CONTINUES TO DECLINE TO ESTABLISH CARE WITH A PRIMARY CARE PHYSICIAN TO FOLLOW UP ON THIS OR HER BLOOD PRESSURE. LABS ARE STILL PENDING SHE HAS NOT WANTED TO GET THESE DONE. LABS 05/28/23: PATHOLOGY NEGATIVE OSTEO, ULCERATION AND ABSCESS 05/10/24: WBC 7.8, HEMOGLOBIN 9.7, HCT 30.0, P LT 256, ELECTROLYTES UNREMARKABLE, GFR GREATER THAN 60, LFTS NORMAL 05/03/24: CULTURE MRSA, RX LINEZOLID WITH ID 03/18/24: PREALBUMIN 14.0 10/25/24: PELVIS MRI WITH OSTEOMYELITIS INVOLVING THE CX3-4 VERTEBRAE WITH OVERLYING CELLULITIS. NO DRAINABLE ABSCESS. 2. SMALL VOLUME PELVIC ASCITES. 3. SUBOPTIMAL EVALUATION OF THE RIGHT INGUINAL PATHOLOGY IDENTIFIED ON RECENT EXAMINATIONS. 4. RIGHT GLUTEAL SUBCUTANEOUS 4.0 CM SEBACEOUS CYST. 03/08/24: SACRAL XRAY SUSPICION FOR SACROCOCCYGEAL DECUBITUS ULCER WITH POSSIBLE OSTEO. MRI PENDING. 03/08/24: CULTURE POSITIVE FOR PSEUDOMONAS, STAPH, YEAST 02/20/24: WBC 12.9, HGB 9.2, HCT 25.9, 02/18/24: NA 130, CR 0.36, GFR >60, CA 8.1 CHERRY KENT [id number] 1955 FAMILY HISTORY THIS INFORMATION WAS OBTAINED FROM THE PATIENT. DIABETES- [place] SOCIAL HISTORY THIS INFORMATION WAS OBTAINED FROM THE PATIENT. NEVER SMOKER ALCOHOL USE: FORMER CHILDREN: SON LIVES IN: HOME WITH MARITAL STATUS: OCCUPATION: HOUSEWIFE MEDICAL HISTORY THIS INFORMATION WAS OBTAINED FROM THE PATIENT. ADDITIONAL INFORMATION DOES PATIENT HAVE A HISTORY OF CANCER? YES? COMPLETE ALL QUESTIONS.: NO SURGICAL HISTORY THIS INFORMATION WAS OBTAINED FROM THE PATIENT. PATIENT HAS A SURGICAL HISTORY OF: CLOSED LEFT HIP FRACTURE- (2019) FAILURE OF LEFT TOTAL HIP ARTHROPLASTY- (2019) INGUINAL HERNIA REPAIR- 02/15/2024 IANDD OF LEFT GROIN FISTULA- 02/15/2024 IANDD OF SACRAL ULCER- 05/28/2024 REVIEW OF SYSTEMS (ROS) THIS INFORMATION WAS OBTAINED FROM THE PATIENT. COMPLAINTS AND SYMPTOMS PATIENT COM PLAINS OF: CO-MORBID CONDITIONS: ANEMIA PATIENT DENIES COM PLAINTS OR SY M PTOM S RELATED TO: CARDIOVASCULAR (CENTRAL): CHEST PAIN, DYSPNEA ON EXERTION CONSTITUTIONAL SYMPTOMS (GENERAL HEALTH): CHILLS, FEVER, LOSS OF APPETITE PRIOR WOUND HISTORY: BLEEDING, DRAINAGE, ERYTHEMA, PAIN RESPIRATORY: COUGH, SHORTNESS OF BREATH OBJECTIVE VITALS HEIGHT/LENGTH: 61 IN (154.94 CM), WEIGHT: 96.3 LBS (43.77 KGS), BMI: 18.2, TEMPERATURE: 99.0 ?F (37.22 ?C), PULSE: 76 BPM, RESPIRATORY RATE: 16 BREATHS/MIN, CAPILLARY BLOOD GLUCOSE: 152/92 MG/DL, PULSE OXIMETRY: 97 %. CHERRY KENT [id number] 1955 PHYSICAL EXAM CONSTITUTIONAL: GENERALIZED WEAKNESS. IN NO APPARENT DISTRESS. GOOD ATTENTION TO HYGIENE AND BODY HABITS. ALERT AND ORIENTED X 3. WELL NOURISHED. VITAL SIGNS REVIEWED AND NOTED. HYPERTENSIVE. PULSE RATE AND RHYTHM REGULAR. AFEBRILE. MALNOURISHED. FRAIL ELDERLY. AMBULATES AND IS ABLE TO CHANGE POSITION WITHOUT ASSISTANCE. ALERT AND ORIENTED X 3. RESPIRATORY: EVEN RESPIRATIONS WITHOUT USE OF ACCESSORY MUSCLES. NO INTERCOASTAL RETRACTIONS NOTED. EVEN AND NON LABORED RESPIRATION. CARDIOVASCULAR: SEE LOWER EXTREMITY ASSESSMENT WHEN APPLICABLE. THERE IS NO PERIPHERAL EDEMA, CYANOSIS OR PALLOR. EXTREMITIES ARE WARM AND WELL PERFUSED. CAPILLARY REFILL IS LESS THAN 2 SECONDS. INTEGUMENTARY (HAIR, SKIN): SEE WOUND DESCRIPTION. NEUROLOGICAL: SENSATION: SYMMETRIC FUNCTION BY INFORMAL OBSERVATION. PSYCHIATRIC: ORIENTATION TO TIME, PLACE AND PERSON: NORMAL AFFECT WITH NORMAL THOUGHT PATTERN. MOOD AND AFFECT: NORMAL AFFECT WITH NORMAL THOUGHT PATTERN. ADDITIONAL INFORMATION THE PATIENT'S POTENTIAL TO HEAL IS: GOOD. WOUND ASSESSMENT(S) WOUND #2 COCCYX IS A CHRONIC STAGE 4 PRESSURE INJURY PRESSURE ULCER ACQUIRED ON 02/15/2024 AND HAS RECEIVED A STATUS OF NOT HEALED. INITIAL WOUND ENCOUNTER MEASUREMENTS ARE 3.2CM LENGTH X 2CM WIDTH X 0.2 CM DEPTH, WITH AN AREA OF 6.4 SQ CM AND A VOLUME OF 1.28 CUBIC CM.INITIAL WOUND ENCOUNTER PREVIOUS MEASUREMENTS FROM 08/07/2024 ARE 3.6CM LENGTH X 2.7CM WIDTH X 0.2CM DEPTH, WITH AN AREA OF 9.72 SQ CM AND A VOLUME OF 1.944 CUBIC CM. ADIPOSE IS EXPOSED. HYPERGRANULATION WAS NOTED. NO TUNNELING HAS BEEN NOTED. NO SINUS TRACT HAS BEEN NOTED. NO UNDERMINING HAS BEEN NOTED. THERE IS A MODERATE AMOUNT OF SEROSANGUINEOUS DRAINAGE NOTED WHICH HAS NO ODOR. THE PATIENT REPORTS A WOUND PAIN OF LEVEL 0/10. THE WOUND MARGIN IS ATTACHED WOUND BED HAS YES, BRIGHT RED, PINK, FIRM, GRANULATION, YES SLOUGH, NO ESCHAR, YES EPITHELIALIZATION. THE PERIWOUND SKIN DID NOT EXHIBIT BRAWNY INDURATION, EDEMA, EXCORIATION, INDURATION, CALLUS, CREPITUS, FLUCTUANCE, RASH, MACERATION, ATROPHIE CARLA, CYANOSIS, ECCHYMOSIS, ERYTHEMA, HEMOSIDEROSIS, PALLOR AND RUBOR. THE PERIWOUND SKIN WAS NOT FRIABLE, DRY/SCALY AND MOIST. THE TEMPERATURE OF THE PERIWOUND SKIN IS WNL. PERIWOUND SKIN DOES NOT EXHIBIT SIGNS OR SYMPTOMS OF INFECTION. LOCAL PULSE IS N/A. ADDITIONAL INFORMATION OTHER DEVITALIZED TISSUE PRESENT: BIOFILM ASSESSMENT ACTIVE PROBLEMS ICD-10 (ENCOUNTER DIAGNOSIS) L89.154 - PRESSURE ULCER OF SACRAL REGION, STAGE 4 (ENCOUNTER DIAGNOSIS) E46 - UNSPECIFIED PROTEIN-CALORIE MALNUTRITION (ENCOUNTER DIAGNOSIS) D64.9 - ANEMIA, UNSPECIFIED PROCEDURES WOUND #2 CHERRY KENT [id number] 1955 WOUND #2 WOUND #2 (PRESSURE ULCER) IS LOCATED ON THE COCCYX. A SKIN/SUBCUTANEOUS TISSUE LEVEL SURGICAL DEBRIDEMENT WITH A TOTAL AREA DEBRIDED OF 6.4 SQ CM. WAS PERFORMED BY CINTHIA COLLINS PA-C. SUBCUTANEOUS WAS REMOVED ALONG WITH DEVITALIZED TISSUE: BIOFILM, EXUDATE AND SLOUGH. THE FOLLOWING INSTRUMENT(S) WERE USED: CURETTE. PAIN CONTROL WAS ACHIEVED USING EMLA LIDOCAINE/PRILOCAINE 2.5%/2.5%. A TIME OUT WAS CONDUCTED PRIOR TO THE START OF THE PROCEDURE. A MODERATE AMOUNT OF BLEEDING WAS CONTROLLED WITH SILVER NITRATE. THE PROCEDURE WAS TOLERATED WELL WITH A PAIN LEVEL OF 0 THROUGHOUT AND A PAIN LEVEL OF 0 FOLLOWING THE PROCEDURE. POST DEBRIDEMENT MEASUREMENTS: 3.2CM LENGTH X 2CM WIDTH X 0.3CM DEPTH; WITH AN AREA OF 6.4 SQ CM AND A VOLUME OF 1.92 CUBIC CM. ADDITIONAL INFORMATION MUSCLE FASCIA OR BONE REMOVED AND SENT TO PATHOLOGY?: NO PLAN WOUND ORDERS: WOUND #2 COCCYX HAND HYGIENE HAND HYGIENE - WASH HANDS BEFORE AND AFTER WOUND CARE. CALL THE WOUND CENTER AT [phone] IF YOU HAVE SIGNS OR SYMPTOMS OF INFECTION, FEVER CHILLS OR SHAKES, INCREASED DRAINAGE, INCREASED ODOR OR UNUSUAL REDNESS. AFTER WOUND CENTER HOURS PLEASE NOTIFY YOUR PCP OR GO TO THE EMERGENCY ROOM. CLEANSER APPLY HYPOCHLOROUS ACID (VASHE OR SIMILAR) SOAKED 4X4 GAUZE TO WOUND BED FOR 5- 10 MINUTES AFTER PROVIDER HAS COMPLETED WOUND EXAM. REMOVE GAUZE AND DRESS WOUND ACCORDING TO DRESSING ORDERS. MAY SHOWER, LEAVE WOUND DRESSING INTACT. COVER WOUND DRESSING WITH A WATERPROOF BARRIER. KEEP DRESSING DRY. NO BATHS PLEASE. PROCEDURE / ANESTHETIC 4% TOPICAL LIDOCAINE TO WOUND BED PRIOR TO PROCEDURE, IN CLINIC ONLY. TOPICAL TREATMENTS OTHER ORDER: - LOTRISONE (CLOTRIMAZOLE-BETAMETHASONE) CREAM TO RASH ON SKIN AROUND WOUND TWICE A DAY. DRESSING ORDERS APPLY DRESSING(S) AND SECURE WITH: - PROMOGRAN COLLAGEN, MOISTENED WITH NORMAL SALINE OR DISTILLED WATER, APPLIED TO BASE OF WOUND. HYDROFERA BLUE COVER WITH SILICONE SUPERABSORBENT DRESSING. DRESSING CHANGE FREQUENCY CHANGE DRESSING EVERY OTHER DAY. - [facility]- PLEASE CHANGE DRESSING EVERY MONDAY AND MONDAY. OFF-LOADING / PRESSURE RELIEF SEAT LIFTS OR SHIFT POSITION IN CHAIR EVERY 15 MINUTES. TURN EVERY 2 HOURS. AVOID POSITION DIRECTING PRESSURE TO WOUND SITE. LIMIT SIDE LYING TO 30 DEGREE TILT. LIMIT HOB ELEVATION TO 30 DEGREES IN BED. OTHER ORDER: - ROHO CUSHION ON ALL SEATING SURFACES. AVOID PRESSURE OVER WOUND. ADDITIONAL ORDERS: DIETARY TAKE VITAMIN C 1000MG BY MOUTH DAILY. TAKE ZINC 25MG BY MOUTH DAILY. INCREASE THE PROTEIN IN YOUR DIET. - AIDS IN WOUND HEALING. OTHER NUTRITIONAL SUPPLEMENT: - IZAIAH OR ENSURE MAX. AIM FOR 30 GRAMS ADDITIONAL PROTEIN BETWEEN MEALS. HOME HEALTH ADMIT TO HOME HEALTH FOR NURSING HOME. - [facility] FOR DRESSING CHANGES ON MONDAYS AND WEDNESDAYS. *WE CAN SEE FOR NURSE VISITS WEEK OF 08/05 IF HH CAN NOT BE INITIATED IMMEDIATELY. HOME HEALTH CARE: IF YOU HAVE ANY QUESTIONS OR CONCERNS PLEASE CONTACT THE WOUND CENTER. FOLLOW-UP APPOINTMENTS RETURN APPOINTMENT 1 WEEK - [place]. KENTSUSANCHERRY [id number] 1955 RETURN FOR NURSE VISIT ON DATE NOTED BELOW FOR WOUND VAC CHANGE WITH MECHANICAL DEBRIDEMENT NECESSARY ORDERED DURING TODAY'S VISIT. COMPLETE FOR DIAGNOSIS OF: - PRESSURE ULCER. NURSE VISITS ON MONDAYS AND WEDNESDAYS. SCRIBING ATTESTATION I ATTEST, THE NURSE, THAT I SCRIBED THESE ORDERS FOR THE WOUND CARE PROVIDER. PROVIDER REVIEW AND ATTESTATION: REVIEWED AND EVALUATED LABS. REVIEWED HOSPITAL RECORDS. DISCUSSED THE PLAN OF CARE @ BEDSIDE WITH - PATIENT I AGREE AND ATTEST TO THE ABOVE INFORMATION PROVIDED FROM OTHER LICENSED PROFESSIONALS. PLAN OF CARE: 01. ENSURE/ESTABLISH OPTIMAL BLOOD FLOW : - REVIEWED, NOT APPLICABLE 02. ASSESS FOR/TREAT INFECTION : - EVALUATE FOR SIGNS AND SYMPTOMS OF INFECTION AND DOCUMENT FINDINGS. STATUS: CONTINUED DATE: 08/09/2024 03. DEBRIDE WEEKLY OR MORE OFTEN PRN : - EVALUATE PATIENT IN CENTER WEEKLY TO ASSESS WOUND BED AND MARGINS FOR NEED FOR DEBRIDEMENT. STATUS: CONTINUED DATE: 08/09/2024 - DEBRIDEMENT BY ANY METHOD TO REMOVE DEVITALIZED/NECROTIC TISSUE TO PROMOTE HEALING AND PREVENT FURTHER COMPLICATIONS. GOAL IS TO STIMULATE AND/OR MAINTAIN ACUTE PHASE OF WOUND HEALING BY REDUCING BACTERIAL BURDEN AND DEVITALIZED/NON-VIABLE TISSUE. STATUS: CONTINUED DATE: 08/09/2024 04. OPTIMIZE GLUCOSE CONTROL AND NUTRITION : - ORDER/REVIEW PERTINENT LABS TO EVALUATE RENAL FUNCTION, GLUCOSE CONTROL, AND NUTRITIONAL STATUS. STATUS: CONTINUED DATE: 08/09/2024 05. OFFLOADING PLAN : - REVIEWED, NOT APPLICABLE 06. OPTIMIZE HOST FACTORS: - ASSESS AND REVIEW PATIENT HISTORY FOR WOUND ETIOLOGY, CO-MORBID CONDITIONS, MEDICATION REGIME, AND SMOKING HISTORY. STATUS: CONTINUED DATE: 08/09/2024 - ASSESS LIFESTYLE FACTORS SUCH SMOKING, ALCOHOL/DRUG ABUSE, EATING HABITS/MALNUTRITION AND ACTIVITY LEVEL. STATUS: CONTINUED DATE: 08/09/2024 07. DRESSING SELECTION : - EVALUATE FOR DRESSING-RELATED FACTORS, SUCH AVAILABILITY, WEAR TIME, ADAPTABILITY AND USE TO BETTER OPTIMIZE WOUND HEALING AND PATIENT COMPLIANCE. STATUS: CONTINUED DATE: 08/09/2024 - EDUCATE THE PATIENT/FAMILY/CAREGIVER TO MONITOR DRESSING DAILY. CHANGE DRESSING ONLY NEEDED BUT NEVER LESS FREQUENTLY THAN WEEKLY SO THAT WOUND BED CAN BE REASSESSED. STATUS: CONTINUED DATE: 08/09/2024 08. ADVANCED MODALITIES : - RE-EVALUATE PLAN OF CARE IF NO EVIDENCE OF HEALING (40% IN 4 WEEKS). STATUS: CONTINUED DATE: 08/09/2024 09. FALL PREVENTION : - COMPLETE FALL ASSESSMENT. STATUS: COMPLETED DATE: 02/23/2024 10. PAIN MANAGEMENT : - COMPLETE PAIN ASSESSMENT STATUS: CONTINUED DATE: 08/09/2024 - INSTRUCT THE PATIENT TO CALL ?TIME-OUT? IF PAIN IS TOO INTENSE DURING PROCEDURE. CHERRY KENT [id number] 1955 STATUS: CONTINUED DATE: 08/09/2024 11. MEASURABLE GOALS FOR WOUND HEALING AND/OR HYPERBARIC OXYGEN THERAPY : - DECREASE WOUND DIMENSIONS STATUS: CONTINUED DATE: 08/09/2024 - WOUND CLOSURE STATUS: CONTINUED DATE: 08/09/2024 12. DURATION/FREQUENCY OF WOUND CARE VISITS : - 1X WEEKLY FOR 30 DAYS STATUS: CONTINUED DATE: 08/09/2024 PLAN DOING WELL CONTINUE WITH PROMOGRAN + HYDROFERA BLUE CONTINUE LOTRISONE BID TO PERIWOUND RECHECK 1 WEEK ELECTRONIC SIGNATURE(S) SIGNED BY: DATE: CINTHIA COLLINS PA-C 08/09/2024 14:25:17 (PT) ENTERED BY: CINTHIA COLLINS PA-C ON 08/09/2024 14:25:08 (PT) CHERRY KENT [id number] 1955
== END ==
PROVIDERS: Referring Provider Surgery; Visit Provider Physician Assistant
DX: L89.154 Pressure ulcer of sacral region, stage 4 (principal); E46 Unspecified protein-calorie malnutrition; D64.9 Anemia, unspecified
CPT/HCPCS: 11042; 99213

== ENCOUNTER → 2024-08-14 13:46 | Outpatient (ROUT) | payer OTHER, SELFPAY ==
[2024-02-15 12:56] VITALS: BMI 18.8
[2024-08-14 13:56] LABS: Add Manual Diff / Slide Review NO; Basophils Absolute Auto 0 /uL (0-100); Basophils Percent Auto 0.6 % (0-2); Eosinophils Absolute Auto 200 /uL (0-450); Eosinophils Percent Auto 2.3 % (2-4); Hematocrit 40.4 % (36-46); Hemoglobin 13.3 g/dL (12.0-16.0); Lymphocytes Absolute Auto 2000 /uL (1100-4500); Lymphocytes Percent Auto 26.3 % (25-40); Mean Corpuscular HGB Conc 32.9 % (30-36); Mean Corpuscular Hemoglobin 27.7 PG (26-34); Mean Corpuscular Volume 84.1 fL (80-100); Monocytes Absolute Auto 400 /uL (0-900); Monocytes Percent Auto 5.7 % (3-14); Neutrophils Absolute Auto 4900 /uL (1500-7000); Neutrophils Percent Auto 65.1 % (50-75); Platelet Count 213 X10^3/uL (150-400); Red Cell Distribution Width 21.3 % (11.6-14.8); White Blood Cell Count 7.5 X10^3/uL (4.5-11.0)
[2024-08-14 14:05] LABS: HEMOLYSIS < 15 (0-50); Iron 70 ug/dL (37-170)
[2024-08-14 14:10] LABS: Anisocytosis 1+
[2024-08-14 14:11] LABS: C-Reactive Protein Quant < 0.5 mg/dL (<1.0); Poikilocytosis 1+; Schistocytes 1+
[2024-08-14 14:15] LABS: Prealbumin 20.7 mg/dL (17.6-36.0)
[2024-08-14 14:17] LABS: Percent Iron Saturation 16 % (15-50); Total Iron Binding Capacity 429 ug/dL (265-497); Transferrin 364 mg/dL (206-381)
[2024-08-14 14:42] LABS: Ferritin 24 ng/mL (11-264)
== END ==
LOC: LAB 13:47
PROVIDERS: Visit Provider Physician Assistant
DX: L89.159 Pressure ulcer of sacral region, unspecified stage (principal)
CPT/HCPCS: 82728; 83540; 83550; 84134; 85025; 86140

== ENCOUNTER → 2024-08-16 09:30 | Outpatient (CLI) | payer OTHER, MEDICARE, SELFPAY ==
[2024-02-15 12:56] VITALS: BMI 18.8
== END ==
PROVIDERS: Referring Provider Surgery; Visit Provider Physician Assistant
DX: L89.154 Pressure ulcer of sacral region, stage 4 (principal); E46 Unspecified protein-calorie malnutrition
CPT/HCPCS: 97597; 99213

== ENCOUNTER → 2024-08-23 09:44 | Outpatient (CLI) | payer OTHER, MEDICARE, SELFPAY ==
[2024-02-15 12:56] VITALS: BMI 18.8
== END ==
PROVIDERS: Referring Provider Surgery; Visit Provider Physician Assistant
DX: L89.154 Pressure ulcer of sacral region, stage 4 (principal); E46 Unspecified protein-calorie malnutrition; M86.9 Osteomyelitis, unspecified
CPT/HCPCS: 11042; 99213

== ENCOUNTER → 2024-08-30 09:41 | Outpatient (CLI) | payer OTHER, MEDICARE, SELFPAY ==
[2024-02-15 12:56] VITALS: BMI 18.8
--- NOTE | 2024-08-30 | OV.WND_ITS ---
PROGRESS NOTE DETAILS PATIENT NAME: CHERRY KENT DATE: PATIENT NUMBER: [id number] CLINICIAN: PARISH CHRISTIANSON R.N. PATIENT DATE OF : 1955 PHYSICIAN / SLUBBER FRAME CHANGER: CINTHIA COLLINS PA-C PATIENT SUBJECTIVE CHIEF COMPLAINT THIS INFORMATION WAS OBTAINED FROM THE PATIENT. WOUND. GENERAL NOTES PRESSURE ULCER OF COCCYX ALLERGIES NO KNOWN ALLERGIES HPI THIS INFORMATION WAS OBTAINED FROM THE PATIENT. LOCATION: [facility] DURATION: 05/28/2024 CONTEXT: PRESSURE THE PATIENT IS A 69-YEAR-OLD FEMALE WITH CHRONIC MALNUTRITION WHO RETURNS TODAY FOR FOLLOW UP OF A CHRONIC STAGE IV SACRAL DECUBITUS ASSOCIATED WITH OSTEOMYELITIS. THE PATIENT UNDERWENT SURGICAL DEBRIDEMENT AND BONE BIOPSY ON MAY 28, [address] WILLIAMSON. PATHOLOGY REPORT WAS NEGATIVE FOR OSTEOMYELITIS. PREVIOUS CULTURES GREW PSEUDOMONAS AND MRSA. THE PATIENT HAS BEEN TREATED WITH LEVOFLOXACIN AND LINEZOLID IN HIS NOT CURRENTLY ON ANY ANTIBIOTIC THERAPY. SHE HAD BEEN USING A WOUND VAC THAT WAS DISCHARGED DUE TO IRRITATION OF PERIWOUND. SHE IS CURRENTLY RECEIVING DRESSING CHANGES WITH PROMOGRAN WITH HYDROFERA BLUE. ON TODAY'S VISIT THE WOUND CONTINUES TO SHOW SIGNIFICANT IMPROVEMENT. THERE IS NO SIGN OF INFECTION. SHE HAS NOT HAD ANY FEVER OR CHILLS. RECENT LABWORK HAS RETURNED SHOWING RESOLUTION OF HER ANEMIA. LABS 08/14/24: WBC 7.5, HGB 13.3, HCT 40.4, CRP <0.5, PREALBUMIN 20.7, IRON 70, FERRITIN 24 05/28/23: PATHOLOGY NEGATIVE OSTEO, ULCERATION AND ABSCESS 05/10/24: WBC 7.8, HEMOGLOBIN 9.7, HCT 30.0, P LT 256, ELECTROLYTES UNREMARKABLE, GFR GREATER THAN 60, LFTS NORMAL 05/03/24: CULTURE MRSA, RX LINEZOLID WITH ID 03/18/24: PREALBUMIN 14.0 03/15/24: PELVIS MRI WITH OSTEOMYELITIS INVOLVING THE CX3-4 VERTEBRAE WITH OVERLYING CELLULITIS. NO DRAINABLE ABSCESS. 2. SMALL VOLUME PELVIC ASCITES. 3. SUBOPTIMAL EVALUATION OF THE RIGHT INGUINAL PATHOLOGY IDENTIFIED ON RECENT EXAMINATIONS. 4. RIGHT GLUTEAL SUBCUTANEOUS 4.0 CM SEBACEOUS CYST. 03/08/24: SACRAL XRAY SUSPICION FOR SACROCOCCYGEAL DECUBITUS ULCER WITH POSSIBLE OSTEO. MRI PENDING. 03/08/24: CULTURE POSITIVE FOR PSEUDOMONAS, STAPH, YEAST 02/20/24: WBC 12.9, HGB 9.2, HCT 25.9, 02/18/24: NA 130, CR 0.36, GFR >60, CA 8.1 MEDICAL HISTORY CHERRY KENT [id number] 1955 THIS INFORMATION WAS OBTAINED FROM THE PATIENT. ADDITIONAL INFORMATION DOES PATIENT HAVE A HISTORY OF CANCER? YES? COMPLETE ALL QUESTIONS.: NO SURGICAL HISTORY THIS INFORMATION WAS OBTAINED FROM THE PATIENT. PATIENT HAS A SURGICAL HISTORY OF: CLOSED LEFT HIP FRACTURE- (2019) FAILURE OF LEFT TOTAL HIP ARTHROPLASTY- (2019) INGUINAL HERNIA REPAIR- 02/15/2024 IANDD OF LEFT GROIN FISTULA- 02/15/2024 IANDD OF SACRAL ULCER- 05/28/2024 OBJECTIVE VITALS HEIGHT/LENGTH: 61 IN (154.94 CM), WEIGHT: 102.6 LBS (46.64 KGS), BMI: 19.4, TEMPERATURE: 96.8 ?F (36 ?C), PULSE: 64 BPM, RESPIRATORY RATE: 16 BREATHS/MIN, BLOOD PRESSURE: 155/88 MMHG, PULSE OXIMETRY: 100 %. PHYSICAL EXAM CONSTITUTIONAL: GENERALIZED WEAKNESS. IN NO APPARENT DISTRESS. GOOD ATTENTION TO HYGIENE AND BODY HABITS. ALERT AND ORIENTED X 3. WELL NOURISHED. VITAL SIGNS REVIEWED AND NOTED. BLOOD PRESSURE NORMAL. PULSE RATE AND RHYTHM REGULAR. AFEBRILE. MALNOURISHED. WELL DEVELOPED, WELL NOURISHED, AND IN NO ACUTE DISTRESS. ALERT AND ORIENTED X3. AMBULATES AND IS ABLE TO CHANGE POSITION WITHOUT ASSISTANCE. ALERT AND ORIENTED X 3. RESPIRATORY: EVEN RESPIRATIONS WITHOUT USE OF ACCESSORY MUSCLES. NO INTERCOASTAL RETRACTIONS NOTED. EVEN AND NON LABORED RESPIRATION. CARDIOVASCULAR: SEE LOWER EXTREMITY ASSESSMENT WHEN APPLICABLE. THERE IS NO PERIPHERAL EDEMA, CYANOSIS OR PALLOR. EXTREMITIES ARE WARM AND WELL PERFUSED. CAPILLARY REFILL IS LESS THAN 2 SECONDS. INTEGUMENTARY (HAIR, SKIN): SEE WOUND DESCRIPTION. NEUROLOGICAL: SENSATION: SYMMETRIC FUNCTION BY INFORMAL OBSERVATION. PSYCHIATRIC: ORIENTATION TO TIME, PLACE AND PERSON: NORMAL AFFECT WITH NORMAL THOUGHT PATTERN. MOOD AND AFFECT: NORMAL AFFECT WITH NORMAL THOUGHT PATTERN. WOUND ASSESSMENT(S) WOUND #2 COCCYX IS A CHRONIC STAGE 4 PRESSURE INJURY PRESSURE ULCER ACQUIRED ON 02/15/2024 AND HAS RECEIVED A STATUS OF NOT HEALED. INITIAL WOUND ENCOUNTER MEASUREMENTS ARE 1.8CM LENGTH X 0.6CM WIDTH X 0.1 CM DEPTH, WITH AN AREA OF 1.08 SQ CM AND A VOLUME OF 0.108 CUBIC CM.INITIAL WOUND ENCOUNTER PREVIOUS MEASUREMENTS FROM 08/23/2024 ARE 2.4CM LENGTH X 1CM WIDTH X 0.1CM DEPTH, WITH AN AREA OF 2.4 SQ CM AND A VOLUME OF 0.24 CUBIC CM. ADIPOSE IS EXPOSED. HYPERGRANULATION WAS NOTED. NO TUNNELING HAS BEEN NOTED. NO SINUS TRACT HAS BEEN NOTED. NO UNDERMINING HAS BEEN NOTED. THERE IS A MODERATE AMOUNT OF SEROSANGUINEOUS DRAINAGE NOTED WHICH HAS NO ODOR. THE PATIENT REPORTS A WOUND PAIN OF LEVEL 0/10. THE WOUND MARGIN IS ATTACHED WOUND BED HAS YES, BRIGHT RED, PINK, FIRM, GRANULATION, YES SLOUGH, NO ESCHAR, YES EPITHELIALIZATION. THE PERIWOUND SKIN DID NOT EXHIBIT BRAWNY INDURATION, EDEMA, EXCORIATION, INDURATION, CALLUS, CREPITUS, FLUCTUANCE, RASH, MACERATION, ATROPHIE CARLA, CYANOSIS, ECCHYMOSIS, ERYTHEMA, HEMOSIDEROSIS, PALLOR AND RUBOR. THE PERIWOUND SKIN WAS NOT FRIABLE, DRY/SCALY AND MOIST. THE TEMPERATURE OF THE PERIWOUND CHERRY KENT [id number] 1955 SKIN IS WNL. PERIWOUND SKIN DOES NOT EXHIBIT SIGNS OR SYMPTOMS OF INFECTION. LOCAL PULSE IS N/A. ASSESSMENT ACTIVE PROBLEMS ICD-10 (ENCOUNTER DIAGNOSIS) L89.154 - PRESSURE ULCER OF SACRAL REGION, STAGE 4 (ENCOUNTER DIAGNOSIS) E46 - UNSPECIFIED PROTEIN-CALORIE MALNUTRITION PROCEDURES WOUND #2 WOUND #2 (PRESSURE ULCER) IS LOCATED ON THE COCCYX. A SKIN/SUBCUTANEOUS TISSUE LEVEL SURGICAL DEBRIDEMENT WITH A TOTAL AREA DEBRIDED OF 1.08 SQ CM. WAS PERFORMED BY CINTHIA COLLINS PA-C. SUBCUTANEOUS WAS REMOVED ALONG WITH DEVITALIZED TISSUE: BIOFILM AND SLOUGH. THE FOLLOWING INSTRUMENT(S) WERE USED: CURETTE. PAIN CONTROL WAS ACHIEVED USING EMLA LIDOCAINE/PRILOCAINE 2.5%/2.5%. A TIME OUT WAS CONDUCTED PRIOR TO THE START OF THE PROCEDURE. A MODERATE AMOUNT OF BLEEDING WAS CONTROLLED WITH SILVER NITRATE. THE PROCEDURE WAS TOLERATED WELL WITH A PAIN LEVEL OF 0 THROUGHOUT AND A PAIN LEVEL OF 0 FOLLOWING THE PROCEDURE. POST DEBRIDEMENT MEASUREMENTS: 1.8CM LENGTH X 0.6CM WIDTH X 0.2CM DEPTH; WITH AN AREA OF 1.08 SQ CM AND A VOLUME OF 0.216 CUBIC CM. ADDITIONAL INFORMATION MUSCLE FASCIA OR BONE REMOVED AND SENT TO PATHOLOGY?: NO PLAN WOUND ORDERS: WOUND #2 COCCYX HAND HYGIENE HAND HYGIENE - WASH HANDS BEFORE AND AFTER WOUND CARE. CALL THE WOUND CENTER AT [phone] IF YOU HAVE SIGNS OR SYMPTOMS OF INFECTION, FEVER CHILLS OR SHAKES, INCREASED DRAINAGE, INCREASED ODOR OR UNUSUAL REDNESS. AFTER WOUND CENTER HOURS PLEASE NOTIFY YOUR PCP OR GO TO THE EMERGENCY ROOM. CLEANSER APPLY HYPOCHLOROUS ACID (VASHE OR SIMILAR) SOAKED 4X4 GAUZE TO WOUND BED FOR 5- 10 MINUTES AFTER PROVIDER HAS COMPLETED WOUND EXAM. REMOVE GAUZE AND DRESS WOUND ACCORDING TO DRESSING ORDERS. MAY SHOWER, LEAVE WOUND DRESSING INTACT. COVER WOUND DRESSING WITH A WATERPROOF BARRIER. KEEP DRESSING DRY. NO BATHS PLEASE. PROCEDURE / ANESTHETIC 4% TOPICAL LIDOCAINE TO WOUND BED PRIOR TO PROCEDURE, IN CLINIC ONLY. TOPICAL TREATMENTS OTHER ORDER: - HOLD LOTIRSONE THIS WEEK UNLESS IRRITATION IS VISIBLE. DRESSING ORDERS APPLY DRESSING(S) AND SECURE WITH: - PROMOGRAN COLLAGEN, MOISTENED WITH NORMAL SALINE OR DISTILLED WATER, APPLIED TO BASE OF WOUND. HYDROFERA BLUE. COVER WITH SILICONE SUPERABSORBENT DRESSING. DRESSING CHANGE FREQUENCY CHANGE DRESSING EVERY OTHER DAY. - [employer] [facility]- PLEASE CHANGE DRESSING EVERY MONDAY AND MONDAY. ADDITIONAL ORDERS: OFF-LOADING / PRESSURE RELIEF SEAT LIFTS OR SHIFT POSITION IN CHAIR EVERY 15 MINUTES. CHERRY KENT [id number] 1955 TURN EVERY 2 HOURS. AVOID POSITION DIRECTING PRESSURE TO WOUND SITE. LIMIT SIDE LYING TO 30 DEGREE TILT. LIMIT HOB ELEVATION TO 30 DEGREES IN BED. OTHER ORDER: - ROHO CUSHION ON ALL SEATING SURFACES. AVOID PRESSURE OVER WOUND. DIETARY TAKE VITAMIN C 1000MG BY MOUTH DAILY. TAKE ZINC 25MG BY MOUTH DAILY. INCREASE THE PROTEIN IN YOUR DIET. - AIDS IN WOUND HEALING. OTHER NUTRITIONAL SUPPLEMENT: - IZAIAH OR ENSURE MAX. AIM FOR 30 GRAMS ADDITIONAL PROTEIN BETWEEN MEALS. HOME HEALTH HOME HEALTH CARE: IF YOU HAVE ANY QUESTIONS OR CONCERNS PLEASE CONTACT THE WOUND CENTER. - [facility] FOR DRESSING CHANGES ON MONDAYS AND WEDNESDAYS. FOLLOW-UP APPOINTMENTS RETURN APPOINTMENT 1 WEEK - [place]. SCRIBING ATTESTATION I ATTEST, THE NURSE, THAT I SCRIBED THESE ORDERS FOR THE WOUND CARE PROVIDER. PROVIDER REVIEW AND ATTESTATION: REVIEWED AND EVALUATED LABS. REVIEWED HOSPITAL RECORDS. DISCUSSED THE PLAN OF CARE @ BEDSIDE WITH - PATIENT I AGREE AND ATTEST TO THE ABOVE INFORMATION PROVIDED FROM OTHER LICENSED PROFESSIONALS. PLAN OF CARE: 01. ENSURE/ESTABLISH OPTIMAL BLOOD FLOW : - REVIEWED, NOT APPLICABLE 02. ASSESS FOR/TREAT INFECTION : - EVALUATE FOR SIGNS AND SYMPTOMS OF INFECTION AND DOCUMENT FINDINGS. STATUS: CONTINUED DATE: 08/09/2024 03. DEBRIDE WEEKLY OR MORE OFTEN PRN : - EVALUATE PATIENT IN CENTER WEEKLY TO ASSESS WOUND BED AND MARGINS FOR NEED FOR DEBRIDEMENT. STATUS: CONTINUED DATE: 08/09/2024 - DEBRIDEMENT BY ANY METHOD TO REMOVE DEVITALIZED/NECROTIC TISSUE TO PROMOTE HEALING AND PREVENT FURTHER COMPLICATIONS. GOAL IS TO STIMULATE AND/OR MAINTAIN ACUTE PHASE OF WOUND HEALING BY REDUCING BACTERIAL BURDEN AND DEVITALIZED/NON-VIABLE TISSUE. STATUS: CONTINUED DATE: 08/09/2024 04. OPTIMIZE GLUCOSE CONTROL AND NUTRITION : - ORDER/REVIEW PERTINENT LABS TO EVALUATE RENAL FUNCTION, GLUCOSE CONTROL, AND NUTRITIONAL STATUS. STATUS: CONTINUED DATE: 08/09/2024 05. OFFLOADING PLAN : - REVIEWED, NOT APPLICABLE 06. OPTIMIZE HOST FACTORS: - ASSESS AND REVIEW PATIENT HISTORY FOR WOUND ETIOLOGY, CO-MORBID CONDITIONS, MEDICATION REGIME, AND SMOKING HISTORY. STATUS: CONTINUED DATE: 08/09/2024 - ASSESS LIFESTYLE FACTORS SUCH SMOKING, ALCOHOL/DRUG ABUSE, EATING HABITS/MALNUTRITION AND ACTIVITY LEVEL. STATUS: CONTINUED DATE: 08/09/2024 07. DRESSING SELECTION : - EVALUATE FOR DRESSING-RELATED FACTORS, SUCH AVAILABILITY, WEAR TIME, ADAPTABILITY AND USE TO BETTER OPTIMIZE WOUND HEALING AND PATIENT COMPLIANCE. STATUS: CONTINUED DATE: 08/09/2024 - EDUCATE THE PATIENT/FAMILY/CAREGIVER TO MONITOR DRESSING DAILY. CHANGE DRESSING ONLY NEEDED BUT NEVER LESS FREQUENTLY THAN WEEKLY SO THAT WOUND BED CAN BE REASSESSED. STATUS: CONTINUED DATE: 08/09/2024 CHERRY KENT [id number] 1955 08. ADVANCED MODALITIES : - RE-EVALUATE PLAN OF CARE IF NO EVIDENCE OF HEALING (40% IN 4 WEEKS). STATUS: CONTINUED DATE: 08/09/2024 09. FALL PREVENTION : - COMPLETE FALL ASSESSMENT. STATUS: COMPLETED DATE: 02/23/2024 10. PAIN MANAGEMENT : - COMPLETE PAIN ASSESSMENT STATUS: CONTINUED DATE: 08/09/2024 - INSTRUCT THE PATIENT TO CALL ?TIME-OUT? IF PAIN IS TOO INTENSE DURING PROCEDURE. STATUS: CONTINUED DATE: 08/09/2024 11. MEASURABLE GOALS FOR WOUND HEALING AND/OR HYPERBARIC OXYGEN THERAPY : - DECREASE WOUND DIMENSIONS STATUS: CONTINUED DATE: 08/09/2024 - WOUND CLOSURE STATUS: CONTINUED DATE: 08/09/2024 12. DURATION/FREQUENCY OF WOUND CARE VISITS : - 1X WEEKLY FOR 30 DAYS STATUS: CONTINUED DATE: 08/09/2024 PLAN DEBRIDEMENT TODAY CONTINUE DRESSING WITH COLLAGEN AND HYDROFERA BLUE RECHECK 1 WEEK ELECTRONIC SIGNATURE(S) SIGNED BY: DATE: CINTHIA COLLINS PA-C 09/01/2024 22:07:18 (PT) ENTERED BY: CINTHIA COLLINS PA-C ON 09/01/2024 22:07:01 (PT) CHERRY KENT [id number] 1955
== END ==
PROVIDERS: Referring Provider Surgery; Visit Provider Physician Assistant
DX: L89.154 Pressure ulcer of sacral region, stage 4 (principal); E46 Unspecified protein-calorie malnutrition
CPT/HCPCS: 11042; 99213

== ENCOUNTER → 2024-09-06 09:44 | Outpatient (CLI) | payer OTHER, MEDICARE, SELFPAY ==
[2024-02-15 12:56] VITALS: BMI 18.8
== END ==
PROVIDERS: Referring Provider Surgery; Visit Provider Physician Assistant
DX: L89.154 Pressure ulcer of sacral region, stage 4 (principal); E46 Unspecified protein-calorie malnutrition
CPT/HCPCS: 11042; 99213

== ENCOUNTER → 2024-09-12 09:41 | Outpatient (CLI) | payer OTHER, MEDICARE, SELFPAY ==
[2024-02-15 12:56] VITALS: BMI 18.8
== END ==
PROVIDERS: Referring Provider Surgery; Visit Provider Surgery
DX: L89.154 Pressure ulcer of sacral region, stage 4 (principal); E46 Unspecified protein-calorie malnutrition
CPT/HCPCS: 97602; 99213

== ENCOUNTER → 2024-09-20 14:41 | Outpatient (CLI) | payer OTHER, MEDICARE, SELFPAY ==
[2024-02-15 12:56] VITALS: BMI 18.8
== END ==
PROVIDERS: Referring Provider Surgery; Visit Provider Physician Assistant
DX: L89.154 Pressure ulcer of sacral region, stage 4 (principal); E46 Unspecified protein-calorie malnutrition
CPT/HCPCS: 11042; 99213

== ENCOUNTER → 2024-09-27 09:31 | Outpatient (CLI) | payer OTHER, MEDICARE, SELFPAY ==
[2024-02-15 12:56] VITALS: BMI 18.8
== END ==
PROVIDERS: Referring Provider Surgery; Visit Provider Physician Assistant
DX: L89.154 Pressure ulcer of sacral region, stage 4 (principal); E46 Unspecified protein-calorie malnutrition
CPT/HCPCS: 97597; 99212

== ENCOUNTER → 2024-10-04 09:52 | Outpatient (CLI) | payer OTHER, MEDICARE, SELFPAY ==
[2024-02-15 12:56] VITALS: BMI 18.8
== END ==
PROVIDERS: Visit Provider Physician Assistant
DX: L89.154 Pressure ulcer of sacral region, stage 4 (principal); M86.8X8 Other osteomyelitis, other site; E46 Unspecified protein-calorie malnutrition
CPT/HCPCS: 99212; 99213

== ENCOUNTER → 2024-10-11 09:29 | Outpatient (CLI) | payer OTHER, MEDICARE, SELFPAY ==
[2024-02-15 12:56] VITALS: BMI 18.8
== END ==
PROVIDERS: Visit Provider Physician Assistant
DX: L89.154 Pressure ulcer of sacral region, stage 4 (principal); M86.38 Chronic multifocal osteomyelitis, other site; E46 Unspecified protein-calorie malnutrition
CPT/HCPCS: 99213

== ENCOUNTER → 2024-10-25 15:08 | Outpatient (CLI) | payer OTHER, MEDICARE, SELFPAY ==
[2024-02-15 12:56] VITALS: BMI 18.8
== END ==
LOC: WC 15:11
PROVIDERS: Visit Provider Physician Assistant
DX: L89.154 Pressure ulcer of sacral region, stage 4 (principal); M86.8X8 Other osteomyelitis, other site; E46 Unspecified protein-calorie malnutrition
CPT/HCPCS: 97597; 99212

== ENCOUNTER → 2024-11-08 08:31 | Outpatient (CLI) | payer OTHER, MEDICARE, SELFPAY ==
[2024-02-15 12:56] VITALS: BMI 18.8
== END ==
LOC: WC 08:54
PROVIDERS: Visit Provider Physician Assistant
DX: L89.154 Pressure ulcer of sacral region, stage 4 (principal); L08.9 Local infection of the skin and subcutaneous tissue, unspecified; E46 Unspecified protein-calorie malnutrition; D64.9 Anemia, unspecified
CPT/HCPCS: 11042; 87070; 87075; 87077; 87147; 87186; 87205; 99213; 99214

== ENCOUNTER → 2024-11-15 14:22 | Outpatient (CLI) | payer OTHER, MEDICARE, SELFPAY ==
[2024-02-15 12:56] VITALS: BMI 18.8
== END ==
LOC: WC 14:24
PROVIDERS: Visit Provider Surgery
DX: L89.154 Pressure ulcer of sacral region, stage 4 (principal); L53.9 Erythematous condition, unspecified; M86.9 Osteomyelitis, unspecified; R21 Rash and other nonspecific skin eruption; E46 Unspecified protein-calorie malnutrition; Z79.2 Long term (current) use of antibiotics
CPT/HCPCS: 11042

== ENCOUNTER → 2024-11-21 10:14 | Outpatient (CLI) | payer OTHER, MEDICARE, SELFPAY ==
[2024-02-15 12:56] VITALS: BMI 18.8
== END ==
LOC: WC 10:15
PROVIDERS: Visit Provider Surgery
DX: L89.154 Pressure ulcer of sacral region, stage 4 (principal)
CPT/HCPCS: 97597

== ENCOUNTER → 2024-11-28 12:12 | Outpatient (CLI) | payer OTHER, SELFPAY ==
[2024-02-15 12:56] VITALS: BMI 18.8
== END ==
PROVIDERS: Visit Provider Surgery
DX: Z87.2 Personal history of diseases of the skin and subcutaneous tissue (principal); E46 Unspecified protein-calorie malnutrition
CPT/HCPCS: 99213